=== PATIENT | female | born 1945 | race Caucasian/White ===

== ENCOUNTER 2021-07-06 10:30 | Outpatient (CLI) | payer MEDICARE, SELFPAY ==
[2021-07-06 10:44] LABS: Basophils Absolute Auto 0.05 K/mm3 (0.00-0.10); Basophils Percent Auto 0.9 % (0.0-1.0); Eosinophils Absolute Auto 0.06 K/mm3 (0.02-0.50); Eosinophils Percent Auto 1.1 % (1.0-6.0); Hematocrit 43.7 % (35.0-42.0); Immature Granulocyte Absolute 0.02 K/mm3 (0.00-0.00); Immature Granulocyte Percent A 0.4 % (0.0-0.0); Lymphocytes Absolute Auto 0.87 K/mm3 (1.10-4.50); Lymphocytes Percent Auto 15.9 % (18.0-42.0); Mean Corpuscular Hemoglobin 32.3 pg (27.0-31.0); Mean Corpuscular Volume 100.9 fL (78.0-102.0); Mean Platelet Volume 8.5 fl (9.2-11.8); Monocytes Absolute Auto 0.72 K/mm3 (0.10-0.90); Monocytes Percent Auto 13.2 % (2.0-11.0); Neutrophils Absolute Auto 3.7 K/mm3 (1.7-7.2); Neutrophils Percent Auto 68.5 % (50.0-70.0); Platelet Count Result 211 K/mm3 (150-420); Red Blood Count 4.33 M/mm3 (4.20-5.40); Red Cell Distribution Width 13.6 % (11.6-14.4); White Blood Count 5.5 K/mm3 (4.8-10.8)
[2021-07-06 11:01] LABS: Partial Thromboplastin Time 27.5 SEC (23.90-30.70); Prothrombin Time 11.1 Seconds (9.50-12.10)
[2021-07-06 11:14] LABS: Alanine Aminotransferase 38 U/L (14-59); Albumin Level 3.6 g/dL (3.4-5.0); Alkaline Phosphatase 95 U/L (46-116); Anion Gap 10 mmol/L (8-16); Aspartate Amino Transferase 86 U/L (15-37); Bilirubin,Total 0.6 mg/dL (0.00-1.00); Blood Urea Nitrogen 4 mg/dL (7-18); Carbon Dioxide 28 mmol/L (21-32); Chloride 97 mmol/L (98-108); Estimated Glomerular Filt Rate > 60; Glucose 119 mg/dL (70-99); Osmolality Calculated 277 mOsm/kg (285-295); Potassium 4.3 mmol/L (3.5-5.1); Sodium 135 mmol/L (136-145); Total Protein 6.9 g/dL (6.4-8.2)
[2021-07-06 13:28] LABS: Add Urine Microscopic? YES; Appearance Urine Clear (Clear); Bilirubin Urine Negative (Negative); Blood Urine Negative (Negative); Color Urine Yellow (Yellow); Glucose Urine UA Negative (Negative); Ketones Urine Trace (Negative); Leukocyte Esterase Ur Trace LEU/UL (Negative); Nitrate Urine Negative (Negative); Protein Urine Trace (Negative); Specific Grav Ur 1.025 (1.010-1.020); Urobilinogen Urine 0.2 mg/dL (0.2-1.0)
[2021-07-06 13:36] LABS: Bacteria Urine Trace /hpf; Mucus Urine Moderate /lpf; RBC Urine None seen /hpf (0-2); Squamous Epithelial Cell Urine Moderate /hpf (Few)
== END 2021-07-06 10:31 | disposition home or self-care (01) ==
PROVIDERS: PCP Internal Medicine
DX: I49.5 Sick sinus syndrome (principal); R55 Syncope and collapse; I45.5 Other specified heart block; I48.92 Unspecified atrial flutter; R09.89 Other specified symptoms and signs involving the circulatory and respiratory systems; R60.0 Localized edema; I48.0 Paroxysmal atrial fibrillation; G47.30 Sleep apnea, unspecified; Z95.818 Presence of other cardiac implants and grafts; J45.909 Unspecified asthma, uncomplicated; I10 Essential (primary) hypertension
CPT/HCPCS: 36415; 80053; 81001; 85025; 85610; 85730

== ENCOUNTER 2021-08-15 12:34 | Outpatient (CLI) | payer MEDICARE, SELFPAY ==
[2021-08-15 13:06] LABS: INR 1.1; Prothrombin Time 11.4 Seconds (9.50-12.10)
[2021-08-15 13:26] LABS: Anion Gap 6 mmol/L (8-16); Blood Urea Nitrogen 3 mg/dL (7-18); Calcium 9.1 mg/dL (8.5-10.1); Carbon Dioxide 29 mmol/L (21-32); Chloride 101 mmol/L (98-108); Estimated Glomerular Filt Rate > 60; Glucose 115 mg/dL (70-99); Magnesium 1.8 mg/dL (1.8-2.4); Osmolality Calculated 279 mOsm/kg (285-295); Potassium 4.5 mmol/L (3.5-5.1); Sodium 136 mmol/L (136-145)
== END 2021-08-15 12:35 | disposition home or self-care (01) ==
PROVIDERS: PCP Internal Medicine
DX: Z01.812 Encounter for preprocedural laboratory examination (principal); R00.1 Bradycardia, unspecified; I45.5 Other specified heart block; I48.92 Unspecified atrial flutter; R09.89 Other specified symptoms and signs involving the circulatory and respiratory systems
CPT/HCPCS: 36415; 80048; 83735; 85610

== ENCOUNTER 2022-01-10 18:29 | Outpatient (CLI) | payer MEDICARE, SELFPAY ==
[2022-01-10 18:49] LABS: Basophils Percent Auto 2.1 % (0.0-1.0); Eosinophils Absolute Auto 0.06 K/mm3 (0.02-0.50); Eosinophils Percent Auto 1.3 % (1.0-6.0); Hematocrit 40.2 % (35.0-42.0); Hemoglobin 13.2 g/dL (11.7-13.8); Immature Granulocyte Absolute 0.01 K/mm3 (0.00-0.00); Immature Granulocyte Percent A 0.2 % (0.0-0.0); Lymphocytes Absolute Auto 0.81 K/mm3 (1.10-4.50); Lymphocytes Percent Auto 17.2 % (18.0-42.0); Mean Corpuscular HGB Conc 32.8 g/dL (32.0-36.0); Mean Corpuscular Hemoglobin 34.3 pg (27.0-31.0); Mean Corpuscular Volume 104.4 fL (78.0-102.0); Mean Platelet Volume 8.6 fl (9.2-11.8); Monocytes Percent Auto 14.9 % (2.0-11.0); Neutrophils Percent Auto 64.3 % (50.0-70.0); Platelet Count Result 224 K/mm3 (150-420); Red Blood Count 3.85 M/mm3 (4.20-5.40); Red Cell Distribution Width 14.3 % (11.6-14.4); White Blood Count 4.7 K/mm3 (4.8-10.8)
[2022-01-10 19:22] LABS: Alanine Aminotransferase 69 U/L (14-59); Albumin Level 3.1 g/dL (3.4-5.0); Alkaline Phosphatase 132 U/L (46-116); Anion Gap 6 mmol/L (8-16); Aspartate Amino Transferase 198 U/L (15-37); Bilirubin,Total 0.6 mg/dL (0.00-1.00); Blood Urea Nitrogen 5 mg/dL (7-18); Calcium 8.6 mg/dL (8.5-10.1); Carbon Dioxide 29 mmol/L (21-32); Chloride 99 mmol/L (98-108); Estimated Glomerular Filt Rate > 60; Free T3 2.57 pg/mL (2.18-3.98); Free T4 Free Thyroxine 0.75 ng/dL (0.76-1.46); Glucose 114 mg/dL (70-99); NT Pro B Type Natriuretic Pept 85 pg/mL (0-450); Osmolality Calculated 276 mOsm/kg (285-295); Potassium 4.4 mmol/L (3.5-5.1); Sodium 134 mmol/L (136-145); Thyroid Stimulating Hormone 1.27 uIU/mL (0.36-3.74); Total Protein 6.7 g/dL (6.4-8.2)
[2022-01-14 12:09] LABS: Hepatitis A Antibody IgM Nonreactive; Hepatitis B Core Antibody Nonreactive (Nonreactive); Hepatitis B Surface Antigen Nonreactive (Nonreactive); Hepatitis C Signal to Cutoff 0.05 ratio (<1.00); Hepatitis C Virus Antibody Nonreactive (Nonreactive)
== END 2022-01-10 18:30 | disposition home or self-care (01) ==
LOC: CHSLAB 18:32
PROVIDERS: PCP Internal Medicine; Visit Provider Internal Medicine
DX: R16.0 Hepatomegaly, not elsewhere classified (principal); R60.9 Edema, unspecified; I10 Essential (primary) hypertension; R06.00 Dyspnea, unspecified
CPT/HCPCS: 36415; 80053; 80074; 83880; 84439; 84443; 84481; 85025

== ENCOUNTER 2022-01-19 08:22 | Outpatient (CLI) | payer MEDICARE, SELFPAY ==
--- NOTE | ~2022-01-19 | US_ITS ---
US arterial ankle brachial ind INDICATION: Hypertension, heart disease. Hyperlipidemia. TECHNIQUE: Segmental pressures and plethysmographic and Doppler waveforms of the brachial and lower e xtremity arteries were obtained. COMPARISON: None. FINDINGS: Right and left brachial artery pressures of 111 mm Hg and 116 mm Hg, respectively, are concordant (no rmal difference <= 30 mmHg). The right ankle-brachial index (CELI) is 1.13 (normal >= 0.9-1.0). The right great toe-brachial index (TBI) is 0.91 (normal >= 0.60). The left CELI is 1.16. The left TBI is 0.86. IMPRESSION: 1. Normal bilateral ankle and toe brachial indices. Reviewed, dictated and finalized at location B.
--- NOTE | ~2022-01-19 | US_ITS ---
US abdomen complete EXAMINATION: US Abdomen Complete INDICATION: Hepatomegaly PROCEDURE: Realtime High Resolution abdomen ultrasound. COMPARISON: No prior studies for comparison FINDINGS: There is gallbladder wall thickening. No gallstones or pericholecystic fluid. Common bile duct is not visualized. Liver echotexture is increased, consistent with fatty infiltration. Liver is enlarged measuring 21.6 cm. Pancreas is obscured by bowel gas. Spleen is unremarkeable. Renal echotexture is within normal li mits bilaterally without hydronephrosis, contour deforming mass or renal stone. Right kidney measures 10.6 cm. Left kidney measures 11.6 cm. Visualized aspects of the aorta and IVC are within normal limits. Portal vein is patent. No sonograph ic Umaña's sign indicated by the technologist. IMPRESSION: 1: Hepatomegaly with fatty infiltration of the liver. 2: Mild gallbladder wall thickening. This could indicate interstitial edema, chronic liver disease o r chronic cholecystitis. Reviewed, dictated and finalized at location B. IMPRESSION: 1: Hepatomegaly with fatty infiltration of the liver. 2: Mild gallbladder wall thickening. This could indicate interstitial edema, c hronic liver disease or chronic cholecystitis.
--- NOTE | ~2022-01-19 | XR_ITS ---
XR chest 2V 01/19/2022 08:46 Indication: Hypertension. Procedure: 2 view chest Comparison: 02/18/2019 Findings: There is chronic left basilar atelectasis/scarring. Heart size normal. Pacemaker leads in e xpected position. No focal air space disease, pulmonary edema, pleural effusion or suspected pneumoth orax. No acute osseous abnormality. Moderate thoracic spondylosis. Impression: 1: No acute cardiopulmonary disease. 2: Chronic left basilar atelectasis/scarring. Reviewed, dictated and finalized at location B. Impression: 1: No acute cardiopulmonary disease. 2: Chronic left basilar atelectasis/scarring.
[2022-01-19 08:34] LABS: Appearance Urine Clear (Clear); Bilirubin Urine Negative (Negative); Blood Urine Negative (Negative); Glucose Urine UA Negative (Negative); Ketones Urine Negative (Negative); Leukocyte Esterase Ur Trace (Negative); Nitrate Urine Negative (Negative); Protein Urine Negative (Negative); Specific Grav Ur <= 1.005 (1.010-1.020); Urobilinogen Urine 0.2 mg/dL (0.2-1.0)
[2022-01-19 08:38] LABS: Add Urine Microscopic? YES; Color Urine Light Yellow (Yellow); RBC Urine None seen /hpf (0-2)
[2022-01-19 08:39] LABS: Bacteria Urine Trace /hpf; Squamous Epithelial Cell Urine Rare /hpf (Few); WBC Urine 0-3 /hpf (0-3)
== END 2022-01-19 08:23 | disposition home or self-care (01) ==
LOC: CHSIMG 08:25
PROVIDERS: PCP Internal Medicine; Visit Provider Internal Medicine
DX: I73.9 Peripheral vascular disease, unspecified (principal); R16.0 Hepatomegaly, not elsewhere classified; R60.9 Edema, unspecified; I10 Essential (primary) hypertension
CPT/HCPCS: 71046; 76700; 81001; 93922

== ENCOUNTER 2022-05-08 16:11 | Outpatient (CLI) | payer MEDICARE, SELFPAY ==
[2022-05-08 16:28] LABS: Basophils Absolute Auto 0.06 K/mm3 (0.00-0.10); Basophils Percent Auto 0.7 % (0.0-1.0); Eosinophils Absolute Auto 0.08 K/mm3 (0.02-0.50); Eosinophils Percent Auto 0.9 % (1.0-6.0); Hematocrit 44.2 % (35.0-42.0); Hemoglobin 14.5 g/dL (11.7-13.8); Immature Granulocyte Absolute 0.03 K/mm3 (0.00-0.00); Immature Granulocyte Percent A 0.3 % (0.0-0.0); Lymphocytes Absolute Auto 1.38 K/mm3 (1.10-4.50); Lymphocytes Percent Auto 15.5 % (18.0-42.0); Mean Corpuscular HGB Conc 32.8 g/dL (32.0-36.0); Mean Corpuscular Hemoglobin 31.7 pg (27.0-31.0); Mean Corpuscular Volume 96.7 fL (78.0-102.0); Mean Platelet Volume 8.3 fl (9.2-11.8); Monocytes Absolute Auto 0.87 K/mm3 (0.10-0.90); Monocytes Percent Auto 9.8 % (2.0-11.0); Neutrophils Absolute Auto 6.5 K/mm3 (1.7-7.2); Neutrophils Percent Auto 72.8 % (50.0-70.0); Platelet Count Result 268 K/mm3 (150-420); Red Blood Count 4.57 M/mm3 (4.20-5.40); Red Cell Distribution Width 12.4 % (11.6-14.4); White Blood Count 8.9 K/mm3 (4.8-10.8)
[2022-05-08 17:05] LABS: Alanine Aminotransferase 26 U/L (14-59); Albumin Level 3.3 g/dL (3.4-5.0); Alkaline Phosphatase 111 U/L (46-116); Anion Gap 9 mmol/L (8-16); Aspartate Amino Transferase 37 U/L (15-37); Bilirubin,Total 0.6 mg/dL (0.00-1.00); Blood Urea Nitrogen 6 mg/dL (7-18); Calcium 9.1 mg/dL (8.5-10.1); Carbon Dioxide 27 mmol/L (21-32); Chloride 95 mmol/L (98-108); Estimated Glomerular Filt Rate > 60; Glucose 132 mg/dL (70-99); Osmolality Calculated 271 mOsm/kg (285-295); Potassium 4.3 mmol/L (3.5-5.1); Sodium 131 mmol/L (136-145); Total Protein 6.9 g/dL (6.4-8.2)
== END 2022-05-08 16:12 | disposition home or self-care (01) ==
LOC: CHSLAB 16:16
PROVIDERS: PCP Internal Medicine; Visit Provider Internal Medicine
DX: K76.9 Liver disease, unspecified (principal)
CPT/HCPCS: 36415; 80053; 85025

== ENCOUNTER 2023-02-28 18:45 | Emergency (ER) | payer MEDICARE, SELFPAY ==
[2023-02-28 18:45] VITALS: BP 140/84; PULSE 117; RESP 20; TEMP 36.7; O2SAT 96
[2023-02-28 19:26] LABS: Basophils Absolute Auto 0.02 K/mm3 (0.00-0.10); Basophils Percent Auto 0.2 % (0.0-1.0); Hematocrit 37.9 % (35.0-42.0); Hemoglobin 12.8 g/dL (11.7-13.8); Immature Granulocyte Absolute 0.04 K/mm3 (0.00-0.00); Immature Granulocyte Percent A 0.4 % (0.0-0.0); Lymphocytes Absolute Auto 0.69 K/mm3 (1.10-4.50); Lymphocytes Percent Auto 7.2 % (18.0-42.0); Mean Corpuscular HGB Conc 33.8 g/dL (32.0-36.0); Mean Corpuscular Hemoglobin 32.2 pg (27.0-31.0); Mean Corpuscular Volume 95.5 fL (78.0-102.0); Mean Platelet Volume 8.5 fl (9.2-11.8); Monocytes Absolute Auto 0.95 K/mm3 (0.10-0.90); Monocytes Percent Auto 9.9 % (2.0-11.0); Neutrophils Absolute Auto 7.9 K/mm3 (1.7-7.2); Neutrophils Percent Auto 82.3 % (50.0-70.0); Platelet Count Result 214 K/mm3 (150-420); Red Blood Count 3.97 M/mm3 (4.20-5.40); White Blood Count 9.6 K/mm3 (4.8-10.8)
--- NOTE | 2023-02-28 19:34 | PC.NURSE ---
report to johnnie marshall
[2023-02-28] MEDS: SODIUM CHLORIDE 0.9% IV 1,000 ML 999 ML IV CONT (19:35)
[2023-02-28 19:38] VITALS: BP 132/85; PULSE 113; RESP 20; O2SAT 96
[2023-02-28 19:40] LABS: INR 1.2; Partial Thromboplastin Time 26.6 SEC (23.90-30.70); Prothrombin Time 12.5 Seconds (9.50-12.10)
[2023-02-28 19:45] LABS: Lactic Acid Reflex 6.3 mmol/L (0.4-2.0)
[2023-02-28 20:09] LABS: Alanine Aminotransferase 54 U/L (14-59); Albumin Level 2.5 g/dL (3.4-5.0); Alkaline Phosphatase 135 U/L (46-116); Anion Gap 12 mmol/L (8-16); Aspartate Amino Transferase 101 U/L (15-37); Bilirubin,Total 1.4 mg/dL (0.00-1.00); Blood Urea Nitrogen 5 mg/dL (7-18); Calcium 9.1 mg/dL (8.5-10.1); Carbon Dioxide 25 mmol/L (21-32); Chloride 93 mmol/L (98-108); Estimated CRCL calculation 42 ml/min; Estimated Glomerular Filt Rate > 60; Folic Acid 14.9 ng/mL (8.6->20); Glucose 140 mg/dL (70-99); Osmolality Calculated 269 mOsm/kg (285-295); Potassium 4.1 mmol/L (3.5-5.1); Sodium 130 mmol/L (136-145); Total Protein 5.9 g/dL (6.4-8.2); Vitamin B12 1034 pg/mL (193-986)
--- NOTE | 2023-02-28 20:22 | PC.NURSE ---
pt currently sitting up on stretcher eating meal, stew not available in ED, will see if located on 2nd floor and admin if available
[2023-02-28 20:50] LABS: Add Urine Microscopic? NO; Appearance Urine Clear (Clear); Bilirubin Urine Negative (Negative); Blood Urine Negative (Negative); Color Urine Yellow (Yellow); Glucose Urine UA Negative (Negative); Ketones Urine Negative (Negative); Leukocyte Esterase Ur Negative LEU/UL (Negative); Nitrate Urine Negative (Negative); Protein Urine Negative (Negative); Urobilinogen Urine 0.2 mg/dL (0.2-1.0); pH Urine 6.5 (5.0-8.0)
--- NOTE | 2023-02-28 20:56 | ED.EXTPRO ---
HPI - Extremity Problem General Chief complaint: Extremity Problem,Nontraumatic Stated complaint: numbness to feet Source: patient Mode of arrival: ambulatory Limitations: no limitations History of Present Illness HPI Narrative: this is a 77-year-old female with the history of alcohol abuse that presents with neuropathy her numbness and tingling in her feet started earlier this this evening and had difficulty with walking secondary to worried about having a fall. Patient denies any other symptoms there is no fever chills no saddle paresthesias no bowel or bladder dysfunction no back pain no sciatica, there is no chest pain no shortness of breath no fever chills. Patient has stated that she is a chronic drinker and has some not had enough fluids over the past few days. MD Complaint: extremity pain Onset (ago): hour(s) Pain Consistency: constant Location: lower extremity Quality: burning Radiation: distal Related Data Allergies Allergy/AdvReac Type Severity Reaction Status Date / Time No Known Allergies Allergy Verified 02/28/23 19:43 Review of Systems Review of Systems: All systems reviewed & are unremarkable except as noted in HPI and below PMFSH Past Medical History Medical History Alcohol abuse HTN (hypertension) Exam Const: General: healthy appearing Orientation/consciousness: patient oriented x3 Limitations: no limitations HENMT: Head: normal to inspection Neck: Neck: normal visual inspection, no lymphadenopathy and no meningeal signs Chest: Chest palpation & inspection: normal inspection of the chest Resp: Effort & Inspection: normal respiratory effort Auscultation: clear to auscultation bilaterally Cardio: Rate: regular rate Rhythm: regular rhythm GI: GI Palp: Yes Soft to palpation Auscultation: normal bowel sounds : General: Yes bladder normal to palpation Back/Spine/Pelvis: Back: no CVA tenderness Skin: General skin exam: normal color Rashes: no rashes Neuro: General: patient oriented x3, moves all extremities, no meningeal signs and no focal motor deficits Speech: normal speech Gait exam (Neuro): Normal gait present Extrem: Other: has peripheral neuropathy with burning sensation and bilateral feet Psych: Mental Status: mental status grossly normal Affect: normal affect Course Course Emergency Course: patient received a dose of Neurontin 4mg, labs reviewed with patient and family did show that her sodium level was 130 with a lactic acid around 6, with normal white cell count and the rest of her labs were unremarkable, the patient did receive L of IV fluids. Discussed discharge and follow-up with her primary and will prescribe Neurontin for the patient. Vital Signs Vital signs: Vital Signs Temperature 36.7 C 02/28/23 18:45 Pulse Rate 117 H 02/28/23 18:45 Respiratory Rate 20 02/28/23 18:45 Blood Pressure 140/84 02/28/23 18:45 Pulse Oximetry 96 02/28/23 18:45 Oxygen Delivery Room Air 02/28/23 18:45 Temperature 36.7 C 02/28/23 18:45 Pulse Rate 113 H 02/28/23 19:38 Respiratory Rate 20 02/28/23 19:38 Blood Pressure 132/85 02/28/23 19:38 Pulse Oximetry 96 02/28/23 19:38 Oxygen Delivery Room Air 02/28/23 19:38 MDM - Extremity (Nontraumatic) Lab Data 02/28/23 19:22 02/28/23 19:22 Labs: Lab Results 02/28/23 02/28/23 Range/Units 19:22 20:47 WBC 9.6 (4.8-10.8) K/mm3 RBC 3.97 L (4.20-5.40) M/mm3 Hgb 12.8 (11.7-13.8) g/dL Hct 37.9 (35.0-42.0) % MCV 95.5 (78.0-102.0) fL MCH 32.2 H (27.0-31.0) pg MCHC 33.8 (32.0-36.0) g/dL RDW 14.0 (11.6-14.4) % Plt Count 214 (150-420) K/mm3 MPV 8.5 L (9.2-11.8) fl Immature Gran % (Auto) 0.4 H (0.0-0.0) % Neut % (Auto) 82.3 H (50.0-70.0) % Lymph % (Auto) 7.2 L (18.0-42.0) % Cottle % (Auto) 9.9 (2.0-11.0) % Eos % (Auto) 0.0 L (1.0-6.0) % Baso
[2023-02-28 21:12] VITALS: BP 116/69; PULSE 102; RESP 18; O2SAT 97
[2023-02-28] MEDS: GABAPENTIN 400 MG CAPSULE PO (21:21)
[2023-02-28 22:25] LABS: Reflex Lactic Acid Yes or No Add Lactic
== END 2023-02-28 21:30 | disposition home or self-care (01) ==
PROVIDERS: Emergency Provider Emergency Medicine; PCP Internal Medicine
DX: G62.9 Polyneuropathy, unspecified (principal); I10 Essential (primary) hypertension
CPT/HCPCS: 36415; 80053; 81003; 82607; 82746; 83605; 84443; 85025; 85610; 85730; 96360; 99283; A9270; J7030

== ENCOUNTER 2023-07-03 16:13 | Emergency (ER) | payer MEDICARE, SELFPAY ==
--- NOTE | ~2023-07-03 | XR_ITS ---
XR hip LT 2V w AP pelvis 07/03/2023 17:15 Indication: Left hip pain Procedure: AP pelvis and 2 views left hip Comparison: No prior studies for comparison. Findings: There is ill-defined irregular lucency in the intertrochanteric region of the left femur, s uspicious for nondisplaced fracture. There is mild osteoarthritis of the hips. Pelvic rings are intac t. Impression: 1: Possible nondisplaced left femoral intertrochanteric fracture. Consider correlation with CT. Reviewed, dictated and finalized at location A. Impression: 1: Possible nondisplaced left femoral intertrochanteric fracture. Consider darian elation with CT.
--- NOTE | ~2023-07-03 | XR_ITS ---
EXAMINATION: XR hand LT min 3V DATE: 07/03/2023 17:15 INDICATION: Left hand injury. TECHNIQUE: 4 views of left hand were obtained. COMPARISON: None. FINDINGS: Bone alignment is normal. No fracture. There is moderate osteoarthritis of triscaphe joint and severe osteoarthritis of first carpometacarpal joint. There is mild osteoarthritis of some of the interphalangeal joints. IMPRESSION: 1. Polyarticular osteoarthritis. Reviewed, dictated and finalized at location A.
--- NOTE | ~2023-07-03 | CT_ITS ---
EXAMINATION: CT hip LT wo con DATE: 07/03/2023 18:18 INDICATION: Trauma. Left hip pain. TECHNIQUE: Computed tomography (CT) of the left hip was performed without intravenous contrast. The d ose-length product was 427.79 mGy-cm. Automated exposure control and iterative reconstruction technElectron Database ue were employed. COMPARISON: Left hip series dated 07/03/2023 FINDINGS: There is mild osteoarthritis of the left hip. No acute fracture or traumatic malalignment. Surrounding pelvic structures are unremarkable. There are calcified soft tissue nodules in the latera l soft tissues of doubtful clinical significance. IMPRESSION: 1. No acute fracture. Reviewed, dictated and finalized at location A. IMPRESSION: 1. No acute fracture.
--- NOTE | ~2023-07-03 | CT_ITS ---
EXAMINATION: CT brain wo con DATE: 07/03/2023 17:00 INDICATION: Head injury. TECHNIQUE: Computed tomography (CT) of the head was performed without intravenous contrast. The dose- length product was 983.67 mGy-cm. Automated exposure control and iterative reconstruction technique w ere employed. COMPARISON: CT dated 02/19/2019 FINDINGS: There is a large area of encephalomalacia of the right frontal, parietal and temporal lobes , consistent with a chronic right MCA distribution infarction. Generalized atrophy. There are scatter ed mild periventricular and subcortical white matter changes, most likely related to small vessel isc hemic disease (microangiopathy). There is an extra-axial lentiform soft tissue collection with margin al calcifications, likely chronic subdural hematoma involving the parietal location. No depressed sku ll fractures. Paranasal sinuses and mastoids are pneumatized. IMPRESSION: 1. Complex extra-axial soft tissue with lentiform shape involving the left parietal location, likely chronic subdural hematoma. 2: Large chronic right MCA distribution infarction with encephalomalacia. 3: Chronic age-related findings. Reviewed, dictated and finalized at location A. IMPRESSION: 1. Complex extra-axial soft tissue with lentiform shape involving the left martín etal location, likely chronic subdural hematoma. 2: Large chronic right MCA distribution infarction with encephalomalacia. 3: Chronic age-related findings.
[2023-07-03 16:30] VITALS: BP 125/83; PULSE 91; RESP 18; TEMP 36.6; O2SAT 96
[2023-07-03 16:31] VITALS: BP 125/83; PULSE 90; RESP 16; TEMP 36.8; O2SAT 98
--- NOTE | 2023-07-03 17:08 | ED.FALL ---
HPI - Fall General Chief Complaint: Fall Stated Complaint: Fall Time Seen by Provider: 07/03/23 16:22 History of Present Illness HPI Narrative: patient is a 78-year-old female with history of CVA and residual left-sided weakness who presents to ER after a fall. She had finished using the restroom and called for help. Nobody came after 1 ring of the lopez so she tried to get up and fell to her left side. She struck her head. No LOC. Patient does take aspirin and Plavix. She also is reporting pain to her left hip where she fell. She is able to move that leg despite having limited strength. Patient has some contracture to the left upper extremity with increased weakness there compared to left. Related Data Allergies Allergy/AdvReac Type Severity Reaction Status Date / Time No Known Allergies Allergy Verified 02/28/23 19:43 Review of Systems Review of Systems: All systems reviewed & are unremarkable except as noted in HPI and below Constitutional: Constitutional: Reports no additional constitutional complaints ENT: Reports system reviewed and no additional complaints, except as documented Cardiovascular: Cardiovascular: Reports no additional cardiovascular complaints Respiratory: Respiratory: Reports no additional respiratory complaints Musculoskeletal: Comments: New pain to the left hip. Integumentary/Breasts: Comments: bruising left hand Neurologic: Denies syncope, Denies headache(s) and Reports focal weakness PMFSH Past Medical History Medical History (Updated 07/03/23 @ 18:50 by Zurdo Randle MD) Alcohol abuse Atrial fib/flutter, transient Brain bleed Colon cancer Hemiplegia following cerebrovascular accident (CVA) HTN (hypertension) Social History Social History Smoking status: Never smoker Exam Narrative: GENERAL: chronically ill-appearing, well-nourished, and in no acute distress. HEAD: Normocephalic, atraumatic. EYES: PERRL and EOMI. ENT: Mucous membranes moist. CHEST: Clear to auscultation. No respiratory distress. HEART: Regular rate and rhythm. Normal peripheral pulses. ABDOMEN: Soft, nontender, nondistended. EXTREMITIES: contractures left upper extremity. Mild tenderness left hip but normal range of motion active/passive. SKIN: Warm, dry, no rash. NEURO: Chronic left facial droop. Alert and oriented x3. PSYCH: Normal mood and affect. Course Course Emergency Course: patient reports known chronic subdural hematoma. She did have a procedure to prevent any additional leaking. Discussed imaging results with her and her daughter. Appropriate for discharge back to facility. Vital Signs Vital signs: Vital Signs Temperature 97.8 F 07/03/23 16:30 Pulse Rate 91 07/03/23 16:30 Respiratory Rate 18 07/03/23 16:30 Blood Pressure 125/83 07/03/23 16:30 Pulse Oximetry 96 07/03/23 16:30 Temperature 98.0 F 07/03/23 17:30 Pulse Rate 98 07/03/23 18:00 Respiratory Rate 17 07/03/23 18:00 Blood Pressure 137/98 H 07/03/23 18:00 Pulse Oximetry 98 07/03/23 18:00 Oxygen Delivery Room Air 07/03/23 16:31 MDM - Fall Imaging Data Radiologist's impression: ITS Impressions Head CT 07/03/23 17:03 IMPRESSION: 1. Complex extra-axial soft tissue with lentiform shape involving the left parietal location, likely chronic subdural hematoma. 2: Large chronic right MCA distribution infarction with encephalomalacia. 3: Chronic age-related findings. Hip/Pelvis X-Ray 07/03/23 17:18 Impression: 1: Possible nondisplaced left femoral intertrochanteric fracture. Consider correlation with CT. Hand X-Ray 07/03/23 17:19 IMPRESSION: 1. Polyarticular osteoarthritis. Hip CT 07/03/23 18:28 IMPRESSION: 1. No acute fracture. Discharge Plan Discharge Clinical Impression: Traumatic ecchymosis of left hand, Hip pain Patient Disposition: Home, Daily
[2023-07-03 17:30] VITALS: BP 136/80; PULSE 90; RESP 20; TEMP 36.7; O2SAT 100
[2023-07-03 18:00] VITALS: BP 137/98; PULSE 98; RESP 17; O2SAT 98
[2023-07-03 18:03] VITALS: BP 138/73; PULSE 97; RESP 17; TEMP 36.4; O2SAT 97
[2023-07-03 18:31] VITALS: BP 143/97; PULSE 90; RESP 16; TEMP 36.7; O2SAT 97
== END 2023-07-03 19:27 | disposition home or self-care (01) ==
PROVIDERS: Emergency Provider Emergency Medicine; PCP Internal Medicine
DX: S60.222A Contusion of left hand, initial encounter (principal); S79.912A Unspecified injury of left hip, initial encounter; S09.90XA Unspecified injury of head, initial encounter; I69.954 Hemiplegia and hemiparesis following unspecified cerebrovascular disease affecting left non-dominant side; I10 Essential (primary) hypertension; Z79.82 Long term (current) use of aspirin; Z79.02 Long term (current) use of antithrombotics/antiplatelets; M19.042 Primary osteoarthritis, left hand; M18.9 Osteoarthritis of first carpometacarpal joint, unspecified; M19.032 Primary osteoarthritis, left wrist; W18.11XA Fall from or off toilet without subsequent striking against object, initial encounter
CPT/HCPCS: 70450; 73130; 73502; 73700; 99284

== ENCOUNTER 2024-07-12 12:40 | Emergency (ER) | payer MEDICARE, SELFPAY ==
--- NOTE | ~2024-07-12 | CT_ITS ---
EXAMINATION: CT abdomen pelvis w con DATE: 07/12/2024 15:30 INDICATION: Blood in stool TECHNIQUE: Computed tomography (CT) of the abdomen and pelvis was performed with 100 CC Omnipaque 350 intravenous contrast. Automated exposure control and iterative reconstruction technique were employe d. Exam dose: 371.94 mGy-cm total exam DLP. COMPARISON: 01/19/2022 abdominal ultrasound FINDINGS: Linear atelectasis or scar, right lower lobe. Minimal atelectasis at the left lung base. Right atrial and right ventricular pacemaker leads. No pericardial or pleural effusion. Hepatic steatosis. No hepatic, splenic, pancreatic, and adrenal or renal space occupying mass lesion. Focal scar, lateral lower pole left kidney. The gallbladder appears unremarkable. No bile duct or pancreatic duct dilatation. No urinary tract calculus or hydroureteronephrosis. The urinary bladder is unremarkable. Status post hysterectomy. There is extensive calcification but normal caliber of the abdominal aorta. Calcifications at the herb gins of the celiac and superior mesenteric and particularly of the renal arteries in addition to infe rior mesenteric artery. No intraperitoneal or retroperitoneal, mesenteric or pelvic mass lesion or adenopathy or ascites. Solitary diverticulum of the descending colon is noted; no evidence of diverticulitis. Right lower quadrant ileostomy. There are occasional left abdominal small bowel air-fluid levels. No small or large bowel obstruction is noted. No intraperitoneal free air. Degenerative spurring of the thoracic spine. Grade 1 anterolisthesis at L4-5 due to degenerative holden ge at the apophyseal joints. Severe degenerative disc disease and mild associated retrolisthesis at L5-S1. IMPRESSION: Right lower quadrant ileostomy. No bowel obstruction or free air Minimal colon diverticulosis Reviewed, dictated and finalized at [facility]. Reviewed, dictated and finalized at location [facility].
[2024-07-12 12:42] VITALS: BP 102/69; PULSE 90; RESP 19; TEMP 36.1; O2SAT 99
--- OUTSIDE RECORDS SUMMARY | 2024-07-12 12:44 | XMS_ITS | Clinical Summary ---
Author Organization [facility] Address [address] [place] [address] Care Team Providers Care Head Waiter Name Role Phone Frank, Lorna Vela APRN-COOLING MACHINE OPERATOR Primary Care Provider Source Comments [facility],non-owned Affiliates and Associated Physician Practices is amultiple site organization consisting of ambulatory clinics and hospital sitesin [place], [place], [place] and [place]. This disclosure is being madepursuant to the Care Everywhere program and may not contain all information available regarding this patient. Last updated 18.[facility] Allergies Active Allergy Reactions Criticality Noted Date Comments Adhesive Sensitivity Rash,Eye Redness Medium 4 Simvastatin Psychiatric Medium 12/18/2017 Causes cognitive impairment Medications * Be aware that medications may not be up to date on this document. Alwaysverify current medications with the patient. Medication Sig Dispensed Refills Start Date End Date Status acetaminophen (TYLENOL) 325 MG tablet Take 2 tablets by mouth every 6 hours as needed for Pain Maximum allowable Acetaminophen amount = 4 Grams (4000 mg) / 24 hours. 8 Active amiodarone (Cordarone) 200 MG tablet Take 1 (one) tablet by mouth once daily 60 tablet 5 4 Active aspirin (Aspirin) 81 MG chew tablet Take 1 (one) tablet by mouth once daily 100 tablet 4 4 Active nystatin (Mycostatin) 531794 UNIT/GM powder Apply to affected area 2 times daily 60 g 5 4 Active atorvastatin (Lipitor) 20 MG tablet Take 1 (one) tablet by mouth once daily 100 tablet 4 4 Active psyllium (Metamucil) 58.6 % powder Take 1 (one) packet by mouth 2 times daily 54 packet 5 4 Active traZODone (Desyrel) 50 MG tablet Take 1 (one) tablet by mouth at bedtime 90 tablet 4 4 Active Cholecalciferol (Vitamin D3) 25 MCG (1000 UT) Take 1 (one) capsule by mouth once daily 30 capsule 5 4 Active levETIRAcetam (Keppra) 500 MG tablet TAKE 1 (ONE) TABLET BY MOUTH 2 TIMES DAILY 180 tablet 3 5 Active metoprolol succinate XL 24hr (Toprol XL) 50 MG tablet TAKE 1 TABLET BY MOUTH EVERY DAY 90 tablet 1 5 Active OLANZapine (ZyPREXA) 5 MG tablet Take 1 (one) tablet by mouth once daily Active venlafaxine XR 24hr (Effexor XR) 75 MG capsuleIndicati ons:Anxiety Take 1 (one) capsule by mouth once daily 90 capsule 4 5 Active escitalopram (Lexapro) 20 MG tablet Take 1 (one) tablet by mouth once daily 90 tablet 4 4 06/27/19 25 Discontinued(Tx Complete) metoprolol succinate XL 24hr (Toprol XL) 50 MG tablet TAKE 1 TABLET BY MOUTH EVERY DAY 90 tablet 1 4 06/16/19 25 Discontinued OLANZapine (ZyPREXA) 2.5 MG tabletIndicatio ns:Psychosis, unspecified psychosis type (HCC) Take 1 (one) tablet by mouth once daily 90 tablet 4 4 06/27/19 25 Discontinued(Tx Complete) Active Problems Problem Noted Date Diagnosed Date Presence of ileostomy 2024 Psychosis, unspecified psychosis type 2024 Hemiplegia and hemiparesis f ollowing cerebral infarction affecting left non-dominant side 2024 Mild dementia, unspecified d ementia type, unspecified whether behavioral, psychotic, or mood disturbance or anxiety 2024 Seizure-like activity 2024 Goals of care, counseling/discussion 10/19/2023 Malnutrition 08/21/2023 SDH (subdural hematoma) 08/19/2023 Recurrent falls 08/19/2023 Colon adenocarcinoma 07/16/2023 CVA (cerebrovascular accident) 06/21/2023 Malignant tumor of colon 06/21/2023 Non-ST elevation (NSTEMI) myocardial infarction 06/21/2023 Presence of cardiac pacemaker 07/13/2021 Bradycardia 06/23/2021 Sinoatrial block 06/23/2021 Sick sinus syndrome 06/23/2021 Status post placement of implantable loop record er 06/07/2021 NAVDEEP (obstructive sleep apnea) 10/14/2017 Atrial fibrillation with RVR 09/17/2017 Sleep apnea 09/17/2017 HTN (hypertension) 07/14/2015 Asthma 07/14/2015 Syncope 05/30/2015 Essential hypertension 02/22/2015 Overview (02/27/2024): Essential hypertension Multiple-type hyperlipidemia 02/22/2015 Overview (02/27/2024): Mixed hyperlipidemia Arteriosclerosis of coronary artery 05/08/2013 Overview (02/27/2024): CRNRY ATHRSCL NATVE VSSL Paroxysmal atrial fibrillation 05/08/2013 Overview (02/27/2024): ATRIAL FIBRILLATION Resolved Problems Problem Noted Date Diagnosed Date Resolved Date Family history of hypertension 02/27/2024 02/27/2024 Acute renal failure 10/19/2023 02/27/20 24 Delirium 10/19/2023 02/27/2024 Leukocytosis 10/19/2023 02/27/2024 E. coli UTI (urinary tract infection) 08/25/2023 03/12/2024 Delirium due to another medical condition 08/22/2023 02/27/2024 History of cardioembolic cer ebrovascular accident (CVA) 07/16/2023 02/27/2024 Encounter for preprocedural cardiovascular examination 06/21/2023 02/27/2024 Ventricular fibrillation 06/21/202310/2023 Abnormal finding on GI tract imaging 04/06/2023 02/27/2024 Gastrointestinal hemorrhage 04/06/2023 02/27/2024 Acute stroke due to ischemia 03/27/2023 02/27/2024 Persistent atrial fibrillation 06/15/2020 02/27/2024 Atrial flutter 03/26/2019 02/27/2024 Ankle edema 01/28/2019 02/27/2024 Weak arterial pulse 01/28/2019 02/27/20 Chronic anticoagulation 07/29/201710/2023 Encounters Date Type Department Care Team Description 2024 12:07 PM MANAGER PROTEIN - 2024 11:59 PM MANAGER PROTEIN Hospital Encounter [facility] OP DRAW STATION [address] [place] [address] Lorna Marie, MILLI-COOLING MACHINE OPERATOR Discharge Disposition: Home or Self Care 2024 11:00 AM MANAGER PROTEIN Office Visit [facility] [address] [place] [phone] Lorna Marie, INVESTOR RELATIONS MANAGER-COOLING MACHINE OPERATOR Presence of ileostomy (Primary Dx); Psychosis, unspecified psychosis type; Hemiplegia and hemiparesis following cerebral infarction affecting left non-dominant side; Mild dementia, unspecified dementia type, unspecified whether behavioral, psychotic, or mood disturbance or anxiety; Seizure-like activity; Colon adenocarcinoma; Paroxysmal atrial fibrillation; SDH (subdural hematoma); Urinary tract infection with hematuria, site unspecified; Dysuria; Hematuria, unspecified type; Hyperlipidemia, unspecified hyperlipidemia type; Anxiety 2024 Travel 06/12/2024 Refill [facility] [address] [place] [phone] Lorna Marie, INVESTOR RELATIONS MANAGER-COOLING MACHINE OPERATOR Refill Request 04/21/2024 Refill [facility] [address] [place] [phone] Nohelia Mayen MD Refill Request from Last 3 Months Immunizations Name Administration Dates Next Due COVID PFIZER BIVALENT 12Y+ 30mcg/0.3ML Covid Pfizer primary monoval ent 12+ yr 0.3mL Purple cap 03/03/2021,07/14/2020,06/15/2020 FLU VACCINE TRI IIV3 SPLIT IM (FLUVIRIN) 017,01/21/2012 INFLUENZA VACCINE, HIGH-DOSE , QUADR. (FLUZONE HIGH-DOSE QUADRIVALENT; 65Y+), 0.7 ML (HD-IIV4) 01/21/2022,02/02/2021 INFLUENZA VACCINE, HIGH-DOSE , TRIV. (FLUZONE HIGH-DOSE TRIVALENT; 65Y+) (HD-IIV3) 02/12/2018,04/26/2015 INFLUENZA VACCINE, QUADR. (A FLURIA, FLUZONE QUADRIVALENT; 6MO+) (IIV4) 01/21/2020,02/18/2014 INFLUENZA VACCINE, QUADR. (F LUZONE; FLULAVAL; FLUARIX; AFLURIA QUADRIVALENT; 6MO+), 0.5 ML (IIV4) 02/13/2019 PNEUMOCOCCAL PPV VACCINE 05/06/2012 Pneumococcal Pcv13 Conj 02/13/2019 TDAP, HISTORIC VACCINE 02/20/2019 Zoster Hzv Vacc Recombinant Inj Im 05/08/2019, Social History Tobacco Use Types Packs/Day Years Used Date Smoking Tobacco: Former Smokeless Tobacco: Never Tobacco Cessation:Counseling Given: Not Answered Comments:quit 36 yrs ago Alcohol Use Standard Drinks/Week Comments Yes 14 (1 standard drink = 0.6 oz pu re alcohol) Sex and Gender Information Value Date Recorded Sex Assigned at Not on file Gender Identity Not on file Sexual Orientation Not on file Last Filed Vital Signs Vital Sign Reading Time Taken Comments Blood Pressure 99/67 2024 10:43 AM MANAGER PROTEIN Pulse 89 2024 10:43 AM MANAGER PROTEIN Temperature 36.7 C (98 F) 11/09/2023 11:43 AM CDT Respiratory Rate 18 11/09/2023 11:4 3 AM CDT Oxygen Saturation 90% 2024 10: 43 AM MANAGER PROTEIN Inhaled Oxygen Concentration - - Weight 63.4 kg (139 lb 12.8 oz) 025 10:43 AM MANAGER PROTEIN Height 162.6 cm (5' 4 ) 2024 10:4 3 AM MANAGER PROTEIN Body Mass Index 24 2024 10:43 AM MANAGER PROTEIN Plan of Treatment Upcoming Encounters Date Type Department Care Team (Late st Contact Info) Description 10/30/2024 11:00 AM CDT Office Visit [facility] [address] [place] [phone] Lorna Marie, INVESTOR RELATIONS MANAGER-COOLING MACHINE OPERATOR [address] [phone] Health Maintenance Due Date Last Done Comments BONE DENSITY TESTING 1945 MEDICARE AWV 12 MONTHS 1945 HEPATITIS C SCREENING 06/21/1964 Respiratory Syncytial Virus (RSV) Vaccine Pt: or over 60 yrs (1 - 1-dose 75+ series) 2021 COVID-19 VACCINE ( season) 2023 01/21/2022, 03/03/2021, 07/14/2020, Additional history exists INFLUENZA VACCINE (#1) 2023 , 02/02/2021, 01/21/2020, Additional history exists DEPRESSION SCREENING 04/22/2024 DTAP/TDAP/TD VACCINES (2 - Td or Tdap) 02/20/2029 02/20/2019 PNEUMOCOCCAL VACCINE 50+ Completed 02/13/2019, 04/22 ZOSTER VACCINE Completed 05/08/2019, 02/20/2019 HEPATITIS B VACCINE Aged Out No longe r eligible based on patient's age to complete this topic HIB VACCINE Aged Out No longer eligi ble based on patient's age to complete this topic HPV VACCINE Aged Out No longer eligi ble based on patient's age to complete this topic MENINGOCOCCAL (Group B) VACCINE SHARED DECISION-MAKING Aged Out No longer eligible based on patient's age to complete this topic MENINGOCOCCAL GROUPS A/C/Y/W VACCINE Aged Out No longer eligible based on patient's age to complete this topic Procedures Procedure Name Priority Date/Time Associated Diagnosis Comments URINALYSIS NO MICROSCOPIC NO CULTURE Routine 2024 12:56 PM MANAGER PROTEIN Psychosis, unspecified psychosis type Urinary tract infection with hematuria, site unspecified Dysuria Hematuria, unspecified type CULTURE URINE Routine 2024 12:56 PM MANAGER PROTEIN Psychosis, unspecified psychosis type Urinary tract infection with hematuria, site unspecified Dysuria Hematuria, unspecified type LDL CHOLESTEROL DIRECT Routine 2024 12:28 PM MANAGER PROTEIN Hyperlipidemia, unspecified hyperlipidemia type COMPREHENSIVE METABOLIC PANEL Routine 2024 12:28 PM MANAGER PROTEIN Psychosis, unspecified psychosis type Urinary tract infection with hematuria, site unspecified Dysuria Hematuria, unspecified type CBC W AUTO DIFFERENTIAL Routine 2024 12:28 PM MANAGER PROTEIN Psychosis, unspecified psychosis type Urinary tract infection with hematuria, site unspecified Dysuria Hematuria, unspecified type LEVETIRACETAM LEVEL Routine 2024 1 2:28 PM MANAGER PROTEIN Seizure-like activity from Last 3 Months Results * (ABNORMAL) URINALYSIS NO MICROSCOPIC NO CULTURE (2024 12:56 PM MANAGER PROTEIN) Color UA Yellow Yellow, Straw 2024 1:37 PM [facility] Clarity UA Clear Clear 2024 1:37 PM [facility] Glucose UA Normal Normal 2024 1:37 PM [facility] Bilirubin UA Negative Negative 2024 1:37 PM [facility] Ketone UA Negative Negative 2024 1:37 PM [facility] Specific Victoria UA 1.009 1.005 - 1.030 2024 1:37 PM [facility] Blood UA Negative Negative 2024 1:37 PM [facility] pH UA 6.0 5.0 - 9.0 pH 2024 1:37 PM [facility] Protein UA Negative Negative 2024 1:37 PM [facility] Urobilinogen UA Normal Normal mg/dL 2024 1:37 PM [facility] Nitrite UA Negative Negative 2024 1:37 PM [facility] Leukocyte UA 500 RENEE/uL(A) Negative 2024 1:37 PM MANAGER PROTEIN [facility] Urine URINE SPECIMEN OBTAINED BY CLEAN CATCH PROCEDURE / Unknown Collection / Unknown 2024 12:56 PM MANAGER PROTEIN 2024 1:19 PM MANAGER PROTEIN [facility] URINALY[facility] ORDERABLES [facility] [address] [place] [address], [facility] [phone] * CULTURE URINE (2024 12:56 PM MANAGER PROTEIN) Culture Urine 10,000-50,000 CFU/mL urogenital raymundo DANNI 06/28/2024 12:30 AM MANAGER PROTEIN [facility] Urine URINE SPECIMEN OBTAINED BY CLEAN CATCH PROCEDURE / Unknown Collection / Unknown 2024 12:56 PM MANAGER PROTEIN 2024 1:19 PM MANAGER PROTEIN [facility] MICROBIOL OGY ORDERABLES Performing Organization Address City/[facility]/ZIP Co de Phone Number [facility] [address] [place] [address], [facility] [phone] * (ABNORMAL) LEVETIRACETAM LEVEL (2024 12:28 PM MANAGER PROTEIN) Levetiracetam 44(H) 10 - 40 ug/mL 06/28/2024 2:57 PM CDT [facility] ([facility]) Comment: INTERPRETIVE INFORMATION: Keppra (Levetiracetam) Therapeutic Range: 10-40 ug/mL Toxic: Not well Established Pharmacokinetics of levetiracetam are affected by renal function. Adverse effects may include somnolence, weakness, headache and vomiting. This levetiracetam (Keppra) immunoassay uses the [employer] (acquired by [employer] in 2014) Diagnostics reagents, which has known cross-reactivity with the drug brivaracetam (Briviact) and may report inaccurate results. Patients transitioning from levetiracetam to brivaracetam or those who are using both medications should not monitor drug concentrations with the [employer] (acquired by [employer] in 2014) Diagnostics assay. These patients should be monitored using a validated chromatographic methodology that distinguishes between drugs to determine drug concentrations. Performed By: [facility] [employer] [address] [place] [address] Data Processing Systems Consultant: Paul Stock MD, PhD CLIA Number: [id number] Blood BLOOD SPECIMEN / Unknown Lab Venipuncture / Unknown 2024 12:28 PM MANAGER PROTEIN 2024 12:42 PM MANAGER PROTEIN Lorna Marie INVESTOR RELATIONS MANAGER-COOLING MACHINE OPERATOR LAB - THERAPEUT IC DRUG MONITORING ORDERABLES [facility] ([facility]) [address] [place] [address], [facility] * (ABNORMAL) CBC W/ DIFFERENTIAL (2024 12:28 PM MANAGER PROTEIN) WBC 4.9 4.0 - 10.7 x10E9/L 2024 12:59 PM [facility] RBC Count 3.97 3.90 - 5.20 x10E12/L 2024 12:59 PM [facility] Hemoglobin 12.2 11.9 - 15.8 g/dL 2024 12:59 PM [facility] Hematocrit 38.5 34.8 - 46.1 % 2024 12:59 PM [facility] MCV 97.0 80.0 - 98.0 fL 2024 12:59 PM [facility] MCH 30.7 26.7 - 33.6 pg 2024 12:59 PM [facility] MCHC 31.7 31.7 - 36.3 g/dL 2024 12:59 PM [facility] RDW-CV 12.4 11.3 - 14.8 % 2024 12:59 PM [facility] Platelet Count 184 150 - 420 x10E9/L 2024 12:59 PM [facility] MPV 9.8 7.8 - 11.4 fL 2024 12:59 PM [facility] Neutrophil % 67.5 41.0 - 74.0 % 2024 12:59 PM [facility] Lymphocyte % 19.4 17.0 - 47.0 % 2024 12:59 PM [facility] Monocyte % 7.8 3.0 - 11.0 % 2024 12:59 PM [facility] Eosinophil % 3.9 0.0 - 7.0 % 2024 12:59 PM [facility] Basophil % 1.0 0.0 - 1.6 % 2024 12:59 PM [facility] Immature Granulocytes % 0.4 0.0 - 1.0 % 2024 12:59 PM [facility] Neutrophil Absolute 3.27 1.60 - 7.50 x10E9/L 2024 12:59 PM [facility] Lymphocyte Absolute 0.94(L) 1.00 - 4.40 x10E9/L 2024 12:59 PM [facility] Monocyte Absolute 0.38 0.15 - 1.00 x10E9/L 2024 12:59 PM [facility] Eosinophil Absolute 0.19 0.00 - 0.60 x10E9/L 2024 12:59 PM [facility] Basophil Absolute 0.05 0.00 - 0.13 x10E9/L 2024 12:59 PM [facility] Blood BLOOD SPECIMEN / Unknown Lab Venipuncture / Unknown 2024 12:28 PM MANAGER PROTEIN 2024 12:49 PM [facility] Lorna Marie INVESTOR RELATIONS MANAGER-COOLING MACHINE OPERATOR LAB - HEMATOLOG Y ORDERABLES [facility] [address] [place] [phone], [facility] [phone] * (ABNORMAL) COMPREHENSIVE METABOLIC PANEL (2024 12:28 PM MANAGER PROTEIN) BUN 13 7 - 26 mg/dL 2024 1:18 PM [facility] Creatinine 1.02(H) 0.56 - 0.96 mg/dL 2024 1:18 PM [facility] Sodium 139 136 - 145 mmol/L 2024 1:18 PM [facility] Potassium 3.9 3.5 - 4.5 mmol/L 2024 1:18 PM [facility] Chloride 111(H) 98 - 107 mmol/L 2024 1:18 PM [facility] CO2 22 22 - 29 mmol/L 2024 1:18 PM [facility] Glucose 121(H) 70 - 99 mg/dL 2024 1:18 PM [facility] Calcium 9.1 8.4 - 10.2 mg/dL 2024 1:18 PM [facility] Protein Total 6.4 6.0 - 8.3 g/dL 2024 1:18 PM [facility] Albumin 3.8 3.4 - 5.0 g/dL 2024 1:18 PM [facility] Bilirubin Total 0.3 0.2 - 1.2 mg/dL 2024 1:18 PM [facility] Alkaline Phosphatase 65 40 - 150 U/L 2024 1:18 PM [facility] ALT 21 5 - 55 U/L 2024 1:18 PM [facility] AST 22 5 - 34 U/L 2024 1:18 PM [facility] Anion Gap 6 6 - 16 2024 1:18 PM [facility] BUN/Creatinine Ratio 13 7 - 23 2024 1:18 PM [facility] Osmolality Calculated 289 275 - 295 mOsm/kg 2024 1:18 PM [facility] Albumin/Globulin Ratio 1.5 1.1 - 2.3 2024 1:18 PM [facility] eGFR by CKD-EPI 56(L) >=90 mL/min/1.7 3 m2 2024 1:18 PM [facility] Blood BLOOD SPECIMEN / Unknown Lab Venipuncture / Unknown 2024 12:28 PM MANAGER PROTEIN 2024 12:49 PM MANAGER PROTEIN Lorna Marie APRN-COOLING MACHINE OPERATOR LAB - CHEMISTRY ORDERABLES [facility] [address] [place] [address], [place] [phone] * LDL CHOLESTEROL DIRECT (2024 12:28 PM MANAGER PROTEIN) LDL Direct 57 <100 mg/dL 2024 1:18 PM MANAGER PROTEIN [facility] Comment: ATP III Classification of LDL Cholesterol: <100 mg/dL: Optimal 100 - 129 mg/dL: Near Optimal/Above Optimal 130 - 159 mg/dL: Borderline High 160 - 189 mg/dL: High >190 mg/dL: Very High Blood BLOOD SPECIMEN / Unknown Lab Venipuncture / Unknown 2024 12:28 PM MANAGER PROTEIN 2024 12:49 PM MANAGER PROTEIN Lorna Marie APRN-COOLING MACHINE OPERATOR LAB - CHEMISTRY ORDERABLES [facility] [address] [place] [address], [place] [phone] from Last 3 Months Advance Directives * Full Code (Latest Code Status on File) Date Activated Date Inactivated Comments 09/17/2017 6:24 PM 09/20/2017 4:15 PM Care Teams Head Waiter Relationship Specialty Start Date End Date Lorna Marie APRN-CNP [address] [phone] PCP - General Nurse Practitioner 01/13/24
--- OUTSIDE RECORDS SUMMARY | 2024-07-12 12:44 | XMS_ITS | Clinical Summary ---
Author Organization [facility] [address] Address [address] [place] [address] Care Team Providers Care Flume Tender Name Role Phone Jose Martinez MD, Reji Hunt Unavailable Nohelia Ovalles NP Unavailable Hoang Mcdonald MD Unavailable Nohelia Mayen MD Primary Care Provider [phone] Mabel Cunningham MD Unavailable [phone] Brandin Joseph MD Unavailable [phone] Allergies Active Allergy Reactions Criticality Noted Date Comments Adhesive Rash,Redness Medium 06/18/2023 Simvastatin Mental status changes Low 12/18/2017 Causes cognitive impairment Medications amiodarone (PACERONE) 400 mg tablet Take 0.5 tablets (200 mg total) by mouth daily 05/14/19 24 Active artificial tears,hypromellose , 0.3 % drops Administer 1 drop into affected eye(s) every 4 (four) hours as needed Active metoprolol XL (TOPROL-XL) 50 mg extended release tablet Take 1 tablet (50 mg total) by mouth daily Active acetaminophen (TYLENOL) 325 mg tablet Take 2 tablets (650 mg total) by mouth every 6 (six) hours as needed for pain Active atorvastatin (LIPITOR) 40 mg tabletIndications: hyperlipidemia Take 1 tablet (40 mg total) by mouth nightly 08/28/19 24 025 Active Additional Information Patient taking differently: 20 mgoral Nightly, Indications: hyperlipidemia, Reported on 07/01/2024 aspirin 81 mg chewable tablet Take 1 tablet (81 mg total) by mouth every morning 08/29/19 24 025 Active polysaccharide iron complex (NU-IRON) 150 mg iron capsuleIndications :Iron Deficiency Anemia Take 1 capsule (150 mg total) by mouth daily Active nystatin powder Apply to affected area with pouch changes 30 g 1 10/04/19 24 Active traZODone (DESYREL) 50 mg tablet Take 1 tablet (50 mg total) by mouth nightly 10/29/19 24 Active sodium bicarbonate 650 mg tablet Take 1 tablet (650 mg total) by mouth 3 (three) times a day 10/29/19 24 025 Active ketotifen (ZADITOR) 0.025 % ophthalmic solutionIndication s:Allergic Conjunctivitis Administer 2 drops into the right eye daily 10/29/19 24 Active escitalopram (LEXAPRO) 10 mg tablet Take 1 tablet (10 mg total) by mouth daily Active cholecalciferol 25 mcg (1,000 unit) tablet Take 1 tablet (1,000 Units total) by mouth daily Active levETIRAcetam (KEPPRA) 500 mg tablet Take 1 tablet (500 mg total) by mouth 2 (two) times a day 60 tablet 11/12/19 24 Active psyllium (MetamuciL) 0.4 gram capsule Take 1 capsule (0.4 g total) by mouth 2 (two) times a day Active loperamide (IMODIUM) 2 mg capsuleIndications :high output ileostomy Take 2 capsules (4 mg total) by mouth 3 (three) times a day with meals 168 capsule 2 12/09/19 24 Active levalbuterol (XOPENEX) 0.63 mg/3 mL nebulizer solutionIndication s:Intermittent asthma, unspecified asthma severity, unspecified whether complicated Take 3 mL (0.63 mg total) by nebulization every 6 (six) hours as needed for wheezing 180 mL 1 12/30/19 24 Active psyllium, aspartame, SF (Daily Fiber, psyllium-aspart,) 3.4 gram packet Take 1 packet by mouth 2 (two) times a day 12/17/19 24 Active baclofen (LIORESAL) 5 mg tablet Take 0.5 tablets (2.5 mg total) by mouth 3 (three) times a day 90 tablet 3 05/08/19 25 025 Active QUEtiapine (SEROquel) 25 mg tabletIndications: agitation in dementia Take 1 tablet (25 mg total) by mouth nightly 30 tablet 11 06/05/19 25 026 Active OLANZapine (ZyPREXA) 2.5 mg tabletIndications: agitation/ dementia Take 1 tablet (2.5 mg total) by mouth daily as needed (agitation) 30 tablet 3 06/05/19 25 Active OLANZapine (ZyPREXA) 5 mg tablet Take 1 tablet (5 mg total) by mouth nightly 30 tablet 3 06/05/19 25 026 Active Active Problems Problem Noted Date Diagnosed Date Delirium 10/19/2023 Assessment & Plan (10/28/2023 7:28 PM CDT): Per daughter, at baseline pt has left sided weakness, arm weaker than leg. More lucid in morning but usually doesn't know date or place, forgetful, talks about people who're , sundowns daily. At baseline is 1 assist, needs assistance with ADLs, needs wheelchair when outside. [facility] clinic increased her zyprexa around 10/10 to 5mg at 8am and 5mg at 3p and made her trazodone scheduled at 9pm daily to help w sundowning.Pt started having lethargy and somnolence 10/16 pm Workup with wnl B12, folate, TSH, HIV, RPR. HCT shows no acute changes, improving SDH Ddx includes uremia from severe CURTIS vs polypharmacy from recently increased psychotropics Giving IVF with resolving CURTIS Required 1:1 observation for pt safety now off. Delirium precautions. Acute renal failure 10/19/2023 Assessment & Plan (10/28/2023 7:31 PM CDT): BUN 87, Cr 5 (baseline Cr 0.5). with AGMA (likely uremia. Wnl ketone and lactate), hyperphos, uric acid 11 Likely pre-renal iso lethargy. Improving w IVF. Kidney US normal without hydronephrosis Started bicarb. Rasburicase x1 for hyperuricemia - now resolved. PVRs were approp on 10/19 but then developed retention iso AMS - harrison placed 10/20>>removed 10/25 but failed voiding trial and replaced. Discussed(by previous hospitalist) w renal - likely prerenal.Given improvement with IVF will continue IVF and consult if plateaus Goals of care, counseling/discussion 10/19/2023 Assessment & Plan (10/28/2023 7:28 PM CDT): POA: Daughter Erinn is primary, daughter Naz is alternate Code Status: Erinn wants FC, Naz wants DNRDNI Given recent decline and acute renal failure, cont GOC. Pall care cs as they see her outpt and have been managing her psychotropics Leukocytosis 10/19/2023 Assessment & Plan (10/28/2023 7:28 PM CDT): WBC 15 on admit,now resolved workup: no fevers, UA neg, CXR neg, flu/covid neg Suspicion for infection was low, likely just hemoconcentrated. No ostomy changes or abd symptoms to suspect intraabd infection. 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 No acute fracture or osseous erosion related to the multifocal soft tissue swelling. E. coli UTI (urinary tract infection) 08/25/2023 Assessment & Plan (10/28/2023 7:31 PM CDT): UA from 10/24 positive, cultures growing E coli Ceftriaxone 1 g daily for 3 days Assessment & Plan (08/26/2023 10:55 PM CDT): - UA from 08/23 was remarkable for bacteruria with LE+. Could likely be contributing to the delirium - Started on Ceftriaxone on 08/23, UCx was remarkable for urogenital raymundo - Plan to complete a 5 day course given improvement in mentation till 08/27 Delirium due to another medical condition 2023 Assessment & Plan (08/26/2023 10:55 PM CDT): - Noted fluctuations in mood with episodes of delirium/agitation which is likely multifactorial iso age related changes,active malignancy, prolonged illness and particularly post CVA. - Psych consulted and per recs and given c/f prolonged QTC, held Memantine,Celexa and Quetiapine. - c/w Olanzapine 2.5 mg po q12h - Counseled the family that these potential changes may be permanent and not reversible. Recommended palliative care consult for better symptom management as OP. - UA from 08/23 was remarkable for bacteruria with LE+. Could likely be contributing to the delirium. Started on IV Abx on 08/23. Malnutrition 08/21/2023 Assessment & Plan (08/22/2023 6:16 PM CDT): - RD following Acute on chronic intracranial subdural hematoma 08/19/2023 Assessment & Plan (10/28/2023 7:29 PM CDT): Last hospitalized here 08/2023 for acute on chronic SDH iso fall. No intervention per nsgy Repeat HCT 10/18 w/ decrease in size of SDH, no other acute abnormalities Fall precautions Delirium precautions Per last NSGY note in July, for VTE ppx Assessment & Plan (08/26/2023 11:00 PM CDT): - Patient with prior history of L frontoparietal SDH s/p L MMA embolization on 06/25/23 presenting following recurrent fall with trauma to L-side of face with Head CT at [place] overread as concern for increase in size of chronic L SDH - she was recommended to return for further evaluation - Here evaluation with stable CMP/CBC, hs-trop 4, UA negative, EKG paced-rhythm, CXR clear, and Head CT with slight interval increase in size/density of mixed density L cerebral convexity subdural collection without significant midline shift or new/acute intracranial hemorrhage. - NSGY evaluated with recommendation for close monitoring without any further intervention. - Cont q8 neurochecks, fall precautions. - PT/OT is recommending IPR, family is exploring their options given high recurrent fall risk and decline in function. Eligible for [facility] per CM but the participation would depend on further clinical course Recurrent falls 08/19/2023 Assessment & Plan (08/24/2023 1:50 PM CDT): - Imaging/exam with extensive L frontal scalp hematoma without facial fracture - Geritrauma evaluated with no concern for new injury - PT/OT is recommending IPR, family is agreeable for STR per CM,awaiting placement - Fall precautions Colon adenocarcinoma 07/16/2023 Assessment & Plan (10/28/2023 7:30 PM CDT): Diagnosed during prolonged hospitalization in 03/2023 now s/p R hemicolectomy with ostomy, deemed not a candidate for adjuvant therapy given comoribidities. Follows with Dr. Bales. Ostomy care Given recent decline cont GOC w family Assessment & Plan (07/16/2023 1:43 AM CDT): Follows with Dr. Nolasco. 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 S/p R hemicolectomy with end ileostomy 04/20/2023, path showing ascending colon adenocarcinoma WITHOUT further NEC component. 0/19 LN. LVI+/PNI+. Adjuvant chemotherapy NOT recommended, and recommended surveillance. 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 Resume on discharge - Not on AC at this time due to SDH with plan for Watchman procedure in future for AF Syncope 07/15/2023 Assessment & Plan (07/16/2023 4:50 PM CDT): Reported tachypnea, head falling back, loss of consciousness around 07/14 @1400 while in wheelchair getting ostomy cleaned. Suspect vasovagal vs cardiogenic. - EKG with ventricular rhythm without clear cause -telemetry shows AFib no alarm episode -Device rep for interrogation, coRank [phone]. Interrogation normal. No episodes of VFib/Vtach. Patient in AFib, which is chronic. Plan - Telemetry -Follow EEG in process, if positive will consult Neuro - Hold lasix for now, restart pending initial workup -obtain UA -Plan to discharge tmrw pending remaining workup Abnormal finding on GI tract imaging 04/06/2023 Gastrointestinal hemorrhage 04/06/2023 Acute stroke due to ischemia 03/27/2023 Status post placement of implantable loop record er 06/07/2021 Persistent atrial fibrillation 06/15/2020 Assessment & Plan (08/19/2023 11:41 PM CDT): - Cont metoprolol NAVDEEP (obstructive sleep apnea) 10/14/2017 Assessment & Plan (10/19/2023 9:29 PM CDT): Noncompliant w/ CPAP Assessment & Plan (08/19/2023 11:41 PM CDT): - Non-compliant with CPAP Assessment & Plan (07/16/2023 1:37 AM CDT): Not adherent to CPAP Chronic anticoagulation 07/29/2017 Essential hypertension 02/22/2015 Overview (07/27/2016): Essential hypertension Assessment & Plan (10/19/2023 9:29 PM CDT): Metop Assessment & Plan (08/19/2023 11:41 PM CDT): - Cont metoprolol Multiple-type hyperlipidemia 02/22/2015 Overview (07/27/2016): Mixed hyperlipidemia CAD (coronary artery disease) 05/08/2013 Overview (07/26/2016): CRNRY ATHRSCL NATVE VSSL Assessment & Plan (10/28/2023 7:30 PM CDT): s/p stents 03/2023 ASA (ok'ed per last nsgy note), statin, metop Assessment & Plan (08/22/2023 6:19 PM CDT): - s/p cardiac arrest in setting of NSTEM s/p OCTAVIA to LAD in 03/2023 - Held Plavix given high risk for recurrent falls after discussing with cardio/Onc - Cont ASA, statin, metoprolol - CTM Paroxysmal atrial fibrillation 05/08/2013 Overview (07/26/2016): ATRIAL FIBRILLATION Assessment & Plan (10/28/2023 7:30 PM CDT): Amio, metop Not on AC d/t SDH Assessment & Plan (07/16/2023 1:30 AM CDT): S/p ablation and PPM placement. Not on AC due to SDH, and planning on Watchman procedure at some point in the future - Continue home toprol 200mg, amiodarone 200mg daily - Biotronik DCPPM Resolved Problems Problem Noted Date Diagnosed Date Resolved Date Subdural hematoma 07/16/2023 08/19/2023 Assessment & Plan (08/19/2023 11:43 PM CDT): - Assessment & Plan (07/16/2023 1:36 AM CDT): Subdural hematoma left sided unchanged from prior, s/p MMA embolization 06/2023. Cardiac arrest due to NSTEMI s/p OCTAVIA 05/03/2023 04/06/2023 08/19/2023 Assessment & Plan (07/16/2023 5:40 AM CDT): Prior VF arrest found with LAD lesion s/p PCI OCTAVIA 05/03/2023. ICD deferred due to reversible lesion at the time. - Home ASA/plavix/statin Malignant neoplasm of ascending colon 04/06/2023 10/19/2023 Cancer Staging:Pathologic stage from 04/20/2023:Stage IIA(pT3, pN0, cM0) - Signed by Esther Nolasco MD on 06/03/2023 Assessment & Plan (08/25/2023 2:29 PM CDT): - Diagnosed during prolonged hospitalization in 03/2023 now s/p R hemicolectomy with ostomy, deemed not a candidate for adjuvant therapy given comoribidities - Follows with Dr. Bales - [facility] On amiodarone therapy 05/21/20182020 Goals of care, counseling/discussion 07/29/2017 10/19/2023 Postprocedural state 02/22/2015 019 Overview (07/27/2016): S/P ablation of atrial fibrillation Atrial flutter 05/08/2013 08/19/2023 Overview (07/27/2016): ATRIAL FLUTTER Assessment & Plan (08/19/2023 11:41 PM CDT): - Cont metoprolol Encounters Date Type Department Care Team Description 07/01/2024 2:45 PM CDT Office Visit [facility] Oncology [facility] [address] [place] [address] Hoang Mcdonald MD Malignant neoplasm of ascending colon (HCC) (Primary Dx) 07/01/2024 2:15 PM CDT Lab [facility] [place] - Lab Collection [address] [facility] [address] [place] [address] Malignant neoplasm of ascending colon (HCC) 07/01/2024 2:[address] [facility] Oncology Lab [address] [facility] Floor 5 [place] [address] Malignant neoplasm of ascending colon (HCC) 06/05/2024 1:00 PM DIRECTOR BLOOD BANK Residential Visit [facility] [address] [place] [address] Rachael Garrido NP Vascular dementia with other behavioral disturbance, unspecified dementia severity (HCC) (Primary Dx); CVA, old, hemiparesis (HCC); Palliative care encounter 05/15/2024 9:00 AM DIRECTOR BLOOD BANK Residential Visit [facility] [address] [place] [address] Rachael Garrido NP Vascular dementia with other behavioral disturbance, unspecified dementia severity (HCC) (Primary Dx); Urinary tract infection without hematuria, site unspecified; CVA, old, hemiparesis (HCC); Palliative care encounter 05/13/2024 Documentation [facility] [address] [place] [address] Rachael Garrido NP 05/13/[address] [phone] Marilu Torres RN 05/12/[address] [phone] Marilu Torres, RN 05/11/[address] [address] Marilu Torres, RN 05/08/2024 10:00 AM DIRECTOR BLOOD BANK Office Visit [facility] Stroke [address] [facility] [address] [place] [phone] Mabel Cunningham MD History of ischemic stroke (Primary Dx); Moderate dementia with agitation, unspecified dementia type (HCC); Spasticity due to old stroke 05/08/2024 Documentation [facility] [address] [place] [address] Rachael Garrido NP from Last 3 Months Immunizations Immunization Administration Dates Next Due Influenza, Quadrivalent, Split, Intramuscular ,02/18/2014 Influenza, Quadrivalent, Spl it, Preservative Free, Intramuscular 02/13/2019 Influenza, Trivalent, High D ose, Split, Preservative Free, Intramuscular 02/12/2018,04/26/2015 Influenza, Trivalent, IM (MDV) 02/19/2017,2011 Pneumococcal Conjugate PCV 13 02/13/2019 Pneumococcal Polysaccharide PPV23 05/06/2012 Tdap 02/20/2019 ZOSTER Recombinant 05/08/2019,02/20/2019 Surgical History Surgery Date Site/Laterality Comments HYSTERECTOMY IR G TUBE PLACEMENT PERCUTANEOUS 04/02/2023 N/A CARDIAC PACEMAKER PLACEMENT HEMICOLECTOMY W/ OSTOMY 04/20/2023 Right Stage II ascending colon adenocarcinoma. Potential for future ileostomy reversal. CORONARY ANGIOPLASTY WITH ST ENT PLACEMENT 05/03/2023 Bilateral LAD stenosis, OCTAVIA placement Medical History Medical History Date Comments Hyperlipidemia Hypertension Atrial fibrillation ([facility]) 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 Asthma NAVDEEP (obstructive sleep apnea) In tolerant of CPAP Cardiac arrest with ventricu lar fibrillation ([facility]) 04/06/2023 OOH, at [facility] Acute right MCA stroke ([facility]) 03/27/2023 Car dioembolic source Colon cancer ([facility]) 04/16/[address] ([facility]) 04/20/2023 NSTEMI (non-ST elevated myoc ardial infarction) ([facility]) 04/06/2023 LAD stenosis, cause of SCA CAD (coronary artery disease) EtOH dependence ([facility]) Quit 04/10 23 Aspiration pneumonia ([facility]) 04/06/2023 Dysphagia 04/02/2023 S/p CVA. PEG hattie hua Nicotine dependence in remission Quit 1981, 3 ppd x15 years (45 pack years) Family History Medical History Relation Name Comments Lung cancer Father COD: 72y Breast cancer Sister 3 Anesthesia problems Neg Hx Relation Name Status Comments Daughter 1 Kat Alive Daughter 2 Erinn Alive Father Mother Sister 1 Alive Sister 2 Alive Sister 3 Alive Sister 4 Social History Tobacco Use Types Packs/Day Years Used Date Smoking Tobacco: Former Cigarettes 3 15 1 967 - 1981 Smokeless Tobacco: Former Quit: 1981 Tobacco Cessation:Counseling Given: Not Answered Alcohol Use Standard Drinks/Week Comments Yes 0 (1 standard drink = 0.6 oz pur e alcohol) [facility] Utilities Answer Date Recorded In the past 12 months has th e electric, gas, oil, or water company threatened to shut off services in your home? Patient unable to answer 10/21/2023 Social Connection and Isolation Panel [NHANES] A nswer Date Recorded In a typical week, how many times do you talk on the phone with family, friends, or neighbors? Patient unable to answer 10/21/2023 How often do you get togethe r with friends or relatives? Patient unable to answer 10/21/2023 How often do you attend chur ch or gnosticism services? Patient unable to answer 10/21/2023 Do you belong to any clubs o r organizations such as yazdanism groups, unions, fraternal or athletic groups, or school groups? Patient unable to answer 10/21/2023 How often do you attend meet ings of the clubs or organizations you belong to? Patient unable to answer 10/21/2023 Are you , , di vorced, , never , or living with a partner? Patient unable to answer 10/21/2023 AUDIT-C Answer Date Recorded Frequency of Alcohol Consumption Not on file 06/18/2023 Q2: How many drinks containi ng alcohol do you have on a typical day when you are drinking? Patient does not drink Frequency of Binge Drinking Not on file 05/24 Overall Financial Resource Strain (CARDIA) Answe r Date Recorded How hard is it for you to pa y for the very basics like food, housing, medical care, and heating? Patient unable to answer 10/21/2023 Hunger Vital Sign Answer Date Recorded Within the past 12 months, y ou worried that your food would run out before you got the money to buy more. Patient unable to answer 10/21/2023 Within the past 12 months, t he food you bought just didn't last and you didn't have money to get more. Patient unable to answer 10/21/2023 PRAPARE - Transportation Answer Date Re corded In the past 12 months, has l ack of transportation kept you from medical appointments or from getting medications? Patient unable to answer 10/21/2023 In the past 12 months, has l ack of transportation kept you from meetings, work, or from getting things needed for daily living? Patient unable to answer 10/21/2023 Housing Stability Vital Sign Answer Jaspreet e Recorded In the last 12 months, was t here a time when you were not able to pay the mortgage or rent on time? Patient unable to answer 08/22/2023 In the last 12 months, how m any places have you lived? 0 08/22/2023 In the last 12 months, was t here a time when you did not have a steady place to sleep or slept in a retirement (including now)? Patient unable to answer 08/22/2023 Housing Stability Vital Sign Answer Jaspreet e Recorded In the last 12 months, was t here a time when you were not able to pay the mortgage or rent on time? Patient unable to answer 10/21/2023 In the past 12 months, how m any times have you moved where you were living? 2 10/21/2023 At any time in the past 12 m [place], were you homeless or living in a retirement (including now)? Patient unable to answer 10/21/2023 Personal Safety Answer Date Recorded Have you ever been in or are you currently in a harmful physical or emotional relationship or is someone making you feel afraid or unsafe? Denies 10/19/2023 Education Answer Date Recorded What is the highest level of school you have completed or the highest degree you have received? 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) Not on file Not on file Not on file Obstetrics History Last Filed Vital Signs Vital Sign Reading Time Taken Comments Blood Pressure 92/68 07/01/2024 2:20 PM CDT Pulse 90 07/01/2024 2:20 PM CDT Temperature 36.5 C (97.7 F) 07/01/2024 2:20 PM CDT Respiratory Rate 18 07/01/2024 2:20 PM CDT Oxygen Saturation 95% 07/01/2024 2:20 PM CDT Inhaled Oxygen Concentration - - Weight 62.7 kg (138 lb 3.2 oz) 07/01/2024 2:20 P M CDT Height 165.1 cm (5' 5 ) 05/08/2024 9:56 AM DIRECTOR BLOOD BANK Body Mass Index 23 05/08/2024 9:56 AM DIRECTOR BLOOD BANK Plan of Treatment Health Maintenance Due Date Last Done Comments Depression Screening 1945 Hepatitis C Screening 1945 Osteoporosis Screening-Bone Density Scan 1945 Hepatitis B Screening 1964 Well Visit 65+ 06/27/2011 Covid-19 Vaccine (4 - 2023-2 5 season) 2023 03/03/2021, 07/14/2020, 06/15/2020 Influenza Vaccine (#1) 2023 , 02/13/2019, 02/12/2018, Additional history exists Fall Risk Assessment 10/28/2024 10/29/2023 DTaP/Tdap/Td Vaccine (2 - Td or Tdap) 02/20/2029 02/20/2019 Pneumococcal vaccine 65+ Completed 02/13/2019, 04/22 Zoster Vaccine Completed 05/08/2019, 02/20/2019 Colon Cancer Screening-CT Colonography Discontinued 04/16/2023 Colon Cancer Screening-Colonoscopy Discontinued 04/16/2023 Colon Cancer Screening-DNA Stool Discontinued 04/16/20 23 Colon Cancer Screening-FIT Discontinued 04/16/2023 Colon Cancer Screening-FOBT Discontinued 04/16/2023 Colon Cancer Screening-Sigmoidoscopy Discontinued 04/16/2023 Colorectal Cancer Screening Discontinued Medical Devices Implanted Type Area Italian Lecturer Device Identifier Shelf Expiration Date Model / Serial / Lot [employer] Angio-Seal Vip 6fr Closere Device [id number] - [id number] - [id number] Implanted:Qty: 1 on 05/03/2023 by Shmuel Thorne MD PhD at [facility] Collagen Right: Femoral [employer] 10/01/2023 [id number] / [id number] / [id number] [employer] Stent Coronary De Rx Cocr Ors Msn 2.5x40mm [id number] - [id number] - [id number] Implanted:Qty: 1 on 05/03/2023 by Shmuel Thorne MD PhD at [facility] Stent [employer] 12/15/2024 [id number] / [id number] / [id number] Pacemaker Left: Chest [facility] Elli Kilpatrick 1gm [facility] [id number] - [id number] Implanted:Qty: 1 on 06/25/2023 at [facility] [employer] 04/21/2025 [id number] / / [id number] Procedures Procedure Name Priority Date/Time Associated Diagnosis Comments EGFR Routine 07/01/2024 2:16 PM CDT Malignant neoplasm of ascending colon (HCC) DIFFERENTIAL AUTO Routine 07/01/2024 2:1 6 PM CDT Malignant neoplasm of ascending colon (HCC) CBC WITH AUTO DIFFERENTIAL Routine 07/01/2024 2:16 PM CDT Malignant neoplasm of ascending colon (HCC) COMPREHENSIVE METABOLIC PANEL Routine 07/01/2024 2:16 PM CDT Malignant neoplasm of ascending colon (HCC) CEA Routine 07/01/2024 2:16 PM CDT Malignant neoplasm of ascending colon (HCC) COLONOSCOPY 04/16/2023 9:23 AM DIRECTOR BLOOD BANK from Last 3 Months or Most Recently Relevant to Health Maintenance Results * (ABNORMAL) eGFR (07/01/2024 2:16 PM CDT) eGFR 55(L) >=60 mL/min/1. 73 m2 Comment: Interpretive Data Reference Interval Normal >/= 90 mL/min/1.73m2 Mildly decreased* 60 - 89 mL/min/1.73m2 Mildly to moderately decreased 45 - 59 mL/min/1.73m2 Moderately to severely decreased 30 - 44 mL/min/1.73m2 Severely decreased 15 - 29 mL/min/1.73m2 Kidney Failure < 15 mL/min/1.73m2 *Relative to young adult level Estimated glomerular filtration rate is determined by the 2020 CKD-EPI equation recommended by the National Kidney Foundation (A Unifying Approach to GFR Estimation: Recommendations of the NKF-ASK Task Force on Reassessing the Inclusion of Race in Diagnosing Kidney Disease, JASN 2020). The CKD-EPI equation should not be used for patients with unstable renal function and has not been validated in children and those over 70. Current interpretive data was last reviewed 2021. Blood 07/01/2024 2:16 PM CDT 07/01/2024 2:18 PM CDT us Hoang Mcdonald MD LAB BLOOD ORDERABLES Fin al Result [facility] [place] [address] * Differential, auto (07/01/2024 2:16 PM CDT) Neutrophil abs 3.5 1.5 - 6.5 K/cumm Comment:Testing performed by : [facility], [address] [place] [phone] Lymphocyte abs 1.1 0.8 - 3.3 K/cumm C[facility]ER [facility]J Comment:Testing performed by : [facility], [address] [place] [phone] Monocyte abs 0.4 0.2 - 0.8 K/cumm [facility] Comment:Testing performed by : [facility], [address] [place] [phone] Eosinophil abs 0.2 0.0 - 0.5 K/cumm [facility] Comment:Testing performed by : [facility], [address] [place] [phone] Basophil abs 0.1 0.0 - 0.1 K/cumm [facility] Comment:Testing performed by : [facility], [address] [place] [phone] Neutrophil pct 65.5 % CERNER [facility] Comment: Interpretive Data Percent cell count reference ranges are not reported, since discordance with absolute values may lead to misinterpretation of CBC data. Current Interpretive Data was last revised on 2017. Testing performed by: [facility], [address] [place] [phone] Lymphocyte pct 21.4 % [facility]CON Comment: Interpretive Data Percent cell count reference ranges are not reported, since discordance with absolute values may lead to misinterpretation of CBC data. Current Interpretive Data was last revised on 2017. Testing performed by: [facility], [address] [place] [phone] Monocyte pct 7.6 % EPHRAIM IRNCON Comment: Interpretive Data Percent cell count reference ranges are not reported, since discordance with absolute values may lead to misinterpretation of CBC data. Current Interpretive Data was last revised on 2017. Testing performed by: [facility], [address] [place] [phone] Eosinophil pct 4.5 % [facility]CON Comment: Interpretive Data Percent cell count reference ranges are not reported, since discordance with absolute values may lead to misinterpretation of CBC data. Current Interpretive Data was last revised on 2017. Testing performed by: [facility], [address] [place] [phone] Basophil pct 1.0 % [facility]PH[facility]IM RINCON Comment: Interpretive Data Percent cell count reference ranges are not reported, since discordance with absolute values may lead to misinterpretation of CBC data. Current Interpretive Data was last revised on 2017. Testing performed by: [facility], [address] [place] [phone] Blood 07/01/2024 2:16 PM CDT 07/01/2024 2:18 PM CDT us Haong Mcdonald MD LAB BLOOD ORDERABLES Fin al Result [facility] Department [place] [address] * CBC with auto differential (07/01/2024 2:16 PM CDT) WBC 5.3 3.8 - 9.9 K/cumm Comment:Testing performed by : [facility], [address] [place] [address] Hgb 12.8 11.9 - 15.5 g/dL [facility] Comment:Testing performed by : [facility], [address] [place] [address] Hct 39.2 35.6 - 45.5 % [facility] Comment:Testing performed by : [facility], [address] [place] [address] Plt 228 150 - 400 K/cumm [facility]J Comment:Testing performed by : [facility], [address] [place] [address] MPV 7.9 6.8 - 10.4 fL [facility] Comment:Testing performed by : [facility], [address] [place], [place] [phone] RBC 4.19 3.90 - 5.20 M/cumm [facility] Comment:Testing performed by : [facility], [address] [place] [address] MCV 93.4 81.3 - 96.4 fL [facility] Comment:Testing performed by : [facility], [address] [place] [address] MCH 30.5 27.1 - 33.3 pg [facility] Comment:Testing performed by : [facility], [address] [place] [address] MCHC 32.7 32.3 - 35.7 g/dL [facility] Comment:Testing performed by : [facility], [address] [place] [address] RDW CV 13.3 11.1 - 14.9 % [facility] Comment:Testing performed by : [facility], [address] [place] [address] NRBC abs 0.00 0.00 - 0.01 K/cumm [facility] Comment:Testing performed by : [facility], [address] [place] [phone] Blood 07/01/2024 2:16 PM CDT 07/01/2024 2:18 PM CDT Hoang Mcdonald MD LAB BLOOD ORDERABLES Fin al Result Performing Organization Address [facility] de Phone Number [facility] [place] [address] * CEA (07/01/2024 2:16 PM CDT) Pathologist [facility] CEA 2.7 <=5.0 ng/mL Comment: Interpretive Data: Reference Range: Non-Smokers: 0.0 5.0 ng/mL Smokers: 0.0 6.5 ng/mL The [employer] CEA assay procedure was used. Results from different manufacturers or methods may not be comparable. Serial testing should be performed using the same method. Current interpretive data was last revised 2021. Blood 07/01/2024 2:16 PM CDT 07/01/2024 2:32 PM CDT Hoang Mcdonald MD LAB BLOOD ORDERABLES Fin al Result Performing Organization Address [facility] [place] [address] * Comprehensive metabolic panel (07/01/2024 2:16 PM CDT) [facility] Sodium 137 135 - 145 mmol/L Potassium, pl 4.8 3.3 - 4.9 mmol/L [facility] Chloride 107 97 - 110 mmol/L [facility] CO2 23 22 - 32 mmol/L [facility] Anion gap 7 2 - 15 mmol/L [facility] BUN 10 6 - 25 mg/dL [facility] Creatinine 1.04 0.60 - 1.10 mg/dL [facility] Glucose 107 70 - 199 mg/dL [facility] Comment: Interpretive Data Fasting glucose >/= 126 mg/dl is diagnostic for diabetes. Fasting is defined as no caloric intake for at least 8 hours. Fasting glucose between 100 mg/dl to 125 mg/dl is diagnostic of prediabetes. In a patient with classic symptoms of hyperglycemia or hyperglycemic crisis, a random glucose >/= 200 mg/dl is diagnostic for diabetes. In the absence of unequivocal hyperglycemia, results should be confirmed by repeat testing. The classification and Diagnosis of Diabetes Diabetes Care 2021; 46: S19-S40. Current interpretive data was last revised 2022. Calcium 9.4 8.5 - 10.3 mg/dL [facility] Bilirubin, total 0.2 0.1 - 1.2 mg/dL C[facility] Protein, pl 7.0 6.5 - 8.5 g/dL C[facility] Albumin 4.1 3.5 - 5.0 g/dL [facility] Alk phos 77 40 - 130 Units/L [facility] ALT 28 7 - 45 Units/L [facility] AST 32 10 - 45 Units/L [facility] Blood 07/01/2024 2:16 PM CDT 07/01/2024 2:18 PM CDT us Hoang Mcdonald MD LAB BLOOD ORDERABLES Fin al Result [facility] [place] [address] * COLONOSCOPY (04/16/2023 9:23 AM DIRECTOR BLOOD BANK) Anatomical Region Laterality Modality Other Narrative Procedure Note Froilan Vilchis MD - 04/16/2023 9:23 AM [facility]ST [facility] Patient Name: Sheyla Guthrie Procedure Date: 04/16/2023 9:23 AM Date of : 1945 Admit Type: Inpatient Age: 77 Gender: Female Attending MD: Froilan Vilchis M.D. Room: [facility] ENDOSCOPY Note Status: Finalized Procedure: Colonoscopy Indications: Evaluation of abnormal imaging study (likely to be clinically significant), Evaluation of unexplainedGI bleeding presenting with Hematochezia. 77F admitted for cardiac arrest who developed hemochezia. CT AP 04/12/2023 with right-sided colonic lesion. Referring MD: Jorge A Noel M.D., Alphonse Alfred M.D. Providers: Froilan Vilchis M.D., Dina Hull M.D. Medicines: Monitored Anesthesia Care Complications: No immediate complications. Estimated Blood Loss: Estimated blood loss was minimal. Procedure: Pre-Anesthesia Assessment: - Prior to the procedure, a History and Physicalwas performed, and patient medications, allergies and sensitivities were reviewed. The patient'stolerance of previous anesthesia was reviewed. - The alternatives, risks and benefits of the procedure were discussed at length with thepatient's daughter. The patient's proxy verbalizedunderstanding of the risks as well as the alternatives and wishedto proceed with the procedure. - Immediately prior to administration ofmedications, the patient was re-assessed for adequacy to receive sedatives. - The risks and benefits of the procedure and the sedation options and risks were discussed with the patient. All questions were answered and informed consent was obtained. The benefits, risks and alternatives of theprocedure and sedation were discussed and informed consentwas obtained. All questions were answered. Please referto the signed informed consent document in the medical record. The scope was passed under direct vision.The CF [id number] endoscope was introduced through the anus and advanced to the the cecum, identifiedby appendiceal orifice and ileocecal valve. The colonoscopy was performed with ease. The patient tolerated the procedure well. The quality of thebowel preparation was evaluated using the BBPS (BostonBowel Preparation Scale) with scores of: Right Colon = 2 (minor amount of residual staining, small fragmentsof stool and/or opaque liquid, but mucosa seen well), Transverse Colon = 3 (entire mucosa seen well withno residual staining, small fragments of stool oropaque liquid) and Left Colon = 3 (entire mucosa seen well with no residual staining, small fragments of stoolor opaque liquid). The total BBPS score equals 8. The quality of the bowel preparation was excellent. The quality of the bowel preparation was excellent. The bowel preparation used was polyethylene glycol(PEG) via split dose instruction. Findings: The perianal and digital rectal examinations were normal. A fungating, infiltrative and ulcerated non-obstructing large masswas found in the mid ascending colon (~86 cm from anus). The mass was partially circumferential. The mass measured five cm in length. Areaof abesent surface pattern on NBI with amorphous area suggestive of submucosal invasion. Biopsies were taken with a cold forceps for histology. Area 2 cm distal and along contralateral wall was successfully injected with 1 mL Spot (carbon black) for tattooing. Three sessile polyps were found in the proximal ascending colon and cecum. The polyps were 7 to 9 mm in size. These were not removedgiven colonoscopy for bleeding and large friable mass found distal to this area. Small internal hemorrhoids were found on retroflexion. Impression: - Likely malignant tumor in the mid ascending colon suggestive of submucosal invasion. Biopsied.Tattooed distal to the lesion. - Three 7 to 9 mm polyps in the proximal ascending colon and in the cecum. No removed. - Internal hemorrhoids. Recommendation: - Return patient to ICU for ongoing care. - Await pathology results. - Obtain CEA. - Consult colorectal surgery and oncology. - Remainder of recommendations per GI consultteam. Attending Participation: I was present and participated during the entire procedure, including non-hagan portions. Electronically signed by Froilan Vilchis MD Froilan Vilchis M.D. 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 2.pdf ADVANCE DIRECTIVE 05/16/2023 5:48 PM POWER OF LABORATORY MECHANICAL TECHNICIAN-MEDICAL ADVANCE DIRECTIVE 05/02/2023 12:31 PM SHMUEL R OF LABORATORY MECHANICAL TECHNICIAN-MEDICAL * Full Code (Latest Code Status on File) Date Activated Date Inactivated Comments 10/19/2023 9:27 PM 10/29/2023 5:09 PM * Full Code Date Activated Date Inactivated Comments 08/20/2023 3:48 AM 08/28/2023 3:46 PM * Full Code Date Activated Date Inactivated Comments 07/16/2023 1:14 AM 07/17/2023 6:33 PM * Full Code Date Activated Date Inactivated Comments 06/25/2023 6:15 AM 06/28/2023 4:52 AM * Full Code Date Activated Date Inactivated Comments 04/12/2023 2:19 PM 05/14/2023 6:56 PM Healthcare Agents on File Name Relationship Healthcare Agent Relationshi p Communication Erinn Guthrie Daughter Health Care Agent Care Teams Flume Tender Relationship Specialty Start Date End Date Nohelia Mayen MD [address] [place] [address] PCP - General Geriatric Medicine 03/04/24 Reji Garcia Jr., MD [address] [facility] [phone] [place] [address] Consulting Physician Colon and Rectal Surgery 06/02/23 Nohelia Ovalles NP [address] [facility] [place] [address] Nurse Practitioner Hospice and Palliative Medicine 12/27/23 Hoang Mcdonald MD [address] [place] [address] Medical Oncology 03/04/24 Mabel Cunningham MD [address] [facility] [address] NEUROLOGY STRO[address], [facility] [address] [place] [address] Consulting Physician Neurology 05/11/24 Brandin Joseph MD [address] [facility] [address] [place] [address] Consulting Physician Cardiology 06/29/24
--- OUTSIDE RECORDS SUMMARY | 2024-07-12 12:44 | XMS_ITS ---
Author Organization [facility] [address] Address [address] [place] [address] Care Team Providers Care [employer] Launch Commander Name Role Phone Jose Martinez MD, Reji Hunt Unavailable Nohelia Ovalles NP Unavailable Hoang Mcdonald MD Unavailable [phone] Nohelia Mayen MD Primary Care Provider [phone] Mabel Cunningham MD Unavailable [phone] Brandin Joseph MD Unavailable [phone] Active Problems Problem Noted Date Diagnosed Date Delirium 10/19/2023 Assessment & Plan (10/28/2023 7:28 PM CDT): Per daughter, at baseline pt has left sided weakness, arm weaker than leg. More lucid in morning but usually doesn't know date or place, forgetful, talks about people who're , sundowns daily. At baseline is 1 assist, needs assistance with ADLs, needs wheelchair when outside. 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 Interrogation normal. No episodes of VFib/Vtach. Patient [...] 200mg, amiodarone 200mg daily - [employer] DCPPM Current Treatment and Therapy Plans No current plan information found. Past Treatment and Therapy Plans No past plan information found. 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 Cardiac arrest due to NSTEMI s/p OTCAVIA 05/03/2023 04/06/2023 08/19/2023 Assessment & Plan (07/16/2023 [...] comoribidities - Follows with Dr. Bales - CT On amiodarone therapy 05/21/20182020 Goals of care, counseling/discussion 07/29/2017 10/19/2023 Postprocedural state 02/22/2015 019 Overview (07/27/2016): S/P ablation of atrial fibrillation Atrial flutter 05/08/2013 08/19/2023 Overview (07/27/2016): ATRIAL FLUTTER Assessment & Plan (08/19/2023 11:41 PM CDT): - Cont metoprolol
--- OUTSIDE RECORDS SUMMARY | 2024-07-12 12:44 | XMS_ITS | Referral Summary ---
Author Organization [facility] [address] Address [address] [place] [address] Care Team Providers Care Pipe Straightener Name Role Phone Jose Martinez MD, Reji Hunt Unavailable [phone] Nohelia Ovalles NP Unavailable Hoang Mcdonald MD Unavailable Nohelia Mayen MD Primary Care Provider [phone] Mabel Cunningham MD Unavailable Brandin Joseph MD Unavailable [phone] Encounters Date Type Department Care Team Description 07/01/2024 2:15 PM CDT Lab [facility] - Lab Collection [address] [place] [address] Floor 5 [place] [address] Malignant neoplasm of ascending colon (HCC) 07/01/2024 2:00 PM CDT Lab [facility] Oncology Lab [address] [place] [address] 5 [place] [address] Malignant neoplasm of ascending colon (HCC) 07/01/2024 2:45 PM CDT Office Visit [facility] Oncology [address] [place] [phone] Hoang Mcdonald MD Malignant neoplasm of ascending colon (HCC) (Primary Dx) 06/05/2024 1:00 PM BUSINESS CONTROLLER Residential Visit [facility] [address] [place] [address] Rachael Garrido NP Vascular dementia with other behavioral disturbance, unspecified dementia severity (HCC) (Primary Dx); CVA, old, hemiparesis (HCC); Palliative care encounter 05/15/2024 9:00 AM BUSINESS CONTROLLER Residential Visit [facility] [address] [place] [address] Rachael Garrido NP Vascular dementia with other behavioral disturbance, unspecified dementia severity (HCC) (Primary Dx); Urinary tract infection without hematuria, site unspecified; CVA, old, hemiparesis (HCC); Palliative care encounter 05/13/2024 Documentation [facility] [address] [place] [address] Rachael Garrido NP 05/13/[address] [phone] Marilu Torres RN 05/12/[address] [phone] Marilu Torres, RN 05/11/[address] [phone] Marilu Torres, RN 05/08/2024 Documentation [facility] [address] [place] [address] Rachael Garrido NP 05/08/2024 10:00 AM BUSINESS CONTROLLER Office Visit [facility] Stroke [address] [facility] [address] [place] [phone] Mabel Cunningham MD History of ischemic stroke (Primary Dx); Moderate dementia with agitation, unspecified dementia type (HCC); Spasticity due to old stroke from Last 3 Months Allergies Active Allergy Reactions Criticality Noted Date [...] assistance with ADLs, needs wheelchair when outside. 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 Interrogation normal. No episodes of VFib/Vtach. Patient [...] (08/19/2023 11:41 PM CDT): - Cont metoprolol Immunizations Immunization Administration Dates Next Due Influenza, Quadrivalent, Split, Intramuscular ,02/18/2014 Influenza, Quadrivalent, Spl it, Preservative Free, Intramuscular 02/13/2019 Influenza, Trivalent, High D ose, Split, Preservative Free, Intramuscular 02/12/2018,04/26/2015 Influenza, Trivalent, IM (MDV) 02/19/2017,2011 Pneumococcal Conjugate PCV 13 02/13/2019 Pneumococcal Polysaccharide PPV23 05/06/2012 Tdap 02/20/2019 ZOSTER Recombinant 05/08/2019,02/20/2019 Social History Tobacco Use Types Packs/Day Years Used Date Smoking Tobacco: Former Cigarettes 3 15 1 967 - 1981 Smokeless Tobacco: Former Quit: 1981 Tobacco Cessation:Counseling Given: Not Answered Alcohol Use Standard Drinks/Week Comments Yes 0 (1 standard drink = 0.6 oz pur e alcohol) [facility] FX Bridgeities Answer Date Recorded In the past 12 months has [employer], gas, oil, or water [employer] threatened to shut off services in your [...] answer 10/21/2023 How often do you attend [facility] or zoroastrianism services? Patient unable to answer 10/21/2023 Do you belong to any clubs o r organizations such as orthodoxy groups, unions, fraternal or athletic groups, or [...] place to sleep or slept in a long term (including now)? Patient unable to answer 08/22/2023 [...] any time in the past 12 m [facility], were you homeless or living in a long term (including now)? 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) Not on file Not on file Not on file Last Filed Vital Signs [...] cm (5' 5 ) 05/08/2024 9:56 AM BUSINESS CONTROLLER Body Mass Index 23 05/08/2024 9:56 AM BUSINESS CONTROLLER Plan of Treatment Not on file Medical Devices Implanted Type Area Sanitation Director Device Identifier Shelf Expiration Date Model / Serial / Lot [employer] Esperanza Angio-Seal Vip 6fr Closere Device [id number] - [id number] - [id number] Implanted:Qty: 1 on 05/03/2023 by Shmuel Thorne MD PhD at [facility] Collagen Right: Femoral [employer] Esperanza 10/01/2023 [id number] / [id number] / [id number] [employer] Stent Coronary De Rx Cocr Ors Msn 2.5x40mm [id number] - [id number] - [id number] Implanted:Qty: 1 on 05/03/2023 by Shmuel Thorne MD PhD at [facility] Stent [employer] 12/15/2024 [id number] / [id number] / [id number] Pacemaker Left: Chest [employer] Trufill Glue 1gm Nbca [id number] - [id number] Implanted:Qty: 1 on 06/25/2023 at [facility] 04/21/2025 [id number] / / [id number] Procedures Procedure Name Priority Date/Time Associated Diagnosis [...] ascending colon (HCC) COLONOSCOPY 04/16/2023 9:23 AM BUSINESS CONTROLLER from Last 3 Months or Most Recently [...] MD LAB BLOOD ORDERABLES Fin al Result [facility] Department [place] [address] * Differential, auto (07/01/2024 2:16 PM CDT) Neutrophil abs 3.5 1.5 - 6.5 K/cumm Comment:Testing performed by : [facility] Heme Lab, [address] [place] [phone] Lymphocyte abs 1.1 0.8 - 3.3 K/cumm [facility] Comment:Testing performed by : [facility], [address] [place] [phone] Monocyte abs 0.4 0.2 - 0.8 K/cumm [facility] Comment:Testing performed by : [facility]e [facility], [address] [place] [phone] Eosinophil abs 0.2 0.0 - 0.5 K/cumm [facility] Comment:Testing performed by : [facility], [address] [place] [phone] Basophil abs 0.1 0.0 - 0.1 K/cumm [facility] Comment:Testing performed by : [facility], [address] [place] [phone] Neutrophil pct 65.5 % [facility] Comment: Interpretive Data Percent cell count reference ranges are not reported, since discordance with absolute values may lead to misinterpretation of CBC data. Current Interpretive Data was last revised on 2017. Testing performed by: [facility], [address] [place] [phone] Lymphocyte pct 21.4 % [facility] Comment: Interpretive Data Percent cell count reference ranges are not reported, since discordance with absolute values may lead to misinterpretation of CBC data. Current Interpretive Data was last revised on 2017. Testing performed by: [facility], [address] [place] [phone] Monocyte pct 7.6 % [facility]IM [facility] Comment: Interpretive Data Percent cell count reference ranges are not reported, since discordance with absolute values may lead to misinterpretation of CBC data. Current Interpretive Data was last revised on 2017. Testing performed by: [facility], [address] [place], [place] [phone] Eosinophil pct 4.5 % EPHRAIM RINCON Comment: Interpretive Data Percent cell count reference ranges are not reported, since discordance with absolute values may lead to misinterpretation of CBC data. Current Interpretive Data was last revised on 2017. Testing performed by: [facility], [address] [place], [place] [phone] Basophil pct 1.0 % [facility] Comment: Interpretive Data Percent cell count reference ranges are not reported, since discordance with absolute values may lead to misinterpretation of CBC data. Current Interpretive Data was last revised on 2017. Testing performed by: [facility]e [facility], [address] [place] [phone] Blood 07/01/2024 2:16 PM CDT 07/01/2024 2:18 PM CDT us Hoang Mcdonald MD LAB BLOOD ORDERABLES Fin al [facility] Department [place] [address] * CBC with auto differential (07/01/2024 2:16 PM CDT) WBC 5.3 3.8 - 9.9 K/cumm Comment:Testing performed by : [facility], [address] [place] [phone] Hgb 12.8 11.9 - 15.5 g/dL [facility]PHRAIM R[facility]CON Comment:Testing performed by : [facility], [address] [place] [phone] Hct 39.2 35.6 - 45.5 % [facility] Comment:Testing performed by : [facility], [address] [place] [address] Plt 228 150 - 400 K/cumm CERMELE BJ Comment:Testing performed by : [facility], [address] [place] [address] MPV 7.9 6.8 - 10.4 fL CERMELE BJ Comment:Testing performed by : [facility], [address] [place] [address] RBC 4.19 3.90 - 5.20 M/cumm CER[facility]LE [facility] Comment:Testing performed by : [facility], [address] [place] [address] MCV 93.4 81.3 - 96.4 fL [facility]ER[facility]LE [facility] Comment:Testing performed by : [facility], [address] [place] [address] MCH 30.5 27.1 - 33.3 pg CERMELE BJ Comment:Testing performed by : [facility], [address] [place] [address] MCHC 32.7 32.3 - 35.7 g/dL CER[facility]LE [facility]J Comment:Testing performed by : [facility], [address] [place] [address] RDW CV 13.3 11.1 - 14.9 % CERMELE [facility]J Comment:Testing performed by : [facility], [address] [place] [address] NRBC abs 0.00 0.00 - 0.01 K/cumm CER[facility]LE [facility]J Comment:Testing performed by : [facility], [address] [place] [address] Blood 07/01/2024 2:16 PM CDT 07/01/2024 2:18 PM CDT us Hoang Mcdonald MD LAB BLOOD ORDERABLES Fin al Result [facility] [place] [address] * CEA (07/01/2024 2:16 PM CDT) Pathologist [facility] CEA 2.7 <=5.0 ng/mL Comment: Interpretive Data: Reference Range: Non-Smokers: 0.0 5.0 ng/mL Smokers: 0.0 6.5 ng/mL The Arcadio CEA assay procedure was used. Results from different manufacturers or methods may not be comparable. Serial testing should be performed using the same method. Current interpretive data was last revised 2021. Blood 07/01/2024 2:16 PM CDT 07/01/2024 2:32 PM CDT us Hoang Mcdonald MD LAB BLOOD ORDERABLES Fin al Result [facility] Department [place] [address] * Comprehensive metabolic panel (07/01/2024 2:16 PM CDT) Pathologist [facility] Sodium 137 135 - 145 mmol/L Potassium, pl 4.8 3.3 - 4.9 mmol/L [facility] Chloride 107 97 - 110 mmol/L [facility] CO2 23 22 - 32 mmol/L [facility] Anion gap 7 2 - 15 mmol/L [facility] BUN 10 6 - 25 mg/dL [facility] Creatinine 1.04 0.60 - 1.10 mg/dL [facility] Glucose 107 70 - 199 mg/dL [facility] Comment: Interpretive Data Fasting glucose >/= 126 [...] classification and Diagnosis of Diabetes Diabetes Care 202; 46: S19-S40. Current interpretive data was last revised 2022. Calcium 9.4 8.5 - 10.3 mg/dL [facility] Bilirubin, total 0.2 0.1 - 1.2 mg/dL [facility] Protein, pl 7.0 6.5 - 8.5 g/dL [facility] Albumin 4.1 3.5 - 5.0 g/dL [facility] Alk phos 77 40 - 130 Units/L [facility] ALT 28 7 - 45 Units/L [facility] AST 32 10 - 45 Units/L [facility] Blood 07/01/2024 2:16 PM CDT 07/01/2024 2:18 PM CDT us Hoang Mcdonald MD LAB BLOOD ORDERABLES Fin al Result [facility] [place] [address] * COLONOSCOPY (04/16/2023 9:23 AM BUSINESS CONTROLLER) Anatomical Region Laterality Modality Other Narrative Procedure Note Froilan Vilchis MD - 04/16/2023 9:23 AM CST [facility] Patient Name: Sheyla Guthrie Procedure Date: 04/16/2023 9:23 AM Date of : 1945 Admit Type: Inpatient Age: 77 Gender: Female Attending MD: Froilan Vilchis M.D. Room: [facility] ENDOSCOPY Note Status: Finalized Procedure: Colonoscopy Indications: [...] The scope was passed under direct vision.The [id number] endoscope was introduced through the anus [...] On: 04/16/2023 9:23 AM Recognized by the [employer] for promoting quality in endoscopy Froilan Vilchis MD ENDOSCOPY PROCED URES Final Result from Last 3 Months or Most Recently Relevant to Health Maintenance Insurance MEDICARE [facility] MEDICARE [facility] MEDICARE SUPPLEMENT MEDICARE [facility] MEDICARE SUPPLEMENT Advance Directives For more information, please contact: [phone] Documents on File Type Date Recorded Patient Fire Inspector Expl anation Power of Sales Representative Business Courses 10/19/2023 7:03 PM Garrett alHILDA. 2.pdf ADVANCE DIRECTIVE 05/16/2023 5:48 PM POWER OF TUBE BUILDER-MEDICAL ADVANCE DIRECTIVE 05/02/2023 12:31 PM SHMUEL R OF TUBE BUILDER-MEDICAL * Full Code (Latest Code Status on [...] Guthrie Daughter Health Care Agent Care Teams Pipe Straightener Relationship Specialty Start Date End Date Nohelia Mayen MD [address] [facility] [address] [place] [address] PCP - General Geriatric Medicine 03/04/24 Reji Garcia Jr., MD [address] [facility] [phone] [place] [address] Consulting Physician Colon and Rectal Surgery 06/02/23 Nohelia Ovalles NP [address] [place] [address] Nurse Practitioner Hospice and Palliative Medicine 12/27/23 Hoang Mcdonald MD [address] [place] [address] Medical Oncology 03/04/24 Mabel Cunningham MD [address] [facility] [address] NEUROLOGY [address], [address] [place] [address] Consulting Physician Neurology 05/11/24 Brandin Joseph MD [address] [facility] [address] [place] [address] Consulting Physician Cardiology 06/29/24
--- OUTSIDE RECORDS SUMMARY | 2024-07-12 12:44 | XMS_ITS ---
Author Organization [facility] Address [address] [place] [address] Care Team Providers Care Gym Supervisor Name Role Phone Lorna Marie APRN-DECATIZER Primary Care Provider Active Problems Problem Noted Date Diagnosed Date [...] atrial fibrillation 05/08/2013 Overview (02/27/2024): ATRIAL FIBRILLATION Current Oncology Plans No current plan information found. Past Plans No past plan information found. Radiation Treatments * No radiation treatments are documented for this patient in Epic. Treatments may have been administered in another system. Lifetime Dose Tracking * Chemical Lifetime Dose Automatic Entry Manual Entr y Dose Length Product 2,201.64 mGy-cm 2,201.64 mGy-cm 0 mGy-cm Resolved Problems Problem Noted Date Diagnosed Date [...]
--- OUTSIDE RECORDS SUMMARY | 2024-07-12 12:44 | XMS_ITS | Clinical Summary ---
Author Organization [facility] Address [address] [place] [address] Care Team Providers Care Tandem Mill Operator Name Role Phone Jorge A Noel MD Primary Care Provider [phone] Allergies No known active allergies Medications dilTIAZem CD (CARDIZEM CD) 120 MG 24 hr capsule Take 120 mg by mouth daily. Active apixaban (ELIQUIS) 5 MG tablet Take 5 mg by mouth 2 (two) times daily. Active furosemide (LASIX) 20 MG tablet Take 20 mg by mouth daily. Active loratadine (CLARITIN) 10 MG tablet Take 10 mg by mouth as needed. Active metoprolol succinate ER (TOPROL-XL) 50 MG 24 hr tablet Take 100 mg by mouth daily. Active lisinopril (PRINIVIL) 10 MG tablet Take 10 mg by mouth daily. Active calcium carb-cholecalci ferol (CALTRATE+D) 600-10 MG-MCG Tab tablet 1 tablet daily. Active magnesium oxide (MAG-OX) 400 (240 Mg) MG tablet Take 400 mg by mouth 2 (two) times daily. Active dofetilide (TIKOSYN) 500 MCG Cap capsule Take 1 capsule by mouth daily. 03/02/2022 Active Social History Tobacco Use Types Packs/Day Years Used Date Smoking Tobacco: Former Cigarettes Smokeless Tobacco: Never Tobacco Cessation:Counseling Given: Not Answered Alcohol Use Standard Drinks/Week Comments Yes 46.7 (1 standard drink = 0.6 oz pure alcohol) Comments No Sex and Gender Information Value Date Recorded Sex Assigned at Not on file Legal Sex Female 10:01 PM CDT Gender Identity Not on file Sexual Orientation Not on file Last Filed Vital Signs Vital Sign Reading Time Taken Comments Blood Pressure 125/68 06/18/2022 8:02 AM INVESTOR RELATIONS ANALYST Pulse 72 06/18/2022 8:02 AM INVESTOR RELATIONS ANALYST Temperature 36.2 C (97.2 F) 06/18/2022 6:49 AM INVESTOR RELATIONS ANALYST Respiratory Rate 20 06/18/2022 6:49 AM INVESTOR RELATIONS ANALYST Oxygen Saturation 98% 06/18/2022 8:02 AM INVESTOR RELATIONS ANALYST Inhaled Oxygen Concentration - - Weight 74.8 kg (165 lb) 06/18/2022 6:49 AM INVESTOR RELATIONS ANALYST Height 165.1 cm (5' 5 ) 06/18/2022 6:49 AM INVESTOR RELATIONS ANALYST Body Mass Index 27.46 06/18/2022 6:49 AM INVESTOR RELATIONS ANALYST Plan of Treatment Health Maintenance Due Date Last Done Comments Hepatitis C 1963 Annual Medicare Wellness Visit 06/27/2011 Dexa Scan (General) 06/27/2011 RSV Immunization or 60+ Years (1 - 1-dose 75+ series) 2021 COVID-19 Vaccine ( - season) 2023 01/21/2022, 03/03/2021, 07/14/2020, Additional history exists Influenza Adult (#1) 2024 01/21/2020, 02/13/2019, 02/12/2018, Additional history exists DTaP, Tdap and Td Vaccines (2 - Td or Tdap) 02/20/2029 02/20/2019 Pneumococcal Vaccine: 65+ Years Completed 02/13/2019, 05/06/2012 Zoster Vaccines Completed 05/08/2019, 02/20/2019 Meningococcal B Vaccine Aged Out No l onger eligible based on patient's age to complete this topic Meningococcal Vaccine Aged Out No jana kinjal eligible based on patient's age to complete this topic RSV Immunizations Under 20 Months Aged Out No longer eligible based on patient's age to complete this topic Medical Devices Implanted Type Area Manufacturing Laborer Device Identifier Shelf Expiration Date Model / Serial / Lot Tecnis 1 Piece Iol Simplicity Implanted:Qty: 1 on 05/14/2022 by Kit Daniel MD at [facility] [id number] 02/17/2025 / [id number] / Tecnis Iol Implanted:Qty: 1 on 06/18/2022 by Kit Daniel MD at [facility] Right: Eye 11/10/2024 / [id number] / Insurance MEDICARE [facility] Care Teams Tandem Mill Operator Relationship Specialty Start Date End Date Jorge A Noel MD [address] [place] [id number] PCP - General INTERNAL MEDICINE 05/14/22
--- NOTE | 2024-07-12 13:17 | ED_ITS ---
HPI - GI Bleed General Chief complaint: Unspecified Stated complaint: blood in colostomy bag Time Seen by Provider: 07/12/24 12:56 Source: patient and family Mode of arrival: wheelchair Limitations: no limitations History of Present Illness HPI Narrative: Patient is a 79-year-old female with prior strokes and colon cancer with colostomy here with bright red blood in the colostomy today. No abdominal pain. Increased watery stool in the colostomy. No injury to the site. complaint: gross hematochezia ( Into colostomy) Onset (ago): day(s) ( 1) Pain Consistency: constant Severity: moderate Relieving factors: none Exacerbating factors: none Context: other ( aspirin use) Associated symptoms: denies other symptoms Treatments Prior to Arrival: none Related Data Allergies Allergy/AdvReac Type Severity Reaction Status Date / Time No Known Allergies Allergy Verified 07/12/24 12:54 Review of Systems 2 Review of Systems: All systems reviewed & are unremarkable except as noted in HPI and below Constitutional: Constitutional: Reports no additional constitutional complaints Eyes: Eyes: Reports no additional eye complaints ENT: Reports system reviewed and no additional complaints, except as documented Cardiovascular: Cardiovascular: Reports no additional cardiovascular complaints Respiratory: Respiratory: Reports no additional respiratory complaints Gastrointestinal: Gastrointestinal: Reports no additional gastrointestinal complaints Genitourinary: Genitourinary: Reports no additional female genitourinary complaints Musculoskeletal: Musculoskeletal: Reports no additional musculoskeletal complaints Integumentary/Breasts: Skin/Breast: Reports system reviewed and no additional complaints, except as docu Neurologic: Reports system reviewed and no additional complaints, except as documented Psychiatric: Psychiatric: Reports no additional psychiatric complaints Endocrine: Endocrine: Reports no additional endocrine complaints Hematologic/Lymphatic: Hematologic/Lymphatic: Reports no additional hematologic/lymphatic complaints Allergic/Immunologic: Allergic/Immunologic: Reports no additional allergic/immunologic complaints PMFSH Past Medical History Medical History Brain bleed Atrial fib/flutter, transient Colon cancer Hemiplegia following cerebrovascular accident (CVA) HTN (hypertension) Alcohol abuse Social History Social History Smoking status: Never smoker Exam 2 Const: General: healthy appearing Nutritional Appearance: well nourished Orientation/consciousness: patient oriented x3 Limitations: no limitations HENMT: Head: normal to inspection Ears: external ears normal F concepcion/Nose/Sinus: Normal external nose present Eyes: Conjunctivae: conjunctivae normal Pupils: Equal, round and reactive pupils present EOM: EOMs intact bilaterally Neck: Neck: normal visual inspection Chest: Chest palpation & inspection: normal inspection of the chest Resp: Effort & Inspection: normal respiratory effort and not labored A uscultation: clear to auscultation bilaterally and no crackles Cardio: Rate: regular rate Rhythm: regular rhythm Heart sounds: no murmurs GI: Inspection: non-distended GI Palp: Yes Soft to palpation and No Tenderness to palpation present (GI) Auscultation: normal bowel sounds O ther: right abdomen colostomy in place working properly with bright red blood and dark blood mixed into the bag : General: Yes bladder normal to palpation Back/Spine/Pelvis: Back: no CVA tenderness Skin: General skin exam: normal color Rashes: no rashes Wounds: no wounds Neuro: General: patient oriented x3 Cranial nerves: Yes Nystagmus not present Speech: normal speech Extrem: General: normal to inspection Psych: Mental Status: mental status grossly normal Affect: normal affect Attitude: cooperative Course Vital Signs Vital signs: Vital Signs Temperature 36.1 C L 07/12/24 12:42 Pulse Rate 90 07/12/24 12:42 Respiratory Rate 19 07/12/24 12:42 Blood Pressure 102/69 07/12/24 12:42 Pulse Oximetry 99 07/12/24 12:42 Oxygen Delivery Room Air 07/12/24 12:42 Temperature 37.1 C 07/12/24 14:40 Pulse Rate 75 07/12/24 14:40 Respiratory Rate 16 07/12/24 14:40 Blood Pressure 138/60 07/12/24 14:40 Pulse Oximetry 98 07/12/24 14:40 Oxygen Delivery Room Air 07/12/24 14:40 MDM - GI Bleed MDM Narrative Medical decision making narrative: patient is a 79-year-old female with GI bleeding into her colostomy today. We will do workup at this time and likely need to transfer for further workup.Workup was negative for GI bleed. Lab Data Attestation: I reviewed the patient's lab results. 07/12/24 14:38 07/12/24 14:38 Labs: Lab Results 07/12/24 07/12/24 Range/Units 13:17 14:38 WBC 5.4 (4.8-10.8) K/mm3 RBC 3.72 L (4.20-5.40) M/mm3 Hgb 11.4 L (11.7-13.8) g/dL Hct 35.9 (35.0-42.0) % MCV 96.5 (78.0-102.0) fL MCH 30.6 (27.0-31.0) pg MCHC 31.8 L (32-36) g/dL RDW 12.5 (11.6-14.4) % Plt Count 219 (150-420) K/mm3 MPV 9.4 (9.2-11.8) fl Immature Gran % (Auto) 0.4 H (0.0-0.0) % Neut % (Auto) 64.1 (50.0-70.0) % Lymph % (Auto) 18.0 (18.0-42.0) % [place] % (Auto) 9.6 (2.0-11.0) % Eos % (Auto) 7.2 H (1.0-6.0) % Baso % (Auto) 0.7 (0.0-1.0) % Lymph # (Auto) 0.98 L (1.10-4.50) K/mm3 [place] # (Auto) 0.52 (0.10-0.90) K/mm3 Eos # (Auto) 0.39 (0.02-0.50) K/mm3 Baso # (Auto) 0.04 (0.00-0.10) K/mm3 Abs Immat Gran (auto) 0.02 H (0.00-0.00) K/mm3 Absolute Neuts (auto) 3.48 (1.70-7.20) K/mm3 Absolute Nucleated RBC 0.00 (0.00-0.00) K/mm3 Nucleated RBC % 0.0 (0-0.0) % PT 10.6 (9.50-12.1) Seconds INR 1.0 APTT 21.9 L (23.9-30.70) Sec Sodium 136 (136-145) mmol/L Potassium 4.7 (3.5-5.1) mmol/L Chloride 104 (98-108) mmol/L Carbon Dioxide 23 (21-32) mmol/L Anion Gap 9 (4-12) mmol/L BUN 11 (7-18) mg/dL Creatinine 1.04 H (0.55-1.02) mg/dL Estim Creat Clear Calc 37 ml/min Estimated GFR 51 L (59 - ) Glucose 90 (70-99) mg/dL Calculated Osmolality 281 L (285-295) mOsm/kg Calcium 9.0 (8.5-10.1) mg/dL Total Bilirubin 0.3 (0.00-1.00) mg/dL AST 23 (15-37) U/L ALT 33 (14-59) U/L Alkaline Phosphatase 85 (46-116) U/L Total Protein 6.7 (6.4-8.2) g/dL Albumin 3.5 (3.4-5.0) g/dL Stool Occult Blood Negative (Negative) Imaging Data Attestation: I personally reviewed and interpreted this imaging study as follows: Radiologist's impression: CT scan of the abdomen and pelvis with contrast was negative for acute process Discharge Plan Discharge Clinical Impression: Abnormal stool color Patient Disposition: Home, Self-Care Condition: Stable Instructions: Gastrointestinal Bleeding (ED) Additional Instructions: please follow-up with the primary doctor in the next week. Please monitor ileostomy for clearing of the red color. I have given you a handout on GI bleeding but at this time there is no GI bleeding. Patient Language: Ukrainian Prescriptions: No Action gabapentin [Neurontin] 400 mg capsule 400 mg PO HS Qty: 20 0RF Follow-up/Referrals: Frank,CALVIN Lynne [Primary Care Provider] - Time of Disposition: 16:15
--- NOTE | 2024-07-12 13:17 | ED_ITS ---
HPI - General Adult General Chief complaint: Unspecified Stated complaint: blood in colostomy bag Time Seen by Provider: 07/12/24 12:56 Related Data Allergies Allergy/AdvReac Type Severity Reaction Status Date / Time No Known Allergies Allergy Verified 07/12/24 12:54 [facility] Past Medical History Medical History Brain bleed Atrial fib/flutter, transient Colon cancer Hemiplegia following cerebrovascular accident (CVA) HTN (hypertension) Alcohol abuse Social History Social History Smoking status: Never smoker Course Vital Signs Vital signs: Vital Signs Temperature 36.1 C L 07/12/24 12:42 Pulse Rate 90 07/12/24 12:42 Respiratory Rate 19 07/12/24 12:42 Blood Pressure 102/69 07/12/24 12:42 Pulse Oximetry 99 07/12/24 12:42 Oxygen Delivery Room Air 07/12/24 12:42 Temperature 36.1 C L 07/12/24 12:42 Pulse Rate 90 07/12/24 12:42 Respiratory Rate 19 07/12/24 12:42 Blood Pressure 102/69 07/12/24 12:42 Pulse Oximetry 99 07/12/24 12:42 Oxygen Delivery Room Air 07/12/24 12:42 Medical Decision Making Vital Signs Vital Signs: Vital Signs Temperature 36.1 C L 07/12/24 12:42 Pulse Rate 90 07/12/24 12:42 Respiratory Rate 19 07/12/24 12:42 Blood Pressure 102/69 07/12/24 12:42 Pulse Oximetry 99 07/12/24 12:42 Oxygen Delivery Room Air 07/12/24 12:42 Temperature 36.1 C L 07/12/24 12:42 Pulse Rate 90 07/12/24 12:42 Respiratory Rate 19 07/12/24 12:42 Blood Pressure 102/69 07/12/24 12:42 Pulse Oximetry 99 07/12/24 12:42 Oxygen Delivery Room Air 07/12/24 12:42 Discharge Plan Discharge Clinical Impression: Alcohol abuse Patient Disposition: Home, Self-Care Condition: Stable Instructions: Antibiotic Form Patient Language: Bahamian Prescriptions: No Action gabapentin [Neurontin] 400 mg capsule 400 mg PO HS Qty: 20 0RF Follow-up/Referrals: Frank,CALIVN Lynne [Primary Care Provider] -
--- OUTSIDE RECORDS SUMMARY | 2024-07-12 13:24 | XMS_ITS | Clinical Summary ---
Author Organization [facility] Address [address] [place] [address] Care Team Providers Care Kitchen Food Server Name Role Phone Jorge A Noel MD Primary Care Provider [phone] Allergies No known active allergies Medications dilTIAZem [...] Comments Blood Pressure 125/68 06/18/2022 8:02 AM SOLID PROPELLANT PROCESSOR Pulse 72 06/18/2022 8:02 AM SOLID PROPELLANT PROCESSOR Temperature 36.2 C (97.2 F) 06/18/2022 6:49 AM SOLID PROPELLANT PROCESSOR Respiratory Rate 20 06/18/2022 6:49 AM SOLID PROPELLANT PROCESSOR Oxygen Saturation 98% 06/18/2022 8:02 AM SOLID PROPELLANT PROCESSOR Inhaled Oxygen Concentration - - Weight 74.8 kg (165 lb) 06/18/2022 6:49 AM SOLID PROPELLANT PROCESSOR Height 165.1 cm (5' 5 ) 06/18/2022 6:49 AM SOLID PROPELLANT PROCESSOR Body Mass Index 27.46 06/18/2022 6:49 AM SOLID PROPELLANT PROCESSOR Plan of Treatment Health Maintenance Due Date [...] this topic Medical Devices Implanted Type Area Testing Lead Device Identifier Shelf Expiration Date Model / Serial / Lot Tecnis 1 Piece Iol Simplicity Implanted:Qty: 1 on 05/14/2022 by Kit Daniel MD at [facility] [id number] 02/17/2025 / [id number] / Tecnis Iol Implanted:Qty: 1 on 06/18/2022 by Kit Daniel MD at [facility] Right: Eye 11/10/2024 / [id number] / Insurance MEDICARE [facility] Care Teams Kitchen Food Server Relationship Specialty Start Date End Date Jorge A Noel MD [address] [place] [phone] PCP - General INTERNAL MEDICINE 05/14/22
--- OUTSIDE RECORDS SUMMARY | 2024-07-12 13:24 | XMS_ITS | Clinical Summary ---
Author Organization [facility] [email or web address] Address [address] [place] [address] Care Team Providers Care Surgical Instrument Technician Name Role Phone Frank, Lorna Vela APRN-TICKER INSTALLER Primary Care Provider Source Comments [facility] [email or web address],non-owned Affiliates and Associated Physician Practices is amultiple site organization consisting of ambulatory clinics and hospital sitesin [place], [place], [place] and [place]. This disclosure is being madepursuant to the Care Everywhere program and may not contain all information available regarding this patient. Last updated 18.[facility] [email or web address] Allergies Active Allergy Reactions Criticality Noted Date [...] 100 tablet 4 4 Active nystatin (Mycostatin) 308517 UNIT/GM powder Apply to affected area 2 [...] Department Care Team Description 2024 12:07 PM FRUIT CULLER - 2024 11:59 PM FRUIT CULLER Hospital Encounter [facility] DRAW STATION [address] [place] [phone] Lorna Marie, MILLI-TICKER INSTALLER Discharge Disposition: Home or Self Care 2024 11:00 AM FRUIT CULLER Office Visit [facility] [address] [place] [phone] Lorna Marie, COUNSELING SERVICES MANAGER-TICKER INSTALLER Presence of ileostomy (Primary Dx); Psychosis, unspecified psychosis type; Hemiplegia and hemiparesis following cerebral infarction affecting left non-dominant side; Mild dementia, unspecified dementia type, unspecified whether behavioral, psychotic, or mood disturbance or anxiety; Seizure-like activity; Colon adenocarcinoma; Paroxysmal atrial fibrillation; SDH (subdural hematoma); Urinary tract infection with hematuria, site unspecified; Dysuria; Hematuria, unspecified type; Hyperlipidemia, unspecified hyperlipidemia type; Anxiety 2024 Travel 06/12/2024 Refill [facility] [address] [place] [phone] Lorna Marie, COUNSELING SERVICES MANAGER-TICKER INSTALLER Refill Request 04/21/2024 Refill [facility] [address] [place] [phone] Nohelia Mayen MD Refill Request from Last [...] Comments Blood Pressure 99/67 2024 10:43 AM FRUIT CULLER Pulse 89 2024 10:43 AM FRUIT CULLER Temperature 36.7 C (98 F) 11/09/2023 11:43 AM CDT Respiratory Rate 18 11/09/2023 11:4 3 AM CDT Oxygen Saturation 90% 2024 10: 43 AM FRUIT CULLER Inhaled Oxygen Concentration - - Weight 63.4 kg (139 lb 12.8 oz) 025 10:43 AM FRUIT CULLER Height 162.6 cm (5' 4 ) 2024 10:4 3 AM FRUIT CULLER Body Mass Index 24 2024 10:43 AM FRUIT CULLER Plan of Treatment Upcoming Encounters Date Type Department Care Team (Late st Contact Info) Description 10/30/2024 11:00 AM CDT Office Visit [facility] [address] [place] [phone] Lorna Marie, COUNSELING SERVICES MANAGER-TICKER INSTALLER [address] [phone] Health Maintenance Due Date Last Done Comments [...] MICROSCOPIC NO CULTURE Routine 2024 12:56 PM FRUIT CULLER Psychosis, unspecified psychosis type Urinary tract infection with hematuria, site unspecified Dysuria Hematuria, unspecified type CULTURE URINE Routine 2024 12:56 PM FRUIT CULLER Psychosis, unspecified psychosis type Urinary tract infection with hematuria, site unspecified Dysuria Hematuria, unspecified type LDL CHOLESTEROL DIRECT Routine 2024 12:28 PM FRUIT CULLER Hyperlipidemia, unspecified hyperlipidemia type COMPREHENSIVE METABOLIC PANEL Routine 2024 12:28 PM FRUIT CULLER Psychosis, unspecified psychosis type Urinary tract infection with hematuria, site unspecified Dysuria Hematuria, unspecified type CBC W AUTO DIFFERENTIAL Routine 2024 12:28 PM FRUIT CULLER Psychosis, unspecified psychosis type Urinary tract infection with hematuria, site unspecified Dysuria Hematuria, unspecified type LEVETIRACETAM LEVEL Routine 2024 1 2:28 PM FRUIT CULLER Seizure-like activity from Last 3 Months Results * (ABNORMAL) URINALYSIS NO MICROSCOPIC NO CULTURE (2024 12:56 PM FRUIT CULLER) Color UA Yellow Yellow, Straw 2024 1:37 PM [facility] Clarity UA Clear Clear 2024 1:37 PM [facility] Glucose UA Normal Normal 2024 1:37 PM [facility] Bilirubin UA Negative Negative 2024 1:37 PM [facility] Ketone UA Negative Negative 2024 1:37 PM [facility] Specific [place] UA 1.009 1.005 - 1.030 2024 1:37 PM [facility] Blood UA Negative Negative 2024 1:37 PM [facility] pH UA 6.0 5.0 - 9.0 pH 2024 1:37 PM [facility] Protein UA Negative Negative 2024 1:37 PM [facility] Urobilinogen UA Normal Normal mg/dL 2024 1:37 PM [facility] Nitrite UA Negative Negative 2024 1:37 PM [facility] Leukocyte UA 500 RENEE/uL(A) Negative 2024 1:37 PM FRUIT CULLER [facility] Urine URINE SPECIMEN OBTAINED BY CLEAN CATCH PROCEDURE / Unknown Collection / Unknown 2024 12:56 PM FRUIT CULLER 2024 1:19 PM FRUIT CULLER L[facility] - URINALYSI S ORDERABLES [facility] [address] [place] [address], [facility] [phone] * CULTURE URINE (2024 12:56 PM FRUIT CULLER) Culture Urine 10,000-50,000 CFU/mL urogenital raymundo DANNI 06/28/2024 12:30 AM FRUIT CULLER [facility] Urine URINE SPECIMEN OBTAINED BY CLEAN CATCH PROCEDURE / Unknown Collection / Unknown 2024 12:56 PM FRUIT CULLER 2024 1:19 PM FRUIT CULLER Lorna Marie [facility] - MICROBIOL OGY ORDERABLES Performing Organization Address City/[facility]/ZIP Co de Phone Number [facility] [address] [place] [address], [facility] [phone] * (ABNORMAL) LEVETIRACETAM LEVEL (2024 12:28 PM FRUIT CULLER) Levetiracetam 44(H) 10 - 40 ug/mL 06/28/2024 2:57 PM CDT [facility] ([facility]) Comment: INTERPRETIVE INFORMATION: Keppra (Levetiracetam) Therapeutic Range: 10-40 ug/mL Toxic: Not well Established Pharmacokinetics of levetiracetam are affected by renal function. Adverse effects may include somnolence, weakness, headache and vomiting. This levetiracetam (Keppra) immunoassay uses the [employer] reagents, which has known cross-reactivity with the drug brivaracetam (Briviact) and may report inaccurate results. Patients transitioning from levetiracetam to brivaracetam or those who are using both medications should not monitor drug concentrations with the [employer] assay. These patients should be monitored using a validated chromatographic methodology that distinguishes between drugs to determine drug concentrations. Performed By: [facility] [employer] [address] [place] [address] Advanced Manufacturing Consultant: Paul Stock MD, PhD CLIA Number: [id number] Blood BLOOD SPECIMEN / Unknown Lab Venipuncture / Unknown 2024 12:28 PM FRUIT CULLER 2024 12:42 PM FRUIT CULLER Lorna Marie COUNSELING SERVICES MANAGER-TICKER INSTALLER LAB - THERAPEUT IC DRUG MONITORING ORDERABLES [facility] ([facility]) [address] [place] [address], [facility] * (ABNORMAL) CBC W/ DIFFERENTIAL (2024 12:28 PM FRUIT CULLER) WBC 4.9 4.0 - 10.7 x10E9/L 2024 12:59 PM [facility] RBC Count 3.97 3.90 - 5.20 x10E12/L 2024 12:59 PM [facility] Hemoglobin 12.2 11.9 - 15.8 g/dL 2024 12:59 PM [facility] Hematocrit 38.5 34.8 - 46.1 % 2024 12:59 PM [facility] MCV 97.0 80.0 - 98.0 fL 2024 12:59 PM [facility] MCH 30.7 26.7 - 33.6 pg 2024 12:59 PM [facility] MCHC 31.7 31.7 - 36.3 g/dL 2024 12:59 PM [facility] RDW-CV 12.4 11.3 - 14.8 % 2024 12:59 PM [facility] Platelet Count 184 150 - 420 x10E9/L 2024 12:59 PM [facility] MPV 9.8 7.8 - 11.4 fL 2024 12:59 PM [facility] Neutrophil % 67.5 41.0 - 74.0 % 2024 12:59 PM [facility] Lymphocyte % 19.4 17.0 - 47.0 % 2024 12:59 PM [facility] Monocyte % 7.8 3.0 - 11.0 % 2024 12:59 PM [facility] Eosinophil % 3.9 0.0 - 7.0 % 2024 12:59 PM [facility] Basophil % 1.0 0.0 - 1.6 % 2024 12:59 PM [facility] Immature Granulocytes % 0.4 0.0 - 1.0 % 2024 12:59 PM [facility] Neutrophil Absolute 3.27 1.60 - 7.50 x10E9/L 2024 12:59 PM [facility] Lymphocyte Absolute 0.94(L) 1.00 - 4.40 x10E9/L 2024 12:59 PM [facility] Monocyte Absolute 0.38 0.15 - 1.00 x10E9/L 2024 12:59 PM [facility] Eosinophil Absolute 0.19 0.00 - 0.60 x10E9/L 2024 12:59 PM [facility] Basophil Absolute 0.05 0.00 - 0.13 x10E9/L 2024 12:59 PM [facility] Blood BLOOD SPECIMEN / Unknown Lab Venipuncture / Unknown 2024 12:28 PM FRUIT CULLER 2024 12:49 PM [facility] Lorna Marie COUNSELING SERVICES MANAGER-TICKER INSTALLER LAB - HEMATOLOG Y ORDERABLES [facility] [address] [place] [phone], [facility] [phone] * (ABNORMAL) COMPREHENSIVE METABOLIC PANEL (2024 12:28 PM FRUIT CULLER) BUN 13 7 - 26 mg/dL 2024 1:18 PM [facility] Creatinine 1.02(H) 0.56 - 0.96 mg/dL 2024 1:18 PM [facility] Sodium 139 136 - 145 mmol/L 2024 1:18 PM [facility] Potassium 3.9 3.5 - 4.5 mmol/L 2024 1:18 PM [facility] Chloride 111(H) 98 - 107 mmol/L 2024 1:18 PM [facility] CO2 22 22 - 29 mmol/L 2024 1:18 PM [facility] Glucose 121(H) 70 - 99 mg/dL 2024 1:18 PM [facility] Calcium 9.1 8.4 - 10.2 mg/dL 2024 1:18 PM [facility] Protein Total 6.4 6.0 - 8.3 g/dL 2024 1:18 PM [facility] Albumin 3.8 3.4 - 5.0 g/dL 2024 1:18 PM [facility] Bilirubin Total 0.3 0.2 - 1.2 mg/dL 2024 1:18 PM [facility] Alkaline Phosphatase 65 40 - 150 U/L 2024 1:18 PM [facility] ALT 21 5 - 55 U/L 2024 1:18 PM [facility] AST 22 5 - 34 U/L 2024 1:18 PM [facility] Anion Gap 6 6 - 16 2024 1:18 PM [facility] BUN/Creatinine Ratio 13 7 - 23 2024 1:18 PM [facility] Osmolality Calculated 289 275 - 295 mOsm/kg 2024 1:18 PM [facility] Albumin/Globulin Ratio 1.5 1.1 - 2.3 2024 1:18 PM [facility] eGFR by CKD-EPI 56(L) >=90 mL/min/1.7 3 m2 2024 1:18 PM [facility] Blood BLOOD SPECIMEN / Unknown Lab Venipuncture / Unknown 2024 12:28 PM FRUIT CULLER 2024 12:49 PM FR[facility] CULLER Lorna Marie APRN-TICKER INSTALLER LAB - CHEMISTRY ORDERABLES [facility] [address] [place] [address], [place] [phone] * LDL CHOLESTEROL DIRECT (2024 12:28 PM FRUIT CULLER) LDL Direct 57 <100 mg/dL 2024 1:18 PM FRUIT CULLER [facility] Comment: ATP III Classification of LDL Cholesterol: <100 mg/dL: Optimal 100 - 129 mg/dL: Near Optimal/Above Optimal 130 - 159 mg/dL: Borderline High 160 - 189 mg/dL: High >190 mg/dL: Very High Blood BLOOD SPECIMEN / Unknown Lab Venipuncture / Unknown 2024 12:28 PM FRUIT CULLER 2024 12:49 PM FRUIT CULLER Lorna Marie APRN-TICKER INSTALLER LAB - CHEMISTRY ORDERABLES [facility] [address] [place] [address], [place] [phone] from Last 3 Months Advance Directives * Full Code (Latest Code Status on File) Date Activated Date Inactivated Comments 09/17/2017 6:24 PM 09/20/2017 4:15 PM Care Teams Surgical Instrument Technician Relationship Specialty Start Date End Date Lorna Marie APRN-CNP [address] [phone] PCP - General Nurse Practitioner 01/13/24
--- OUTSIDE RECORDS SUMMARY | 2024-07-12 13:24 | XMS_ITS | Clinical Summary ---
Author Organization [facility] [address] Address [address] [place] [address] Care Team Providers Care Decorator Mannequin Name Role Phone Jose Martinez MD, Reji Hunt Unavailable Nohelia Ovalles NP Unavailable [phone] Hoang Mcdonald MD Unavailable Nohelia Mayen MD Primary Care Provider [phone] Mabel Cunningham MD Unavailable Brandin Joseph MD Unavailable [phone] Allergies Active Allergy Reactions Criticality Noted [...] assistance with ADLs, needs wheelchair when outside. 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 Interrogation normal. No episodes of VFib/Vtach. Patient [...] comoribidities - Follows with Dr. Bales - [facility] On amiodarone therapy 05/21/20182020 Goals of care, counseling/discussion 07/29/2017 10/19/2023 Postprocedural state 02/22/2015 019 Overview (07/27/2016): S/P ablation of atrial fibrillation Atrial flutter 05/08/2013 08/19/2023 Overview (07/27/2016): ATRIAL FLUTTER Assessment & Plan (08/19/2023 11:41 PM CDT): - Cont metoprolol Encounters Date Type Department Care Team Description 07/01/2024 2:45 PM CDT Office Visit [facility] Oncology [facility] [address] [place] [address] Hoang Mcdonald MD Malignant neoplasm of ascending colon (HCC) (Primary Dx) 07/01/2024 2:15 PM CDT Lab [facility] Cancer [place] - Lab Collection [address] [facility] [address] [place] [address] Malignant neoplasm of ascending colon (HCC) 07/01/2024 2:00 PM CDT Lab [facility] Oncology Lab [address] [facility] Floor 5 [place] [address] Malignant neoplasm of ascending colon (HCC) 06/05/2024 1:00 PM CORE MAKER HELPER Residential Visit [facility] Palliative Care [address] [place] [address] Rachael Garrido NP Vascular dementia with other behavioral disturbance, unspecified dementia severity (HCC) (Primary Dx); CVA, old, hemiparesis (HCC); Palliative care encounter 05/15/2024 9:00 AM CORE MAKER HELPER Residential Visit [facility] Palliative Care [address] [place] [address] Rachael Garrido NP Vascular dementia with other behavioral disturbance, unspecified dementia severity (HCC) (Primary Dx); Urinary tract infection without hematuria, site unspecified; CVA, old, hemiparesis (HCC); Palliative care encounter 05/13/2024 Documentation [facility] Palliative Care [address] [place] [address] Rachael Garrido NP 05/13/[address] [phone] Marilu Torres RN 05/12/[address] [address] [phone] Marilu Torres, RN 05/11/[address] [address] Marilu Torres, RN 05/08/2024 10:00 AM CORE MAKER HELPER Office Visit [facility] Stroke [address] [facility] [address] [place] [address] Mabel Cunningham MD History of ischemic stroke (Primary Dx); Moderate dementia with agitation, unspecified dementia type (HCC); Spasticity due to old stroke 05/08/2024 Documentation [facility] Palliative Care [address] [place] [address] Rachael Garrido NP from Last 3 Months [...] History Date Comments Hyperlipidemia Hypertension Atrial fibrillation ([facility]) 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 Asthma NAVDEEP (obstructive sleep apnea) In tolerant of CPAP Cardiac arrest with ventricu lar fibrillation ([facility]) 04/06/2023 OOH, at [facility] Acute right MCA stroke ([facility]) 03/27/2023 Car dioembolic source Colon cancer ([facility]) 04/16/2023 Stage 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 PEG hattie [...] drink = 0.6 oz pur e alcohol) [facility] Utilities Answer Date Recorded In the [...] often do you attend chur ch or synagogue services? Patient unable to answer 10/21/2023 Do you belong to any clubs o r organizations such as mormon groups, unions, fraternal or athletic groups, or [...] place to sleep or slept in a usp (including now)? Patient unable to answer 08/22/2023 [...] any time in the past 12 [facility], were you homeless or living in a usp (including now)? 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) Not on file Not on file [...] cm (5' 5 ) 05/08/2024 9:56 AM CORE MAKER HELPER Body Mass Index 23 05/08/2024 9:56 AM CORE MAKER HELPER Plan of Treatment Health Maintenance Due Date [...] Screening Discontinued Medical Devices Implanted Type Area Pulp Grinder And Blender Device Identifier Shelf Expiration Date Model / Serial / Lot [employer] Angio-Seal Vip 6fr Closere Device [id number] - [id number] - [id number] Implanted:Qty: 1 on 05/03/2023 by Shmuel Thorne MD PhD at [facility] Collagen Right: Femoral [employer]per[employer] 10/01/2023 [id number] / [id number] / [id number] [employer] Stent Coronary De Rx Cocr Ors Msn 2.5x40mm [id number] - [id number] - [id number] Implanted:Qty: 1 on 05/03/2023 by Shmuel Thorne MD PhD at [facility] Stent [employer] 12/15/2024 [id number] / [id number] / [id number] Pacemaker Left: Chest [employer] Elli Kilpatrick 1gm [facility] [id number] - [id number] Implanted:Qty: 1 on 06/25/2023 at [facility] [employer] 04/21/2025 [id number] / / [id number] Procedures Procedure Name Priority Date/Time Associated Diagnosis [...] ascending colon (HCC) COLONOSCOPY 04/16/2023 9:23 AM CORE MAKER HELPER from Last 3 Months or Most Recently [...] MD LAB BLOOD ORDERABLES Fin al Result [facility] One [facility] Department [place] [address] * Differential, auto (07/01/2024 2:16 PM CDT) Neutrophil abs 3.5 1.5 - 6.5 K/cumm Comment:Testing performed by : [facility], [address] [place] [phone] Lymphocyte abs 1.1 0.8 - 3.3 K/cumm [facility] Comment:Testing performed by : [facility], [address] [place] [phone] Monocyte abs 0.4 0.2 - 0.8 K/cumm [facility] Comment:Testing performed by : [facility], [address] [place] [phone] Eosinophil abs 0.2 0.0 - 0.5 K/cumm [facility] Comment:Testing performed by : [facility], [address] [place] [phone] Basophil abs 0.1 0.0 - 0.1 K/cumm [facility] Comment:Testing performed by : [facility], [address] [place] [phone] Neutrophil pct 65.5 % [facility] Comment: Interpretive Data Percent cell count reference ranges are not reported, since discordance with absolute values may lead to misinterpretation of CBC data. Current Interpretive Data was last revised on 2017. Testing performed by: [facility], [address] [place] [phone] Lymphocyte pct 21.4 % [facility] Comment: Interpretive Data Percent cell count reference ranges are not reported, since discordance with absolute values may lead to misinterpretation of CBC data. Current Interpretive Data was last revised on 2017. Testing performed by: [facility], [address] [place] [phone] Monocyte pct 7.6 % [facility] Comment: Interpretive Data Percent cell count reference ranges are not reported, since discordance with absolute values may lead to misinterpretation of CBC data. Current Interpretive Data was last revised on 2017. Testing performed by: [facility], [address] [place] [phone] Eosinophil pct 4.5 % [facility] Comment: Interpretive Data Percent cell count reference ranges are not reported, since discordance with absolute values may lead to misinterpretation of CBC data. Current Interpretive Data was last revised on 2017. Testing performed by: [facility], [address] [place] [phone] Basophil pct 1.0 % [facility] Comment: Interpretive Data Percent cell count reference ranges are not reported, since discordance with absolute values may lead to misinterpretation of CBC data. Current Interpretive Data was last revised on 2017. Testing performed by: [facility], [address] [place] [phone] Blood 07/01/2024 2:16 PM CDT 07/01/2024 2:18 PM CDT us Hoang Mcdonald MD LAB BLOOD ORDERABLES Fin al Result [facility] Department [place] [address] * CBC with auto differential (07/01/2024 2:16 PM CDT) WBC 5.3 3.8 - 9.9 K/cumm Comment:Testing performed by : [facility], [address] [place] [address] Hgb 12.8 11.9 - 15.5 g/dL [facility] Comment:Testing performed by : [facility], [address] [place] [address] Hct 39.2 35.6 - 45.5 % [facility] Comment:Testing performed by : [facility], [address] [place] [address] Plt 228 150 - 400 K/cumm [facility] Comment:Testing performed by : [facility], [address] [place] [address] MPV 7.9 6.8 - 10.4 fL [facility] Comment:Testing performed by : [facility], [address] [place], [place] [phone] RBC 4.19 3.90 - 5.20 M/cumm [facility] Comment:Testing performed by : [facility], [address] [place] [address] MCV 93.4 81.3 - 96.4 fL [facility] Comment:Testing performed by : [facility], [address] [place] [address] MCH 30.5 27.1 - 33.3 pg [facility] Comment:Testing performed by : [facility], [address] [place] [address] MCHC 32.7 32.3 - 35.7 g/dL [facility] Comment:Testing performed by : [facility], [address] [place] [address] RDW CV 13.3 11.1 - 14.9 % [facility] Comment:Testing performed by : [facility], [address] [place] [address] NRBC abs 0.00 0.00 - 0.01 K/cumm [facility] Comment:Testing performed by : [facility], [address] [place] [phone] Blood 07/01/2024 2:16 PM CDT 07/01/2024 2:18 PM CDT Hoang Mcdonald MD LAB BLOOD ORDERABLES Fin al Result Performing Organization Address [facility] de Phone Number [facility] [place] [address] * CEA (07/01/2024 2:16 PM CDT) Pathologist [facility] CEA 2.7 <=5.0 ng/mL Comment: Interpretive Data: [...] ORDERABLES Fin al Result Performing Organization Address [facility] [place] [address] * Comprehensive metabolic panel (07/01/2024 2:16 PM CDT) [facility] Sodium 137 135 - 145 mmol/L Potassium, pl 4.8 3.3 - 4.9 mmol/L [facility] Chloride 107 97 - 110 mmol/L [facility] CO2 23 22 - 32 mmol/L [facility] Anion gap 7 2 - 15 mmol/L [facility] BUN 10 6 - 25 mg/dL [facility] Creatinine 1.04 0.60 - 1.10 mg/dL [facility] Glucose 107 70 - 199 mg/dL [facility] Comment: Interpretive Data Fasting glucose >/= [...] 2022. Calcium 9.4 8.5 - 10.3 mg/dL [facility] Bilirubin, total 0.2 0.1 - 1.2 mg/dL [facility] Protein, pl 7.0 6.5 - 8.5 g/dL [facility] Albumin 4.1 3.5 - 5.0 g/dL [facility] Alk phos 77 40 - 130 Units/L [facility] ALT 28 7 - 45 Units/L [facility] AST 32 10 - 45 Units/L [facility] Blood 07/01/2024 2:16 PM CDT 07/01/2024 2:18 PM CDT us Hoang Mcdonald MD LAB BLOOD ORDERABLES Fin al Result [facility] One [facility] Department [place] [address] * COLONOSCOPY (04/16/2023 9:23 AM CORE MAKER HELPER) Anatomical Region Laterality Modality Other Narrative Procedure Note Froilan Vilchis MD - 04/16/2023 9:23 AM CST [facility] Patient Name: Sheyla Guthrie Procedure Date: 04/16/2023 9:23 AM Date of : 1945 Admit Type: Inpatient Age: 77 Gender: Female Attending MD: Froilan Vilchis M.D. Room: [facility] ENDOSCOPY Note Status: Finalized Procedure: Colonoscopy [...] scope was passed under direct vision.The CF [id number] endoscope was introduced through the anus [...] On: 04/16/2023 9:23 AM Recognized by the [employer] for promoting quality in endoscopy Froilan Vilchis MD ENDOSCOPY PROCED URES Final Result from Last 3 Months or Most Recently Relevant to Health Maintenance Insurance [facility]ICARE [facility] MEDICARE [facility] MEDICARE SUPPLEMENT MEDICARE [facility] MEDICARE SUPPLEMENT Advance Directives For more information, please contact: [phone] Documents on File Type Date Recorded Patient Speeder Tender Expl anation Power of Men'S Swim Coach 10/19/2023 7:03 PM Medic Adeline. 2.pdf ADVANCE DIRECTIVE 05/16/2023 5:48 PM POWER OF DISTRIBUTION [facility] ADVANCE DIRECTIVE 05/02/2023 12:31 PM SHMUEL R OF DISTRIBUTION [employer] * Full Code (Latest Code Status on [...] Guthrie Daughter Health Care Agent Care Teams Decorator Mannequin Relationship Specialty Start Date End Date Nohelia Mayen MD [address] [place] [address] PCP - General Geriatric Medicine 03/04/24 Reji Garcia Jr., MD [address] [facility] [phone] [place] [address] Consulting Physician Colon and Rectal Surgery 06/02/23 Nohelia Ovalles NP [address] [facility] [place] [address] Nurse Practitioner Hospice and Palliative Medicine 12/27/23 Hoang Mcdonald MD [address] [place] [address] Medical Oncology 03/04/24 Mabel Cunningham MD [address] [facility] DIV NEUROLOGY STR[place], [facility] [address] [place] [address] Consulting Physician Neurology 05/11/24 Brandin Joseph MD [address] [facility] [address] [place] [address] Consulting Physician Cardiology 06/29/24
--- OUTSIDE RECORDS SUMMARY | 2024-07-12 13:24 | XMS_ITS ---
Author Organization [facility] Address [address] [place] [address] Care Team Providers Care Finance Specialist Name Role Phone Lorna Marie APRN-ASSEMBLY INSPECTOR Primary Care Provider Active Problems Problem Noted [...]
--- OUTSIDE RECORDS SUMMARY | 2024-07-12 13:24 | XMS_ITS ---
Author Organization [facility] [address] Address [address] [place] [address] Care Team Providers Care Steam Engineer Name Role Phone Jose Martinez MD, Reji Hunt Unavailable Nohelia Ovalles NP Unavailable [phone] Hoang Mcdonald MD Unavailable Nohelia Mayen MD Primary Care Provider [phone] Mabel Cunningham MD Unavailable [phone] Brandin Joseph MD Unavailable [phone] Active Problems Problem Noted Date Diagnosed Date Delirium 10/19/2023 Assessment & Plan (10/28/2023 7:28 PM CDT): Per daughter, at baseline pt has left sided weakness, arm weaker than leg. More lucid in morning but usually doesn't know date or place, forgetful, talks about people who're , sundowns daily. At baseline is 1 assist, needs assistance with ADLs, needs wheelchair when outside. 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 Interrogation normal. No episodes of VFib/Vtach. Patient [...]
--- OUTSIDE RECORDS SUMMARY | 2024-07-12 13:24 | XMS_ITS | CONTINUITY OF CARE DOCUMENT ---
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 Yakelin Kirk Atrial fibrillation, paroxysmal active Desire Shairf RN s/p PVIx2 Apr & Sep 2013 s /p Reveal Feb 2014 Asthma active Desire Sharif RN HTN active Desire Sharif RN Near syncope active Kris Trimble Presence of implantable loop recorder completed - Torey Cadena Family History of Hypertension: completed - Matteo Olmstead DO Family History of Hypertension: completed - Matteo Olmstead DO Sleep apnea active Maicol Benton RESOURCE SPECIALIST TEACHER Edema, ankles active Matteo Olmstead DO Decreased posterior tibial pulses active Matteo Olmstead DO Atrial flutter, typical active Desire Sharif RN Pause active Kris Trimble Bradycardia active Kris Trimble Sick sinus syndrome active Kris Trimble Pre-procedural laboratory examination completed - Magan Wilsonleah Colon cancer active Magan Wlisonlupei NSTEMI active Magan Hi CAD--OCTAVIA to LAD 04/2023 active Magan Wilsonlupe i CVA active Magan Hi Preoperative cardiovascular evaluation active Magan Wilsonlupei Ventricular fibrillation active Magan Wilsonprabha ai GI bleed active Magan Wilsonlupei ENCOUNTERS Date Type Provider Location Encounter Diag nosis - In-person encounter Office Visit Roel Lisa MD [facility] - In-person encounter Office Visit Roel Lisa MD [facility] Pre-procedural laboratory examinationColon cancerNSTEMICAD--OCTAVIA to LAD VAPreoperative cardiovascular evaluationVentricular fibrillationGI bleed - In-person encounter Office Visit Roel Lisa MD [facility] - In-person encounter Office Visit Roel Lisa MD [facility] - In-person encounter Office Visit Roel Lisa MD [facility] Presence of implantable loop recorder - In-person encounter Office Visit Roel Lisa MD [facility] Near syncopePauseBradycardiaSick sinus syndrome - In-person encounter Office Visit [facility] - In-person encounter Office Visit [facility] Atrial flutter, typical - In-person encounter Office Visit [facility] Family History of Hypertension:Family History of Hypertension:Edema, anklesDecreased posterior tibial pulses - In-person encounter Office Visit [facility] - In-person encounter Office Visit Matteo Olmstead DO [facility] - In-person encounter Office Visit Matteo Olmstead DO [facility] Office - In-person encounter Office Visit Matteo Olmstead DO [facility] - In-person encounter Office Visit Matteo Olmstead DO [facility] Sleep apnea - In-person encounter Office Visit Matteo Olmstead DO [facility] - In-person encounter Office Visit Matteo Olmstead DO [facility] - In-person encounter Office Visit Matteo Olmstead DO [facility] - In-person encounter [facility] VITAL SIGNS Date Observation Value Provider blood pressure, cuff size regular [facility], diastolic 70 mm[Hg] Clark [facility], systolic 124 mm[Hg] Gordo [facility], oximetry 98 % [facility] respiratory rate E&M 12 /min [facility] pulse rate 95 /min Ymaile Hern[facility]dez [facility] height E&M 66 [in_i] Yamile Haqneluz lder blood pressure, cuff size regular Ja rret blood pressure, diastolic 88 mm[Hg] Ja rret blood pressure, systolic 134 mm[Hg] Jar ret pulse rate 70 /min Roc er y oxygen saturation, oximetry 95 % Roc respiratory rate E&M 12 /min Roc height E&M 66 [in_i] Roc er y Body Mass Index (Ratio) 27.76 kg/m2 Magan Ahmedzai blood pressure, diastolic 90 mm[Hg] Ke rri Gruenenfelder blood pressure, systolic 130 mm[Hg] Ker ri Gruenenfelder blood pressure, cuff size large Ke rri Gruenenfelder oxygen saturation, oximetry 99 % Yamile Gruenenfelder respiratory rate E&M 16 /min Yamile G ruenenfelder pulse rate 89 /min Yamile Gruenenfe lder weight E&M 172 [lb_av] Yamile Gruenenfe lder height E&M 66 [in_i] Yamile Gruenenfe lder Body Mass Index (Ratio) 27.11 kg/m2 Magan Ahmedzai blood pressure, cuff size large Ke rri Gruenenfelder blood pressure, diastolic 66 mm[Hg] Ke rri Gruenenfelder blood pressure, systolic 102 mm[Hg] Ker ri Gruenenfelder oxygen saturation, oximetry 97 % Yamile Gruenenfelder respiratory rate E&M 16 /min Yamile G ruenenfelder pulse rate 96 /min Yamile Gruenenfe lder weight E&M 168 [lb_av] Yamile Gruenenfe lder height E&M 66 [in_i] Yamile Gruenenfe lder Body Mass Index (Ratio) 27.44 kg/m2 Gene crocker Nacht blood pressure, cuff size large Ke rri Gruenenfelder blood pressure, diastolic 78 mm[Hg] Ke rri Gruenenfelder blood pressure, systolic 132 mm[Hg] Ker ri Gruenenfelder oxygen saturation, oximetry 98 % Yamile Morrismerlinelazaramyrtle respiratory rate E&M 15 /min Yamile Brown ynesericmyrtle pulse rate 93 /min Yamile Hernández [facility] weight E&M 170 [lb_av] Yamile Hernández [facility] height E&M 66 [in_i] Yamile Hernández [facility] Body Mass Index (Ratio) 28.24 kg/m2 Taew on Atilio blood pressure, diastolic 80 mm[Hg] Li nkLogic blood pressure, systolic 130 mm[Hg] Lisa kLogic blood pressure, cuff size large [facility] blood [facility], diastolic 80 mm[Hg] Ke rri Arturoueneericeld blood pressure, systolic 130 mm[Hg] Gordo Fitzgeralddeborah oxygen saturation, oximetry 96 % Yamile Morrismerlinelazaradeborah respiratory rate E&M 16 /min Yamile Brown alanna pulse rate 92 /min Yamile Hernández [facility] weight E&M 175 [lb_av] Yamile Hernández [facility] height E&M 66 [in_i] Yamile Fitzgeraldjasper [facility] Body Mass Index (Ratio) 27.44 kg/m2 Ashl ey Titchenal RESOURCE SPECIALIST TEACHER blood pressure, diastolic 76 mm[Hg] Fe romy No blood pressure, systolic 132 mm[Hg] Fel icia No oxygen saturation, oximetry 97 % Lala No respiratory rate E&M 16 /min Lala No pulse rate 81 /min Lala No temperature E&M 97.6 [degF] Lala No weight E&M 170 [lb_av] Lala No height E&M 66 [in_i] Lala No Body Mass Index (Ratio) 28.24 kg/m2 Denn is [facility] pulse rate 79 /min [facility] blood pressure, diastolic 80 mm[Hg] Br ittany Block blood pressure, systolic 120 mm[Hg] Kimmy ttany Block oxygen saturation, oximetry 97 % [facility] weight E&M 175 [lb_av] [facility] respiratory rate E&M 16 /min [facility] height E&M 66 [in_i] [facility] Body Mass Index (Ratio) 26.14 kg/m2 Denn is [facility] blood pressure, cuff size small Ra porsche Slusser blood pressure, diastolic 84 mm[Hg] Ra porsche Slusser blood pressure, systolic 140 mm[Hg] Rac hel Slusser oxygen saturation, oximetry 99 % Renee Slusser respiratory rate E&M 16 /min Renee Slusser pulse rate 80 /min Renee Slusser weight E&M 162 [lb_av] Renee Slusser height E&M 66 [in_i] Renee Slusser Body Mass Index (Ratio) 27.11 kg/m2 Indio Benton blood pressure, diastolic 80 mm[Hg] Er ica Coates-Ean blood pressure, systolic 140 mm[Hg] Hyun beverly Coates-Ean oxygen saturation, oximetry 98 % Everett Jaxon-Ean pulse rate 68 /min Everett Coates- Ean weight E&M 168 [lb_av] Everett Coates- Ean height E&M 66 [in_i] Everett Coates- Ean Body Mass Index (Ratio) 28.24 kg/m2 Denn is [facility] blood pressure, diastolic, standing 90 mm [Hg] Evita Maricel blood pressure, systolic, standing 130 mm [Hg] Evita Maricel blood pressure, diastolic 90 mm[Hg] Rh onbandar Maricel blood pressure, systolic 135 mm[Hg] Rho aditya Maricel blood pressure, diastolic, supine 82 mm[H g] Evita Maricel blood pressure, systolic, supine E&M 140 mm[Hg] Evita Maricel blood pressure, cuff size regular Rh onbandar Maricel oxygen saturation, oximetry 96 % Evita Connelly respiratory rate E&M 16 /min Evita Connelly pulse rate 92 /min Evita Connelly weight E&M 175 [lb_av] Evita Maricel height E&M 66 [in_i] Evitaaditya Connelly Body Mass Index (Ratio) 27.27 kg/m2 Israel Benton NP blood pressure, diastolic 82 mm[Hg] Madan baxter Suni blood pressure, systolic 138 mm[Hg] Tereso sanaz [facility] oxygen saturation, oximetry 96 % [facility] respiratory rate E&M 15 /min [facility] pulse rate 61 /min [facility] weight E&M 169 [lb_av] [facility] height E&M 66 [in_i] [facility] Body Mass Index (Ratio) 27.11 kg/m2 Willem Peoples blood pressure, diastolic 78 mm[Hg] Butch Frances blood pressure, systolic 118 mm[Hg] Sami Frances oxygen saturation, oximetry 96 % [place] Frances respiratory rate E&M 16 /min Freddy Frances pulse rate 127 /min [place] [facility] weight E&M 168 [lb_av] [place] [facility] height E&M 66 [in_i] Freddy Frances Body Mass Index (Ratio) 27.27 kg/m2 Layla Olivarez blood pressure, diastolic, supine 74 mm[H g] Layla Olivarez blood pressure, systolic, supine E&M 128 mm[Hg] Layla Olivarez blood pressure, diastolic, standing 76 mm [Hg] Layla Olivarez blood pressure, systolic, standing 128 mm [Hg] Layla Olivarez weight E&M 169 [lb_av] Layla Olivarez respiratory rate #2 16 Layla dasilva pulse rate #2 111 aLyla Olivarez blood pressure, russ tolic, second observation 84 mm[Hg] Layla Olivarez blood pressure, syst olic, second observation 128 mm[Hg] Layla Olivarez blood pressure, cuff size large Axel Leyva blood pressure, diastolic 84 mm[Hg] Axel Leyva blood pressure, systolic 128 mm[Hg] Errol Olivarez oxygen saturation, oximetry 98 % Layla Olivarez respiratory rate E&M 16 /min Layla Penn sue pulse rate 111 /min Layla Olivarez height E&M 66 [in_i] Layla Olivarez Body Mass Index (Ratio) 27.60 kg/m2 Denn is Hockley DO blood pressure, diastolic 74 mm[Hg] Te onia Gracia blood pressure, systolic 120 mm[Hg] Shailesh irwin [place] oxygen saturation, oximetry 94 % Prabhjot Gracia respiratory rate E&M 16 /min Prabhjot [place] pulse rate 74 /min Prabhjot Gracia weight E&M 171 [lb_av] Prabhjot Gracia height E&M 66 [in_i] Prabhjot [place] Body Mass Index (Ratio) 27.44 kg/m2 Israel Benton NP blood pressure, resting Yes Milton isbell [place] blood pressure, diastolic 72 mm[Hg] Te onia Gracia blood pressure, systolic 130 mm[Hg] Shailesh irwin [place] oxygen saturation, oximetry 98 % Prabhjot [place] pulse rate 84 /min Teonia Gracia respiratory rate E&M 17 /min Prabhjot [place] weight E&M 170 [lb_av] Prabhjot [place] height E&M 66 [in_i] [facility] Body Mass Index (Ratio) 28.40 kg/m2 Fidel dowling Aysha MERCADO blood pressure, diastolic 76 mm[Hg] Madan baxter Suin blood pressure, systolic 140 mm[Hg] Tereso yo [facility] oxygen saturation, oximetry 96 % Millie [facility] respiratory rate E&M 14 /min [facility] 71 /min Millie [facility] weight E&M 176 [lb_av] Millie [facility] height E&M 66 [in_i] [facility] blood pressure, diastolic 77 mm[Hg] Valdo ledbetter [place] blood pressure, systolic 126 mm[Hg] Ania mazariegos [place] oxygen saturation, oximetry 94 % Elsa [place] pulse rate 77 /min Elsa [place] respiratory rate E&M 16 /min Elsa [place] Body Mass Index (Ratio) 28.73 kg/m2 Venu kasper [place] weight E&M 178 [lb_av] Elsa [place] height E&M 66 [in_i] Elsa [facility] ALLERGIES Allergy Name Onset Date Reaction Criticality Status ADHESIVE TAPE Low Criticality active HISTORY OF MEDICATION USE Medication Status Instructions Dates Provider Indications Com ments amiodarone 400 mg tablet active Magan Lylezai atorvastatin 80 mg tablet active Magan Rachelmedzabob aspirin 81 mg capsule active Magan Ahmedzai Plavix 75 mg tablet active Magan Hi dofetilide 500 mcg capsule active TAKE ONE CAPSULE BY MOUTH TWICE A DAY Soraya Mukherjee dofetilide 500 mcg capsule completed Take 1 capsule by mouth twice a day - Soraya Mukherjee clindamycin HCl 150 mg capsule completed Take 1 capsule by mouth three times a day TAKE 1 CAPSULE BY MOUTH EVERY EIGHT HOURS - Roel Lisa MD clindamycin HCl 150 mg capsule completed - Roel Lisa MD Percocet 5-325 mg tablet completed 1 tablet by mouth every eight hours as needed for pain - Roel Lisa MD Percocet 5-325 mg tablet completed - Roel Lisa MD cyanocobalamin (vitamin B-12) 1,000 mcg capsule active DAILY Elidia Enriquez NP Cartia XT 120 mg capsule,extended release 24hr active Take 1 capsule once a day Tesarah Pelley Eliquis 5 mg tablet active Take 1 tablet by mouth twice a day Yamile Sidhu #60, 30 days supply, Filled 10/15/2017 AMIODARONE HCL 200 MG ORAL TABLET completed ONE TAB. DAILY - Matteo Castañedacock DO furosemide 20 mg tablet active 1 tablet by mouth once a day Tehyvidya Pelley PRADAXA 150 MG ORAL CAPSULE completed One tab. Twice daily. - Everett Cid PROPAFENONE HCL 225 MG ORAL TABLET completed One Tab Three Times A Day - Freddy Mondragonam ELIQUIS 5 MG ORAL TABLET completed one tablet twice daily - Layla Olivarez HAIR-VITES ORAL TABLET completed twice daily - Teonia [place] Claritin 10 mg tablet active 1 once a day as needed Yamile Sidhu NIFEDIPINE ER 30 MG ORAL TABLET EXTENDED RELEASE 24 HOUR completed One tab. Once daily. - Freddy Frances SIMVASTATIN 40 MG ORAL TABLET completed ONE TAB. DAILY - Freddy Frances metoprolol succinate 100 mg tablet extended release 24 hr active Take 1 tablet twice a day Todd Garibay METOPROLOL SUCCINATE ER 100 MG ORAL TABLET EXTENDED RELEASE 24 HOUR completed 1 tab daily w/a 50mg tab to + = 150 mg/day - Matteo Olmstead DO lisinopril 10 mg tablet active 1 tablet once a day Todd Palchaz CALTRATE 600+D PLUS MINIS TABS active 1 tablet twice a day Yamile Sidhu magnesium oxide 400 mg (241.3 mg magnesium) tablet active TAKE 1 TABLET BY MOUTH TWICE A DAY Magan Valdobyron PRADAXA 150 MG ORAL CAPSULE completed One capsule twice a day. TAKE WITH LARGE GLASS OF WATER! - Matteo Olmstead DO SOCIAL HISTORY Date Observation Value Provider alcohol use, average drinks per day 4 /d Magan Valdozai alcohol use, type wine Magan Valdo byron alcohol use yes Magan Wilsonmedzai number of years as a smoker 16 a Magan Valdozai smoking history, tot al pack/day 1-2ppd Magan Wilsonmedzai cigarette use yes Magan Wilsonmedzai smoking status Former smoker Magan Lyleza i number of years as a smoker 16 a Elidia Enriquez RESOURCE SPECIALIST TEACHER smoking history, tot al pack/day 1-2ppd Elidia Enriquez RESOURCE SPECIALIST TEACHER cigarette use yes Yamile iraheta smoking status Former smoker Yamile jama social history E&M S moking History: Juana vallejo is a former smoker. Magan Hi social history reviewed E&M revi ewed - no changes required Magan Hi cigarette use yes Yamile Fitzgerald elder smoking status Former smoker Yamile Sotelo nfelder cigarette use yes Yamile Fitzgerald elder smoking status Former smoker Yamile Sotelo nfelder number of grandchildren Roel Trimble social history E&M S moking History: Juana vallejo is a former smoker. Kris Trimble social history reviewed E&M revi ewed - no changes required Kris Trimble cigarette use yes Yamile Fitzgerald elder smoking status Former smoker Yamile Sotelo nfelder social history reviewed E&M revi ewed - no changes required Trupti Martin NP cigarette use yes Lala Oneal smoking status Former smoker Lala No social history E&M S moking History: Juana vallejo is a former smoker. Desire Sharif RN social history reviewed E&M revi ewed - no changes required Desire Sharif RN cigarette use yes Lisa John smoking status Former smoker Lisa Eloy coleman social history E&M S moking History: Juana vallejo is a former smoker. Matteo Olmstead DO social history reviewed E&M revi ewed - no changes required Matteo Olmstead DO smoking status Former smoker Renee Jose er cigarette use yes Renee Joseer smoking status Former smoker Matteo Kary ock DO social history E&M S moking History: Juana vallejo is a former smoker. Matteo Olmstead DO cigarette use yes Everett Enrique social history reviewed E&M revi ewed - no changes required Everett Cid social history reviewed E&M revi ewed - no changes required Matteo Olmstead DO social history E&M S moking History: Juana vallejo is a former smoker. Matteo Olmstead DO smoking status Former smoker Evita Connelly alcohol use, average drinks per day 4 /d Matteo Olmstead DO alcohol use, type wine Matteo parisi DO alcohol use yes Matteo Olmstead DO social history E&M S moking History: Juana vallejo is a former smoker. Matteo Olmstead DO social history reviewed E&M revi ewed - no changes required Matteo Olmstead DO cigarette use yes Freddy Frances smoking status Former smoker Freddy Mondragon am cigarette use yes Matteo Eason k DO smoking status Former smoker Matteo Preston ock DO social history E&M S moking History: Juana vallejo is a former smoker. Parviz Antoine cigarette use yes Maicol Hu RESOURCE SPECIALIST TEACHER smoking status Former smoker Maicol Hu RESOURCE SPECIALIST TEACHER social history reviewed E&M revi ewed - no changes required Maicol Hu RESOURCE SPECIALIST TEACHER social history E&M S moking History: Juana vallejo is a former smoker. Matteo Olmstead DO social history reviewed E&M revi ewed - no changes required Matteo Olmstead DO cigarette use yes Elsa Russell smoking status Former smoker Elsa Hall'Andree harrison number of grandchildren Matteo Olmstead Derek O Elsa Russell FAMILY HISTORY Family Member Condition Father Family History of Hy pertension: Mother Family History of Hy pertension: INSURANCE PROVIDERS Payer name Policy type / Coverage type [place] [employer] party ID [facility] [id number] [place] MED[place] Medicare [id number] ADVANCE DIRECTIVES Name Date POWER OF COP BREAKER LIVING WILL ON FILE TREATMENT PLAN Date Name Performer [id number],C, B P today: 130/90 P rior BP: 102/66 (08/25/2021) Her updated medication list for this problem includes: Metoprolol Succinate 100 Mg Tablet Extended Release 24 Hr (Metoprolol succinate) ..... 1 tablet twice a day Cartia Xt 120 Mg Capsule,extended Release 24hr (Diltiazem hcl) ..... 1 capsule once a day Lisinopril 10 Mg Tablet (Lisinopril) ..... 1 tablet once a day Furosemide 20 Mg Tablet (Furosemide) ..... 1 tablet by mouth once a day Elidia Enriquez NP [id number],C,EKG today pac ed underlying SR Elidia Enriquez NP [id number],C,ppm Elidia Enriquez NP [id number],C,No new episod es. Magan Hi [id number],C,Improved. Hermelinda maria isabel Hi [id number],C, B P today: 102/66 P rior BP: 132/78 (07/21/2021) Magan Reynabob [id number],C,E KG today shows AFIB. Cardioversion was successfull 08/18, she is in AFIB today, she does not stay in rhythm. Will continue her treatment with optimization of medications. Will start Tikosyn 500 mg and monitor with EKG. Will plan for Cardioversion after wards. Will decrease her Metoprolol and plan to discontinue this medication. Maganmaria isabel Reynabob [id number],N,d evice function is appropirate. 100% afib burden. Plan for cardioversion in 4 weeks. Tricia Tang NP [id number],C, C ompliant w/DALIA Trimble [id number],B, B P today: 130/80 P rior BP: 132/76 (03/24/2020) Her updated medication list for this problem includes: Metoprolol Succinate 100 Mg Tablet Extended Release 24 Hr (Metoprolol succinate) ..... 1 tablet twice a day Cartia Xt 120 Mg Capsule,extended Release 24hr (Diltiazem hcl) ..... 1 capsule once a day Lisinopril 10 Mg Tablet (Lisinopril) ..... 1 tablet once a day Furosemide 20 Mg Tablet (Furosemide) ..... 1 tablet by mouth once a day Kris Trimble [id number],C, D iscussed replacement vs permanent pacemaker implantation at this time. Would recommend her for permanent pacemaker implantation at this time as she does have documented syncope and documented pauses. Orders: P acemaker Dual Chamber - [facility] (*) D evice Removal - [facility] (*) Kris Atilio [id number],B, P ermanent AFib continuously since Fall 2017. Tolerates well. No Sx. HRs reasonably controlled. on diltiazem. OAC with eliquis, rate control only s/p PVI x 2 last 09/2013. No afib on no antiarrhythmic therapy until 04/2017. E pisodes on ILR increased since june 2017 and in persistent AF with high HRs since 07/2017. R ythmol stopped. Amio started. With cardioversion 09/20/17. Replaced ILR in 12/2017. Amio stopped. Kris Trimble Electrophysiology: H er updated medication list for this problem includes: Amiodarone 400 Mg Tablet (Amiodarone) Plavix 75 Mg Tablet (Clopidogrel) Metoprolol Succinate 100 Mg Tablet Extended Release 24 Hr (Metoprolol succinate) ..... Take 1 tablet twice a day Lisinopril 10 Mg Tablet (Lisinopril) ..... 1 tablet once a day Cartia Xt 120 Mg Capsule,extended Release 24hr (Diltiazem hcl) ..... Take 1 capsule once a day Dofetilide 500 Mcg Capsule (Dofetilide) ..... Take one capsule by mouth twice a day Roel Lisa MD Electrophysiology: H er updated medication list for this problem includes: Plavix 75 Mg Tablet (Clopidogrel) Metoprolol Succinate 100 Mg Tablet Extended Release 24 Hr (Metoprolol succinate) ..... Take 1 tablet twice a day Lisinopril 10 Mg Tablet (Lisinopril) ..... 1 tablet once a day Cartia Xt 120 Mg Capsule,extended Release 24hr (Diltiazem hcl) ..... Take 1 capsule once a day Roel Lisa MD Electrophysiology: H er updated medication list for this problem includes: Amiodarone 400 Mg Tablet (Amiodarone) Plavix 75 Mg Tablet (Clopidogrel) Metoprolol Succinate 100 Mg Tablet Extended Release 24 Hr (Metoprolol succinate) ..... Take 1 tablet twice a day Lisinopril 10 Mg Tablet (Lisinopril) ..... 1 tablet once a day Cartia Xt 120 Mg Capsule,extended Release 24hr (Diltiazem hcl) ..... Take 1 capsule once a day Dofetilide 500 Mcg Capsule (Dofetilide) ..... Take one capsule by mouth twice a day Roel Lisa MD Electrophysiology: H er updated medication list for this problem includes: Amiodarone 400 Mg Tablet (Amiodarone) Plavix 75 Mg Tablet (Clopidogrel) Metoprolol Succinate 100 Mg Tablet Extended Release 24 Hr (Metoprolol succinate) ..... Take 1 tablet twice a day Lisinopril 10 Mg Tablet (Lisinopril) ..... 1 tablet once a day Cartia Xt 120 Mg Capsule,extended Release 24hr (Diltiazem hcl) ..... Take 1 capsule once a day Dofetilide 500 Mcg Capsule (Dofetilide) ..... Take one capsule by mouth twice a day Roel Lisa MD Electrophysiology: O rders: E KG (CPT-18129) 9 9213 LTD 20-29min (CPT-63350) Roel Lisa MD Electrophysiology:Delonte jha has acceptable risk and can proceed with their MMA embolization. She may also proceed with DAIN occluder given her hx of significant bleeding. Magan Hi Electrophysiology:sh jasper delcid not on OAC, she is being considered for DAIN occluder after her MMA embolization. Magan Hi Electrophysiology:re cent admission 04/06-04/05 for R MCA stroke (w/ L sided neglect, L hemiparesis, expressive aphasia). w as found to have a left parietal subdural hematoma as well as an evolving right middle cerebral artery infarct. i maging at [facility] revealed enlargement to the size of the left convexity subdural hematoma, she was recommended MMA embolization. [facility]:st atus post right colonic adenocarcinoma resection with hemicolectomy and ileostomy. Magan lupebob Electrophysiology:VF ib arrest, she had a drug-eluting stent placed to the proximal LAD. [facility]:VF ib arrest, she had a drug-eluting stent placed to the proximal LAD. 04/2023 Magan lupebob Electrophysiology: B P today: 130/90 P rior BP: 102/66 (08/25/2021) Her updated medication list for this problem includes: Metoprolol Succinate 100 Mg Tablet Extended Release 24 Hr (Metoprolol succinate) ..... 1 tablet twice a day Cartia Xt 120 Mg Capsule,extended Release 24hr (Diltiazem hcl) ..... 1 capsule once a day Lisinopril 10 Mg Tablet (Lisinopril) ..... 1 tablet once a day Furosemide 20 Mg Tablet (Furosemide) ..... 1 tablet by mouth once a day Elidia Enriquez NP Electrophysiology:EKG today pace d underlying SR Elidia Enriquez NP Electrophysiology:ppm Elidia aguila NP Electrophysiology:No new episode s. [place] Hi Electrophysiology:Improved. Magan Hi Electrophysiology: B P today: 102/66 P rior BP: 132/78 (07/21/2021) Magan keanubob Electrophysiology:EK G today shows AFIB. Cardioversion was successfull 08/18, she is in AFIB today, she does not stay in rhythm. Will continue her treatment with optimization of medications. Will start Tikosyn 500 mg and monitor with EKG. Will plan for Cardioversion after wards. Will decrease her Metoprolol and plan to discontinue this medication. Magan Reynabob Electrophysiology:de vice function is appropirate. 100% afib burden. Plan for cardioversion in 4 weeks. Tricia Tang NP Electrophysiology: C ompaayushant w/NMD Kris Trimble Electrophysiology: B P today: 130/80 P rior BP: 132/76 (03/24/2020) Her updated medication list for this problem includes: Metoprolol Succinate 100 Mg Tablet Extended Release 24 Hr (Metoprolol succinate) ..... 1 tablet twice a day Cartia Xt 120 Mg Capsule,extended Release 24hr (Diltiazem hcl) ..... 1 capsule once a day Lisinopril 10 Mg Tablet (Lisinopril) ..... 1 tablet once a day Furosemide 20 Mg Tablet (Furosemide) ..... 1 tablet by mouth once a day Kris Trimble Electrophysiology: D iscussed replacement vs permanent pacemaker implantation at this time. Would recommend her for permanent pacemaker implantation at this time as she does have documented syncope and documented pauses. Orders: P acemaker Dual Chamber - [facility] (*) D evice Removal - [facility] (*) Kris Trimble Electrophysiology: P ermanent AFib continuously since Fall 2017. Tolerates well. No Sx. HRs reasonably controlled. on diltiazem. OAC with eliquis, rate control only s/p PVI x 2 last 09/2013. No afib on no antiarrhythmic therapy until 04/2017. E pisodes on ILR increased since june 2017 and in persistent AF with high HRs since 07/2017. R ythmol stopped. Amio started. With cardioversion 09/20/17. Replaced ILR in 12/2017. Amio stopped. Kris Trimble Electrophysiology:BP 130/76 toda y Trupti Martin NP Electrophysiology: 4 second pause on review 01/27/2020-will monitor for further pauses, pt asymptomatic Aflutter with good rate control Trupti Martin NP Electrophysiology: C ompliant w/NMD Trupti Martin NP Electrophysiology: s /p PVI x 2 last 10/03. No afib on no antiarrhythmic therapy until 04/2017. E pisodes on ILR increased since june 2017 and in persistent AF with high HRs since 07/2017. R ythmol stopped. Amio started. With cardioversion 09/20/17. Replaced ILR in 12/2017. S tayed in SR for 1 month. Now back in AF laternating w/typical A Flutter. B ack in AFib continuously since Fall 2017. Tolerates well. No Sx. HRs reasonably controlled. Amio was d/c'd and she was started on diltiazem. 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 Trupti Martin NP Electrophysiology -s ign~M:s/p PVI x 2 last 10/03. No afib on no antiarrhythmic therapy until 04/2017. E pisodes on ILR increased since june 2017 and in persistent AF with high HRs since 07/2017. Rythmol stopped. Amio started. With cardioversion 09/20/17. Replaced ILR in 12/2017. S tayed in SR for 1 month. Now back in AF laternating w/typical A Flutter. B ack in AFib continuously since Fall 2017. Tolerates well. No Sx. HRs reasonably controlled. Amio was d/c'd and she was started on diltiazem. She is having some increased peripheral edema and also some increased pallor and erythema of the LEs. H R remains controlled after decreasing Cartia to 120mg daily r/t the BLE swelling. 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 Matteo Olmstead DO Electrophysiology -s ign~M:s/p PVI x 2 last 6/14. No afib on no antiarrhythmic therapy until 04/2017. E pisodes on ILR increased since june 2017 and in persistent AF with high HRs since 07/2017. Rythmol stopped. Amio started. With cardioversion 09/20/17. Replaced ILR in 12/2017. S tayed in SR for 1 month. Now back in AF laternating w/typical A Flutter. B ack in AFib continuously since Fall 2017. Tolerates well. No Sx. HRs reasonably controlled. Amio was d/c'd and she was started on diltiazem. She is having some increased peripheral edema and also some increased pallor and erythema of the LEs. 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 Desire Sharif RN Electrophysiology -sign~M:Compli ant w/NMD Desire Sharif RN Electrophysiology -s ign~M:BP today: 120/80 P rior BP: 140/84 (01/28/2019) followed by Dr Mark Sharif RN Electrophysiology Matteo dominguez DO Electrophysiology: B P today: 140/84 P rior BP: 140/80 (12/11/2018) Matteo Olmstead DO Electrophysiology:s/ p PVI x 2 last 10/03. No afib on no antiarrhythmic therapy until 04/2017. E pisodes on ILR increased since june 2017 and in persistent AF with high HRs since 07/2017. R ythmol stopped. Amio started. With cardioversion 09/20/17. S tayed in SR for 1 month. Now back in AF. B ack in AFib continuously since Fall 2017. Tolerates well. No Sx. HRs reasonably controlled. A delia was d/c'd and she was starte don diltiazem. She is having some increased peripheral edema and also some increased pallor and erythema of the LEs. W ill reduce dilt to 120mg daily and check ABIs and venous dopplers of the LEs. Matteo Olmstead DO Electrophysiology:BP today: 140/80 P rior BP: 130/90 (08/05/2018) Matteo Olmstead DO Electrophysiology:s/ p PVI x 2 last 10/03. No afib on no antiarrhythmic therapy until 04/2017. E pisodes on ILR increased since june 2017 and in persistent AF with high HRs since 07/2017. R ythmol stopped. Amio started. With cardioversion 09/20/17. S tayed in SR for 1 month. Now back in AF. B ack in AFib continuously since Fall 2017. Tolerates well. No Sx. HRs reasonably controlled. W ill stop amiodarone and add Cartia 180mg once daily. Matteo Castañedavelia MERCADO Electrophysiology: B P today: 135/90 P rior BP: 138/82 (12/17/2017) Matteo Olmstead Electrophysiology:s/ p PVI x 2 last 10/03. No afib on no antiarrhythmic therapy until 04/2017. Episodes on ILR increased since june 2017 and in persistent AF with high HRs since 07/2017. R ythmol stopped. Amio started. With cardioversion 09/20/17. Stayed in SR for 1 month. Now back in AF. B ack in AFib continuously since Fall 2017. Tolerates well. No Sx. W ill continue to monitor. Followup in 3-4 months. If develops Sx, will consider repeat PVI. Matteo Olmstead DO Electrophysiology: n eeds cpap Maiclo Benton NP Electrophysiology: S /P PVI x 2 last 10/03. No afib on no antiarrhythmic therapy until 04/2017. Episodes on ILR increased since june 2017 and in persistent AF with high HRs since 07/2017. Rythmol stopped. Amio started. With cardioversion 09/20/17. Stayed in SR for 1 month. Now back in AF. Will decrease amio to 200mg daily. Repeat cardioversion in 2 weeks. n eeds cpap titration study R emains on pradaxa I f fails amiodarone, will consider repeat PVI vs AV node ablation with PPM. Maicol Benton NP Electrophysiology: n eeds cpap W ill order CPAP titration. [facility] B P today: 118/78 P rior BP: 128/76 (09/17/2017) [facility]S/ P PVI x 2 last 10/03. No afib on no antiarrhythmic therapy until 04/2017. Episodes on ILR increased since june 2017 and in persistent AF with high HRs since 07/2017. R ythmol stopped. Amio started. With cardioversion 09/20/17. Stayed in SR for 1 month. Now back in AF. Will increase amio to 400mg daily. Repeat cardioversion in 2 weeks. n eeds cpap titration study R emains on pradaxa I f fails amiodarone, will consider repeat PVI vs AV node ablation with PPM. [facility] 10/03/17/ kk:needs cpap Maicol Benton NP Electrophysiology fa xed 10/03/17/kk: S /P PVI x 2 last 10/03 Episodes on ILR increased since june and longest episode reported about 12 hours in duration with high HRs w ill admit to the hospital for amio loading and will d.c. on po amio d/w pt possible ppm with avn rfa w ill do cdvn and ravin on saturday needs cpap e cho shoed EF 65% Maicol Benton NP Electrophysiology fa xed 10/03/17/kk: B P today: 128/84 P rior BP: 120/74 (06/11/2017) Maicol Benton NP Electrophysiology: B P today: 120/74 P rior BP: 130/72 (04/08/2017) [facility]:S/ P PVI x 2 last 10/03 Episodes on ILR increased from 3% to 4.6% and longest episode reported on May 13 2017 of 11 hours afib p t is asymptomatic to episodes Will begin rhythmol 150mg three times daily and reduce metoprolol to 50mg twice daily Due to cost, will change from Pradaxa to eliquis 5mg bid. Home sleep study shows moderate NAVDEEP. e cho shoed EF 65% [facility]: e pisodes on ILR up to ~3% and lasting hours at a time with HRs up to 180s O n metoprolol S /P PVI x 2 last 10/03 c girma Viramontes will d/w dr. olmstead about potential treatment options and call pt back. sisi leos home sleep study a symptomatic to episodes. 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 T wo episodes of afib noted one lasting 4.5 hours O n metoprolol S /P PVI x 2 last 10/03 c ontinue Pradaxa Matteo Olmstead EP:BP today: 126/77 Matteo Olmstead EP:no recent AF on R eveal interrogation, 0.4% burden overall S/P PVI x 2 last 10/03 c ontinue Pradaxa n egative sleep apnea screening in office today Matteo Castañedacojared [facility] Date Name MAGNESIUM BASIC METABOLIC PANE L W/EGFR PROTHROMBIN TIME WIT H INR Cardioversion - GC PARTIAL THROMBOPLAST IN TIME, ACTIVATED URINALYSIS, COMPLETE W/REFLEX TO CULTURE COMPREHENSIVE METABO LIC PANEL W/EGFR PROTHROMBIN TIME WIT H INR CBC (INCLUDES DIFF/P LT) Device Removal - [facility] V Pacemaker Dual Chamb er - [facility] Arterial Duplex Bi-L ower EX Venous Doppler Bilat eral LE - Reflux Sleep Study Home Complete Echo HISTORY OF PROCEDURES Procedure Date Procedure Name Provider Procedure Notes S tatus EKG Roel anthony MD completed Schedule Followup Roel frank MD [address] LISA completed EKG Roel anthony MD completed EKG Roel anthony MD completed EKG Roel anthony MD completed EKG Roel anthony MD completed EKG Matteo Hockley DO completed EKG Matteo Hockley DO completed EKG Matteo Hockley DO completed Loop Recorder Interrogation, Remote Matteo Hockley DO INTERROGATION EVALUATION REMOTE </30 D ILR SYS completed ICM Interrogation, Remote (Tech) Matteo Hockley DO INTERROGATION EVAL REMOTE </30 D TECH REVIEW completed EKG Matteo Hockley DO completed Loop Recorder Interrogation, Remote Matteo Hockley DO INTERROGATION EVALUATION REMOTE </30 D ILR SYS completed ICM Interrogation, Remote (Tech) Matteo Hockley DO INTERROGATION EVAL REMOTE </30 D TECH REVIEW completed Loop Recorder Interrogation, Remote Matteo Hockley DO INTERROGATION EVALUATION REMOTE </30 D ILR SYS completed ICM Interrogation, Remote (Tech) Matteo Hockley DO INTERROGATION EVAL REMOTE </30 D TECH REVIEW completed Loop Recorder Interrogation, Remote Matteo Hockley DO INTERROGATION EVALUATION REMOTE </30 D ILR SYS completed ICM Interrogation, Remote (Tech) Matteo Hockley DO INTERROGATION EVAL REMOTE </30 D TECH REVIEW completed Loop Recorder Interrogation, Remote Matteo Hockley DO INTERROGATION EVALUATION REMOTE </30 D ILR SYS completed ICM Interrogation, Remote (Tech) Matteo Hockley DO INTERROGATION EVAL REMOTE </30 D TECH REVIEW completed Schedule Followup Matteo Glascoc k DO in 4 mo completed EKG Matteo Hockley DO completed Loop Recorder Interrogation, Remote Matteo Hockley DO INTERROGATION EVALUATION REMOTE </30 D ILR SYS completed ICM Interrogation, Remote (Tech) Matteo Hockley DO INTERROGATION EVAL REMOTE </30 D TECH REVIEW completed Loop Recorder Interrogation, Remote Matteo Hockley DO completed ICM Interrogation, Remote (Tech) Matteo Hockley DO completed Loop Recorder Interrogation, Remote Matteo Hockley DO INTERROGATION EVALUATION REMOTE </30 D ILR SYS completed ICM Interrogation, Remote (Tech) Matteo Hockley DO INTERROGATION EVAL REMOTE </30 D TECH REVIEW completed Loop Recorder Interrogation, Remote Matteo Hockley DO INTERROGATION EVALUATION REMOTE </30 D ILR SYS completed ICM Interrogation, Remote (Tech) Matteo Hockley DO INTERROGATION EVAL REMOTE </30 D TECH REVIEW completed Loop Recorder Interrogation, Remote Matteo Hockley DO INTERROGATION EVALUATION REMOTE </30 D ILR SYS completed ICM Interrogation, Remote (Tech) Matteo Hockley DO INTERROGATION EVAL REMOTE </30 D TECH REVIEW completed Schedule Followup Matteo Glascoc k DO completed EKG Matteo Hockley DO completed EKG Matteo Hockley DO completed Loop Recorder Interrogation, Remote Matteo Hockley DO INTERROGATION EVALUATION REMOTE </30 D ILR SYS completed ICM Interrogation, Remote (Tech) Matteo Hockley DO INTERROGATION EVAL REMOTE </30 D TECH REVIEW completed EKG Matteo Hockley DO completed Loop Recorder Interrogation, Remote Matteo Hockley DO INTERROGATION EVALUATION REMOTE </30 D ILR SYS completed ICM Interrogation, Remote (Tech) Matteo Hockley DO INTERROGATION EVAL REMOTE </30 D TECH REVIEW completed Loop Recorder Interrogation, Remote Matteo Hockley DO INTERROGATION EVALUATION REMOTE </30 D ILR SYS completed ICM Interrogation, Remote (Tech) Matteo Hockley DO INTERROGATION EVAL REMOTE </30 D TECH REVIEW completed Loop Recorder Interrogation, Remote Matteo Hockley DO INTERROGATION EVALUATION REMOTE </30 D ILR SYS completed ICM Interrogation, Remote (Tech) Matteo Hockley DO INTERROGATION EVAL REMOTE </30 D TECH REVIEW completed EKG Matteo Hockley DO completed Loop Recorder Interrogation, Remote Matteo Hockley DO INTERROGATION EVALUATION REMOTE </30 D ILR SYS completed ICM Interrogation, Remote (Tech) Matteo Hockley DO INTERROGATION EVAL REMOTE </30 D TECH REVIEW completed Loop Recorder Interrogation, Remote Matteo Hockley DO INTERROGATION EVALUATION REMOTE </30 D ILR SYS completed ICM Interrogation, Remote (Tech) Matteo Hockley DO INTERROGATION EVAL REMOTE </30 D TECH REVIEW completed Schedule Followup Matteo Glascoc k DO completed SNOMED-CT: [id number] Current Medications Documented Matteo Hockley DO completed EKG Matteo Hockley DO completed Loop Recorder Interrogation, Remote Matteo Hockley DO INTERROGATION EVALUATION REMOTE </30 D ILR SYS completed ICM Interrogation, Remote (Tech) Matteo Hockley DO INTERROGATION EVAL REMOTE </30 D TECH REVIEW completed Loop Recorder Interrogation, Remote Matteo Hockley DO INTERROGATION EVALUATION REMOTE </30 D ILR SYS completed ICM Interrogation, Remote (Tech) Matteo Hockley DO INTERROGATION EVAL REMOTE </30 D TECH REVIEW completed Loop Recorder Interrogation, Remote Matteo Hockley DO INTERROGATION EVALUATION REMOTE </30 D ILR SYS completed ICM Interrogation, Remote (Tech) Matteo Hockley DO INTERROGATION EVAL REMOTE </30 D TECH REVIEW completed Loop Recorder Interrogation, Remote Matteo Hockley DO INTERROGATION EVALUATION REMOTE </30 D ILR SYS completed ICM Interrogation, Remote (Tech) Matteo Hockley DO INTERROGATION EVAL REMOTE </30 D TECH REVIEW completed Loop Recorder Interrogation, Remote Matteo Hockley DO INTERROGATION EVALUATION REMOTE </30 D ILR SYS completed ICM Interrogation, Remote (Tech) Matteo Hockley DO INTERROGATION EVAL REMOTE </30 D TECH REVIEW completed Loop Recorder Interrogation, Remote Matteo Hockley DO INTERROGATION EVALUATION REMOTE </30 D ILR SYS completed ICM Interrogation, Remote (Tech) Matteo Hockley DO INTERROGATION EVAL REMOTE </30 D TECH REVIEW completed Loop Recorder Interrogation, Remote Matteo Hockley DO INTERROGATION EVALUATION REMOTE </30 D ILR SYS completed ICM Interrogation, Remote (Tech) Matteo Hockley DO INTERROGATION EVAL REMOTE </30 D TECH REVIEW completed Loop Recorder Interrogation, Remote Matteo Hockley DO INTERROGATION EVALUATION REMOTE </30 D ILR SYS completed ICM Interrogation, Remote (Tech) Matteo Hockley DO INTERROGATION EVAL REMOTE </30 D TECH REVIEW completed Schedule Followup 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 compl eted EKG Matteo Hockley DO completed SNOMED-CT: [id number] Current Medications Documented Matteo Hockley DO completed Loop Recorder Interrogation, Remote Matteo Hockley DO INTERROGATION EVALUATION REMOTE </30 D ILR SYS completed ICM Interrogation, Remote (Tech) Matteo Hockley DO INTERROGATION EVAL REMOTE </30 D TECH REVIEW completed Loop Recorder Interrogation, Remote Matteo Hockley DO INTERROGATION EVALUATION REMOTE </30 D ILR SYS completed ICM Interrogation, Remote (Tech) Matteo Hockley DO INTERROGATION EVAL REMOTE </30 D TECH REVIEW completed Loop Recorder Interrogation, Remote Matteo Hockley DO INTERROGATION EVALUATION REMOTE </30 D ILR SYS completed ICM Interrogation, Remote (Tech) Matteo Hockley DO INTERROGATION EVAL REMOTE </30 D TECH REVIEW completed Loop Recorder Interrogation, Remote Matteo Hockley DO INTERROGATION EVALUATION REMOTE </30 D ILR SYS completed ICM Interrogation, Remote (Tech) Matteo Hockley DO INTERROGATION EVAL REMOTE </30 D TECH REVIEW completed Loop Recorder Interrogation, Remote Matteo Hockley DO INTERROGATION EVALUATION REMOTE </30 D ILR SYS completed ICM Interrogation, Remote (Tech) Matteo Hockley DO INTERROGATION EVAL REMOTE </30 D TECH REVIEW completed Loop Recorder Interrogation, Remote Matteo Hockley DO INTERROGATION EVALUATION REMOTE </30 D ILR SYS completed ICM Interrogation, Remote (Tech) Matteo Hockley DO INTERROGATION EVAL REMOTE </30 D TECH REVIEW completed Loop Recorder Interrogation, Remote Matteo Hockley DO INTERROGATION EVALUATION REMOTE </30 D ILR SYS completed ICM Interrogation, Remote (Tech) Matteo Hockley DO INTERROGATION EVAL REMOTE </30 D TECH REVIEW completed Loop Recorder Interrogation, Remote Matteo Hockley DO INTERROGATION EVALUATION REMOTE </30 D ILR SYS completed ICM Interrogation, Remote (Tech) Matteo Hockley DO INTERROGATION EVAL REMOTE </30 D TECH REVIEW completed Loop Recorder Interrogation, Remote Matteo Hockley DO INTERROGATION EVALUATION REMOTE </30 D ILR SYS completed ICM Interrogation, Remote (Tech) Matteo Hockley DO INTERROGATION EVAL REMOTE </30 D TECH REVIEW completed Loop Recorder Interrogation, Remote Matteo Hockley DO INTERROGATION EVALUATION REMOTE </30 D ILR SYS completed ICM Interrogation, Remote (Tech) Matteo Hockley DO INTERROGATION EVAL REMOTE </30 D TECH REVIEW completed EKG Matteo Hockley DO completed SNOMED-CT: [id number] Current Medications Documented Matteo Hockley DO completed Loop Recorder Interrogation, Remote Matteo Hockley DO INTERROGATION EVALUATION REMOTE </30 D ILR SYS completed ICM Interrogation, Remote (Tech) Matteo Hockley DO INTERROGATION EVAL REMOTE </30 D TECH REVIEW completed Loop Recorder Interrogation, Remote Matteo Hockley DO INTERROGATION EVALUATION REMOTE </30 D ILR SYS completed ICM Interrogation, Remote (Tech) Matteo Hockley DO INTERROGATION EVAL REMOTE </30 D TECH REVIEW completed
--- OUTSIDE RECORDS SUMMARY | 2024-07-12 13:24 | XMS_ITS | Referral Summary ---
Author Organization [facility] [address] Address [address] [place] [address] Care Team Providers Care Sash Maker Name Role Phone Jose Martinez MD, Reji Hunt Unavailable Nohelai Ovalles NP Unavailable [phone] Hoang Mcdonald MD Unavailable [phone] Nohelia Mayen MD Primary Care Provider [phone] Mabel Cunningham MD Unavailable Brandin Joseph MD Unavailable Encounters Date Type Department Care Team Description 07/01/2024 2:15 PM CDT Lab [facility] - Lab Collection [address] [place] [address] Floor 5 [place] [address] Malignant neoplasm of ascending colon (HCC) 07/01/2024 2:00 PM CDT Lab [facility] Oncology Lab [address] [place] [address] 5 [place] [address] Malignant neoplasm of ascending colon (HCC) 07/01/2024 2:45 PM CDT Office Visit [facility] Oncology [address] [place] [phone] Hoang Mcdonald MD Malignant neoplasm of ascending colon (HCC) (Primary Dx) 06/05/2024 1:00 PM CORRECTIONAL LIEUTENANT Residential Visit [facility] [address] [place] [address] Rachael Garrido NP Vascular dementia with other behavioral disturbance, unspecified dementia severity (HCC) (Primary Dx); CVA, old, hemiparesis (HCC); Palliative care encounter 05/15/2024 9:00 AM CORRECTIONAL LIEUTENANT Residential Visit [facility] [address] [place] [address] Rachael Garrido NP Vascular dementia with other behavioral disturbance, unspecified dementia severity (HCC) (Primary Dx); Urinary tract infection without hematuria, site unspecified; CVA, old, hemiparesis (HCC); Palliative care encounter 05/13/2024 Documentation [facility] [address] [place] [address] Rachael Garrido NP 05/13/[address] [phone] Marilu Torres RN 05/12/[address] [address] [phone] Marilu Torres, RN 05/11/[address] [id number] [phone] Marilu Torres, RN 05/08/2024 Documentation [facility] [address] [place] [address] Rachael Garrido NP 05/08/2024 10:00 AM CORRECTIONAL LIEUTENANT Office Visit [facility] Stroke [address] [facility] [address] [place] [phone] Mabel Cunningham MD History of ischemic stroke [...] assistance with ADLs, needs wheelchair when outside. 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 Interrogation normal. No episodes of VFib/Vtach. Patient [...] drink = 0.6 oz pur e alcohol) [facility] [employer] Answer Date Recorded In the past 12 months has [employer], gas, oil, or water [employer] threatened to shut off services in your [...] answer 10/21/2023 How often do you attend [facility] or hinduism services? Patient unable to answer 10/21/2023 Do you belong to any clubs o r organizations such as spiritism groups, unions, fraternal or athletic groups, or [...] place to sleep or slept in a halfway (including now)? Patient unable to answer 08/22/2023 [...] any time in the past 12 m [facility], were you homeless or living in a halfway (including now)? 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 Not on file [...] cm (5' 5 ) 05/08/2024 9:56 AM CORRECTIONAL LIEUTENANT Body Mass Index 23 05/08/2024 9:56 AM CORRECTIONAL LIEUTENANT Plan of Treatment Not on file Medical Devices Implanted Type Area Dental Treatment Coordinator Device Identifier Shelf Expiration Date Model / Serial / Lot Terumfr[employer]it [employer] Esperanza Angio-Seal Vip 6fr Closere Device [id number] - [id number] - [id number] Implanted:Qty: 1 on 05/03/2023 by Shmuel Thorne MD PhD at [facility] Collagen Right: Femoral [employer] Esperanza 10/01/2023 [id number] / [id number] / [id number] [employer] Stent Coronary De Rx Cocr Ors Msn 2.5x40mm [id number] - [id number] - [id number] Implanted:Qty: 1 on 05/03/2023 by Shmuel Thorne MD PhD at [facility] Stent [employer] 12/15/2024 [id number] / [id number] / [id number] Pacemaker Left: Chest [employer] Trufill Glue 1gm Nbca [id number] - [id number] Implanted:Qty: 1 on 06/25/2023 at [facility] 04/21/2025 [id number] / / [id number] Procedures Procedure Name Priority Date/Time Associated Diagnosis [...] ascending colon (HCC) COLONOSCOPY 04/16/2023 9:23 AM CORRECTIONAL LIEUTENANT from Last 3 Months or Most Recently [...] MD LAB BLOOD ORDERABLES Fin al Result [facility] [place] [address] * Differential, auto (07/01/2024 2:16 PM CDT) Neutrophil abs 3.5 1.5 - 6.5 K/cumm Comment:Testing performed by : [facility] Heme Lab, [address] [place] [phone] Lymphocyte abs 1.1 0.8 - 3.3 K/cumm [facility] Comment:Testing performed by : [facility], [address] [place] [phone] Monocyte abs 0.4 0.2 - 0.8 K/cumm [facility] Comment:Testing performed by : [facility], [address] [place] [phone] Eosinophil abs 0.2 0.0 - 0.5 K/cumm [facility] Comment:Testing performed by : [facility], [address] [place] [phone] Basophil abs 0.1 0.0 - 0.1 K/cumm [facility] Comment:Testing performed by : [facility], [address] [place] [phone] Neutrophil pct 65.5 % [facility] Comment: Interpretive Data Percent cell count reference ranges are not reported, since discordance with absolute values may lead to misinterpretation of CBC data. Current Interpretive Data was last revised on 2017. Testing performed by: [facility], [address] [place] [phone] Lymphocyte pct 21.4 % [facility] Comment: Interpretive Data Percent cell count reference ranges are not reported, since discordance with absolute values may lead to misinterpretation of CBC data. Current Interpretive Data was last revised on 2017. Testing performed by: [facility], [address] [place] [phone] Monocyte pct 7.6 % [facility] Comment: Interpretive Data Percent cell count reference ranges are not reported, since discordance with absolute values may lead to misinterpretation of CBC data. Current Interpretive Data was last revised on 2017. Testing performed by: [facility], [address] [place], [place] [phone] Eosinophil pct 4.5 % [facility] Comment: Interpretive Data Percent cell count reference ranges are not reported, since discordance with absolute values may lead to misinterpretation of CBC data. Current Interpretive Data was last revised on 2017. Testing performed by: [facility], [address] [place], [place] [phone] Basophil pct 1.0 % [facility] Comment: Interpretive Data Percent cell count reference ranges are not reported, since discordance with absolute values may lead to misinterpretation of CBC data. Current Interpretive Data was last revised on 2017. Testing performed by: [facility], [address] [place] [phone] Blood 07/01/2024 2:16 PM CDT 07/01/2024 2:18 PM CDT us Hoang Mcdonald MD LAB BLOOD ORDERABLES Fin al Result [facility] [place] [address] * CBC with auto differential (07/01/2024 2:16 PM CDT) WBC 5.3 3.8 - 9.9 K/cumm Comment:Testing performed by : [facility], [address] [place] [phone] Hgb 12.8 11.9 - 15.5 g/dL [facility] Comment:Testing performed by : [facility], [address] [place] [phone] Hct 39.2 35.6 - 45.5 % [facility] Comment:Testing performed by : [facility], [address] [place] [address] Plt 228 150 - 400 K/cumm [facility] Comment:Testing performed by : [facility], [address] [place] [address] MPV 7.9 6.8 - 10.4 fL [facility] Comment:Testing performed by : [facility], [address] [place] [address] RBC 4.19 3.90 - 5.20 M/cumm [facility] Comment:Testing performed by : [facility], [address] [place] [address] MCV 93.4 81.3 - 96.4 fL [facility] Comment:Testing performed by : [facility], [address] [place] [address] MCH 30.5 27.1 - 33.3 pg [facility] Comment:Testing performed by : [facility], [address] [place] [address] MCHC 32.7 32.3 - 35.7 g/dL [facility] Comment:Testing performed by : [facility], [address] [place] [address] RDW CV 13.3 11.1 - 14.9 % [facility] Comment:Testing performed by : [facility], [address] [place] [address] NRBC abs 0.00 0.00 - 0.01 K/cumm [facility] Comment:Testing performed by : [facility], [address] [place] [address] Blood 07/01/2024 2:16 PM CDT 07/01/2024 2:18 PM CDT us Hoang Mcdonald MD LAB BLOOD ORDERABLES Fin al Result [facility] [place] [address] * CEA (07/01/2024 2:16 PM CDT) Pathologist [facility] CEA 2.7 <=5.0 ng/mL Comment: Interpretive Data: [...] MD LAB BLOOD ORDERABLES Fin al Result [facility] [place] [address] * Comprehensive metabolic panel (07/01/2024 2:16 PM CDT) Pathologist [facility] Sodium 137 135 - 145 mmol/L Potassium, pl 4.8 3.3 - 4.9 mmol/L [facility] Chloride 107 97 - 110 mmol/L [facility] CO2 23 22 - 32 mmol/L [facility] Anion gap 7 2 - 15 mmol/L [facility] BUN 10 6 - 25 mg/dL [facility] Creatinine 1.04 0.60 - 1.10 mg/dL [facility] Glucose 107 70 - 199 mg/dL [facility] Comment: Interpretive Data Fasting glucose >/= 126 [...] Calcium 9.4 8.5 - 10.3 mg/dL [facility] Bilirubin, total 0.2 0.1 - 1.2 mg/dL [facility] Protein, pl 7.0 6.5 - 8.5 g/dL [facility] Albumin 4.1 3.5 - 5.0 g/dL [facility] Alk phos 77 40 - 130 Units/L [facility] ALT 28 7 - 45 Units/L [facility] AST 32 10 - 45 Units/L [facility] Blood 07/01/2024 2:16 PM CDT 07/01/2024 2:18 PM CDT us Hoang Mcdonald MD LAB BLOOD ORDERABLES Fin al Result [facility] [place] [address] * COLONOSCOPY (04/16/2023 9:23 AM CORRECTIONAL LIEUTENANT) Anatomical Region Laterality Modality Other Narrative Procedure Note Froilan Vilchis MD - 04/16/2023 9:23 AM [facility] Patient Name: Sheyla Guthrie Procedure Date: 04/16/2023 9:23 AM Date of : 1945 Admit Type: Inpatient Age: 77 Gender: Female Attending MD: Froilan Vilchis M.D. Room: [facility] ENDOSCOPY Note Status: Finalized Procedure: Colonoscopy [...] The scope was passed under direct vision.The [id number] endoscope was introduced through the anus [...] On: 04/16/2023 9:23 AM Recognized by the [employer] for promoting quality in endoscopy Froilan Vilchis MD ENDOSCOPY PROCED URES Final Result from Last 3 Months or Most Recently Relevant to Health Maintenance Insurance [facility]IC[facility] MEDICARE [facility] MEDICARE SUPPLEMENT MEDICARE [facility] MEDICARE SUPPLEMENT Advance Directives For more information, please contact: [phone] Documents on File Type Date Recorded 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 2.pdf ADVANCE DIRECTIVE 05/16/2023 5:48 PM POWER OF ANGLE FURNACEMAN-MEDICAL ADVANCE DIRECTIVE 05/02/2023 12:31 PM SHMUEL R OF ANGLE FURNACEMAN-MEDICAL * Full Code (Latest Code Status on [...] Guthrie Daughter Health Care Agent Care Teams Sash Maker Relationship Specialty Start Date End Date Nohelia Mayen MD [address] [facility] [address] [place] [address] PCP - General Geriatric Medicine 03/04/24 Reji Garcia Jr., MD [address] [facility] [phone] [place] [address] Consulting Physician Colon and Rectal Surgery 06/02/23 Nohelia Ovalles NP [address] [place] [address] Nurse Practitioner Hospice and Palliative Medicine 12/27/23 Hoang Mcdonald MD [address] [place] [address] Medical Oncology 03/04/24 Mabel Cunningham MD [address] [facility] DIV NEUROLOGY STROKE, [address] [place] [address] Consulting Physician Neurology 05/11/24 Brandin Joseph MD [address] [facility] [address] [place] [address] Consulting Physician Cardiology 06/29/24
[2024-07-12 13:51] LABS: Occult Blood Negative (Negative)
--- NOTE | 2024-07-12 14:22 | PC.NURSE ---
at 1415 a 2nd stool for occult blood completed to check against 1st one that read neg. 2nd specimen collected from liquid in ostomy bag also read neg.
[2024-07-12 14:40] VITALS: BP 138/60; PULSE 75; RESP 16; TEMP 37.1; O2SAT 98
[2024-07-12 14:47] LABS: Basophils Absolute Auto 0.04 K/mm3 (0.00-0.10); Basophils Percent Auto 0.7 % (0.0-1.0); Eosinophils Absolute Auto 0.39 K/mm3 (0.02-0.50); Eosinophils Percent Auto 7.2 % (1.0-6.0); Hematocrit 35.9 % (35.0-42.0); Hemoglobin 11.4 g/dL (11.7-13.8); Immature Granulocyte Absolute 0.02 K/mm3 (0.00-0.00); Immature Granulocyte Percent A 0.4 % (0.0-0.0); Lymphocytes Absolute Auto 0.98 K/mm3 (1.10-4.50); Mean Corpuscular HGB Conc 31.8 g/dL (32-36); Mean Corpuscular Hemoglobin 30.6 pg (27.0-31.0); Mean Corpuscular Volume 96.5 fL (78.0-102.0); Mean Platelet Volume 9.4 fl (9.2-11.8); Monocytes Absolute Auto 0.52 K/mm3 (0.10-0.90); Monocytes Percent Auto 9.6 % (2.0-11.0); Neutrophils Absolute Auto 3.48 K/mm3 (1.70-7.20); Neutrophils Percent Auto 64.1 % (50.0-70.0); Platelet Count Result 219 K/mm3 (150-420); Red Blood Count 3.72 M/mm3 (4.20-5.40); Red Cell Distribution Width 12.5 % (11.6-14.4); White Blood Count 5.4 K/mm3 (4.8-10.8)
[2024-07-12 15:00] LABS: Partial Thromboplastin Time 21.9 Sec (23.9-30.70); Prothrombin Time 10.6 Seconds (9.50-12.1)
[2024-07-12 15:03] LABS: Alanine Aminotransferase 33 U/L (14-59); Albumin Level 3.5 g/dL (3.4-5.0); Alkaline Phosphatase 85 U/L (46-116); Anion Gap 9 mmol/L (4-12); Aspartate Amino Transferase 23 U/L (15-37); Bilirubin,Total 0.3 mg/dL (0.00-1.00); Blood Urea Nitrogen 11 mg/dL (7-18); Carbon Dioxide 23 mmol/L (21-32); Chloride 104 mmol/L (98-108); Estimated CRCL calculation 37 ml/min; Estimated Glomerular Filt Rate 51; Glucose 90 mg/dL (70-99); Osmolality Calculated 281 mOsm/kg (285-295); Potassium 4.7 mmol/L (3.5-5.1); Sodium 136 mmol/L (136-145); Total Protein 6.7 g/dL (6.4-8.2)
[2024-07-12 16:30] VITALS: BP 131/74; PULSE 77; RESP 18; O2SAT 97
== END 2024-07-12 16:30 | disposition home or self-care (01) ==
PROVIDERS: Emergency Provider Emergency Medicine
DX: R19.5 Other fecal abnormalities (principal); C18.9 Malignant neoplasm of colon, unspecified; I10 Essential (primary) hypertension; I48.91 Unspecified atrial fibrillation; Z86.73 Personal history of transient ischemic attack (TIA), and cerebral infarction without residual deficits
CPT/HCPCS: 36415; 74177; 80053; 82272; 85025; 85610; 85730; 99284; Q9967

== ENCOUNTER 2025-01-06 19:54 | Inpatient (IN) | payer MEDICARE, SELFPAY ==
--- OUTSIDE RECORDS SUMMARY | 2024-12-09 11:37 | XMS_ITS | Continuity of Care Document ---
Author Organization [facility] Address [address] [place] [address] Phone Care Team Providers Care Wind Energy Project Manager Name Role Phone Yohana RODRIGUEZ FACC, FSCAI, Gil Unavailable Unava ilable Yohana RODRIGUEZ FACC, FSCAI, Gil Unavailable Unava ilable Procedures Procedure Date ICM DEVICE INTERROGAT REMOTE ICM DEVICE INTERROGAT REMOTE PM/ICD REMOTE TECH SERV PM DEVICE INTERROGATE REMOTE Advance Directives Directive Yes / No Effective Date File Name No Information Encounters Encounter Description Practice Location Reason(s) For Visit Diagnoses Date Provider Providers Copied on Encounter [facility] , [address] [place] [address], [id number], tel:[phone] [facility] Door Presence of cardiac pacemaker Yohana Montelongo , [address] [place] [address], [id number], . tel:[phone] Referring Provider: Jessica العلي [address] [place] [address], [id number]. tel:[phone] lting Provider: Jessica العلي [address] [place] [address], [id number]. tel:[phone] [facility] , [address] [place] [address], [id number], tel:[phone] [facility] Door Presence of cardiac pacemaker Yohana Montelongo , [address], [place], [place], [id number], . tel:[phone] Referring Provider: Christian Houser, [address] [facility] Suite [facility], [place], [address]. tel:[phone] lting Provider: Christian Houser, [address] [facility] Suite [facility], [place], [address]. tel:[phone] [facility] , [address] [place] [address], [id number], tel:[phone] [facility] Door Presence of cardiac pacemaker Yohana Gonzales. [address] [facility], [address] [place] [address], [id number], . tel:[phone] Referring Provider: Christian Houser, [address] [facility] [address] [place] [address], [id number]. tel:[phone] lting Provider: Christian Houser, [address] [facility] Suite [facility], [place], [address]. tel:[phone] Family History Family Member Type Diagnosis Age At Onset No Information Payers Payer name Insurance type Covered republican ID Butch santos(s) [place] [id number] [facility] CI [id number] Social History Type Description Quantity Date Captured Comments Sex Female Smoking Status No Information Chief Complaint And Reason For Visit No Information Reason For Referral Reason For Referral No Information Plan Of Treatment Date Type Action Status Appointment Sheyla Guthrie BOOKED Appointment Sheyla Guthrie BOOKED History Of Present Illness Encounter Date Complaint History Of Prese nt Illness No Information Functional Status Date Functional Assessmen t No Information Instructions Date Instruction Additional Infor mation No Information Assessments Type Assessment Date No Information Patient Care Teams Name Effective Dates (start - stop) Status Members No Information
--- OUTSIDE RECORDS SUMMARY | 2024-12-09 11:37 | XMS_ITS | Continuity of Care Document ---
Author Organization [facility] Address [address] [place] [phone] Phone Care Team Providers Care Fish Cleaner Name Role Phone Yohana RODRIGUEZ FACC, FSCAI, [...] Diagnoses Date Provider Providers Copied on Encounter [facility] , [address] [place] [address], [id number], tel:[phone] [facility] [place] Presence of cardiac pacemaker Yohana Montelongo , [address] [place] [address], [id number], . tel:[phone] Referring Provider: Jessica العلي [address] [place] [address], [address]. tel:[phone] lting Provider: Jessica العلي [address] [place] [address], [address]. tel:[phone] [facility] , [address] [place] [address], [id number], tel:[phone] [facility] [place] Presence of cardiac pacemaker Yohana Montelongo , [address], [place], [place], [id number], . tel:[phone] Referring Provider: Christian Houser, [address] [facility], [place], [address]. tel:[phone] lting Provider: Christian Houser, [address] [facility], [place], [address]. tel:[phone] [facility] , [address] [place] [address], [id number], tel:[phone] [facility] [place] Presence of cardiac pacemaker Yohana Gonzales. [address], [address] [place] [address], [id number], . tel:[phone] Referring Provider: Christian Houser, [address] [place] [address], [address]. tel:[phone] lting Provider: Christian Houser, [address] [facility], [place], [address]. tel:[phone] Family History Family Member Type Diagnosis Age At Onset No Information Payers Payer name Insurance type Covered green party ID Butch santos(s) [place] [id number] [facility] CI [id number] Social History Type Description Quantity Date Captured [...]
--- NOTE | ~2025-01-06 | XR_ITS ---
EXAMINATION: XR abdomen gastric tube insert DATE: 01/07/2025 21:36 INDICATION: Nasogastric tube placement TECHNIQUE: A supine view of the abdomen and lower chest was obtained for evaluation of feeding tube placement. COMPARISON: None. FINDINGS: Nasogastric tube extends to near the gastroesophageal junction where it loops back upon itself with the distal tip more cephalad in the distal esophagus. Dilated loops of gas-filled small bowel in the upper abdomen consistent with small bowel obstruction. There is mild elevation of left hemidiaphragm. Mild linear discoid atelectasis in the right midlung zone. Heart size normal. Dual lead pacemaker/AICD seen with leads projecting over the expected locations of the right atrium and the pulmonary outflow tract of the right ventricle. IMPRESSION: 1. Nasogastric tube with back upon itself in the distal esophagus. 2. Likely small bowel obstruction. Reviewed, dictated and finalized at location A.
--- NOTE | ~2025-01-06 | XR_ITS ---
EXAMINATION: XR abdomen/kub 1V DATE: 01/11/2025 12:52 INDICATION: Assess oral contrast enhancement prior to planned CT TECHNIQUE: A supine view of the abdomen on 2 radiographs was obtained. COMPARISON: 01/11/2025 8:16 AM FINDINGS: Again seen are multiple dilated gas-filled loops of small bowel throughout the abdomen consistent with persistent small bowel obstruction. No interval change in positioning of nasogastric tube likely in the proximal stomach but folded back upon itself. No evident oral contrast material which may be due to dilution. Again seen is a surgical clip in the deep pelvis. Mild elevation of left hemidiaphragm. No focal airspace opacities or pleural effusion. Heart size is normal. Dual lead pacemaker seen with leads projecting over the expected locations of the right atrium and at the pulmonary outflow tract of the right ventricle. IMPRESSION: 1. Persistent small bowel obstruction without evident oral contrast material which could be due to dilution from residual fluid in the small bowel. Reviewed, dictated and finalized at location A. IMPRESSION: 1. Persistent small bowel obstruction without evident oral contrast material wh ich could be due to dilution from residual fluid in the small bowel.
--- NOTE | ~2025-01-06 | XR_ITS ---
EXAMINATION: XR abdomen gastric tube rechec DATE: 01/08/2025 10:07 INDICATION: Nasogastric tube repositioning TECHNIQUE: A supine view of the abdomen and lower chest was obtained for evaluation of feeding tube placement. COMPARISON: 01/07/2025 FINDINGS: Nasogastric tube extends to the caudal most esophagus near the gastroesophageal junction where it is folded back upon itself with the apex of the fold at the level of the proximal side-port. The distal tip approximately 8 cm more proximally and the distal esophagus. There are multiple mildly dilated gas- filled loops of small bowel consistent with small bowel obstruction. There is elevation the left hemidiaphragm. Linear discoid atelectasis/scarring in the right lower lung zone suggestive small amount of fluid along the fissures. Left lung base clear. Heart size is normal. Dual lead pacemaker seen with leads projecting over the expected locations of the right atrium and at the ventricular outflow tract of the right ventricle.. IMPRESSION: 1. Nasogastric tube folded back upon itself in the distal esophagus. Reviewed, dictated and finalized at location A.
--- NOTE | ~2025-01-06 | XR_ITS ---
EXAMINATION: XR fl Dobhoff insert/rad w img DATE: 01/07/2025 13:21 INDICATION: Nasogastric tube placement required for bowel obstruction TECHNIQUE: Fluoroscopy was utilized during attempted nasogastric tube insertion. Despite poor cooperation from the patient the tube was able to be advanced without difficulty to the level of the pharynx. At this point the patient experienced episodes of nausea and vomiting and became combative, pulling the nasogastric tube out. The attempted procedure was terminated at this point. A single fluoroscopic image was recorded. The amount of fluoroscopy time used during this procedure was 0.8 minutes. Total DAP was 1.006 Gycm^2. COMPARISON: None. FINDINGS/IMPRESSION: Unsuccessful attempt at nasogastric tube placement with nasogastric tube tip able to be advanced into the pharynx before patient became combative and pulled the tube out. Reviewed, dictated and finalized at location A.
--- NOTE | ~2025-01-06 | XR_ITS ---
Examination: XR chest 1V portable Clinical History: HYPOXIA Comparison: X-rays 01/19/2022 Technique: Portable AP Findings: Left pacemaker. Right midline tip axillary vein. Heart size mildly enlarged. Right pleural effusion and right lower lobe interstitial changes. No acute bony abnormality. IMPRESSION: 1. Right pleural effusion, with associated basilar atelectasis and/or pneumonitis or airspace disease. Reviewed, dictated and finalized at location R. IMPRESSION: 1. Right pleural effusion, with associated basilar atelectasis and/or pneumoni tis or airspace disease.
--- NOTE | ~2025-01-06 | XR_ITS ---
Abdominal radiograph(s) INDICATION: NG tube COMPARISON: One day prior TECHNIQUE: Portable supine AP abdomen FINDINGS/IMPRESSION: 1. NG tube within stomach but coiled back on itself somewhat kinked, efficacy may be affected. 2. Persistent small bowel obstruction. Reviewed, dictated and finalized at location R.
--- NOTE | ~2025-01-06 | CT_ITS ---
EXAMINATION: CT abdomen pelvis w con DATE: 01/06/2025 21:21 INDICATION: Bowel obstruction. TECHNIQUE: Computed tomography (CT) of the abdomen and pelvis was performed with 100 mL Omnipaque 350 intravenous contrast. Automated exposure control and iterative reconstruction technique were employed. The dose-length product was 461.20 mGy-cm. COMPARISON: CT abdomen and pelvis 07/12/2024 FINDINGS: The visualized portions of the lung bases demonstrate mild atelectasis. There are trace pleural effusions. Cardiomegaly is noted. There are coronary artery calcifications. There are pacer wires in right atrium and right ventricle. No pericardial effusion. There is fluid in the esophagus. There is a 9 mm cyst in the liver. The gallbladder and spleen are normal. There is a 6 mm cyst in the pancreas, likely benign. The adrenal glands and right kidney are normal. There is cortical thinning of left kidney. There is a long Blanka pouch. There is an end ileostomy on the right. 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 Small bowel is dilated proximal to the parastomal hernia. There are no pathologically enlarged lymph nodes. There is trace pelvic ascites. There is calcified atherosclerosis of the aorta and many of the other arteries. There is moderate thoracic spondylosis and severe lumbar spondylosis. IMPRESSION: 1. Small bowel obstruction secondary to a parastomal hernia. Reviewed, dictated and finalized at location E.
--- NOTE | ~2025-01-06 | CT_ITS ---
EXAMINATION: CT abdomen pelvis wo con DATE: 01/11/2025 14:34 INDICATION: Parastomal hernia. Small bowel obstruction. TECHNIQUE: Computed tomography (CT) of the abdomen and pelvis was performed with 100 mL Omnipaque-350 intravenous contrast. Automated exposure control and iterative reconstruction technique were employed. The dose-length product was 614.12 mGy-cm. COMPARISON: 01/06/2025 FINDINGS: Small bilateral pleural effusions with dependent atelectasis in the bilateral lower lobes and in the dependent right middle lobe. Lung bases are otherwise clear. Heart size is normal. Atherosclerotic coronary artery calcifications and likely coronary artery stenting. Cardiac pacemaker lead tips at the right atrial appendage and at the ventricular outflow tract of the right ventricle. Nasogastric tube coiled in the proximal body of the stomach. There is also contrast material extending through the stomach into the dilated proximal small bowel. Contrast has not yet reached the dilated mid small bowel which measures up to 5.0 cm in maximal diameter with subtle gradual decrease in diameter of the more distal small bowel becoming essentially decompressed containing at the posterior deep pelvis and extending to a right lower quadrant and ileostomy. No single transition point to suggest obstruction and would favor an ileus. There has been prior resection of the cecum with decompression of essentially entire colon extending to a suture line at the proximal descending colon in the right in the pelvis. No pneumatosis or evident bowel wall thickening. Bladder is normal. The uterus is not identified and has likely been surgically resected. Liver, gallbladder, spleen, pancreas, bilateral adrenal glands and kidneys are normal. Small amount of likely reactive ascites in the abdomen and pelvis. No abscess or free intraperineal gas. No pathologically enlarged abdominal or pelvic lymphadenopathy. Mild to moderate lower thoracic, moderate to severe lumbosacral and mild intervening lumbar spondylosis. IMPRESSION: 1. Significant delay of passage of oral contrast throughout the dilated proximal to mid small bowel which gradually decreases in caliber more distally without a discrete transition point to suggest obstruction which favors an ileus. 2. Small bilateral pleural effusions and small amount of ascites in the abdomen and pelvis. Reviewed, dictated and finalized at location A. IMPRESSION: 1. Significant delay of passage of oral contrast throughout the dilated proxima l to mid small bowel which gradually decreases in caliber more distally without a discrete transition point to suggest obstruction which favors an ileus. 2. Small bilateral pleural effusions and small amount of ascites in the abdomen and pelvis.
--- NOTE | ~2025-01-06 | XR_ITS ---
EXAMINATION: XR abdomen obstructive series DATE: 01/11/2025 08:56 INDICATION: Small bowel obstruction TECHNIQUE: Frontal supine and upright views of the abdomen were obtained. COMPARISON: CT dated 01/06/2025 FINDINGS: Again seen is a nasogastric tube which extend beyond the level of the gastroesophageal junction, folded back upon itself likely in the proximal gastric body. There are persistent dilated gas-filled loops of small bowel throughout the abdomen consistent with small bowel obstruction. Right lower quadrant ostomy. No free intraperitoneal gas. Visualized mid to lower lungs are clear. Cardiomegaly. Dual lead pacemaker seen with leads projecting over the expected locations of the right atrium and at the right ventricular pulmonary outflow tract. IMPRESSION: 1. Persistent dilated loops of gas-filled small bowel consistent with small bowel obstruction. 2. Nasogastric tube folded back upon itself with distal tip in proximal side port in the proximal body of the stomach. Reviewed, dictated and finalized at location A. IMPRESSION: 1. Persistent dilated loops of gas-filled small bowel consistent with small dwain wel obstruction. 2. Nasogastric tube folded back upon itself with distal tip in proximal side po rt in the proximal body of the stomach.
--- OUTSIDE RECORDS SUMMARY | 2025-01-06 19:56 | XMS_ITS ---
Author Organization [facility] [address] Address [address] [place] [address] Care Team Providers Care Cosmetic Consultant Name Role Phone Jose Martinez MD, Reji Hunt Unavailable Nohelia Ovalles NP Unavailable Hoang Mcdonald MD Unavailable [phone] Nohelia Mayen MD Primary Care Provider [phone] Mabel Cunningham MD Unavailable [phone] Brandin Joseph MD Unavailable [phone] Active Problems Problem Noted Date Diagnosed Date Delirium 10/19/2023 Assessment & Plan (10/28/2023 7:28 PM CDT): Per daughter, at baseline pt has left sided weakness, arm weaker than leg. More lucid in morning but usually doesn't know date or place, forgetful, talks about people who're , sundowns daily. At baseline is 1 assist, needs assistance with ADLs, needs wheelchair when outside. 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 Interrogation normal. No episodes of VFib/Vtach. Patient [...] Automatic Entry Manual Entr y Fluoro Time 62.7 minutes 48.1 minutes 14.6 minutes Air kerma at the reference point (Ka,r) 2,142.5 mGy 1 ,371.5 mGy 771 mGy DLP 24,046 mGycm 24,046 mGycm 0 mGycm DAP 42.8 Gy-cm2 0 Gy-cm2 42.8 Gy-cm2 Resolved Problems Problem Noted Date Diagnosed Date [...]
--- OUTSIDE RECORDS SUMMARY | 2025-01-06 19:56 | XMS_ITS | Clinical Summary ---
Author Organization [facility] Address [address] [place] [address] Care Team Providers Care Road Grader Operator Name Role Phone Jorge A Noel MD Primary Care Provider [phone] Allergies No known active allergies Medications dilTIAZem [...] Comments Blood Pressure 125/68 06/18/2022 8:02 AM PHYSICAL INSTRUCTOR Pulse 72 06/18/2022 8:02 AM PHYSICAL INSTRUCTOR Temperature 36.2 C (97.2 F) 06/18/2022 6:49 AM PHYSICAL INSTRUCTOR Respiratory Rate 20 06/18/2022 6:49 AM PHYSICAL INSTRUCTOR Oxygen Saturation 98% 06/18/2022 8:02 AM PHYSICAL INSTRUCTOR Inhaled Oxygen Concentration - - Weight 74.8 kg (165 lb) 06/18/2022 6:49 AM PHYSICAL INSTRUCTOR Height 165.1 cm (5' 5) 06/18/2022 6:49 AM PHYSICAL INSTRUCTOR Body Mass Index 27.46 06/18/2022 6:49 AM PHYSICAL INSTRUCTOR Plan of Treatment Health Maintenance Due Date Last Done Comments Hepatitis C 1963 Annual Medicare Wellness Visit 06/27/2011 Dexa Scan (General) 06/27/2011 RSV Immunization or 60+ Years (1 - 1-dose 75+ series) 2021 COVID-19 Vaccine ( - season) 2024 01/21/2022, 03/03/2021, 07/14/2020, Additional history exists DTaP, Tdap and Td Vaccines (2 - Td or Tdap) 02/20/2029 02/20/2019 Pneumococcal Vaccine: 50+ Years Completed 02/13/2019, 05/06/2012 Zoster Vaccines Completed [...] this topic Medical Devices Implanted Type Area Podiatric Medicine Doctor Device Identifier Shelf Expiration Date Model / Serial / Lot Tecnis 1 Piece Iol Simplicity Implanted:Qty: 1 on 05/14/2022 by Kit Daniel MD at [facility] [id number] 02/17/2025 / [id number] / Tecnis Iol Implanted:Qty: 1 on 06/18/2022 by Kit Daniel MD at [facility] Right: Eye 11/10/2024 / [id number] / Insurance MEDICARE [facility] Care Teams Road Grader Operator Relationship Specialty Start Date End Date Jorge A Noel MD [address] [place] [address] PCP - General INTERNAL MEDICINE 05/14/22
--- OUTSIDE RECORDS SUMMARY | 2025-01-06 19:56 | XMS_ITS | Encounter Summary ---
Author Organization [facility] Address [address] [place] [address] Care Team Providers Care Factory Clerk Name Role Phone No, Physician Primary Care Provider [phone] Jorge A Noel MD Primary Care Provider [phone] Jose Martinez MD, Reji Hunt Unavailable Esther Nolasco MD Unavailable Nohelia Ovalles NP Unavailable Haong Mcdonald MD Unavailable Nohelia Mayen MD Primary Care Provider [phone] Mabel Cunningham MD Unavailable Brandin Joseph MD Unavailable [phone] Encounter Details Date Type Department Care Team (Late st Contact Info) Description 07/05/2017 Orders Only [facility] Health Information Management [address] [place] [id number] Scanning, Provider Social History Tobacco Use Types Packs/Day Years Used Date Smoking Tobacco: Some Days Alcohol Use Standard Drinks/Week Comments Yes 0 (1 standard drink = 0.6 oz pur e alcohol) Comments Unknown Sex and Gender Information Value Date Recorded Sex Assigned at Not on file 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 Gender Identity Not on file Sexual Orientation Not on file documented as of this encounter Plan of Treatment Not on file documented as of this encounter Procedures Procedure Name Priority Date/Time Associated Diagnosis Comments SLEEP LAB/STUDY - RESULT 07/05/2017 1:21 AM CDT documented in this encounter Results * SLEEP LAB/STUDY - RESULT (07/05/2017 1:21 AM CDT) us Provider Scanning Final Result documented in this encounter Visit Diagnoses Not on filedocumented in this encounter Additional Health Concerns Infection Onset Date Last Indicated Resolved Time COVID: Suspected 04/06/2023 04/06/2023 04/06/2023 12:54 PM TOE PUNCHER COVID: Suspected 08/19/2023 08/19/2023 08/20/2023 1:01 AM CDT COVID: Suspected 10/19/2023 10/19/2023 10/19/2023 6:41 PM CDT documented as of this encounter Care Teams Factory Clerk Relationship Specialty Start Date End Date No, Physician PCP - General 05/02/17 07/28/17 Jorge A Noel MD PCP - General Internal Medicine 07/29/17 03/03/24 Nohelia Mayen MD [address] [address] PCP - General Geriatric Medicine 03/04/24 Reji Garcia Jr., MD [address] [facility] [phone] [place] [address] Consulting Physician Colon and Rectal Surgery 06/02/23 Esther Nolasco MD [address] [facility] [phone] [place] [address] Medical Oncologist/Physician Office Rep Medical Oncology 06/02/23 03/03/24 Nohelia Ovalles NP 1 [facility] [address] [place] [address] Nurse Practitioner Hospice and Palliative Medicine 12/27/23 Hoang Mcdonald MD [address] [place] [address] Medical Oncology 03/04/24 Mabel Cunningham MD [address] [facility] NE[facility] [address] [address] Consulting Physician Neurology 05/11/24 Brandin Joseph MD [facility]1 [facility] [address] [place] [address] Consulting Physician Cardiology 06/29/24 documented as of this encounter
--- OUTSIDE RECORDS SUMMARY | 2025-01-06 19:56 | XMS_ITS | Encounter Summary ---
Author Organization [facility] Address [address] [place] [address] Care Team Providers Care Butcher Assistant Name Role Phone No, Physician Primary Care Provider Jorge A Noel MD Primary Care Provider [phone] Jose Martinez MD, Reji Hunt Unavailable Esther Nolasco MD Unavailable Nohelia Ovalles NP Unavailable [phone] Hoang Mcdonald MD Unavailable [phone] Nohelia Mayen MD Primary Care Provider [phone] Mabel Cunningham MD Unavailable Brandin Joseph MD Unavailable Encounter Details Date Type Department Care Team (Late st Contact Info) Description 05/28/2017 Orders Only [facility] Health Information Management [address] [place] [id number] Scanning, Provider Social History Tobacco Use Types Packs/Day Years Used Date Smoking Tobacco: Some Days Alcohol Use Standard Drinks/Week Comments Yes 0 (1 standard drink = 0.6 oz pur e alcohol) Comments Unknown Sex and Gender Information Value Date Recorded Sex Assigned at Not on file 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 Gender Identity Not on file Sexual Orientation Not on file documented as of this encounter Plan of Treatment Not on file documented as of this encounter Procedures Procedure Name Priority Date/Time Associated Diagnosis Comments CARDIOLOGY DOCUMENT SCAN 05/28/2017 documented in this encounter Results * Cardiology Document Scan (05/28/2017) Anatomical Region Laterality Modality Other us Provider Scanning CV CARDIAC SERVICES PROCEDURES Final Result documented in this encounter Visit Diagnoses Not on filedocumented in this encounter Additional Health Concerns Infection Onset Date Last Indicated Resolved Time COVID: Suspected 04/06/2023 04/06/2023 04/06/2023 12:54 PM VISION SPECIALIST COVID: Suspected 08/19/2023 08/19/2023 08/20/2023 1:01 AM CDT COVID: Suspected 10/19/2023 10/19/2023 10/19/2023 6:41 PM CDT documented as of this encounter Care Teams Butcher Assistant Relationship Specialty Start Date End Date No, Physician PCP - General 05/02/17 07/28/17 Jorge A Noel MD PCP - General Internal Medicine 07/29/17 03/03/24 Nohelia Mayen MD [address] [address] PCP - General Geriatric Medicine 03/04/24 Reji Garcia Jr., MD [address] [facility] [phone] [place] [address] Consulting Physician Colon and Rectal Surgery 06/02/23 Esther Nolasco MD [address] [facility] [phone] [place] [address] Medical Oncologist/Basket Weaver Medical Oncology 06/02/23 03/03/24 Nohelia Ovalles NP 1 [facility] [address] [place] [address] Nurse Practitioner Hospice and Palliative Medicine 12/27/23 Hoang Mcdonald MD [address] [place], [place] [id number] Medical Oncology 03/04/24 Mabel Cunningham MD [address] [facility] NEUROLOGY [facility], [address] [address] Consulting Physician Neurology 05/11/24 Brandin Joseph MD [address] [facility] [address] [place], [place] [id number] Consulting Physician Cardiology 06/29/24 documented as of this encounter
--- OUTSIDE RECORDS SUMMARY | 2025-01-06 19:57 | XMS_ITS | Clinical Summary ---
Author Organization [facility] [employer] Address [address] [place] [address] Care Team Providers Care Banana Handler Name Role Phone Frank, Lorna Vela APRN-PROCTOLOGIST Primary Care Provider Source Comments [facility] [employer],non-owned Affiliates and Associated Physician Practices is amultiple site organization consisting of ambulatory clinics and hospital sitesin [place], [place], [place] and [place]. This disclosure is being madepursuant to the Care Everywhere program and may not contain all information available regarding this patient. Last updated 18.[facility] [employer] Allergies Active Allergy Reactions Criticality Noted Date Comments Adhesive Sensitivity Rash,Eye Redness Medium 4 Simvastatin Psychiatric Medium 12/18/2017 Causes cognitive impairment Medications * This document contains information received from the source organization and may not represent a complete record from that organization. * Be aware that medications may not be up to date on this document. Alwaysverify current medications with the patient. acetaminophen (TYLENOL) 325 MG tablet Take 2 tablets by mouth every 6 hours as needed for Pain Maximum allowable Acetaminophen amount = 4 Grams (4000 mg) / 24 hours. 01/16/20 18 Active aspirin (Aspirin) 81 MG chew tablet Take 1 (one) tablet by mouth once daily 100 tablet 4 12/17/19 24 Active nystatin (Mycostatin) 025043 UNIT/GM powder Apply to affected area 2 times daily 60 g 5 12/17/19 24 Active atorvastatin (Lipitor) 20 MG tablet Take 1 (one) tablet by mouth once daily 100 tablet 4 12/17/19 24 Active Cholecalciferol (Vitamin D3) 25 MCG (1000 UT) Take 1 (one) capsule by mouth once daily 30 capsule 5 12/17/19 24 Active metoprolol succinate XL 24hr (Toprol XL) 50 MG tablet TAKE 1 TABLET BY MOUTH EVERY DAY 90 tablet 1 06/16/19 25 Active venlafaxine XR 24hr (Effexor XR) 75 MG capsuleIndicati ons:Anxiety Take 1 (one) capsule by mouth once daily 90 capsule 4 06/27/19 25 Active amiodarone (Cordarone) 200 MG tablet TAKE 1 TABLET BY MOUTH EVERY DAY 90 tablet 3 09/02/19 25 Active Melatonin 10 MG Take 10 (ten) mg by mouth at bedtime Active SAFFLOWER OIL PO Saffron RX Active vitamin C (Ascorbic Acid) 1000 MG tablet Take 1 (one) tablet by mouth once daily Active CBD oil Take 300 mg by mouth every afternoon Active levETIRAcetam (Keppra) 500 MG tablet Take 0.5 (one-half) tablet by mouth 2 times daily 90 tablet 3 10/31/[address] (Depakote) 125 MG tabletIndicatio ns:Dementia with behavioral disturbance (HCC) Take 1 (one) tablet by mouth 2 times daily 180 tablet 4 11/12/19 25 Active OLANZapine (ZyPREXA) 5 MG tabletIndicatio ns:Psychosis, unspecified psychosis type (HCC) Take 1 (one) tablet by mouth once daily 90 tablet 4 12/15/19 25 Active traZODone (Desyrel) 50 MG tablet Take 1 (one) tablet by mouth 2 times daily. May also take 1 (one) tablet once daily as needed. 180 tablet 1 01/02/20 25 Active traZODone (Desyrel) 50 MG tablet Take 1 (one) tablet by mouth at bedtime. May also take 1 (one) tablet once daily as needed. 180 tablet 1 10/20/19 25 025 Discontin ued(Reord er) QUEtiapine (SEROquel) 25 MG tabletIndicatio ns:Psychosis, unspecified psychosis type (HCC) Take 1 (one) tablet by mouth 2 times daily 180 tablet 4 12/15/19 25 025 Discontin ued(Clini daryl Decision) Active Problems Problem Noted Date Diagnosed Date Vascular dementia with behavior disturbance 04/2024 Presence of ileostomy 2024 Hemiplegia and hemiparesis f ollowing cerebral infarction affecting left non-dominant side 2024 Seizure-like activity 2024 Malnutrition 08/21/2023 SDH (subdural hematoma) 08/19/2023 Recurrent falls 08/19/2023 Colon adenocarcinoma 07/16/2023 CVA (cerebrovascular accident) 06/21/2023 Malignant tumor of colon 06/21/2023 Non-ST elevation (NSTEMI) myocardial infarction 06/21/2023 Presence of cardiac pacemaker 07/13/2021 Bradycardia 06/23/2021 Sinoatrial block 06/23/2021 Sick sinus syndrome 06/23/2021 Status post placement of implantable loop record er 06/07/2021 NAVDEEP (obstructive sleep apnea) 10/14/2017 Atrial fibrillation with RVR 09/17/2017 HTN (hypertension) 07/14/2015 Asthma 07/14/2015 Syncope 05/30/2015 Essential hypertension 02/22/2015 Overview (02/27/2024): Essential hypertension Multiple-type hyperlipidemia 02/22/2015 Overview (02/27/2024): Mixed hyperlipidemia Arteriosclerosis of coronary artery 05/08/2013 Overview (02/27/2024): CRNRY ATHRSCL NATVE VSSL Paroxysmal atrial fibrillation 05/08/2013 Overview (02/27/2024): ATRIAL FIBRILLATION Resolved Problems Problem Noted Date Diagnosed Date Resolved Date Psychosis, unspecified psychosis type 2024 10/19/2024 Mild dementia, unspecified d ementia type, unspecified whether behavioral, psychotic, or mood disturbance or anxiety 2024 10/20/2024 Family history of hypertension 02/27/2024 02/27/2024 Acute renal failure 10/19/2023 02/27/20 Delirium 10/19/2023 02/27/2024 Goals of care, counseling/discussion 10/19/2023 10/19/2024 Leukocytosis 10/19/2023 02/27/2024 E. coli UTI (urinary [...] 01/28/2019 02/27/2024 Weak arterial pulse 01/28/2019 02/27/20 Sleep apnea 09/17/2017 10/19/2024 Chronic anticoagulation 07/29/201710/2023 Encounters * This document contains information received from the source organization and may not represent a complete record from that organization. Date Type Department Care Team Description 12/14/2024 Orders Only [facility] [address] [place] [phone] Lorna Marie, MILLI-PROCTOLOGIST Psychosis, unspecified psychosis type (HCC) 11/11/2024 Orders Only [facility] [address] [place] [phone] Lorna Marie APRN-PROCTOLOGIST Dementia with behavioral disturbance (HCC) 11/10/2024 Telephone [facility] [address] [place] [phone] Yazmin Lazar RN Med Question 10/30/2024 11:00 AM CDT Office Visit [facility] [address] [place] [phone] Lorna Marie APRN-ALEXANDER Vascular dementia, unspecified dementia severity, unspecified whether behavioral, psychotic, or mood disturbance or anxiety (HCC) (Primary Dx); Paranoia (HCC); Hypotension, unspecified hypotension type 10/30/2024 Travel 10/19/2024 3:29 PM CDT - 10/19/2024 11:59 PM CDT Hospital Encounter [facility] OP DRAW STATION [address] [place] [phone] Dario Bess MD Discharge Disposition: Home or Self Care 10/19/2024 Travel from Last 3 Months Immunizations Immunization Administration Dates Next Due COVID PFIZER BIVALENT [...] drink = 0.6 oz pu re alcohol) PHQ-2 Answer Date Recorded Patient Health Questionnaire-2 Score 0 10/19/2024 Comments Unknown Sex and Gender Information Value Date Recorded Sex Assigned at Not on file Legal Sex Female 12:15 PM CDT Gender Identity Not on file Sexual Orientation Not on file Last Filed Vital Signs Vital Sign Reading Time Taken Comments Blood Pressure 99/68 10/30/2024 11:12 AM CDT Pulse 89 10/30/2024 11:12 AM CDT Temperature 36.7 C (98 F) 11/09/2023 11:43 AM CDT Respiratory Rate 18 11/09/2023 11:43 AM CDT Oxygen Saturation 96% 10/30/2024 11:12 AM CDT Inhaled Oxygen Concentration - - Weight 61.8 kg (136 lb 3.2 oz) 10/30/2024 11:12 AM CDT Height 162.6 cm (5' 4) 10/30/2024 11:12 AM CDT Body Mass Index 23.38 10/30/2024 11:12 AM CDT Plan of Treatment Upcoming Encounters Date Type Department Care Team (Late st Contact Info) Description 03/05/2025 11:00 AM BROADCAST SUPERVISOR Office Visit [facility] [address] [place] [phone] Lorna Marie, DRUM PULLER-PROCTOLOGIST [address] [place] [phone] Health Maintenance Due Date Last Done Comments BONE DENSITY TESTING 1945 MEDICARE AWV 12 MONTHS 1945 HEPATITIS C SCREENING 06/21/1964 Respiratory Syncytial Virus (RSV) Vaccine Pt: or over 60 yrs (1 - 1-dose 75+ series) 2021 COVID-19 VACCINE ( season) 2024 01/21/2022, 03/03/2021, 07/14/2020, Additional history exists INFLUENZA VACCINE (#1) 2024 2, 02/02/2021, 01/21/2020, Additional history exists DTAP/TDAP/TD VACCINES (2 - Td or Tdap) 02/20/2029 02/20/2019 PNEUMOCOCCAL VACCINE 50+ Completed 02/13/2019, 04/22 ZOSTER VACCINE Completed 05/08/2019, 02/20/2019 DEPRESSION SCREENING Completed 10/19/2024 HEPATITIS B VACCINE Aged Out No longe [...] Procedure Name Priority Date/Time Associated Diagnosis Comments VITAMIN B1 Routine 10/19/2024 3:57 PM CDT At risk for nutrition deficiency Cognitive decline T4 FREE Routine 10/19/2024 3:57 PM CDT Psychosis, unspecified psychosis type (HCC) Mild dementia, unspecified dementia type, unspecified whether behavioral, psychotic, or mood disturbance or anxiety (HCC) Cognitive decline Anxiety disorder due to known physiological condition TSH Routine 10/19/2024 3:57 PM CDT Psychosis, unspecified psychosis type (HCC) Mild dementia, unspecified dementia type, unspecified whether behavioral, psychotic, or mood disturbance or anxiety (HCC) Cognitive decline Anxiety disorder due to known physiological condition VITAMIN D 1,25 DIHYDROXY Routine 10/19/2024 3:57 PM CDT Mild dementia, unspecified dementia type, unspecified whether behavioral, psychotic, or mood disturbance or anxiety (HCC) At risk for nutrition deficiency Cognitive decline Vitamin D deficiency, unspecified VITAMIN B6 Routine 10/19/2024 3:57 PM CDT Mild dementia, unspecified dementia type, unspecified whether behavioral, psychotic, or mood disturbance or anxiety (HCC) At risk for nutrition deficiency Cognitive decline VITAMIN B12 Routine 10/19/2024 3:57 PM CDT Psychosis, unspecified psychosis type (HCC) Mild dementia, unspecified dementia type, unspecified whether behavioral, psychotic, or mood disturbance or anxiety (HCC) At risk for nutrition deficiency Cognitive decline METHYLMALONIC ACID BLOOD Routine 10/19/2024 3:57 PM CDT Psychosis, unspecified psychosis type (HCC) Mild dementia, unspecified dementia type, unspecified whether behavioral, psychotic, or mood disturbance or anxiety (HCC) At risk for nutrition deficiency Cognitive decline MAGNESIUM BLOOD Routine 10/19/2024 3:57 PM CDT Psychosis, unspecified psychosis type (HCC) Mild dementia, unspecified dementia type, unspecified whether behavioral, psychotic, or mood disturbance or anxiety (HCC) At risk for nutrition deficiency Cognitive decline FOLATE Routine 10/19/2024 3:57 PM CDT Psychosis, unspecified psychosis type (HCC) Mild dementia, unspecified dementia type, unspecified whether behavioral, psychotic, or mood disturbance or anxiety (HCC) At risk for nutrition deficiency Cognitive decline COMPREHENSIVE METABOLIC PANEL Routine 10/19/2024 3:57 PM CDT Psychosis, unspecified psychosis type (HCC) Mild dementia, unspecified dementia type, unspecified whether behavioral, psychotic, or mood disturbance or anxiety (HCC) At risk for nutrition deficiency Cognitive decline CBC W AUTO DIFFERENTIAL Routine 10/19/2024 3:57 PM CDT Psychosis, unspecified psychosis type (HCC) Mild dementia, unspecified dementia type, unspecified whether behavioral, psychotic, or mood disturbance or anxiety (HCC) At risk for nutrition deficiency Cognitive decline from Last 3 Months Results * METHYLMALONIC ACID BLOOD (10/19/2024 3:57 PM CDT) [facility] Signature Methylmalonic Acid 0.31 0.00 - 0.40 umol/L 10/23/2024 10:06 AM CDT [employer] ([facility]) Comment: INTERPRETIVE INFORMATION: MMA Serum/Plasma, Vitamin B12 Status This test was developed and its performance characteristics determined by [facility]. It has not been cleared or approved by the US Food and Drug Administration. This test was performed in a CLIA certified laboratory and is intended for clinical purposes. Performed By: [facility] [address] [place] [id number] Briquette Maker: Paul Stock MD, PhD CLIA Number: [id number] Blood BLOOD SPECIMEN / Unknown Lab Venipuncture / Unknown 10/19/2024 3:57 PM CDT 10/19/2024 4:16 PM CDT Dario Bess MD LAB - CHEMISTRY ORDERABLES Final Result Performing Organization Address City/[facility] de Phone Number [facility]) [address] [place] [address] * VITAMIN B1 (10/19/2024 3:57 PM CDT) [facility] Vitamin B1 Whole Blood 129 70 - 180 nmol/L 10/22/2024 10:[address] [facility] [employer] ([facility]) Comment: INTERPRETIVE INFORMATION: Vitamin B1, Whole Blood This assay measures the concentration of thiamine diphosphate (TDP), the primary active form of vitamin B1. Approximately 90 percent of vitamin B1 present in whole blood is TDP. Thiamine and thiamine monophosphate, which comprise the remaining 10 percent, are not measured. This test was developed and its performance characteristics determined by [facility]. It has not been cleared or approved by the [place] Food and Drug Administration. This test was performed in a CLIA certified laboratory and is intended for clinical purposes. Performed By: [place] [address] [employer] Maker: Paul Stock MD, PhD CLIA Number: [id number] Blood BLOOD SPECIMEN / Unknown Lab Venipuncture / Unknown 10/19/2024 3:57 PM CDT 10/19/2024 4:16 PM CDT Dario Bess MD LAB - CHEMISTRY ORDERABLES Final Result Performing Organization Address City/[facility] Co de Phone Number [facility]) [address] [place] [address] * VITAMIN B6 (10/19/2024 3:57 PM CDT) Pathologist [facility] Vitamin B6 53.2 20.0 - 125.0 nmol/L 10/23/2024 2:07 PM CDT [facility] ([facility]) Comment: INTERPRETIVE INFORMATION: Vitamin B6 (Pyridoxal 5-Phosphate) Pyridoxal 5'-phosphate measured in a specimen collected following an 8-hour or overnight fast accurately indicates vitamin B6 nutritional status. Non-fasting specimen concentration reflects recent vitamin intake. This test was developed and its performance characteristics determined by [facility]. It has not been cleared or approved by the US Food and Drug Administration. This test was performed in a CLIA certified laboratory and is intended for clinical purposes. Performed By: [employer] [address] [place] [address] Briquette Maker: Paul Stock MD, PhD CLIA Number: [id number] Blood BLOOD SPECIMEN / Unknown Lab Venipuncture / Unknown 10/19/2024 3:57 PM CDT 10/19/2024 4:16 PM CDT Dario Bess MD LAB - CHEMISTRY ORDERABLES Final Result Performing Organization Address [facility] de Phone Number [facility]) [address] [place] [address] * VITAMIN D 1,25 DIHYDROXY (10/19/2024 3:57 PM CDT) [facility] Vitamin D, 1,25 Dihydroxy 30.2 19.9 - 79.3 pg/mL 10/20/2024 8:25 PM CDT [facility] ([facility]) Comment: INTERPRETIVE INFORMATION: Vitamin D, 1,25-Dihydroxy This test is primarily indicated during patient evaluation for hypercalcemia and renal failure. A normal result does not rule out Vitamin D deficiency. The recommended test for diagnosing Vitamin D deficiency is Vitamin D 25-hydroxy. Performed By: [facility] [address] [place] [address] Briquette Maker: Paul Stock MD, PhD CLIA Number: [id number] Blood BLOOD SPECIMEN / Unknown Lab Venipuncture / Unknown 10/19/2024 3:57 PM CDT 10/19/2024 4:16 PM CDT Dario Bess MD LAB - CHEMISTRY ORDERABLES Final Result Performing Organization Address [facility] de Phone Number [facility] [employer] ([facility]) [address] [place] [address] * CBC WITH DIFFERENTIAL (10/19/2024 3:57 PM T) [facility] WBC 6.0 4.0 - 10.7 x10E9/L 10/19/2024 4:30 PM [facility] RBC Count 4.04 3.90 - 5.20 x10E12/L 10/19/2024 4:30 PM [facility] Hemoglobin 12.4 11.9 - 15.8 g/dL 10/19/2024 4:30 PM [facility] Hematocrit 37.8 34.8 - 46.1 % 10/19/2024 4:30 PM [facility] MCV 93.6 80.0 - 98.0 fL 10/19/2024 4:30 PM [facility] MCH 30.7 26.7 - 33.6 pg 10/19/2024 4:30 PM [facility] MCHC 32.8 31.7 - 36.3 g/dL 10/19/2024 4:30 PM [facility] RDW-CV 12.1 11.3 - 14.8 % 10/19/2024 4:30 PM [facility] Platelet Count 232 150 - 420 x10E9/L 10/19/2024 4:30 PM [facility] MPV 9.6 7.8 - 11.4 fL 10/19/2024 4:30 PM [facility] Neutrophil % 67.5 41.0 - 74.0 % 10/19/2024 4:30 PM [facility] Lymphocyte % 17.8 17.0 - 47.0 % 10/19/2024 4:30 PM [facility] Monocyte % 9.7 3.0 - 11.0 % 10/19/2024 4:30 PM [facility] Eosinophil % 4.0 0.0 - 7.0 % 10/19/2024 4:30 PM [facility] Basophil % 0.5 0.0 - 1.6 % 10/19/2024 4:30 PM [facility] Immature Granulocytes % 0.5 0.0 - 1.0 % 10/19/2024 4:[facility]il Absolute 4.01 1.60 - 7.50 x10E9/L 10/19/2024 4:30 PM [facility] Lymphocyte Absolute 1.06 1.00 - 4.40 x10E9/L 10/19/2024 4:30 PM [facility] Monocyte Absolute 0.58 0.15 - 1.00 x10E9/L 10/19/2024 4:30 PM [facility] Eosinophil Absolute 0.24 0.00 - 0.60 x10E9/L 10/19/2024 4:30 PM [facility] Basophil Absolute 0.03 0.00 - 0.13 x10E9/L 10/19/2024 4:30 PM [facility] Blood BLOOD SPECIMEN / Unknown Lab Venipuncture / Unknown 10/19/2024 3:57 PM CDT 10/19/2024 4:22 PM CDT Dario Bess MD LAB - HEMATOLOGY ORDERABLES Belia l Result [address] [address], [facility] [place] [phone] * (ABNORMAL) COMPREHENSIVE METABOLIC PANEL (10/19/2024 3:57 PM CDT) BUN 15 7 - 26 mg/dL 10/19/2024 4:59 PM [facility] Creatinine 0.89 0.56 - 0.96 mg/dL 10/19/2024 4:59 PM [facility] Sodium 133(L) 136 - 145 mmol/L 10/19/2024 4:59 PM [facility] Potassium 4.3 3.5 - 4.5 mmol/L 10/19/2024 4:59 PM [facility] Chloride 107 98 - 107 mmol/L 10/19/2024 4:59 PM [facility] CO2 20(L) 22 - 29 mmol/L 10/19/2024 4:59 PM [facility] Glucose 130(H) 70 - 99 mg/dL 10/19/2024 4:59 PM [facility] Calcium 8.8 8.4 - 10.2 mg/dL 10/19/2024 4:59 PM [facility] Protein Total 6.7 6.0 - 8.3 g/dL 10/19/2024 4:59 PM [facility] Albumin 3.9 3.4 - 5.0 g/dL 10/19/2024 4:59 PM [facility] Bilirubin Total <0.1(L) 0.2 - 1.2 mg/dL 10/19/2024 4:59 PM [facility] Alkaline Phosphatase 64 40 - 150 U/L 10/19/2024 4:59 PM [facility] ALT 15 5 - 55 U/L 10/19/2024 4:59 PM [facility] AST 17 5 - 34 U/L 10/19/2024 4:59 PM [facility] Anion Gap 6 6 - 16 10/19/2024 4:59 PM [facility] BUN/Creatinine Ratio 17 7 - 23 10/19/2024 4:59 PM [facility] Osmolality Calculated 279 275 - 295 mOsm/kg 10/19/2024 4:59 PM [facility] Albumin/Globulin Ratio 1.4 1.1 - 2.3 10/19/2024 4:59 PM [facility] eGFR by CKD-EPI 66(L) >=90 mL/min/1.7 3 m2 10/19/2024 4:59 PM [facility] Blood BLOOD SPECIMEN / Unknown Lab Venipuncture / Unknown 10/19/2024 3:57 PM CDT 10/19/2024 4:22 PM [facility] - 10/19/2024 4:59 PM [facility] Estimated Glomerular Filtration Rate (eGFR) calculated using the CKD-EPI Creatinine Equation (2020), per the National Kidney Foundation and [place] Society of Nephrology recommendations. us Dario Bess MD LAB - CHEMISTRY ORDERABLES Final Result [facility] [address] [place] [address], [place] [phone] * MAGNESIUM BLOOD (10/19/2024 3:57 PM CDT) Magnesium 1.8 1.6 - 2.6 mg/dL 10/19/2024 4:58 PM CDT [facility] Blood BLOOD SPECIMEN / Unknown Lab Venipuncture / Unknown 10/19/2024 3:57 PM CDT 10/19/2024 4:22 PM CDT us Dario Bess MD LAB - CHEMISTRY ORDERABLES Final Result [address] [address], [place] [phone] * FOLATE (10/19/2024 3:57 PM CDT) Folate 14.2 7.0 - 31.4 ng/mL 10/19/2024 5:27 PM CDT [facility] Blood BLOOD SPECIMEN / Unknown Lab Venipuncture / Unknown 10/19/2024 3:57 PM CDT 10/19/2024 4:22 PM CDT us Dario Bess MD LAB - CHEMISTRY ORDERABLES Final Result [address] [address], [place] [phone] * VITAMIN B12 (10/19/2024 3:57 PM CDT) Vitamin B12 686 213 - 816 pg/mL 10/19/2024 5:27 PM CDT [facility] Blood BLOOD SPECIMEN / Unknown Lab Venipuncture / Unknown 10/19/2024 3:57 PM CDT 10/19/2024 4:22 PM CDT us Dario Bess MD LAB - CHEMISTRY ORDERABLES Final Result [address] [address], [place] [phone] * TSH (10/19/2024 3:57 PM CDT) TSH 0.658 0.350 - 4.940 uIU/mL 10/19/2024 5:27 PM CDT [facility] Blood BLOOD SPECIMEN / Unknown Lab Venipuncture / Unknown 10/19/2024 3:57 PM CDT 10/19/2024 4:22 PM CDT Dario Bess MD LAB - CHEMISTRY ORDERABLES Final Result [address] [address], [place] [phone] * T4 FREE (10/19/2024 3:57 PM CDT) T4 Free 1.2 0.7 - 1.5 ng/dL 10/19/2024 5:27 PM CDT [facility] Blood BLOOD SPECIMEN / Unknown Lab Venipuncture / Unknown 10/19/2024 3:57 PM CDT 10/19/2024 4:22 PM CDT us Dario Bess MD LAB - CHEMISTRY ORDERABLES Final Result [address] [address], [place] [phone] from Last 3 Months Insurance MEDICARE MEDICARE MEDICARE Advance Directives * Full Code (Latest Code Status on File) Date Activated Date Inactivated Comments 09/17/2017 6:24 PM 09/20/2017 4:15 PM Care Teams Banana Handler Relationship Specialty Start Date End Date Lorna Marie, DRUM PULLER-PROCTOLOGIST [address] [phone] PCP - General Nurse Practitioner 01/13/24
--- OUTSIDE RECORDS SUMMARY | 2025-01-06 19:57 | XMS_ITS ---
Author Organization [facility] Address [address] [place] [address] Care Team Providers Care Demand Inspector Name Role Phone Lorna Marie APRN-MASTER SHIP Primary Care Provider Active Problems * This document contains information received from the source organization and may not represent a complete record from that organization. Problem Noted Date Diagnosed Date Vascular dementia [...] fibrillation 05/08/2013 Overview (02/27/2024): ATRIAL FIBRILLATION Current Treatment and Therapy Plans No current [...] failure 10/19/2023 02/27/20 24 Delirium 10/19/2023 02/27/2024 Goals of care, counseling/discussion [...] 01/28/2019 02/27/2024 Weak arterial pulse 01/28/2019 02/27/20 24 Sleep apnea 09/17/2017 10/19/2024 Chronic anticoagulation 07/29/201710/2023
--- NOTE | 2025-01-06 20:05 | ED.GENADULT ---
HPI - General Adult General Chief complaint: Nausea/Vomiting/Diarrhea <Treva Reilly MD - Last Filed: 01/06/25 22:01> Stated complaint: N/V - no bowel movement <Treva Reilly MD - Last Filed: 01/06/25 22:01> Time Seen by Provider: 01/06/25 20:01 <Treva Reilly MD - Last Filed: 01/06/25 22:01> Source: patient <Treva Reilly MD - Last Filed: 01/06/25 22:01> Mode of arrival: ambulatory <Treva Reilly MD - Last Filed: 01/06/25 22:01> Limitations: no limitations <Treva Reilly MD - Last Filed: 01/06/25 22:01> History of Present Illness HPI narrative: 79 years old white female came to the hospital from home with her family with nausea , vomiting, abdominal distension decreased urine output unable to keep her medication down. For the last 4 days History of dementia, colon cancer, colostomy, hysterectomy <Treva Reilly MD - Last Filed: 01/06/25 22:01> Related Data Home medications: Home Medications ?Medication ?Instructions ?Recorded ?Confirmed ?Last Taken ?Type aspirin 81 mg chewable tablet 1 tablet PO DAILY 01/07/25 01/07/25 Unknown History atorvastatin 20 mg tablet 40 mg PO QPM 01/07/25 01/07/25 Unknown History baclofen 5 mg tablet 2.5 mg PO TID 01/07/25 01/07/25 Unknown History cholecalciferol (vitamin D3) 25 25 mcg PO DAILY 01/07/25 01/07/25 Unknown History mcg (1,000 unit) capsule escitalopram oxalate 20 mg tablet 10 mg PO DAILY 01/07/25 01/07/25 Unknown History levalbuterol HCl 0.63 mg/3 mL 0.63 mg inhalation Q6H PRN 01/07/25 01/07/25 Unknown History solution for nebulization shortness of breath or wheezing levetiracetam 500 mg tablet 500 mg PO Q12H 01/07/25 01/07/25 Unknown History metoprolol succinate 50 mg 50 mg PO DAILY 01/07/25 01/07/25 Unknown History tablet,extended release 24 hr nystatin 100,000 unit/gram topical 1 applic topical BID PRN fungal 01/07/25 01/07/25 Unknown History powder (Nystop) olanzapine 2.5 mg tablet 2.5 mg PO DAILY PRN agitation 01/07/25 01/07/25 Unknown History olanzapine 5 mg tablet 5 mg PO HS 01/07/25 01/07/25 01/06/25 History polysaccharide iron complex 150 mg 150 mg PO DAILY 01/07/25 01/07/25 Unknown History iron capsule (Ferrex) psyllium husk (with sugar) 3.4 1 tbsp PO BID 01/07/25 01/07/25 Unknown History gram/12 gram oral powder (Daily Fiber (psyllium-sucrose)) quetiapine 25 mg tablet 25 mg PO HS 01/07/25 01/07/25 01/06/25 History trazodone 50 mg tablet 50 mg PO HS 01/07/25 01/07/25 Unknown History <Treva Reilly MD - Last Filed: 01/06/25 22:01> Allergies/adverse reactions: Allergies Allergy/AdvReac Type Severity Reaction Status Date / Time No Known Allergies Allergy Verified 01/06/25 19:55 <Treva Reilly MD - Last Filed: 01/06/25 22:01> Review of Systems Review of Systems: ROS unobtainable: Yes unobtainable due to mental status <Treva Reilly MD - Last Filed: 01/06/25 22:01> COUNT INCLUDES THE [facility] Past Medical History Medical History: Medical History Hyperlipidemia Seizure Pacemaker Colostomy in place Cardiac arrest Brain bleed Atrial fib/flutter, transient Colon cancer Hemiplegia following cerebrovascular accident (CVA) HTN (hypertension) Alcohol abuse <Treva Reilly MD - Last Filed: 01/06/25 22:01> Surgical History Surgical History: Surgical History (Updated 01/07/25 @ 02:33 by Nohelia Yousif APRN) H/O: hysterectomy H/O colectomy <Treva Reilly MD - Last Filed: 01/06/25 22:01> Family History Family History: Family History (Updated 01/07/25 @ 03:39 by Kaycee Baron RN) Father Lung cancer Other Parents <Treva Reilly MD - Last Filed: 01/06/25 22:01> Social History Social History: Social History (Updated 01/07/25 @ 03:10 by Nohelia Yousif, MILLI) Social History: Her daughter is her caregiver. She is retired. Code status DNR Smoking status: Former smoker Tobacco type: cigarettes Alcohol intake: never Substance use: current Substance use type: marijuana Other substance usage details: daily drops Lack of Transportation: No Lack of Food: Never True Current Housing: I Have Housing Concerned About Future Housing: No Difficulty Paying Gas/Electric Bills: No Difficulty Paying for Meds: No Currently Unemployed: No Education: Bachelor's Degree Difficulty w/ Childcare or Family Care: No Spiritual care concerns: No <Treva Reilly MD - Last Filed: 01/06/25 22:01> Exam Narrative: General appearance: Well-developed, well-nourished Skin: Normal color Head: Normocephalic, nontraumatic Eyes: Clear conjunctiva ENT: Oropharynx normal, ears normal, nose normal Neck: Supple, nontender Chest and respiratory: Airway patent, no respiratory distress, no accessory muscle use Heart: Regular rate/rhythm Abdomen: Soft, distended, firm, no organomegaly, quiet bowel sounds Musculoskeletal: Normal range of motion, nontender back Neurologic: Disoriented x4 <Treva Reilly MD - Last Filed: 01/06/25 22:01> Course Course Emergency Course: Patient signed out to me pending urinalysis and CT abd/pelvis result. CT as below. I did go to bedside and discussed with patient's caregiver as well as 1 of patient's daughters. They report her last oral intake was 4 days ago. I reviewed her medication list that she has on the phone in her patient portal through [employer] and it appears she is only on aspirin, no other anticoagulation. She underwent surgical procedure in March of 2023 when colon cancer the size of a golf ball was removed and this was when the ostomy was placed. This had followed her having a stroke which leaves her left side weak. She has been having nausea but she states that this Zofran that she was given earlier has already helped. Her caregiver had noted that she had not had any ostomy output since Saturday. Of note she has a palliative care team. Discussed with warehouse production worker general surgeon Dr Murillo who recommends NG tube Zosyn, repeating labs in the morning, and adding on a magnesium and phosphorus to current labs. Discussed patient with warehouse production worker hospitalist Nohelia. Family notes that her surgeon at [place] was Dr Reji Garcia. She had not kept down/received her nightly medication of trazodone which I informed would not be possible given it is PO. However, will order her Keppra 500mg as IV. They confirm her Do Not Resuscitate code status. <Alisa Prescott MD - Last Filed: 01/07/25 22:27> Vital Signs Vital signs: Vital Signs Temperature 98.1 F 01/06/25 20:22 Pulse Rate 92 01/06/25 20:22 Respiratory Rate 17 01/06/25 20:22 Blood Pressure 134/83 01/06/25 20:22 Pulse Oximetry 95 01/06/25 20:22 Oxygen Delivery Room Air 01/06/25 20:22 Temperature 98.0 F 01/07/25 19:54 Pulse Rate 89 01/07/25 22:05 Respiratory Rate 14 01/07/25 22:05 Blood Pressure 107/58 L 01/07/25 22:05 Pulse Oximetry 91 01/07/25 22:05 Oxygen Delivery Room Air 01/07/25 21:30 <Treva Reilly MD - Last Filed: 01/06/25 22:01> Vital Signs Temperature 98.1 F 01/06/25 20:22 Pulse Rate 92 01/06/25 20:22 Respiratory Rate 17 01/06/25 20:22 Blood Pressure 134/83 01/06/25 20:22 Pulse Oximetry 95 01/06/25 20:22 Oxygen Delivery Room Air 01/06/25 20:22 Temperature 98.0 F 01/07/25 19:54 Pulse Rate 89 01/07/25 22:05 Respiratory Rate 14 01/07/25 22:05 Blood Pressure 107/58 L 01/07/25 22:05 Pulse Oximetry 91 01/07/25 22:05 Oxygen Delivery Room Air 01/07/25 21:30 <Alisa Prescott MD - Last Filed: 01/07/25 22:27> Medical Decision Making MDM Narrative Medical decision making narrative: Patient came with vomiting unable to keep her medication down, possible abdominal distension Vital signs are stable Physical examination showing colostomy back in place, abdominal distension, quite bowel sounds, no localized tenderness Differential diagnosis includes small-bowel obstruction, recurrence of colon cancer in, urinary tract infection, diverticulitis, colitis, constipation, Blood workup today includes CBC, CMP, lipase showed a BUN 47, creatinine 1.2 otherwise insignificant abnormality Urinalysis showed CT abdomen and pelvis with IV contrast showed Patient care turned over to Dr. Prescott at shift change, awaiting labs, imaging, disposition. Patient been resting quietly in the emergency room without any issues or problems. <Treva Reilly MD - Last Filed: 01/06/25 22:01> Differential Diagnosis Differential Diagnosis: As above <Treva Reilly MD - Last Filed: 01/06/25 22:01> Vital Signs Vital Signs: Vital Signs Temperature 98.1 F 01/06/25 20:22 Pulse Rate 92 01/06/25 20:22 Respiratory Rate 17 01/06/25 20:22 Blood Pressure 134/83 01/06/25 20:22 Pulse Oximetry 95 01/06/25 20:22 Oxygen Delivery Room Air 01/06/25 20:22 Temperature 98.0 F 01/07/25 19:54 Pulse Rate 89 01/07/25 22:05 Respiratory Rate 14 01/07/25 22:05 Blood Pressure 107/58 L 01/07/25 22:05 Pulse Oximetry 91 01/07/25 22:05 Oxygen Delivery Room Air 01/07/25 21:30 <Treva Reilly MD - Last Filed: 01/06/25 22:01> Vital Signs Temperature 98.1 F 01/06/25 20:22 Pulse Rate 92 01/06/25 20:22 Respiratory Rate 17 01/06/25 20:22 Blood Pressure 134/83 01/06/25 20:22 Pulse Oximetry 95 01/06/25 20:22 Oxygen Delivery Room Air 01/06/25 20:22 Temperature 98.0 F 01/07/25 19:54 Pulse Rate 89 01/07/25 22:05 Respiratory Rate 14 01/07/25 22:05 Blood Pressure 107/58 L 01/07/25 22:05 Pulse Oximetry 91 01/07/25 22:05 Oxygen Delivery Room Air 01/07/25 21:30 <Alisa Prescott MD - Last Filed: 01/07/25 22:27> Lab Data Result diagrams: 01/07/25 04:34 01/07/25 04:34 <Treva Reilly MD - Last Filed: 01/06/25 22:01> Labs: Lab Results 01/06/25 01/06/25 01/07/25 Range/Units 20:19 22:30 04:34 WBC 4.2 L 3.8 L (4.5-10.0) K/mm3 RBC 4.76 4.15 L (4.2-5.4) M/mm3 Hgb 14.2 12.5 (12.0-15.0) g/dL Hct 44.8 40.2 (37.0-47.0) % MCV 94.1 96.9 (80-100) fl MCH 29.8 30.1 (26-34) pg MCHC 31.7 L 31.1 L (32-36) g/dl RDW 12.7 12.8 (11.5-14.5) % Plt Count 278 229 (150-375) k/mm3 MPV 9.7 10.0 (7.4-10.4) fl Immature Gran % (Auto) Not Reportable 0.8 H Neut % (Auto) Not Reportable 53.4 Lymph % (Auto) Not Reportable 15.7 L Geary % (Auto) Not Reportable 28.5 H Eos % (Auto) Not Reportable 0.8 Baso % (Auto) Not Reportable 0.8 Lymph # (Auto) Not Reportable 0.60 L Geary # (Auto) Not Reportable 1.1 H Eos # (Auto) Not Reportable 0.0 Baso # (Auto) Not Reportable 0.0 Abs Immat Gran (auto) Not Reportable 0.03 Absolute Neuts (auto) Not Reportable 2.1 Absolute Nucleated RBC Not Reportable 0.000 Total Counted 100 Neutrophils % (Manual) 65 (46-73) % Band Neutrophils % 4 Not Reportable (0-6) % Lymphocytes % (Manual) 11 L (18-44) % Monocytes % (Manual) 19 H (3-9) % Basophils % (Manual) 1 (0-1) % Nucleated RBC % Not Reportable 0.0 Abs Neuts (Manual) 2.89 (1.3-6.7) K/mm3 Abs Lymphs (Manual) 0.46 L (1.1-4.5) K/mm3 Abs Monocytes (Manual) 0.79 (0.1-0.90) K/mm3 Abs Basophils (Manual) 0.04 (0.0-0.1) K/mm3 Platelet Estimate Adequate Adequate (Adequate) Ovalocytes 1+ 1+ Makenna Cells Occasional Schistocytes None seen None seen PT 14.3 (11.1-14.7) Seconds INR 1.1 APTT 23.0 (22.3-36.8) Seconds Sodium 134 L 134 L (137-145) mmol/L Potassium 5.0 4.3 (3.4-5.0) mmol/L Chloride 100 104 (98-107) mmol/L Carbon Dioxide 23 23 (22-30) mmol/L Anion Gap 11 7 (4-12) mmol/L BUN 47 H 40 H (7-17) mg/dL Creatinine 1.27 H 1.05 H (0.7-1.0) mg/dL Estim Creat Clear Calc 27 32 ml/min Estimated GFR 41 L 51 L (59 - ) Glucose 151 H 116 H (65-110) mg/dL Lactic Acid 1.4 (0.7-2.0) mmol/L Calcium 9.6 8.6 (8.4-10.2) mg/dL Total Bilirubin 0.5 0.5 (0.2-1.3) mg/dL AST 36 28 (14-36) U/L ALT 20 15 (6-35) U/L Alkaline Phosphatase 59 48 (38-126) U/L Total Protein 7.7 6.5 (6.3-8.2) g/dL Albumin 4.4 3.8 (3.5-5.1) g/dL Lipase 57 (23-300) U/L TSH 0.920 (0.465-4.680) uIU/mL Urine Color Dark yellow (Yellow) Urine Appearance Cloudy H (Clear) Urine pH 5.5 (5.0-9.0) Ur Specific Orange 1.033 (1.001-1.035) Urine Protein 1+ H (Negative) mg/dL Urine Glucose (UA) Negative (Negative) mg/dL Urine Ketones Trace H (Negative) mg/dL Ur Blood (Man) Negative (Negative) Urine Nitrate Negative (Negative) Urine Bilirubin Negative (Negative) Urine Urobilinogen 1.0 (<2.0) mg/dL Add Ur Microanalysis Reviewed Leukocyte Esterase Rfl Negative (Negative) RENEE/UL Urine RBC 0-2 (0-2) /hpf Urine WBC 0-5 (0-3) /hpf Ur Squamous Epith Cells None seen (Few) /hpf Urine Bacteria None seen /hpf Urine Casts 6-10 Hyaline Casts Present (None) /lpf Levetiracetam Pending <Treva Reilly MD - Last Filed: 01/06/25 22:01> Lab Results 01/06/25 01/06/25 01/07/25 Range/Units 20:19 22:30 04:34 WBC 4.2 L 3.8 L (4.5-10.0) K/mm3 RBC 4.76 4.15 L (4.2-5.4) M/mm3 Hgb 14.2 12.5 (12.0-15.0) g/dL Hct 44.8 40.2 (37.0-47.0) % MCV 94.1 96.9 (80-100) fl MCH 29.8 30.1 (26-34) pg MCHC 31.7 L 31.1 L (32-36) g/dl RDW 12.7 12.8 (11.5-14.5) % Plt Count 278 229 (150-375) k/mm3 MPV 9.7 10.0 (7.4-10.4) fl Immature Gran % (Auto) Not Reportable 0.8 H Neut % (Auto) Not Reportable 53.4 Lymph % (Auto) Not Reportable 15.7 L Geary % (Auto) Not Reportable 28.5 H Eos % (Auto) Not Reportable 0.8 Baso % (Auto) Not Reportable 0.8 Lymph # (Auto) Not Reportable 0.60 L Geary # (Auto) Not Reportable 1.1 H Eos # (Auto) Not Reportable 0.0 Baso # (Auto) Not Reportable 0.0 Abs Immat Gran (auto) Not Reportable 0.03 Absolute Neuts (auto) Not Reportable 2.1 Absolute Nucleated RBC Not Reportable 0.000 Total Counted 100 Neutrophils % (Manual) 65 (46-73) % Band Neutrophils % 4 Not Reportable (0-6) % Lymphocytes % (Manual) 11 L (18-44) % Monocytes % (Manual) 19 H (3-9) % Basophils % (Manual) 1 (0-1) % Nucleated RBC % Not Reportable 0.0 Abs Neuts (Manual) 2.89 (1.3-6.7) K/mm3 Abs Lymphs (Manual) 0.46 L (1.1-4.5) K/mm3 Abs Monocytes (Manual) 0.79 (0.1-0.90) K/mm3 Abs Basophils (Manual) 0.04 (0.0-0.1) K/mm3 Platelet Estimate Adequate Adequate (Adequate) Ovalocytes 1+ 1+ Makenna Cells Occasional Schistocytes None seen None seen PT 14.3 (11.1-14.7) Seconds INR 1.1 APTT 23.0 (22.3-36.8) Seconds Sodium 134 L 134 L (137-145) mmol/L Potassium 5.0 4.3 (3.4-5.0) mmol/L Chloride 100 104 (98-107) mmol/L Carbon Dioxide 23 23 (22-30) mmol/L Anion Gap 11 7 (4-12) mmol/L BUN 47 H 40 H (7-17) mg/dL Creatinine 1.27 H 1.05 H (0.7-1.0) mg/dL Estim Creat Clear Calc 27 32 ml/min Estimated GFR 41 L 51 L (59 - ) Glucose 151 H 116 H (65-110) mg/dL Lactic Acid 1.4 (0.7-2.0) mmol/L Calcium 9.6 8.6 (8.4-10.2) mg/dL Total Bilirubin 0.5 0.5 (0.2-1.3) mg/dL AST 36 28 (14-36) U/L ALT 20 15 (6-35) U/L Alkaline Phosphatase 59 48 (38-126) U/L Total Protein 7.7 6.5 (6.3-8.2) g/dL Albumin 4.4 3.8 (3.5-5.1) g/dL Lipase 57 (23-300) U/L TSH 0.920 (0.465-4.680) uIU/mL Urine Color Dark yellow (Yellow) Urine Appearance Cloudy H (Clear) Urine pH 5.5 (5.0-9.0) Ur Specific Orange 1.033 (1.001-1.035) Urine Protein 1+ H (Negative) mg/dL Urine Glucose (UA) Negative (Negative) mg/dL Urine Ketones Trace H (Negative) mg/dL Ur Blood (Man) Negative (Negative) Urine Nitrate Negative (Negative) Urine Bilirubin Negative (Negative) Urine Urobilinogen 1.0 (<2.0) mg/dL Add Ur Microanalysis Reviewed Leukocyte Esterase Rfl Negative (Negative) RENEE/UL Urine RBC 0-2 (0-2) /hpf Urine WBC 0-5 (0-3) /hpf Ur Squamous Epith Cells None seen (Few) /hpf Urine Bacteria None seen /hpf Urine Casts 6-10 Hyaline Casts Present (None) /lpf Levetiracetam Pending <Alisa Prescott MD - Last Filed: 01/07/25 22:27> Imaging Data Radiologist's impression: CT abd & pelvis with contrast Stat Rad: smAll bowel measuring up to 4.3 cm, consistent with high-grade bowel obstruction. The point of obstruction is within the right lower quadrant ileostomy, which contains multiple small bowel loops. See surgeries 3, image 124. Other findings: Atherosclerotic changes of the aorta. Degenerative changes of the spine. Status post hysterectomy. No hydronephrosis or delayed nephrogram. <Alisa Prescott MD - Last Filed: 01/07/25 22:27> Discharge Plan Discharge Clinical Impression: CURTIS (acute kidney injury), Small bowel obstruction <Treva Reilly MD - Last Filed: 01/06/25 22:01> Patient Disposition: Still a Patient <Treva Reilly MD - Last Filed: 01/06/25 22:01> Condition: Stable <Treva Reilly MD - Last Filed: 01/06/25 22:01>
--- OUTSIDE RECORDS SUMMARY | 2025-01-06 20:16 | XMS_ITS | Clinical Summary ---
Author Organization [facility] [address] Address [address] [place] [address] Care Team Providers Care Matrix Bath Operator Name Role Phone Jose Martinez MD, Reji Hunt Unavailable Nohelia Ovalles NP Unavailable Hoang Mcdonald MD Unavailable [phone] Nohelia Mayen MD Primary Care Provider [phone] Mabel Cunningham MD Unavailable Brandin Joseph MD Unavailable [phone] Allergies Active Allergy Reactions Criticality Noted [...] mg total) by mouth nightly 08/28/19 24 Active Additional Information Patient taking differently: 20 mgoral Nightly, Indications: hyperlipidemia, Reported on 07/01/2024 aspirin 81 mg chewable tablet Take 1 tablet (81 mg total) by mouth every morning 08/29/19 24 Active polysaccharide iron complex (NU-IRON) 150 mg iron capsuleIndications :Iron Deficiency Anemia Take 1 capsule (150 mg total) by mouth daily Active nystatin powder Apply to affected area with pouch changes 30 g 1 10/04/19 24 Active traZODone (DESYREL) 50 mg tablet Take 1 tablet (50 mg total) by mouth nightly 10/29/19 24 Active ketotifen (ZADITOR) 0.025 % ophthalmic solutionIndication [...] a day 90 tablet 3 05/08/19 25 Active QUEtiapine (SEROquel) 25 mg tabletIndications: agitation [...] assistance with ADLs, needs wheelchair when outside. [facility] increased her zyprexa around 10/10 to 5mg at 8am and 5mg at 3p and made her trazodone scheduled at 9pm daily to help w owning.Pt started having lethargy and somnolence 10/16 pm [...] L-side of face with Head CT at [place] overread as concern for increase in size [...] decline in function. 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 Interrogation normal. No episodes of VFib/Vtach. Patient [...] artery disease) 05/08/2013 Overview (07/26/2016): CRNRY ATHRSCL NATBIA VSSL Assessment & Plan (10/28/2023 7:30 PM [...] comoribidities - Follows with Dr. Bales - [facility] On amiodarone therapy 05/21/20182020 Goals of care, counseling/discussion 07/29/2017 10/19/2023 Postprocedural state 02/22/2015 019 Overview (07/27/2016): S/P ablation of atrial fibrillation Atrial flutter 05/08/2013 08/19/2023 Overview (07/27/2016): ATRIAL FLUTTER Assessment & Plan (08/19/2023 11:41 PM CDT): - Cont metoprolol Encounters Date Type Department Care Team Description 12/14/2024 Documentation [facility] [address] [place] [id number] Ellen Kirk RN from Last 3 Months Immunizations Immunization Administration [...] History Date Comments Hyperlipidemia Hypertension Atrial fibrillation (HCC) 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 Asthma NAVDEEP (obstructive sleep apnea) In tolerant of CPAP Cardiac arrest with ventricu lar fibrillation ([facility]) 04/06/2023 OOH, at [facility] Acute right MCA stroke ([facility]) 03/27/2023 Car dioembolic source Colon cancer ([facility]) 04/16/2023 Stage [address] I[address]ostomy in [address] ([facility]) 04/20/2023 NSTEMI (non-ST elevated myoc ardial infarction) ([facility]) 04/06/2023 LAD stenosis, cause of SCA CAD (coronary artery disease) EtOH dependence ([facility]) Quit 04/10 23 Aspiration pneumonia ([facility]) 04/06/2023 Dysphagia 04/02/2023 S/p CVA. PEG hattie [...] drink = 0.6 oz pur e alcohol) [facility] Utilities Answer Date Recorded In the past 12 months has e [employer], gas, oil, or water [employer] threatened to shut off services in your home? Patient unable to answer 10/21/2023 Social Connection and Isolation Panel Answer Date Recorded In a typical week, how many times do you talk on the phone with family, friends, or neighbors? Patient unable to answer 10/21/2023 How often do you get togethe r with friends or relatives? Patient unable to answer 10/21/2023 How often do you attend chur ch or buddhist services? 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) Not on file Not on file [...] P M CDT Height 165.1 cm (5' 5) 05/08/2024 9:56 AM RN OR LVN Body Mass Index 23 05/08/2024 9:56 AM RN OR LVN Plan of Treatment Health Maintenance Due Date Last Done Comments Depression Screening 1945 Hepatitis C Screening 1945 Osteoporosis Screening-Bone Density Scan 1945 Hepatitis B Screening 1963 Well Visit 65+ 06/27/2011 Fall Risk Assessment 10/28/2024 10/29/2023 Covid-19 Vaccine (4 - 2024-2 6 season) 2024 03/03/2021, 07/14/2020, 06/15/2020 Influenza Vaccine (#1) 2024 , 02/13/2019, 02/12/2018, Additional history exists DTaP/Tdap/Td Vaccine (2 - Td or Tdap) 02/20/2029 02/20/2019 Pneumococcal vaccine 65+ Completed 02/13/2019, 04/22 Zoster Vaccine Completed 05/08/2019, 02/20/2019 Colon Cancer Screening-CT Colonography Discontinued 04/16/2023 Colon Cancer Screening-Colonoscopy Discontinued 04/16/2023 Colon Cancer Screening-DNA Stool Discontinued 04/16/20 Colon Cancer Screening-FIT Discontinued 04/16/2023 Colon Cancer Screening-FOBT Discontinued 04/16/2023 Colon Cancer Screening-Sigmoidoscopy Discontinued 04/16/2023 Colorectal Cancer Screening Discontinued Medical Devices Implanted Type Area Rail Bonder Device Identifier Shelf Expiration Date Model / Serial / Lot [employer] Angio-Seal Vip 6fr Closere Device [id number] - [id number] - [id number] Implanted:Qty: 1 on 05/03/2023 by Shmuel Thorne MD PhD at [facility] Collagen Right: Femoral [employer] 10/01/2023 [id number] / [id number] / [id number] [employer] Stent Coronary De Rx Cocr Ors Msn 2.5x40mm [id number] - [id number] - [id number] Implanted:Qty: 1 on 05/03/2023 by Shmuel Thorne MD PhD at [facility] Stent [employer] 12/15/2024 [id number] / [id number] / [id number] Pacemaker Left: Chest [employer] Trufill Glue 1gm Nbca [id number] - [id number] Implanted:Qty: 1 on 06/25/2023 at [facility] [employer] 04/21/2025 [id number] / / [id number] Procedures Procedure Name Priority Date/Time Associated Diagnosis Comments COLONOSCOPY 04/16/2023 9:23 AM RN OR LVN from Last 3 Months or Most Recently Relevant to Health Maintenance Results * COLONOSCOPY (04/16/2023 9:23 AM RN OR LVN) Anatomical Region Laterality Modality Other Narrative Procedure Note Froilan Vilchis MD - 04/16/2023 9:23 AM [facility] Patient Name: Sheyla Guthrie Procedure Date: 04/16/2023 9:23 AM Date of : 1945 Admit Type: Inpatient Age: 77 Gender: Female Attending MD: Froilan Vilchis M.D. Room: [facility] ENDOSCOPY Note Status: Finalized Procedure: Colonoscopy Indications: [...] The scope was passed under direct vision.The [id number] endoscope was introduced through the anus [...] On: 04/16/2023 9:23 AM Recognized by the [employer] for promoting quality in endoscopy Froilan Vilchis MD ENDOSCOPY PROCED URES Final Result from Last 3 Months or Most Recently Relevant to Health Maintenance Insurance MEDICARE [facility] MEDICARE BLUE CROSS MEDICARE SUPPLEMENT MEDICARE [facility] MEDICARE SUPPLEMENT Advance Directives For more information, please contact: [phone] Documents on File Type Date Recorded Patient Banking Pin Adjuster Expl anation Power of Centrifugal Chiller Technician 10/19/2023 7:03 PM Medic alHILDA. 2.pdf ADVANCE DIRECTIVE 05/16/2023 5:48 PM POWER OF PLUG STITCHER-MEDICAL ADVANCE DIRECTIVE 05/02/2023 12:31 PM SHMUEL R OF PLUG STITCHER-MEDICAL * Full Code (Latest Code Status on [...] Guthrie Daughter Health Care Agent Care Teams Matrix Bath Operator Relationship Specialty Start Date End Date Nohelia Maeyn MD [address] [place] [address] PCP - General Geriatric Medicine 03/04/24 Reji Garcia Jr., MD [address] [facility] [place] [phone] [place] [address] Consulting Physician Colon and Rectal Surgery 06/02/23 Nohelia Ovalles NP [address] [place] [address] [address] [place] [address] Nurse Practitioner Hospice and Palliative Medicine 12/27/23 Hoang Mcdonald MD [address] [place] [address] Medical Oncology 03/04/24 Mabel Cunningham MD [address] [facility] NEUROLOGY STROKE, [facility] [address] [place] [address] Consulting Physician Neurology 05/11/24 Brandin Joseph MD [address] [facility] [address] [place] [address] Consulting Physician Cardiology 06/29/24
[2025-01-06 20:22] VITALS: BP 134/83; PULSE 92; RESP 17; TEMP 36.7; O2SAT 95
[2025-01-06 20:27] LABS: Hematocrit 44.8 % (37.0-47.0); Hemoglobin 14.2 g/dL (12.0-15.0); Mean Corpuscular HGB Conc 31.7 g/dl (32-36); Mean Corpuscular Hemoglobin 29.8 pg (26-34); Mean Corpuscular Volume 94.1 fl (80-100); Platelet Count Result 278 k/mm3 (150-375); Red Blood Count 4.76 M/mm3 (4.2-5.4); White Blood Count 4.2 K/mm3 (4.5-10.0)
[2025-01-06] MEDS: ONDANSETRON INJ 4 MG/2 ML VIAL IV PUSH (20:35)
[2025-01-06] MEDS: SODIUM CHLORIDE 0.9% IV 1,000 ML 999 ML IV CONT (20:35)
[2025-01-06 20:37] LABS: Alanine Aminotransferase 20 U/L (6-35); Albumin Level 4.4 g/dL (3.5-5.1); Alkaline Phosphatase 59 U/L (38-126); Anion Gap 11 mmol/L (4-12); Aspartate Amino Transferase 36 U/L (14-36); Bilirubin,Total 0.5 mg/dL (0.2-1.3); Blood Urea Nitrogen 47 mg/dL (7-17); Calcium 9.6 mg/dL (8.4-10.2); Carbon Dioxide 23 mmol/L (22-30); Chloride 100 mmol/L (98-107); Estimated CRCL calculation 27 ml/min; Estimated Glomerular Filt Rate 41; Glucose 151 mg/dL (65-110); Lipase 57 U/L (23-300); Potassium 5.0 mmol/L (3.4-5.0); Sodium 134 mmol/L (137-145); Total Protein 7.7 g/dL (6.3-8.2)
[2025-01-06 20:42] LABS: INR 1.1; Prothrombin Time 14.3 Seconds (11.1-14.7)
[2025-01-06 20:43] LABS: Partial Thromboplastin Time 23.0 Seconds (22.3-36.8)
[2025-01-06 20:49] LABS: Band Neutrophils Percent 4 % (0-6); Lymphocytes Absolute Manual 0.46 K/mm3 (1.1-4.5); Lymphocytes Percent Manual 11 % (18-44); Monocytes Absolute Manual 0.79 K/mm3 (0.1-0.90); Monocytes Percent Manual 19 % (3-9); Neutrophils Absolute Manual 2.89 K/mm3 (1.3-6.7); Neutrophils Percent Manual 65 % (46-73); Total Cells Counted 100
[2025-01-06 20:50] LABS: Basophils Absolute Manual 0.04 K/mm3 (0.0-0.1); Basophils Percent Manual 1 % (0-1); Ovalocytes 1+; Schistocytes None Seen
[2025-01-06 22:52] LABS: Add Urine Microscopic? YES; Appearance Urine Cloudy (Clear); Glucose Urine UA Negative (Negative); Leukocyte Esterase Ur Negative LEU/UL (Negative); Need Manual Microscopic Reviewed; Nitrate Urine Negative (Negative); Specific Grav Ur 1.033 (1.001-1.035)
--- NOTE | 2025-01-06 23:05 | PC.NURSE ---
Report received from Sharmila VEGA
[2025-01-07] MEDS: PIPERACILLIN/TAZOBACTAM SOD 4.5 GM in SODIUM CHLORIDE 0.9% IV 100 ML 200 ML IVPB (00:41)
[2025-01-07] MEDS: levETIRAcetam 500MG/NACL 100ML 500 MG/100 ML BAG 400 MG IVPB ×3 (01:13→21:35)
[2025-01-07] MEDS: SODIUM CHLORIDE 0.9% IV 1,000 ML 75 ML IV CONT ×2 (01:13→20:56)
--- NOTE | 2025-01-07 01:21 | PC.NURSE ---
Unable to place NG tube. Pt not cooperating at this time. Pt keeps pushing staff RNs away.
[2025-01-07] MEDS: BENZOCAINE (*SP) 60 ML SPRAY CAN (HURRICAINE) 1 SPRAY MUCOUS MEM (01:59)
[2025-01-07] MEDS: METOCLOPRAMIDE HCL INJ 10 MG/2 ML VIAL 5 MG IV PUSH (02:18)
[2025-01-07] MEDS: OXYMETAZOLINE HCL 0.05% NAS 15 ML BTL (*BKC) 1 SPRAY NASAL (02:18)
[2025-01-07] MEDS: LIDOCAINE 2% VISC SOLN 15 ML UDC PO (02:18)
--- NOTE | 2025-01-07 02:25 | PM.IMHP ---
H&P: HPI History of Present Illness Date/Time: 01/07/25 02:25 Chief Complaint: Nausea and vomiting Narrative: This is a 79-year-old female patient who has a history of dementia, and colon cancer now in remission status post colostomy. The daughter is at the bedside answered questions. The patient came to the emergency room with nausea, vomiting, and abdominal distention with decreased urinary output. The patient was unable to keep down her medications or nutrition. The patient has a right lower quadrant colostomy bag and the patient's daughter stated the last time she had solid stool in her colostomy was [address] abd & pelvis with contrast Stat Rad: smAll bowel measuring up to 4.3 cm, consistent with high-grade bowel obstruction. The point of obstruction is within the right lower quadrant ileostomy, which contains multiple small bowel loops. See surgeries 3, image 124. Other findings: Atherosclerotic changes of the aorta. Degenerative changes of the spine. Status post hysterectomy. No hydronephrosis or delayed nephrogram. The daughter noted that the patient's surgeon is at [facility]. Dr. Murillo was called from the emergency room who recommends NG tube and Zosyn. Abnormal labs white count 4.2, sodium 134, BUN 47, creatinine 1.27, estimated GFR 41, and glucose 151. The patient was started on IV fluids, Zofran, Tylenol, morphine, Zosyn, and Keppra in the emergency room. The patient is being admitted to inpatient status on the date of service of 01/07/2025. Review of Systems Constitutional: Constitutional: Reports as per HPI and Reports no additional constitutional complaints Eyes: Eyes: Reports as per HPI and Reports no additional eye complaints ENT: Reports no additional ear, nose, mouth, and throat complaints and Reports Normal hearing present Cardiovascular: Cardiovascular: Reports no additional cardiovascular complaints Respiratory: Respiratory: Reports as per HPI and Reports no additional respiratory complaints Gastrointestinal: Gastrointestinal: Reports as per HPI and Reports no additional gastrointestinal complaints Genitourinary: Genitourinary: Reports no additional female genitourinary complaints Musculoskeletal: Musculoskeletal: Reports no additional musculoskeletal complaints Integumentary/Breasts: Skin/Breast: Reports system reviewed and no additional complaints, except as docu Neurologic: Reports no additional neurologic complaints and Reports Normal hearing present Psychiatric: Psychiatric: Reports no additional psychiatric complaints and Reports as per HPI Hematologic/Lymphatic: Hematologic/Lymphatic: Reports no additional hematologic/lymphatic complaints Allergic/Immunologic: Allergic/Immunologic: Reports no additional allergic/immunologic complaints [facility] Past Medical History Medical History Hyperlipidemia Seizure Pacemaker Colostomy in place Cardiac arrest Brain bleed Atrial fib/flutter, transient Colon cancer Hemiplegia following cerebrovascular accident (CVA) HTN (hypertension) Alcohol abuse Surgical History Surgical History (Updated 01/07/25 @ 02:33 by Nohelia Yousif APRN) H/O: hysterectomy H/O colectomy Family History Family History (Updated 01/07/25 @ 03:39 by Kaycee Baron RN) Father Lung cancer Other Parents Social History Social History (Updated 01/07/25 @ 03:10 by Nohelia Yousif APRN) Social History: Her daughter is her caregiver. She is retired. Code status DNR Smoking status: Former smoker Tobacco type: cigarettes Alcohol intake: never Substance use: current Substance use type: marijuana Other substance usage details: daily drops Lack of Transportation: No Lack of Food: Never True Current Housing: I Have Housing Concerned About Future Housing: No Difficulty Paying Gas/Electric Bills: No Difficulty Paying for Meds: No Currently Unemployed: No Education: Bachelor's Degree Difficulty w/ Childcare or Family Care: No Spiritual care concerns: No Meds Home Medications and Allergies Home Medications ?Medication ?Instructions ?Recorded ?Confirmed ?Type aspirin 81 mg chewable tablet 1 tablet PO DAILY 01/07/25 01/07/25 History atorvastatin 20 mg tablet 40 mg PO QPM 01/07/25 01/07/25 History baclofen 5 mg tablet 2.5 mg PO TID 01/07/25 01/07/25 History cholecalciferol (vitamin D3) 25 25 mcg PO DAILY 01/07/25 01/07/25 History mcg (1,000 unit) capsule escitalopram oxalate 20 mg tablet 10 mg PO DAILY 01/07/25 01/07/25 History levalbuterol HCl 0.63 mg/3 mL 0.63 mg inhalation Q6H PRN 01/07/25 01/07/25 History solution for nebulization shortness of breath or wheezing levetiracetam 500 mg tablet 500 mg PO Q12H 01/07/25 01/07/25 History metoprolol succinate 50 mg 50 mg PO DAILY 01/07/25 01/07/25 History tablet,extended release 24 hr nystatin 100,000 unit/gram topical 1 applic topical BID PRN fungal 01/07/25 01/07/25 History powder (Nystop) olanzapine 2.5 mg tablet 2.5 mg PO DAILY PRN agitation 01/07/25 01/07/25 History olanzapine 5 mg tablet 5 mg PO HS 01/07/25 01/07/25 History polysaccharide iron complex 150 mg 150 mg PO DAILY 01/07/25 01/07/25 History iron capsule (Ferrex) psyllium husk (with sugar) 3.4 1 tbsp PO BID 01/07/25 01/07/25 History gram/12 gram oral powder (Daily Fiber (psyllium-sucrose)) quetiapine 25 mg tablet 25 mg PO HS 01/07/25 01/07/25 History trazodone 50 mg tablet 50 mg PO HS 01/07/25 01/07/25 History Allergies Allergy/AdvReac Type Severity Reaction Status Date / Time No Known Allergies Allergy Verified 01/06/25 19:55 Vital Signs Vital Signs - 24 hr 01/06/25 20:22 Temperature 98.1 F Pulse Rate 92 Respiratory Rate 17 Blood Pressure 134/83 Pulse Oximetry 95 Oxygen Delivery Room Air Exam Const: General: cooperative, healthy appearing, comfortable, no acute distress, well developed, awake, Physically active and average body habitus Nutritional Appearance: well nourished Orientation/consciousness: oriented to person and oriented to place Other: She is forgetful at times. The daughters at the bedside answered questions. HENMT: Head: normal to inspection, No palpable skull fracture present, normocephalic, atraumatic and abrasion Ears: hearing grossly normal bilaterally and external ears normal Other: Bleeding from right nares status post attempt of NG tube insertion Eyes: General: appearance normal, both eyes and all related structures Alignment and Position: alignment normal Periorbital: periorbital findings normal Eyelids: eyelids normal Pupils: Pupil accommodation reflex normal EOM: EOMs intact bilaterally Neck: Neck: normal visual inspection, full ROM, no lymphadenopathy, trachea midline and supple Resp: Effort & Inspection: normal respiratory effort Auscultation: clear to auscultation bilaterally Cardio: Palpation: normal PMI Rate: regular rate Rhythm: regular rhythm Heart sounds: S1 normal heart sound present and S2 normal heart sound present Peripheral pulses: Peripheral pulses 2+ throughout Other: Paced beats GI: Inspection: normal to inspection Other: Colostomy bag the right lower quadrant intact without any stool noted. Abdomen is distended. No bowel sounds are heard at this time. Diffuse tenderness all over abdomen : General: Yes no CVA tenderness Back/Spine/Pelvis: Back: no CVA tenderness Skin: General skin exam: normal color Lesions: no lesions Rashes: no rashes Trauma: no lacerations or abrasions Wounds: no wounds Hair: normal Nails: normal Neuro: General: oriented to person, oriented to place, oriented to time and patient oriented x3 Cranial nerves: Yes Normal hearing present Extrem: General: normal to inspection Right upper extremity: normal to inspection and shoulder/upper arm Left upper extremity: normal to inspection and shoulder/upper arm Right lower extremity: normal to inspection Left lower extremity: normal to inspection Psych: Appearance: grossly normal Mental Status: mental status grossly normal Speech and movement: Normal speech and movement present Affect: normal affect Attitude: cooperative Thought process: Normal thought process present Insight: Poor insight present (Psych) Judgement: Limited judgement present (Psych) H&P: Results Labs Labs: Short CBC 01/06/25 Range/Units 20:19 WBC 4.2 L (4.5-10.0) K/mm3 Hgb 14.2 (12.0-15.0) g/dL Hct 44.8 (37.0-47.0) % Plt Count 278 (150-375) k/mm3 BMP 01/06/25 20:19 Sodium 134 L Potassium 5.0 Chloride 100 Carbon Dioxide 23 BUN 47 H Creatinine 1.27 H Glucose 151 H Calcium 9.6 Liver Function 01/06/25 Range/Units 20:19 Total Bilirubin 0.5 (0.2-1.3) mg/dL AST 36 (14-36) U/L ALT 20 (6-35) U/L Alkaline Phosphatase 59 (38-126) U/L Albumin 4.4 (3.5-5.1) g/dL Urine 01/06/25 Range/Units 22:30 Urine Color Dark yellow (Yellow) Urine Appearance Cloudy H (Clear) Urine pH 5.5 (5.0-9.0) Ur Specific [place] 1.033 (1.001-1.035) Urine Protein 1+ H (Negative) mg/dL Urine Glucose (UA) Negative (Negative) mg/dL Imaging CT scan - head: Radiologist's impression: CT abd & pelvis with contrast Stat Rad: smAll bowel measuring up to 4.3 cm, consistent with high-grade bowel obstruction. The point of obstruction is within the right lower quadrant ileostomy, which contains multiple small bowel loops. See surgeries 3, image 124. Other findings: Atherosclerotic changes of the aorta. Degenerative changes of the spine. Status post hysterectomy. No hydronephrosis or delayed nephrogram Assessment and Plan Assessment and plan (1) Small bowel obstruction: Code(s): K56.609 - Unspecified intestinal obstruction, unspecified as to partial versus complete obstruction Status: Acute Assessment and Plan: -several attempts were made to insert NG tube in the emergency room without success. -may consider OG tube or NG tube insertion under fluoroscopy per radiology. -Dr. Murillo has been consulted. He recommended NG tube and Zosyn. Pharmacy will need to renally adjust the Zosyn. -she has had a prior history of colon cancer and according to her daughter several inches of her colon was removed and she received a colostomy. At the time the patient underwent radiation and chemotherapy. According to the daughter, her colon cancer has been treated. She no longer receives any treatments for her colon cancer. The daughter stated that the patient has a palliative team. -the patient has had a history of hysterectomy and a colectomy of the colostomy. -continue with IV fluids -continue with pain management. Morphine has been ordered. -daily labs (2) Atrial fib/flutter, transient: Code(s): I48.91 - Unspecified atrial fibrillation; I48.92 - Unspecified atrial flutter Status: Acute Assessment and Plan: -the patient has a pacemaker and she is paced on the monitor. Therefore her rate is controlled. -according to the daughter the patient had a brain bleed from falling and is not a candidate for anticoagulation. (3) Colon cancer: Code(s): C18.9 - Malignant neoplasm of colon, unspecified Status: Acute Assessment and Plan: -according to the daughter her treatment for colon cancer has been completed and she is cancer free. According to the daughter she has a palliative Care team. (4) Hemiplegia following cerebrovascular accident (CVA): Code(s): I69.359 - Hemiplegia and hemiparesis following cerebral infarction affecting unspecified side Status: Acute Assessment and Plan: -chronic left side weakness. -she is answering some questions but the daughters at bedside assisting with history. -the patient is aware of herself and place but not always time. (5) Seizure: Code(s): R56.9 - Unspecified convulsions Status: Acute Assessment and Plan: - keppra iv instead of po (6) MDD (major depressive disorder), recurrent episode, moderate: Code(s): F33.1 - Major depressive disorder, recurrent, moderate Status: Acute Assessment and Plan: - trazodone on hold -quetiapine on hold - olanzapine on hold - escitalopram on hold (7) Hyperlipidemia: Code(s): E78.5 - Hyperlipidemia, unspecified Status: Acute Assessment and Plan: - atorvastatin on hold (8) HTN (hypertension): Code(s): I10 - Essential (primary) hypertension Status: Acute Assessment and Plan: - bp on the lower spectrum and he bp medications are on hold due to npo status however she has been on a beta angel and may need iv metoprolol or iv lopresser iv bp Quality VTE Prophylaxis VTE prophylaxis: mechanical ordered
[2025-01-07 02:35] LABS: Magnesium 2.3 mg/dL (1.6-2.3)
[2025-01-07 03:06] VITALS: BMI 24.2
[2025-01-07] MEDS: PIPERACILLIN/TAZOBACTAM SOD 2.25 GM in SODIUM CHLORIDE 0.9% IV 50 ML 100 ML IVPB ×4 (03:40→21:35)
[2025-01-07 05:11] LABS: Hematocrit 40.2 % (37.0-47.0); Hemoglobin 12.5 g/dL (12.0-15.0); Immature Granulocyte Percent A 0.8 % (0-0.5); Lymphocytes Absolute Auto 0.60 K/mm3 (0.9-3.2); Mean Corpuscular HGB Conc 31.1 g/dl (32-36); Mean Corpuscular Hemoglobin 30.1 pg (26-34); Mean Corpuscular Volume 96.9 fl (80-100); Nucleated Red Blood Cells Absolute Auto 0.000 K/mm3 (0.0-0.012); Nucleated Red Blood Cells Perc 0.0 % (0.0-0.2); Platelet Count Result 229 k/mm3 (150-375); Red Blood Count 4.15 M/mm3 (4.2-5.4); White Blood Count 3.8 K/mm3 (4.5-10.0)
[2025-01-07 05:39] LABS: Burr Cells Occasional; Ovalocytes 1+; Schistocytes None Seen
[2025-01-07 05:41] LABS: Alanine Aminotransferase 15 U/L (6-35); Albumin Level 3.8 g/dL (3.5-5.1); Alkaline Phosphatase 48 U/L (38-126); Anion Gap 7 mmol/L (4-12); Aspartate Amino Transferase 28 U/L (14-36); Bilirubin,Total 0.5 mg/dL (0.2-1.3); Blood Urea Nitrogen 40 mg/dL (7-17); Calcium 8.6 mg/dL (8.4-10.2); Carbon Dioxide 23 mmol/L (22-30); Chloride 104 mmol/L (98-107); Estimated CRCL calculation 32 ml/min; Estimated Glomerular Filt Rate 51; Glucose 116 mg/dL (65-110); Potassium 4.3 mmol/L (3.4-5.0); Sodium 134 mmol/L (137-145); Total Protein 6.5 g/dL (6.3-8.2)
[2025-01-07 06:00] VITALS: BP 109/60; PULSE 91; RESP 16; TEMP 36.4; O2SAT 92
[2025-01-07 06:07] LABS: Thyroid Stimulating Hormone 0.920 uIU/mL (0.465-4.680)
--- NOTE | 2025-01-07 09:48 | PM.CNGS ---
Assessment and Plan Assessment and plan (1) Small bowel obstruction: Code(s): K56.609 - Unspecified intestinal obstruction, unspecified as to partial versus complete obstruction Status: Acute Assessment and Plan: Patient presented to the ED last night with 4 days of vomiting. She had decreased output from her ostomy, with last output two days ago. It was yellow green with small green flecks in it resembling dill. Patient's daughter noticed her abdomen to be very distended yesterday. She made her a protein shake and some pudding, which she ended up throwing up later in the day. She was brought to the ED and a CT scan was obtained. 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 Vital signs stable. Leukopenia today at 3.8. Elevated BUN at 40 and creatinine at 1.05. NG tube placement was attempted several times in the ED, but was unsuccessful. Patient is scheduled for sedated NG tube placement with IR this afternoon. Will follow for results. Continue IV fluids and Zosyn. Zofran as needed. Patient should remain NPO for the time being. (2) Atrial fib/flutter, transient: Code(s): I48.91 - Unspecified atrial fibrillation; I48.92 - Unspecified atrial flutter Status: Acute Assessment and Plan: Patient has had afib for years. This was present prior to MO in 2022. The pacemaker is non-defibrillating. Patient takes baby aspirin daily. No other blood thinners. (3) Colon cancer: Code(s): C18.9 - Malignant neoplasm of colon, unspecified Status: Acute Assessment and Plan: Daughter reported partial colon resection in 2022 with placement of ileostomy. Operative note requested from [facility]. (4) Hemiplegia following cerebrovascular accident (CVA): Code(s): I69.359 - Hemiplegia and hemiparesis following cerebral infarction affecting unspecified side Status: Acute Assessment and Plan: Stroke in 2022 prior to colon cancer diagnosis. (5) Seizure: Code(s): R56.9 - Unspecified convulsions Status: Acute Assessment and Plan: Patient has seizure disorder. Resume Keppra via IV. (6) MDD (major depressive disorder), recurrent episode, moderate: Code(s): F33.1 - Major depressive disorder, recurrent, moderate Status: Acute Assessment and Plan: Patient NPO. Resume meds via IV if able. Plan Discussed patient's case and plan of care with Dr. Murillo. History of Present Illness Consult details Consult date: 01/07/25 Reason for consult: other (small bowel obstruction) Requesting physician: Alisa Prescott MD Narrative: Patient is a 79 year old female with past medical history of afib (non-defibrillating pacemaker), myocardial infarction (2022), stroke (2022), colon cancer (resection with ostomy placement 2022), seizure disorder, previous alcohol abuse, HTN, and dementia and other psychiatric disorders including mood swings and altered behavior who we have been asked to see in surgical consultation for a small bowel obstruction. Most of patient history was provided by patient's daughter and one of her caregivers at the bedside. Reportedly, 4 days ago on Saturday, patient was having regular bowel movements through her ostomy. A very large bowel movement was noted. That night into Saturday morning around 2 am the patient started vomiting. This continued on an off throughout the week. Yesterday, daughter was taking care of the patient and noted that her abdomen was hard and distended. She made the patient a protein shake and some pudding. She ate this and did not have any immediate nausea or vomiting. When her daughter left around 5 pm, patient was feeling fine. Son of the patient took over care at 5 pm. Around 5:30 he reported that patient had an emesis of large volume. No blood in vomit. He ultimately ended up bringing patient to the ED. Patient has not had an episode of emesis since arriving in the ED. While in the ED, patient was afebrile. Slightly tachy. Labs demonstrated a white blood cell count of 4.2. Normal bilirubin and liver enzymes. A CT of the abdomen and pelvis was obtained and demonstrated a small bowel obstruction secondary to a parastomal hernia. At this time the general surgery team was consulted. NG tube placement was attempted several times, but unsuccessful. Per family, her last bowel movement through her ostomy was Saturday. They stated that this was of unusual color and consistency. It was yellow-green with small green streaks in it resembling dill. The ostomy had not been emptied since this time, and on my exam today the output does appear as described. Daughter states that the patient never endorsed abdominal pain at rest, but when she pushed on her mom's abdomen it illicited pain. When asked about patient's past medical history, daughter at bedside states that patient had both a heart attack and a stroke in March of 2023. While she was being worked up for these issues, she started having bright red blood per her rectum. This is ultimately how the colon cancer was identified. She had a colon resection performed by Dr. Garcia at [facility]. Reportedly, patient had a history of heavy alcohol consumption prior to being diagnosed. The family denies that she was ever diagnosed with cirrhosis, but they do recall her having elevated liver enzymes. Patient has not drank alcohol since 2022. Daughter states that only a partial colectomy was done and that the patient has an ileostomy, not a colostomy. She does not know much else about the surgery. Op note requested. Daughter states that when they were discharged home, they had been set up with a palliative care team, but patient has continued to improve and no longer is on palliative care measures. They have a group of caretakers and family who assist the patient at home. She is primarily wheelchair bound, but daughter states that she can walk with assistance and a gait belt. Patient states that since patient's stroke, she has been suffering from some psychiatric issues. She follows regularly with a psychiatry team. Unsure what official psychiatric diagnosis is, but family states that she will sometimes scream and act out when she has not had her medications. They state that the episodes are worse in the morning.Patient was previously on seroquil, but was taken off of this due to risks with heart issues. She was most recently placed on Trazodone and takes it in the morning and evening and throughout the day PRN. Daughter of patient states that she recently ran out of trazodone so she gave the patient some leftover seroquil to calm her down. She just picked up the next prescription of trazodone yesterday. [facility] Past Medical History Medical History Hyperlipidemia Seizure Pacemaker Colostomy in place Cardiac arrest Brain bleed Atrial fib/flutter, transient Colon cancer Hemiplegia following cerebrovascular accident (CVA) HTN (hypertension) Alcohol abuse Surgical History Surgical History (Updated 01/07/25 @ 02:33 by Nohelia Yousif, MILLI) H/O: hysterectomy H/O colectomy Family History Family History (Updated 01/07/25 @ 03:39 by Kaycee Baron RN) Father Lung cancer Other Parents Social History Social History (Updated 01/07/25 @ 03:10 by Nohelia Yousif APRN) Social History: Her daughter is her caregiver. She is retired. Code status DNR Smoking status: Former smoker Tobacco type: cigarettes Alcohol intake: never Substance use: current Substance use type: marijuana Other substance usage details: daily drops Lack of Transportation: No Lack of Food: Never True Current Housing: I Have Housing Concerned About Future Housing: No Difficulty Paying Gas/Electric Bills: No Difficulty Paying for Meds: No Currently Unemployed: No Education: Bachelor's Degree Difficulty w/ Childcare or Family Care: No Spiritual care concerns: No Meds Home Medications and Allergies Home Medications ?Medication ?Instructions ?Recorded ?Confirmed ?Type aspirin 81 mg chewable tablet 1 tablet PO DAILY 01/07/25 01/07/25 History atorvastatin 20 mg tablet 40 mg PO QPM 01/07/25 01/07/25 History baclofen 5 mg tablet 2.5 mg PO TID 01/07/25 01/07/25 History cholecalciferol (vitamin D3) 25 25 mcg PO DAILY 01/07/25 01/07/25 History mcg (1,000 unit) capsule escitalopram oxalate 20 mg tablet 10 mg PO DAILY 01/07/25 01/07/25 History levalbuterol HCl 0.63 mg/3 mL 0.63 mg inhalation Q6H PRN 01/07/25 01/07/25 History solution for nebulization shortness of breath or wheezing levetiracetam 500 mg tablet 500 mg PO Q12H 01/07/25 01/07/25 History metoprolol succinate 50 mg 50 mg PO DAILY 01/07/25 01/07/25 History tablet,extended release 24 hr nystatin 100,000 unit/gram topical 1 applic topical BID PRN fungal 01/07/25 01/07/25 History powder (Nystop) olanzapine 2.5 mg tablet 2.5 mg PO DAILY PRN agitation 01/07/25 01/07/25 History olanzapine 5 mg tablet 5 mg PO HS 01/07/25 01/07/25 History polysaccharide iron complex 150 mg 150 mg PO DAILY 01/07/25 01/07/25 History iron capsule (Ferrex) psyllium husk (with sugar) 3.4 1 tbsp PO BID 01/07/25 01/07/25 History gram/12 gram oral powder (Daily Fiber (psyllium-sucrose)) quetiapine 25 mg tablet 25 mg PO HS 01/07/25 01/07/25 History trazodone 50 mg tablet 50 mg PO HS 01/07/25 01/07/25 History Allergies Allergy/AdvReac Type Severity Reaction Status Date / Time No Known Allergies Allergy Verified 01/06/25 19:55 Vital Signs Vital Signs - 24 hr 01/06/25 20:22 01/07/25 06:00 Temperature 98.1 F 97.5 F L Pulse Rate 92 91 Respiratory Rate 17 16 Blood Pressure 134/83 109/60 Pulse Oximetry 95 92 Oxygen Delivery Room Air Exam Const: General: comfortable and no acute distress Eyes: General: appearance normal, both eyes and all related structures Neck: Neck: supple Resp: Effort & Inspection: normal respiratory effort Cardio: Rate: regular rate GI: Inspection: distended GI Palp: Yes Soft to palpation, Yes Tenderness to palpation present (GI) (diffusely) and No Guarding due to palpation present (GI) Auscultation: abnormal bowel sounds (hypoactive) : General: Yes bladder normal to palpation Skin: General skin exam: normal color Neuro: Speech: normal speech Extrem: General: normal to inspection Results Labs 01/07/25 04:34 01/07/25 04:34 Labs: Abnormal lab results 01/06/25 01/06/25 01/07/25 Range/Units 20:19 22:30 04:34 WBC 4.2 L 3.8 L (4.5-10.0) K/mm3 RBC 4.15 L (4.2-5.4) M/mm3 MCHC 31.7 L 31.1 L (32-36) g/dl Immature Gran % (Auto) 0.8 H (0-0.5) % Lymph % (Auto) 15.7 L (18.3-44.2) % [place] % (Auto) 28.5 H (2.6-8.5) % Lymph # (Auto) 0.60 L (0.9-3.2) K/mm3 [place] # (Auto) 1.1 H (0.1-0.6) K/mm3 Lymphocytes % (Manual) 11 L (18-44) % Monocytes % (Manual) 19 H (3-9) % Abs Lymphs (Manual) 0.46 L (1.1-4.5) K/mm3 Sodium 134 L 134 L (137-145) mmol/L BUN 47 H 40 H (7-17) mg/dL Creatinine 1.27 H 1.05 H (0.7-1.0) mg/dL Estimated GFR 41 L 51 L (59 - ) Glucose 151 H 116 H (65-110) mg/dL Urine Appearance Cloudy H (Clear) Urine Protein 1+ H (Negative) mg/dL Urine Ketones Trace H (Negative) mg/dL Diabetes panel 01/06/25 01/07/25 Range/Units 20:19 04:34 Sodium 134 L 134 L (137-145) mmol/L Potassium 5.0 4.3 (3.4-5.0) mmol/L Chloride 100 104 (98-107) mmol/L Carbon Dioxide 23 23 (22-30) mmol/L BUN 47 H 40 H (7-17) mg/dL Creatinine 1.27 H 1.05 H (0.7-1.0) mg/dL Glucose 151 H 116 H (65-110) mg/dL Calcium 9.6 8.6 (8.4-10.2) mg/dL AST 36 28 (14-36) U/L ALT 20 15 (6-35) U/L Alkaline Phosphatase 59 48 (38-126) U/L Total Protein 7.7 6.5 (6.3-8.2) g/dL Albumin 4.4 3.8 (3.5-5.1) g/dL Thyroid panel 01/07/25 Range/Units 04:34 TSH 0.920 (0.465-4.680) uIU/mL Calcium panel 01/06/25 01/07/25 01/07/25 Range/Units 20:19 04:34 20:19 Calcium 9.6 8.6 (8.4-10.2) mg/dL Phosphorus 4.5 (2.5-4.5) mg/dL Albumin 4.4 3.8 (3.5-5.1) g/dL Pituitary panel 01/06/25 01/07/25 Range/Units 20:19 04:34 Sodium 134 L 134 L (137-145) mmol/L Potassium 5.0 4.3 (3.4-5.0) mmol/L Chloride 100 104 (98-107) mmol/L Carbon Dioxide 23 23 (22-30) mmol/L BUN 47 H 40 H (7-17) mg/dL Creatinine 1.27 H 1.05 H (0.7-1.0) mg/dL Glucose 151 H 116 H (65-110) mg/dL Calcium 9.6 8.6 (8.4-10.2) mg/dL TSH 0.920 (0.465-4.680) uIU/mL Adrenal panel 01/06/25 01/07/25 Range/Units 20:19 04:34 Sodium 134 L 134 L (137-145) mmol/L Potassium 5.0 4.3 (3.4-5.0) mmol/L Chloride 100 104 (98-107) mmol/L Carbon Dioxide 23 23 (22-30) mmol/L BUN 47 H 40 H (7-17) mg/dL Creatinine 1.27 H 1.05 H (0.7-1.0) mg/dL Glucose 151 H 116 H (65-110) mg/dL Calcium 9.6 8.6 (8.4-10.2) mg/dL Total Bilirubin 0.5 0.5 (0.2-1.3) mg/dL AST 36 28 (14-36) U/L ALT 20 15 (6-35) U/L Alkaline Phosphatase 59 48 (38-126) U/L Total Protein 7.7 6.5 (6.3-8.2) g/dL Albumin 4.4 3.8 (3.5-5.1) g/dL All other labs normal.
[2025-01-07 10:04] VITALS: O2SAT 92
--- NOTE | 2025-01-07 14:02 | P.PNIM_ITS ---
Progress Note: A&P Assessment and Plan (1) Small bowel obstruction: Code(s): K56.609 - Unspecified intestinal obstruction, unspecified as to partial versus complete obstruction Status: Acute Assessment and Plan: CT AP reviewed, BS subdued Failed several NG tube insertion int eh ER For Fluoroscopy guided insertion today COntinue IVF Gen surgery following Continue PRN IV morphine for pain control (2) Atrial fib/flutter, transient: Code(s): I48.91 - Unspecified atrial fibrillation; I48.92 - Unspecified atrial flutter Status: Acute Assessment and Plan: -the patient has a pacemaker and she is paced on the monitor. Therefore her rate is controlled. -according to the daughter the patient had a brain bleed from falling and is not a candidate for anticoagulation. (3) Colon cancer: Code(s): C18.9 - Malignant neoplasm of colon, unspecified Status: Acute Assessment and Plan: -according to the daughter her treatment for colon cancer has been completed and she is cancer free. According to the daughter she has a palliative Care team. (4) Hemiplegia following cerebrovascular accident (CVA): Code(s): I69.359 - Hemiplegia and hemiparesis following cerebral infarction affecting unspecified side Status: Acute Assessment and Plan: -chronic left side weakness. -she is answering some questions but the daughters at bedside assisting with history. -the patient is aware of herself and place but not always time. (5) Seizure: Code(s): R56.9 - Unspecified convulsions Status: Acute Assessment and Plan: - keppra iv instead of po (6) MDD (major depressive disorder), recurrent episode, moderate: Code(s): F33.1 - Major depressive disorder, recurrent, moderate Status: Acute Assessment and Plan: - trazodone on hold -quetiapine on hold - olanzapine on hold - escitalopram on hold (7) Hyperlipidemia: Code(s): E78.5 - Hyperlipidemia, unspecified Status: Acute Assessment and Plan: - atorvastatin on hold (8) HTN (hypertension): Code(s): I10 - Essential (primary) hypertension Status: Acute Assessment and Plan: - bp on the lower spectrum and he bp medications are on hold due to npo status however she has been on a beta angel and may need iv metoprolol or iv lopresser iv bp Plan DVT prophylaxis SCD, no AC due to recent Cerebral hemorrhage Subjective Date/time seen: 01/07/25 14:02 Interval history: COmfortable at bedside awaiting Fluoroscopy NG tube insertion today Review of Systems Constitutional: Constitutional: Reports as per HPI and Reports no additional constitutional complaints Eyes: Eyes: Reports as per HPI and Reports no additional eye complaints ENT: Reports system reviewed and no additional complaints, except as documented and Reports Normal hearing present Cardiovascular: Cardiovascular: Reports no additional cardiovascular complaints Respiratory: Respiratory: Reports as per HPI and Reports no additional respiratory complaints Gastrointestinal: Gastrointestinal: Reports as per HPI and Reports no additional gastrointestinal complaints Genitourinary: Genitourinary: Reports no additional female genitourinary complaints Musculoskeletal: Musculoskeletal: Reports no additional musculoskeletal complaints Integumentary/Breasts: Skin/Breast: Reports system reviewed and no additional complaints, except as docu Neurologic: Reports system reviewed and no additional complaints, except as documented and Reports Normal hearing present Psychiatric: Psychiatric: Reports no additional psychiatric complaints and Reports as per HPI Hematologic/Lymphatic: Hematologic/Lymphatic: Reports no additional hematologic/lymphatic complaints Allergic/Immunologic: Allergic/Immunologic: Reports no additional allergic/immunologic complaints Exam Const: General: cooperative, healthy appearing, comfortable, no acute distress, well developed, awake, Physically active, average body habitus and well nourished Nutritional Appearance: average body habitus and well nourished Orientation/consciousness: oriented to person, oriented to place, oriented to time and patient oriented x3 Other: She is forgetful at times. The daughters at the bedside answered questions. HENMT: Head: normal to inspection, No palpable skull fracture present, normocephalic, atraumatic and abrasion Ears: hearing grossly normal bilaterally and external ears normal Other: Bleeding from right nares status post attempt of NG tube insertion Eyes: General: appearance normal, both eyes and all related structures Alignment and Position: alignment normal Periorbital: periorbital findings normal Eyelids: eyelids normal Pupils: Pupil accommodation reflex normal EOM: EOMs intact bilaterally Neck: Neck: normal visual inspection, full ROM, no lymphadenopathy, trachea midline and supple Resp: Effort & Inspection: normal respiratory effort Auscultation: clear to auscultation bilaterally Cardio: Palpation: normal PMI Rate: regular rate Rhythm: regular rhythm Heart sounds: S1 normal heart sound present and S2 normal heart sound present Peripheral pulses: Peripheral pulses 2+ throughout Other: Paced beats GI: Inspection: normal to inspection Other: Colostomy bag the right lower quadrant intact without any stool noted. Abdomen is distended. No bowel sounds are heard at this time. Diffuse tenderness all over abdomen : General: Yes no CVA tenderness Back/Spine/Pelvis: Back: no CVA tenderness Skin: General skin exam: normal color Lesions: no lesions Rashes: no rashes Trauma: no lacerations or abrasions Wounds: no wounds Hair: normal Nails: normal Neuro: General: oriented to person, oriented to place, oriented to time and patient oriented x3 Cranial nerves: Yes Normal hearing present Extrem: General: normal to inspection Right upper extremity: normal to inspection and shoulder/upper arm Left upper extremity: normal to inspection and shoulder/upper arm Right lower extremity: normal to inspection Left lower extremity: normal to inspection Psych: Appearance: grossly normal Mental Status: mental status grossly normal Speech and movement: Normal speech and movement present Affect: normal affect Attitude: cooperative Thought process: Normal thought process present Insight: Poor insight present (Psych) Judgement: Limited judgement present (Psych) Objective Data Vital Signs Vital Signs: Vital Signs - 24 hr 01/06/25 20:22 01/07/25 06:00 01/07/25 08:20 Temperature 98.1 F 97.5 F L Pulse Rate 92 91 Respiratory Rate 17 16 Blood Pressure 134/83 109/60 Pulse Oximetry 95 92 Oxygen Delivery Room Air Room Air 01/07/25 10:04 Temperature Pulse Rate Respiratory Rate Blood Pressure Pulse Oximetry 92 Oxygen Delivery Room Air Intake/Output Intake/Output: Intake & Output 01/04/25 01/05/25 01/06/25 01/07/25 23:59 23:59 23:59 23:59 Intake Total 1000 250 Output Total 0 Balance 1000 250 Meds/Results Medications: Active Medications Generic Name Dose Route Start Last Admin Trade Name Freq PRN Reason Stop Dose Admin Acetaminophen 650 mg 01/07/25 00:44 Acetaminophen 650 Mg Suppository RECTAL Q6H PRN Mild Pain (1-3) or Fever Hydralazine HCl 10 mg 01/07/25 06:44 Hydralazine Hcl 20 Mg/Ml Vial IV PUSH Q8H PRN Blood Pressure - High systolic Sodium Chloride 1,000 mls @ 75 mls/hr 01/07/25 00:45 01/07/25 01:13 Normal Saline Iv IV CONT 75 mls/hr .[id number] JUANCARLOS Administration Piperacillin Sod/Tazobactam 50 mls @ 100 mls/hr 01/07/25 04:00 01/07/25 11:02 Sod 2.25 gm/ Sodium Chloride IVPB 100 mls/hr Q6H JUANCARLOS Administration Levetiracetam 500 mg in 100 mls @ 400 mls/hr 01/07/25 10:00 01/07/25 09:49 Keppra Iv IVPB 400 mls/hr Q12HR JUANCARLOS Administration Levalbuterol HCl 0.625 mg 01/07/25 05:59 Levalbuterol Neb 1.25 Mg/3 Ml INHALATION Q6H PRN shortness of breath or wheezing Morphine Sulfate 2 mg 01/07/25 00:44 Morphine Sulfate (*Crx) 2 Mg/Ml Inj IV PUSH Q2H PRN Pain Rated 7-10 Ondansetron HCl 4 mg 01/07/25 00:44 Ondansetron Inj 4 Mg/2 Ml Vial IV PUSH Q4H PRN Nausea Radiology Results: ITS Impressions Abdomen/Pelvis CT 01/07/25 07:34 IMPRESSION: 1. Small bowel obstruction secondary to a parastomal hernia. Labs Labs: Laboratory Results - last 24 hr 01/06/25 01/06/25 01/07/25 20:19 22:30 04:34 WBC 4.2 L 3.8 L RBC 4.76 4.15 L Hgb 14.2 12.5 Hct 44.8 40.2 MCV 94.1 96.9 MCH 29.8 30.1 MCHC 31.7 L 31.1 L RDW 12.7 12.8 Plt Count 278 229 MPV 9.7 10.0 Immature Gran % (Auto) Not Reportable 0.8 H Neut % (Auto) Not Reportable 53.4 Lymph % (Auto) Not Reportable 15.7 L [place] % (Auto) Not Reportable 28.5 H Eos % (Auto) Not Reportable 0.8 Baso % (Auto) Not Reportable 0.8 Lymph # (Auto) Not Reportable 0.60 L [place] # (Auto) Not Reportable 1.1 H Eos # (Auto) Not Reportable 0.0 Baso # (Auto) Not Reportable 0.0 Abs Immat Gran (auto) Not Reportable 0.03 Absolute Neuts (auto) Not Reportable 2.1 Absolute Nucleated RBC Not Reportable 0.000 Total Counted 100 Neutrophils % (Manual) 65 Band Neutrophils % 4 Not Reportable Lymphocytes % (Manual) 11 L Monocytes % (Manual) 19 H Basophils % (Manual) 1 Nucleated RBC % Not Reportable 0.0 Abs Neuts (Manual) 2.89 Abs Lymphs (Manual) 0.46 L Abs Monocytes (Manual) 0.79 Abs Basophils (Manual) 0.04 Platelet Estimate Adequate Adequate Ovalocytes 1+ 1+ [place] Cells Occasional Schistocytes None seen None seen PT 14.3 INR 1.1 APTT 23.0 Sodium 134 L 134 L Potassium 5.0 4.3 Chloride 100 104 Carbon Dioxide 23 23 Anion Gap 11 7 BUN 47 H 40 H Creatinine 1.27 H 1.05 H Estim Creat Clear Calc 27 32 Estimated GFR 41 L 51 L Glucose 151 H 116 H Lactic Acid 1.4 Calcium 9.6 8.6 Phosphorus Magnesium Total Bilirubin 0.5 0.5 AST 36 28 ALT 20 15 Alkaline Phosphatase 59 48 Total Protein 7.7 6.5 Albumin 4.4 3.8 Lipase 57 TSH 0.920 Urine Color Dark yellow Urine Appearance Cloudy H Urine pH 5.5 Ur Specific [place] 1.033 Urine Protein 1+ H Urine Glucose (UA) Negative Urine Ketones Trace H Ur Blood (Man) Negative Urine Nitrate Negative Urine Bilirubin Negative Urine Urobilinogen 1.0 Add Ur Microanalysis Reviewed Leukocyte Esterase Rfl Negative Urine RBC 0-2 Urine WBC 0-5 Ur Squamous Ep[place] Cells None seen Urine Bacteria None seen Urine Casts 6-10 Hyaline Casts Present 01/07/25 20:19 WBC RBC Hgb Hct MCV MCH MCHC RDW Plt Count MPV Immature Gran % (Auto) Neut % (Auto) Lymph % (Auto) [place] % (Auto) Eos % (Auto) Baso % (Auto) Lymph # (Auto) [place] # (Auto) Eos # (Auto) Baso # (Auto) Abs Immat Gran (auto) Absolute Neuts (auto) Absolute Nucleated RBC Total Counted Neutrophils % (Manual) Band Neutrophils % Lymphocytes % (Manual) Monocytes % (Manual) Basophils % (Manual) Nucleated RBC % Abs Neuts (Manual) Abs Lymphs (Manual) Abs Monocytes (Manual) Abs Basophils (Manual) Platelet Estimate Ovalocytes [place] Cells Schistocytes PT INR APTT Sodium Potassium Chloride Carbon Dioxide Anion Gap BUN Creatinine Estim Creat Clear Calc Estimated GFR Glucose Lactic Acid Calcium Phosphorus 4.5 Magnesium 2.3 Total Bilirubin AST ALT Alkaline Phosphatase Total Protein Albumin Lipase TSH Urine Color Urine Appearance Urine pH Ur Specific [place] Urine Protein Urine Glucose (UA) Urine Ketones Ur Blood (Man) Urine Nitrate Urine Bilirubin Urine Urobilinogen Add Ur Microanalysis Leukocyte Esterase Rfl Urine RBC Urine WBC Ur Squamous Epith Cells Urine Bacteria Urine Casts Hyaline Casts Quality VTE Prophylaxis VTE prophylaxis: mechanical ordered
[2025-01-07 15:19] VITALS: BP 110/64; PULSE 94; RESP 16; TEMP 36.5; O2SAT 95
[2025-01-07] MEDS: OLANZapine 5 MG, WATER, STERILE FOR INJECTION 2.1 ML IM (15:56)
[2025-01-07 19:54] VITALS: BP 114/59; PULSE 91; RESP 20; TEMP 36.7; O2SAT 92
[2025-01-07] MEDS: diazePAM INJ (*CRX) 10 MG/2 ML SYRINGE 5 MG IV PUSH (20:56)
[2025-01-07] MEDS: MORPHINE SULFATE (*CRX) 2 MG/ML INJ IV PUSH (21:17)
[2025-01-07 22:05] VITALS: BP 107/58; PULSE 89; RESP 14; O2SAT 91
[2025-01-08] MEDS: PIPERACILLIN/TAZOBACTAM SOD 2.25 GM in SODIUM CHLORIDE 0.9% IV 50 ML 100 ML IVPB ×4 (04:10→21:30)
[2025-01-08 04:52] VITALS: BP 116/54; PULSE 90; RESP 18; TEMP 36.4; O2SAT 93
[2025-01-08] MEDS: SODIUM CHLORIDE 0.9% IV 1,000 ML 75 ML IV CONT ×2 (05:01→21:23)
[2025-01-08 05:50] LABS: Hematocrit 38.0 % (37.0-47.0); Hemoglobin 11.7 g/dL (12.0-15.0); Mean Corpuscular HGB Conc 30.8 g/dl (32-36); Mean Corpuscular Hemoglobin 30.4 pg (26-34); Mean Corpuscular Volume 98.7 fl (80-100); Platelet Count Result 207 k/mm3 (150-375); Red Blood Count 3.85 M/mm3 (4.2-5.4); White Blood Count 4.3 K/mm3 (4.5-10.0)
[2025-01-08 06:02] LABS: Alanine Aminotransferase 18 U/L (6-35); Albumin Level 3.3 g/dL (3.5-5.1); Alkaline Phosphatase 46 U/L (38-126); Anion Gap 3 mmol/L (4-12); Aspartate Amino Transferase 29 U/L (14-36); Bilirubin,Total 0.4 mg/dL (0.2-1.3); Blood Urea Nitrogen 31 mg/dL (7-17); Calcium 8.4 mg/dL (8.4-10.2); Carbon Dioxide 25 mmol/L (22-30); Chloride 109 mmol/L (98-107); Estimated CRCL calculation 35 ml/min; Estimated Glomerular Filt Rate 55; Glucose 79 mg/dL (65-110); Magnesium 2.1 mg/dL (1.6-2.3); Potassium 3.9 mmol/L (3.4-5.0); Sodium 137 mmol/L (137-145); Total Protein 5.8 g/dL (6.3-8.2)
[2025-01-08 06:28] LABS: Band Neutrophils Percent 25 % (0-6); Basophils Absolute Manual 0.08 K/mm3 (0.0-0.1); Basophils Percent Manual 2 % (0-1); Eosinophils Absolute Manual 0.12 K/mm3 (0.02-0.50); Eosinophils Percent Manual 3 % (0-4); Lymphocytes Absolute Manual 1.03 K/mm3 (1.1-4.5); Lymphocytes Percent Manual 24 % (18-44); Monocytes Absolute Manual 0.34 K/mm3 (0.1-0.90); Monocytes Percent Manual 8 % (3-9); Neutrophils Absolute Manual 2.70 K/mm3 (1.3-6.7); Neutrophils Percent Manual 38 % (46-73); Schistocytes None Seen; Total Cells Counted 100
[2025-01-08] MEDS: levETIRAcetam 500MG/NACL 100ML 500 MG/100 ML BAG 400 MG IVPB ×2 (08:35→20:48)
[2025-01-08 08:50] VITALS: O2SAT 95
[2025-01-08] MEDS: OLANZapine 5 MG, WATER, STERILE FOR INJECTION 2.1 ML IM (08:58)
[2025-01-08] MEDS: MORPHINE SULFATE (*CRX) 2 MG/ML INJ IV PUSH ×3 (09:13→22:48)
--- NOTE | 2025-01-08 10:00 | PC.NURSE ---
Supervisor Cellars attempted to pull back NG tube and readvance per Dr. Juan recommendations, Supervisor Cellars did pull back 20 and reinserted back to 65, X-ray rechecked shows coiled still, Dr. Calle reports does not believe this will be able to be fixed. Dr. Murillo notified and N.O to be placed per Dr. Murillo okrafaela to use at position on LIS
--- NOTE | 2025-01-08 11:16 | P.PN_ITS ---
Progress Note: A&P Assessment and Plan (1) Small bowel obstruction: Code(s): K56.609 - Unspecified intestinal obstruction, unspecified as to partial versus complete obstruction Status: Acute Assessment and Plan: Small-bowel obstruction secondary to incarcerated peristomal hernia. Hemodynamically stable and no acute abdomen at this time. Do not believe there is any impairment of blood flow to the incarcerated small bowel. White blood cell count is normal. Continue IV antibiotics. Leave the NG tube in the esophagus curled right now placed to low intermittent suction. We will plan on exploratory laparotomy, repair of parastomal incarcerated hernia, possible bowel resection, and possible re sitting of the stoma tomorrow morning. Plan was discussed in detail with the patient's daughter at the bedside. She had agreement with the plan. If the patient is here [address] during the day then she may need to go to the operating room sooner. Subjective Date/time seen: 01/08/25 11:16 Interval history: Patient clinically stable. Attempted placement of another NG tube today under fluoroscopy. NG tube is curled up in the esophagus. Complains more of pain in the throat due to the NG tube any abdominal pain. No output through this and ileostomy. No fever. No tachycardia. No tachypnea. Exam GI: Other: The abdomen is moderately distended. Minimal diffuse tenderness. No peritoneal signs or guarding. Ostomy is viable but no output. Objective Data Vital Signs Vital Signs: Vital Signs - 24 hr 01/07/25 15:19 01/07/25 19:54 01/07/25 21:30 Temperature 36.5 C 36.7 C Pulse Rate 94 91 Respiratory Rate 16 20 Blood Pressure 110/64 114/59 L Pulse Oximetry 95 92 Oxygen Delivery Room Air 01/07/25 22:05 01/08/25 04:52 Temperature 36.4 C Pulse Rate 89 90 Respiratory Rate 14 18 Blood Pressure 107/58 L 116/54 L Pulse Oximetry 91 93 Oxygen Delivery Intake/Output Intake/Output: Intake & Output 01/05/25 01/06/25 01/07/25 01/08/25 23:59 23:59 23:59 23:59 Intake Total 1000 1600 656.2 Output Total 0 150 Balance 1000 1600 506.2 Meds/Results Medications: Active Medications Generic Name Dose Route Start Last Admin Trade Name Freq PRN Reason Stop Dose Admin Acetaminophen 650 mg 01/07/25 00:44 Acetaminophen 650 Mg Suppository RECTAL Q6H PRN Mild Pain (1-3) or Fever Olanzapine 5 mg/ Sterile Water 0 mg 01/07/25 15:30 01/08/25 08:58 2.1 ml IM 5 mg DAILY JUANCARLOS Administration Hydralazine HCl 10 mg 01/07/25 06:44 Hydralazine Hcl 20 Mg/Ml Vial IV PUSH Q8H PRN Blood Pressure - High systolic Sodium Chloride 1,000 mls @ 75 mls/hr 01/07/25 00:45 01/08/25 05:01 Normal Saline Iv IV CONT 75 mls/hr .[id number] JUANCARLOS Administration Piperacillin Sod/Tazobactam 50 mls @ 100 mls/hr 01/07/25 04:00 01/08/25 10:58 Sod 2.25 gm/ Sodium Chloride IVPB 100 mls/hr Q6H JUANCARLOS Administration Levetiracetam 500 mg in 100 mls @ 400 mls/hr 01/07/25 10:00 01/08/25 08:35 Keppra Iv IVPB 400 mls/hr Q12HR JUANCARLOS Administration Levalbuterol HCl 0.625 mg 01/07/25 05:59 Levalbuterol Neb 1.25 Mg/3 Ml INHALATION Q6H PRN shortness of breath or wheezing Morphine Sulfate 2 mg 01/07/25 00:44 01/08/25 09:13 Morphine Sulfate (*Crx) 2 Mg/Ml Inj IV PUSH 2 mg Q2H PRN Administration Pain Rated 7-10 Ondansetron HCl 4 mg 01/07/25 00:44 Ondansetron Inj 4 Mg/2 Ml Vial IV PUSH Q4H PRN Nausea Radiology Results: ITS Impressions Abdomen/Pelvis CT 01/07/25 07:34 IMPRESSION: 1. Small bowel obstruction secondary to a parastomal hernia. Abdomen X-Ray 01/08/25 10:09 IMPRESSION: 1. Nasogastric tube folded back upon itself in the distal esophagus. Labs Labs: Laboratory Results - last 24 hr 01/08/25 05:35 WBC 4.3 L RBC 3.85 L Hgb 11.7 L Hct 38.0 MCV 98.7 MCH 30.4 MCHC 30.8 L RDW 12.9 Plt Count 207 MPV 9.7 Immature Gran % (Auto) Not Reportable Neut % (Auto) Not Reportable Lymph % (Auto) Not Reportable [place] % (Auto) Not Reportable Eos % (Auto) Not Reportable Baso % (Auto) Not Reportable Lymph # (Auto) Not Reportable [place] # (Auto) Not Reportable Eos # (Auto) Not Reportable Baso # (Auto) Not Reportable Abs Immat Gran (auto) Not Reportable Absolute Neuts (auto) Not Reportable Absolute Nucleated RBC Not Reportable Total Counted 100 Neutrophils % (Manual) 38 L Band Neutrophils % 25 H Lymphocytes % (Manual) 24 Monocytes % (Manual) 8 Eosinophils % (Manual) 3 Basophils % (Manual) 2 H Nucleated RBC % Not Reportable Abs Neuts (Manual) 2.70 Abs Lymphs (Manual) 1.03 L Abs Monocytes (Manual) 0.34 Absolute Eos (Manual) 0.12 Abs Basophils (Manual) 0.08 Platelet Estimate Adequate Schistocytes None seen Sodium 137 Potassium 3.9 Chloride 109 H Carbon Dioxide 25 Anion Gap 3 L BUN 31 H Creatinine 0.98 Estim Creat Clear Calc 35 Estimated GFR 55 L Glucose 79 Lactic Acid 0.6 L Calcium 8.4 Magnesium 2.1 Total Bilirubin 0.4 AST 29 ALT 18 Alkaline Phosphatase 46 Total Protein 5.8 L Albumin 3.3 L
--- NOTE | 2025-01-08 11:26 | PM.IMPN ---
Progress Note: A&P Assessment and Plan (1) Small bowel obstruction: Code(s): K56.609 - Unspecified intestinal obstruction, unspecified as to partial versus complete obstruction Status: Acute Assessment and Plan: CT AP reviewed, BS subdued on NG tube after multiple failed attempts including with IR Drainging bloody fluid today For Ex lap tomorrow Continue NPO and IVF Gen surgery following Continue PRN IV morphine for pain control (2) Atrial fib/flutter, transient: Code(s): I48.91 - Unspecified atrial fibrillation; I48.92 - Unspecified atrial flutter Status: Acute Assessment and Plan: -the patient has a pacemaker and she is paced on the monitor. Therefore her rate is controlled. -according to the daughter the patient had a brain bleed from falling and is not a candidate for anticoagulation. (3) Colon cancer: Code(s): C18.9 - Malignant neoplasm of colon, unspecified Status: Acute Assessment and Plan: -according to the daughter her treatment for colon cancer has been completed and she is cancer free. According to the daughter she has a palliative Care team. (4) Hemiplegia following cerebrovascular accident (CVA): Code(s): I69.359 - Hemiplegia and hemiparesis following cerebral infarction affecting unspecified side Status: Acute Assessment and Plan: -chronic left side weakness. -she is answering some questions but the daughters at bedside assisting with history. -the patient is aware of herself and place but not always time. (5) Seizure: Code(s): R56.9 - Unspecified convulsions Status: Acute Assessment and Plan: - keppra iv instead of po (6) MDD (major depressive disorder), recurrent episode, moderate: Code(s): F33.1 - Major depressive disorder, recurrent, moderate Status: Acute Assessment and Plan: - trazodone on hold -quetiapine on hold - olanzapine on hold - escitalopram on hold (7) Hyperlipidemia: Code(s): E78.5 - Hyperlipidemia, unspecified Status: Acute Assessment and Plan: - atorvastatin on hold (8) HTN (hypertension): Code(s): I10 - Essential (primary) hypertension Status: Acute Assessment and Plan: - bp on the lower spectrum and he bp medications are on hold due to npo status however she has been on a beta angel and may need iv metoprolol or iv lopresser iv bp Plan DVT prophylaxis SCD, no AC due to recent Cerebral hemorrhage Subjective Date/time seen: 01/08/25 11:26 Interval history: Comfortable at bedside NG tube finally inserted by IR after multiple attempts yesterday, draining bloody effluent For EX Lap tomorrow Review of Systems Constitutional: Constitutional: Reports as per HPI and Reports no additional constitutional complaints Eyes: Eyes: Reports as per HPI and Reports no additional eye complaints ENT: Reports system reviewed and no additional complaints, except as documented and Reports Normal hearing present Cardiovascular: Cardiovascular: Reports no additional cardiovascular complaints Respiratory: Respiratory: Reports as per HPI and Reports no additional respiratory complaints Gastrointestinal: Gastrointestinal: Reports as per HPI and Reports no additional gastrointestinal complaints Genitourinary: Genitourinary: Reports no additional female genitourinary complaints Musculoskeletal: Musculoskeletal: Reports no additional musculoskeletal complaints Integumentary/Breasts: Skin/Breast: Reports system reviewed and no additional complaints, except as docu Neurologic: Reports system reviewed and no additional complaints, except as documented and Reports Normal hearing present Psychiatric: Psychiatric: Reports no additional psychiatric complaints and Reports as per HPI Hematologic/Lymphatic: Hematologic/Lymphatic: Reports no additional hematologic/lymphatic complaints Allergic/Immunologic: Allergic/Immunologic: Reports no additional allergic/immunologic complaints Exam Const: General: cooperative, healthy appearing, comfortable, no acute distress, well developed, awake, Physically active, average body habitus and well nourished Nutritional Appearance: average body habitus and well nourished Orientation/consciousness: oriented to person, oriented to place, oriented to time and patient oriented x3 Other: She is forgetful at times. The daughters at the bedside answered questions. HENMT: Head: normal to inspection, No palpable skull fracture present, normocephalic, atraumatic and abrasion Ears: hearing grossly normal bilaterally and external ears normal Other: Bleeding from right nares status post attempt of NG tube insertion Eyes: General: appearance normal, both eyes and all related structures Alignment and Position: alignment normal Periorbital: periorbital findings normal Eyelids: eyelids normal Pupils: Pupil accommodation reflex normal EOM: EOMs intact bilaterally Neck: Neck: normal visual inspection, full ROM, no lymphadenopathy, trachea midline and supple Resp: Effort & Inspection: normal respiratory effort Auscultation: clear to auscultation bilaterally Cardio: Palpation: normal PMI Rate: regular rate Rhythm: regular rhythm Heart sounds: S1 normal heart sound present and S2 normal heart sound present Peripheral pulses: Peripheral pulses 2+ throughout Other: Paced beats GI: Inspection: normal to inspection Other: Colostomy bag the right lower quadrant intact without any stool noted. Abdomen is distended. No bowel sounds are heard at this time. Diffuse tenderness all over abdomen : General: Yes no CVA tenderness Back/Spine/Pelvis: Back: no CVA tenderness Skin: General skin exam: normal color Lesions: no lesions Rashes: no rashes Trauma: no lacerations or abrasions Wounds: no wounds Hair: normal Nails: normal Neuro: General: oriented to person, oriented to place, oriented to time and patient oriented x3 Cranial nerves: Yes Normal hearing present Extrem: General: normal to inspection Right upper extremity: normal to inspection and shoulder/upper arm Left upper extremity: normal to inspection and shoulder/upper arm Right lower extremity: normal to inspection Left lower extremity: normal to inspection Psych: Appearance: grossly normal Mental Status: mental status grossly normal Speech and movement: Normal speech and movement present Affect: normal affect Attitude: cooperative Thought process: Normal thought process present Insight: Poor insight present (Psych) Judgement: Limited judgement present (Psych) Objective Data Vital Signs Vital Signs: Vital Signs - 24 hr 01/07/25 15:19 01/07/25 19:54 01/07/25 21:30 Temperature 97.7 F 98.0 F Pulse Rate 94 91 Respiratory Rate 16 20 Blood Pressure 110/64 114/59 L Pulse Oximetry 95 92 Oxygen Delivery Room Air 01/07/25 22:05 01/08/25 04:52 Temperature 97.6 F Pulse Rate 89 90 Respiratory Rate 14 18 Blood Pressure 107/58 L 116/54 L Pulse Oximetry 91 93 Oxygen Delivery Intake/Output Intake/Output: Intake & Output 01/05/25 01/06/25 01/07/25 01/08/25 23:59 23:59 23:59 23:59 Intake Total 1000 1600 656.2 Output Total 0 150 Balance 1000 1600 506.2 Meds/Results Medications: Active Medications Generic Name Dose Route Start Last Admin Trade Name Freq PRN Reason Stop Dose Admin Acetaminophen 650 mg 01/07/25 00:44 Acetaminophen 650 Mg Suppository RECTAL Q6H PRN Mild Pain (1-3) or Fever Olanzapine 5 mg/ Sterile Water 0 mg 01/07/25 15:30 01/08/25 08:58 2.1 ml IM 5 mg DAILY JUANCARLOS Administration Hydralazine HCl 10 mg 01/07/25 06:44 Hydralazine Hcl 20 Mg/Ml Vial IV PUSH Q8H PRN Blood Pressure - High systolic Sodium Chloride 1,000 mls @ 75 mls/hr 01/07/25 00:45 01/08/25 05:01 Normal Saline Iv IV CONT 75 mls/hr .[id number] JUANCARLOS Administration Piperacillin Sod/Tazobactam 50 mls @ 100 mls/hr 01/07/25 04:00 01/08/25 10:58 Sod 2.25 gm/ Sodium Chloride IVPB 100 mls/hr Q6H JUANCARLOS Administration Levetiracetam 500 mg in 100 mls @ 400 mls/hr 01/07/25 10:00 01/08/25 08:35 Keppra Iv IVPB 400 mls/hr Q12HR JUANCARLOS Administration Levalbuterol HCl 0.625 mg 01/07/25 05:59 Levalbuterol Neb 1.25 Mg/3 Ml INHALATION Q6H PRN shortness of breath or wheezing Morphine Sulfate 2 mg 01/07/25 00:44 01/08/25 09:13 Morphine Sulfate (*Crx) 2 Mg/Ml Inj IV PUSH 2 mg Q2H PRN Administration Pain Rated 7-10 Ondansetron HCl 4 mg 01/07/25 00:44 Ondansetron Inj 4 Mg/2 Ml Vial IV PUSH Q4H PRN Nausea Radiology Results: ITS Impressions Abdomen/Pelvis CT 01/07/25 07:34 IMPRESSION: 1. Small bowel obstruction secondary to a parastomal hernia. Abdomen X-Ray 01/08/25 10:09 IMPRESSION: 1. Nasogastric tube folded back upon itself in the distal esophagus. Labs Labs: Laboratory Results - last 24 hr 01/08/25 05:35 WBC 4.3 L RBC 3.85 L Hgb 11.7 L Hct 38.0 MCV 98.7 MCH 30.4 MCHC 30.8 L RDW 12.9 Plt Count 207 MPV 9.7 Immature Gran % (Auto) Not Reportable Neut % (Auto) Not Reportable Lymph % (Auto) Not Reportable [place] % (Auto) Not Reportable Eos % (Auto) Not Reportable Baso % (Auto) Not Reportable Lymph # (Auto) Not Reportable [place] # (Auto) Not Reportable Eos # (Auto) Not Reportable Baso # (Auto) Not Reportable Abs Immat Gran (auto) Not Reportable Absolute Neuts (auto) Not Reportable Absolute Nucleated RBC Not Reportable Total Counted 100 Neutrophils % (Manual) 38 L Band Neutrophils % 25 H Lymphocytes % (Manual) 24 Monocytes % (Manual) 8 Eosinophils % (Manual) 3 Basophils % (Manual) 2 H Nucleated RBC % Not Reportable Abs Neuts (Manual) 2.70 Abs Lymphs (Manual) 1.03 L Abs Monocytes (Manual) 0.34 Absolute Eos (Manual) 0.12 Abs Basophils (Manual) 0.08 Platelet Estimate Adequate Schistocytes None seen Sodium 137 Potassium 3.9 Chloride 109 H Carbon Dioxide 25 Anion Gap 3 L BUN 31 H Creatinine 0.98 Estim Creat Clear Calc 35 Estimated GFR 55 L Glucose 79 Lactic Acid 0.6 L Calcium 8.4 Magnesium 2.1 Total Bilirubin 0.4 AST 29 ALT 18 Alkaline Phosphatase 46 Total Protein 5.8 L Albumin 3.3 L Quality VTE Prophylaxis VTE prophylaxis: mechanical ordered
[2025-01-08 15:21] VITALS: BP 133/70; PULSE 90; RESP 16; TEMP 36.4; O2SAT 93
[2025-01-08 20:00] VITALS: PULSE 86; RESP 18; O2SAT 94
[2025-01-08 20:13] VITALS: BP 130/75; PULSE 86; RESP 18; TEMP 36.6; O2SAT 94
--- NOTE | 2025-01-09 02:03 | PC.NURSE ---
About 2029 I had flushed/irrigated patients NG tube because it was clogged. From 2029 til 199 shes had 200 ml of dark brown liquid with some blood. Also patients ostomy now having output.
[2025-01-09] MEDS: PIPERACILLIN/TAZOBACTAM SOD 2.25 GM in SODIUM CHLORIDE 0.9% IV 50 ML 100 ML IVPB ×4 (04:09→21:30)
[2025-01-09 04:58] VITALS: BP 126/64; PULSE 92; RESP 20; TEMP 36.6; O2SAT 94
[2025-01-09 05:25] LABS: Hematocrit 37.4 % (37.0-47.0); Hemoglobin 11.2 g/dL (12.0-15.0); Immature Granulocyte Percent A 7.5 % (0-0.5); Lymphocytes Absolute Auto 0.89 K/mm3 (0.9-3.2); Mean Corpuscular HGB Conc 29.9 g/dl (32-36); Mean Corpuscular Hemoglobin 30.1 pg (26-34); Mean Corpuscular Volume 100.5 fl (80-100); Nucleated Red Blood Cells Absolute Auto 0.000 K/mm3 (0.0-0.012); Nucleated Red Blood Cells Perc 0.0 % (0.0-0.2); Platelet Count Result 190 k/mm3 (150-375); Red Blood Count 3.72 M/mm3 (4.2-5.4); White Blood Count 4.1 K/mm3 (4.5-10.0)
[2025-01-09 05:45] LABS: INR 1.2; Prothrombin Time 15.5 Seconds (11.1-14.7)
[2025-01-09 05:52] LABS: Alanine Aminotransferase 21 U/L (6-35); Albumin Level 2.9 g/dL (3.5-5.1); Alkaline Phosphatase 44 U/L (38-126); Anion Gap 7 mmol/L (4-12); Aspartate Amino Transferase 32 U/L (14-36); Bilirubin,Total 0.4 mg/dL (0.2-1.3); Blood Urea Nitrogen 26 mg/dL (7-17); Calcium 8.2 mg/dL (8.4-10.2); Carbon Dioxide 21 mmol/L (22-30); Chloride 112 mmol/L (98-107); Estimated CRCL calculation 40 ml/min; Estimated Glomerular Filt Rate > 60; Glucose 58 mg/dL (65-110); Magnesium 2.2 mg/dL (1.6-2.3); Potassium 3.5 mmol/L (3.4-5.0); Sodium 140 mmol/L (137-145); Total Protein 5.3 g/dL (6.3-8.2)
[2025-01-09] MEDS: DEXTROSE 50% 25 GM/50 ML SYRINGE IV PUSH ×2 (06:19→11:46)
--- NOTE | 2025-01-09 08:40 | P.PN_ITS ---
Progress Note: A&P Assessment and Plan (1) Small bowel obstruction: Code(s): K56.609 - Unspecified intestinal obstruction, unspecified as to partial versus complete obstruction Status: Acute Assessment and Plan: High-grade small-bowel obstruction secondary to incarcerated peristomal hernia seems to be improving. She is not having output through the ileostomy. I suspected nasogastric tube was propelled down into the stomach with contractions of the esophagus and now she has responded to NG tube and GI tract decompression. With this being the case under clinical improvement I have discussed with the family and they all agree that continuing non operative management NG tube decompression today is indicated rather than proceeding to the operating for surgery. We will cancel her surgery for this morning and continue the NG tube decompression today. She continues to progress then likely either start tube feeds or removed NG tube is start liquids tomorrow. Subjective Date/time seen: 01/09/25 08:40 Interval history: Patient seen and evaluated at the bedside today with family. Brief history the patient has a small-bowel obstruction secondary to a incarcerated peristomal hernia. She has had a placement of a permanent end ileostomy and subtotal colectomy in the past. Her comorbidities include prior stroke as well as prior myocardial infarction and pacemaker placement. She also has dementia. She was brought to the hospital with a 3 to four-day history of worsening abdominal distension and minimal ileostomy output. Upon evaluation in the emergency room initially she was found to have these small-bowel obstruction due to the peristomal hernia. Loops of small bowel were incarcerated causing a lead point for the obstruction. Lactic acid was normal and white blood cell count was normal. Multiple attempts of placing nasogastric tube at least 5 times with a couple of the attempts being under fluoroscopy in Radiology by the radiologist were unsuccessful. The last placement had the NG tube curled in the esophagus. The patient still was not having significant ileostomy output yesterday and so I discussed with the family proceeding with operative management since non operative management decompression of the stomach and GI tract with a nasogastric tube was not successful due to not being to place an NG tube in the proper position. Family agreed to proceed with surgery and patient remained stable. Overnight at approximately 3:00 a.m. the patient started having ostomy output. Patient also started having output through the NG tube. [id number] was emptied out of her ileostomy bag overnight and this morning when I evaluated her she probably had another 200 to 300 cc of ileostomy output in the bag. White blood cell count is still normal this morning. Electrolytes are normal as well. Exam GI: Other: Patient abdominal exam is improved. She has much less abdominal distension. Minimal diffuse pain across the abdomen. Much less tenderness than yesterday. Ileostomy bag has typical output with approximate 2 to 300 cc in the bag right now. Objective Data Vital Signs Vital Signs: Vital Signs - 24 hr 01/08/25 08:50 01/08/25 15:21 01/08/25 20:00 Temperature 36.4 C Pulse Rate 90 86 Respiratory Rate 16 18 Blood Pressure 133/70 Pulse Oximetry 95 93 94 Oxygen Delivery Room Air Room Air 01/08/25 20:13 01/09/25 04:58 Temperature 36.6 C 36.6 C Pulse Rate 86 92 Respiratory Rate 18 20 Blood Pressure 130/75 126/64 Pulse Oximetry 94 94 Oxygen Delivery Intake/Output Intake/Output: Intake & Output 01/06/25 01/07/25 01/08/25 01/09/25 23:59 23:59 23:59 23:59 Intake Total 1000 1600 2006.2 0 Output Total 0 850 400 Balance 1000 1600 1156.2 -400 Meds/Results Medications: Active Medications Generic Name Dose Route Start Last Admin Trade Name Freq PRN Reason Stop Dose Admin Acetaminophen 650 mg 01/07/25 00:44 Acetaminophen 650 Mg Suppository RECTAL Q6H PRN Mild Pain (1-3) or Fever Olanzapine 5 mg/ Sterile Water 0 mg 01/07/25 15:30 01/08/25 08:58 2.1 ml IM 5 mg DAILY JUANCARLOS Administration Dextrose 12.5 gm 01/09/25 05:54 01/09/25 06:19 Dextrose 50% 25 Gm/50 Ml Syringe IV PUSH 12.5 gm PRN PRN Administration Hypoglycemia Protocol Glucagon 1 mg 01/09/25 05:54 Glucagon For Inj 1 Mg Vial IM PRN PRN Hypoglycemia Protocol Glucose 15 gm 01/09/25 05:54 Glucose Oral Gel 15 Gm Of Glucse In 37.5 Gm Tube PO PRN PRN Hypoglycemia Protocol Hydralazine HCl 10 mg 01/07/25 06:44 Hydralazine Hcl 20 Mg/Ml Vial IV PUSH Q8H PRN Blood Pressure - High systolic Sodium Chloride 1,000 mls @ 75 mls/hr 01/07/25 00:45 01/08/25 21:23 Normal Saline Iv IV CONT 75 mls/hr .[id number] JUANCARLOS Administration Piperacillin Sod/Tazobactam 50 mls @ 100 mls/hr 01/07/25 04:00 01/09/25 04:09 Sod 2.25 gm/ Sodium Chloride IVPB 100 mls/hr Q6H JUANCARLOS Administration Levetiracetam 500 mg in 100 mls @ 400 mls/hr 01/07/25 10:00 01/08/25 21:59 Keppra Iv IVPB Infused Q12HR JUANCARLOS Infusion Dextrose 1,000 mls @ 100 mls/hr 01/09/25 05:54 Dextrose 5% 1,000 Ml IVPB PRN PRN Hypoglycemia Protocol Levalbuterol HCl 0.625 mg 01/07/25 05:59 Levalbuterol Neb 1.25 Mg/3 Ml INHALATION Q6H PRN shortness of breath or wheezing Morphine Sulfate 2 mg 01/07/25 00:44 01/08/25 22:48 Morphine Sulfate (*Crx) 2 Mg/Ml Inj IV PUSH 2 mg Q2H PRN Administration Pain Rated 7-10 Ondansetron HCl 4 mg 01/07/25 00:44 Ondansetron Inj 4 Mg/2 Ml Vial IV PUSH Q4H PRN Nausea Radiology Results: ITS Impressions Abdomen/Pelvis CT 01/07/25 07:34 IMPRESSION: 1. Small bowel obstruction secondary to a parastomal hernia. Abdomen X-Ray 01/08/25 10:09 IMPRESSION: 1. Nasogastric tube folded back upon itself in the distal esophagus. Labs Labs: Laboratory Results - last 24 hr 01/08/25 01/09/25 01/09/25 20:15 04:53 06:18 WBC 4.1 L RBC 3.72 L Hgb 11.2 L Hct 37.4 MCV 100.5 H MCH 30.1 MCHC 29.9 L RDW 12.4 Plt Count 190 MPV 9.9 Immature Gran % (Auto) 7.5 H Neut % (Auto) 49.0 Lymph % (Auto) 21.6 [place] % (Auto) 16.5 H Eos % (Auto) 3.2 Baso % (Auto) 2.2 H Lymph # (Auto) 0.89 L [place] # (Auto) 0.7 H Eos # (Auto) 0.1 Baso # (Auto) 0.1 Abs Immat Gran (auto) 0.31 H Absolute Neuts (auto) 2.0 Absolute Nucleated RBC 0.000 Nucleated RBC % 0.0 PT 15.5 H INR 1.2 Sodium 140 Potassium 3.5 Chloride 112 H Carbon Dioxide 21 L Anion Gap 7 BUN 26 H Creatinine 0.84 Estim Creat Clear Calc 40 Estimated GFR > 60 Glucose 58 L* POC Capillary Glucose 69 118 H Calcium 8.2 L Magnesium 2.2 Total Bilirubin 0.4 AST 32 ALT 21 Alkaline Phosphatase 44 Total Protein 5.3 L Albumin 2.9 L Blood Type A Positive Antibody Screen Negative 01/09/25 06:46 WBC RBC Hgb Hct MCV MCH MCHC RDW Plt Count MPV Immature Gran % (Auto) Neut % (Auto) Lymph % (Auto) [place] % (Auto) Eos % (Auto) Baso % (Auto) Lymph # (Auto) [place] # (Auto) Eos # (Auto) Baso # (Auto) Abs Immat Gran (auto) Absolute Neuts (auto) Absolute Nucleated RBC Nucleated RBC % PT INR Sodium Potassium Chloride Carbon Dioxide Anion Gap BUN Creatinine Estim Creat Clear Calc Estimated GFR Glucose POC Capillary Glucose 111 H Calcium Magnesium Total Bilirubin AST ALT Alkaline Phosphatase Total Protein Albumin Blood Type Antibody Screen
[2025-01-09] MEDS: PHENOL/SOD PHENO SPRAY CHERRY (*BKC) 1 SPRAY MUCOUS MEM ×2 (09:13→16:15)
[2025-01-09] MEDS: levETIRAcetam 500MG/NACL 100ML 500 MG/100 ML BAG 400 MG IVPB ×2 (09:13→20:50)
[2025-01-09] MEDS: OLANZapine 5 MG, WATER, STERILE FOR INJECTION 2.1 ML IM ×2 (09:14→21:29)
[2025-01-09] MEDS: SODIUM CHLORIDE 0.9% IV 1,000 ML 75 ML IV CONT (10:26)
--- NOTE | 2025-01-09 10:26 | PM.IMPN ---
Progress Note: A&P Assessment and Plan (1) Small bowel obstruction: Code(s): K56.609 - Unspecified intestinal obstruction, unspecified as to partial versus complete obstruction Status: Acute Assessment and Plan: CT AP reviewed, BS subdued on NG tube after multiple failed attempts including with IR Drainging bloody fluid today For Ex lap today Continue NPO and IVF Gen surgery following Continue PRN IV morphine for pain control (2) Atrial fib/flutter, transient: Code(s): I48.91 - Unspecified atrial fibrillation; I48.92 - Unspecified atrial flutter Status: Acute Assessment and Plan: -the patient has a pacemaker and she is paced on the monitor. Therefore her rate is controlled. -according to the daughter the patient had a brain bleed from falling and is not a candidate for anticoagulation. (3) Colon cancer: Code(s): C18.9 - Malignant neoplasm of colon, unspecified Status: Acute Assessment and Plan: -according to the daughter her treatment for colon cancer has been completed and she is cancer free. According to the daughter she has a palliative Care team. (4) Hemiplegia following cerebrovascular accident (CVA): Code(s): I69.359 - Hemiplegia and hemiparesis following cerebral infarction affecting unspecified side Status: Acute Assessment and Plan: -chronic left side weakness. -she is answering some questions but the daughters at bedside assisting with history. -the patient is aware of herself and place but not always time. (5) Seizure: Code(s): R56.9 - Unspecified convulsions Status: Acute Assessment and Plan: - keppra iv instead of po (6) MDD (major depressive disorder), recurrent episode, moderate: Code(s): F33.1 - Major depressive disorder, recurrent, moderate Status: Acute Assessment and Plan: - trazodone on hold -quetiapine on hold - olanzapine on hold - escitalopram on hold (7) Hyperlipidemia: Code(s): E78.5 - Hyperlipidemia, unspecified Status: Acute Assessment and Plan: - atorvastatin on hold (8) HTN (hypertension): Code(s): I10 - Essential (primary) hypertension Status: Acute Assessment and Plan: - bp on the lower spectrum and he bp medications are on hold due to npo status however she has been on a beta angel and may need iv metoprolol or iv lopresser iv bp Plan DVT prophylaxis SCD, no AC due to recent Cerebral hemorrhage Subjective Date/time seen: 01/09/25 10:26 Interval history: Comfortable at bedside, awaiting EX lap today Review of Systems Constitutional: Constitutional: Reports as per HPI and Reports no additional constitutional complaints Eyes: Eyes: Reports as per HPI and Reports no additional eye complaints ENT: Reports system reviewed and no additional complaints, except as documented and Reports Normal hearing present Cardiovascular: Cardiovascular: Reports no additional cardiovascular complaints Respiratory: Respiratory: Reports as per HPI and Reports no additional respiratory complaints Gastrointestinal: Gastrointestinal: Reports as per HPI and Reports no additional gastrointestinal complaints Genitourinary: Genitourinary: Reports no additional female genitourinary complaints Musculoskeletal: Musculoskeletal: Reports no additional musculoskeletal complaints Integumentary/Breasts: Skin/Breast: Reports system reviewed and no additional complaints, except as docu Neurologic: Reports system reviewed and no additional complaints, except as documented and Reports Normal hearing present Psychiatric: Psychiatric: Reports no additional psychiatric complaints and Reports as per HPI Hematologic/Lymphatic: Hematologic/Lymphatic: Reports no additional hematologic/lymphatic complaints Allergic/Immunologic: Allergic/Immunologic: Reports no additional allergic/immunologic complaints Exam Const: General: cooperative, healthy appearing, comfortable, no acute distress, well developed, awake, Physically active, average body habitus and well nourished Nutritional Appearance: average body habitus and well nourished Orientation/consciousness: oriented to person, oriented to place, oriented to time and patient oriented x3 Other: She is forgetful at times. The daughters at the bedside answered questions. HENMT: Head: normal to inspection, No palpable skull fracture present, normocephalic, atraumatic and abrasion Ears: hearing grossly normal bilaterally and external ears normal Other: Bleeding from right nares status post attempt of NG tube insertion Eyes: General: appearance normal, both eyes and all related structures Alignment and Position: alignment normal Periorbital: periorbital findings normal Eyelids: eyelids normal Pupils: Pupil accommodation reflex normal EOM: EOMs intact bilaterally Neck: Neck: normal visual inspection, full ROM, no lymphadenopathy, trachea midline and supple Resp: Effort & Inspection: normal respiratory effort Auscultation: clear to auscultation bilaterally Cardio: Palpation: normal PMI Rate: regular rate Rhythm: regular rhythm Heart sounds: S1 normal heart sound present and S2 normal heart sound present Peripheral pulses: Peripheral pulses 2+ throughout Other: Paced beats GI: Inspection: normal to inspection Other: Colostomy bag the right lower quadrant intact without any stool noted. Abdomen is distended. No bowel sounds are heard at this time. Diffuse tenderness all over abdomen : General: Yes no CVA tenderness Back/Spine/Pelvis: Back: no CVA tenderness Skin: General skin exam: normal color Lesions: no lesions Rashes: no rashes Trauma: no lacerations or abrasions Wounds: no wounds Hair: normal Nails: normal Neuro: General: oriented to person, oriented to place, oriented to time and patient oriented x3 Cranial nerves: Yes Normal hearing present Extrem: General: normal to inspection Right upper extremity: normal to inspection and shoulder/upper arm Left upper extremity: normal to inspection and shoulder/upper arm Right lower extremity: normal to inspection Left lower extremity: normal to inspection Psych: Appearance: grossly normal Mental Status: mental status grossly normal Speech and movement: Normal speech and movement present Affect: normal affect Attitude: cooperative Thought process: Normal thought process present Insight: Poor insight present (Psych) Judgement: Limited judgement present (Psych) Objective Data Vital Signs Vital Signs: Vital Signs - 24 hr 01/08/25 15:21 01/08/25 20:00 01/08/25 20:13 Temperature 97.6 F 98 F Pulse Rate 90 86 86 Respiratory Rate 16 18 18 Blood Pressure 133/70 130/75 Pulse Oximetry 93 94 94 Oxygen Delivery Room Air 01/09/25 04:58 Temperature 98 F Pulse Rate 92 Respiratory Rate 20 Blood Pressure 126/64 Pulse Oximetry 94 Oxygen Delivery Intake/Output Intake/Output: Intake & Output 01/06/25 01/07/25 01/08/25 01/09/25 23:59 23:59 23:59 23:59 Intake Total 1000 1600 2006.2 1028.8 Output Total 0 850 400 Balance 1000 1600 1156.2 628.8 Meds/Results Medications: Active Medications Generic Name Dose Route Start Last Admin Trade Name Freq PRN Reason Stop Dose Admin Acetaminophen 650 mg 01/07/25 00:44 Acetaminophen 650 Mg Suppository RECTAL Q6H PRN Mild Pain (1-3) or Fever Al Hydrox/Mg Hydrox/Simethicone 30 ml 01/09/25 10:00 Mag Hydrox/Al Hydrox/Simeth 30 Ml Udc PO Q8H JUANCARLOS Olanzapine 5 mg/ Sterile Water 0 mg 01/07/25 15:30 01/09/25 09:14 2.1 ml IM 5 mg DAILY JUANCARLOS Administration Dextrose 12.5 gm 01/09/25 05:54 01/09/25 06:19 Dextrose 50% 25 Gm/50 Ml Syringe IV PUSH 12.5 gm PRN PRN Administration Hypoglycemia Protocol Glucagon 1 mg 01/09/25 05:54 Glucagon For Inj 1 Mg Vial IM PRN PRN Hypoglycemia Protocol Glucose 15 gm 01/09/25 05:54 Glucose Oral Gel 15 Gm Of Glucse In 37.5 Gm Tube PO PRN PRN Hypoglycemia Protocol Hydralazine HCl 10 mg 01/07/25 06:44 Hydralazine Hcl 20 Mg/Ml Vial IV PUSH Q8H PRN Blood Pressure - High systolic Sodium Chloride 1,000 mls @ 75 mls/hr 01/07/25 00:45 01/09/25 10:26 Normal Saline Iv IV CONT 75 mls/hr .[id number] JUANCARLOS Administration Piperacillin Sod/Tazobactam 50 mls @ 100 mls/hr 01/07/25 04:00 01/09/25 10:25 Sod 2.25 gm/ Sodium Chloride IVPB 100 mls/hr Q6H JUANCARLOS Administration Levetiracetam 500 mg in 100 mls @ 400 mls/hr 01/07/25 10:00 01/09/25 09:13 Keppra Iv IVPB 400 mls/hr Q12HR JUANCARLOS Administration Dextrose 1,000 mls @ 100 mls/hr 01/09/25 05:54 Dextrose 5% 1,000 Ml IVPB PRN PRN Hypoglycemia Protocol Dextrose 1,000 mls @ 50 mls/hr 01/09/25 09:19 Dextrose 10% IV CONT .Q20H PRN if PN is interrupted Amino Acids/Electrolytes/Dextrose 1,000 mls @ 80 mls/hr 01/09/25 10:00 Clinimix E 4.25%/5% Solution IV CONT .[id number] JUANCARLOS Protocol Fat Emulsion Intravenous 250 mls @ 20.833 mls/hr 01/09/25 09:20 Lipids 20% IVPB Q24H JUANCARLOS Levalbuterol HCl 0.625 mg 01/07/25 05:59 Levalbuterol Neb 1.25 Mg/3 Ml INHALATION Q6H PRN shortness of breath or wheezing Morphine Sulfate 2 mg 01/07/25 00:44 01/08/25 22:48 Morphine Sulfate (*Crx) 2 Mg/Ml Inj IV PUSH 2 mg Q2H PRN Administration Pain Rated 7-10 Ondansetron HCl 4 mg 01/07/25 00:44 Ondansetron Inj 4 Mg/2 Ml Vial IV PUSH Q4H PRN Nausea Pantoprazole Sodium 40 mg 01/10/25 09:00 Pantoprazole Sodium Iv 40 Mg Vial IV PUSH QAM JUANCARLOS Phenol 1 spray 01/09/25 08:47 01/09/25 09:13 Phenol/Sod Pheno [place] Hdz (*Bkc) MUCOUS MEM 1 spray PRN PRN Administration Sore Throat Radiology Results: ITS Impressions Abdomen/Pelvis CT 01/07/25 07:34 IMPRESSION: 1. Small bowel obstruction secondary to a parastomal hernia. Labs Labs: Laboratory Results - last 24 hr 01/08/25 01/09/25 01/09/25 20:15 04:53 06:18 WBC 4.1 L RBC 3.72 L Hgb 11.2 L Hct 37.4 MCV 100.5 H MCH 30.1 MCHC 29.9 L RDW 12.4 Plt Count 190 MPV 9.9 Immature Gran % (Auto) 7.5 H Neut % (Auto) 49.0 Lymph % (Auto) 21.6 [place] % (Auto) 16.5 H Eos % (Auto) 3.2 Baso % (Auto) 2.2 H Lymph # (Auto) 0.89 L [place] # (Auto) 0.7 H Eos # (Auto) 0.1 Baso # (Auto) 0.1 Abs Immat Gran (auto) 0.31 H Absolute Neuts (auto) 2.0 Absolute Nucleated RBC 0.000 Nucleated RBC % 0.0 PT 15.5 H INR 1.2 Sodium 140 Potassium 3.5 Chloride 112 H Carbon Dioxide 21 L Anion Gap 7 BUN 26 H Creatinine 0.84 Estim Creat Clear Calc 40 Estimated GFR > 60 Glucose 58 L* POC Capillary Glucose 69 118 H Calcium 8.2 L Magnesium 2.2 Total Bilirubin 0.4 AST 32 ALT 21 Alkaline Phosphatase 44 Total Protein 5.3 L Albumin 2.9 L Blood Type A Positive Antibody Screen Negative 01/09/25 06:46 WBC RBC Hgb Hct MCV MCH MCHC RDW Plt Count MPV Immature Gran % (Auto) Neut % (Auto) Lymph % (Auto) [place] % (Auto) Eos % (Auto) Baso % (Auto) Lymph # (Auto) [place] # (Auto) Eos # (Auto) Baso # (Auto) Abs Immat Gran (auto) Absolute Neuts (auto) Absolute Nucleated RBC Nucleated RBC % PT INR Sodium Potassium Chloride Carbon Dioxide Anion Gap BUN Creatinine Estim Creat Clear Calc Estimated GFR Glucose POC Capillary Glucose 111 H Calcium Magnesium Total Bilirubin AST ALT Alkaline Phosphatase Total Protein Albumin Blood Type Antibody Screen Quality VTE Prophylaxis VTE prophylaxis: mechanical ordered
[2025-01-09] MEDS: FAT EMULSIONS IV 20% 250 ML 20.83 ML IVPB (13:17)
[2025-01-09] MEDS: AMINO ACIDS 4.25%/D5W/LYTES/CA 1,000 ML 80 ML IV CONT ×2 (13:17→19:00)
[2025-01-09] MEDS: MAG HYDROX/AL HYDROX/SIMETH 30 ML UDC PO ×2 (13:17→18:46)
[2025-01-09 14:00] VITALS: BP 139/66; PULSE 91; RESP 17; TEMP 37.1; O2SAT 95
[2025-01-09] MEDS: ACETAMINOPHEN 650 MG SUPPOSITORY RECTAL (16:14)
[2025-01-09 19:47] VITALS: BP 133/77; PULSE 89; RESP 17; TEMP 36.6; O2SAT 94
[2025-01-09 20:00] VITALS: PULSE 88; RESP 17; O2SAT 94
[2025-01-10] MEDS: MAG HYDROX/AL HYDROX/SIMETH 30 ML UDC PO ×3 (02:58→17:44)
[2025-01-10] MEDS: HALOPERIDOL LACTATE 5 MG/ML VIAL IV PUSH (03:02)
[2025-01-10] MEDS: PIPERACILLIN/TAZOBACTAM SOD 2.25 GM in SODIUM CHLORIDE 0.9% IV 50 ML 100 ML IVPB ×3 (03:55→16:02)
[2025-01-10 05:25] LABS: Hematocrit 36.3 % (37.0-47.0); Hemoglobin 11.5 g/dL (12.0-15.0); Mean Corpuscular HGB Conc 31.7 g/dl (32-36); Mean Corpuscular Hemoglobin 30.0 pg (26-34); Mean Corpuscular Volume 94.8 fl (80-100); Platelet Count Result 190 k/mm3 (150-375); Red Blood Count 3.83 M/mm3 (4.2-5.4); White Blood Count 5.4 K/mm3 (4.5-10.0)
[2025-01-10 05:49] LABS: Alanine Aminotransferase 21 U/L (6-35); Albumin Level 2.8 g/dL (3.5-5.1); Alkaline Phosphatase 46 U/L (38-126); Anion Gap 5 mmol/L (4-12); Aspartate Amino Transferase 29 U/L (14-36); Bilirubin,Total 0.2 mg/dL (0.2-1.3); Blood Urea Nitrogen 19 mg/dL (7-17); Calcium 8.2 mg/dL (8.4-10.2); Carbon Dioxide 25 mmol/L (22-30); Chloride 107 mmol/L (98-107); Estimated CRCL calculation 47 ml/min; Estimated Glomerular Filt Rate > 60; Glucose 135 mg/dL (65-110); Magnesium 2.0 mg/dL (1.6-2.3); Potassium 2.9 mmol/L (3.4-5.0); Sodium 137 mmol/L (137-145); Total Protein 5.3 g/dL (6.3-8.2); Triglycerides 177 mg/dL (<150)
[2025-01-10 06:00] VITALS: BP 129/69; PULSE 92; RESP 16; TEMP 36.6; O2SAT 96
[2025-01-10 06:16] LABS: Band Neutrophils Percent 22 % (0-6); Eosinophils Absolute Manual 0.21 K/mm3 (0.02-0.50); Eosinophils Percent Manual 4 % (0-4); Lymphocytes Absolute Manual 0.70 K/mm3 (1.1-4.5); Lymphocytes Percent Manual 13 % (18-44); Monocytes Absolute Manual 0.32 K/mm3 (0.1-0.90); Monocytes Percent Manual 6 % (3-9); Neutrophils Absolute Manual 4.15 K/mm3 (1.3-6.7); Neutrophils Percent Manual 55 % (46-73); Schistocytes None Seen; Total Cells Counted 100
[2025-01-10] MEDS: OLANZapine 5 MG, WATER, STERILE FOR INJECTION 2.1 ML IM ×2 (08:51→15:15)
[2025-01-10] MEDS: PANTOPRAZOLE SODIUM IV 40 MG VIAL IV PUSH (08:53)
[2025-01-10] MEDS: levETIRAcetam 500MG/NACL 100ML 500 MG/100 ML BAG 100 MG IVPB (08:53)
[2025-01-10 08:59] LABS: Transferrin 111 mg/dL (206-381)
[2025-01-10] MEDS: AMINO ACIDS 4.25%/D5W/LYTES/CA 1,000 ML 80 ML IV CONT (10:46)
--- NOTE | 2025-01-10 11:46 | PM.PNGS ---
Progress Note: A&P Assessment and Plan (1) Insomnia: Qualifiers: Insomnia type: unspecified Qualified Code(s): G47.00 - Insomnia, unspecified Code(s): G47.00 - Insomnia, unspecified Status: Acute Assessment and Plan: Discussed this with patient's daughter. Patient takes trazodone in the morning and at bedtime, 50 mg each time. She also takes 50 mg a trazodone sometimes in the afternoons depending on her degree of agitation or restlessness. Will get this restarted with a sip of water and hopefully patient will have more ability to sleep at night. (2) Small bowel obstruction: Code(s): K56.609 - Unspecified intestinal obstruction, unspecified as to partial versus complete obstruction Status: Acute Assessment and Plan: Nasogastric tube in place and working well. Having ileostomy output. Will leave nasogastric tube in place for now as it was exceptionally difficult to place. Possible small-bowel follow-through per Dr. Murillo tomorrow before clamping or removing NG tube. (3) Colostomy in place: Code(s): Z93.3 - Colostomy status Status: Acute Assessment and Plan: Ileostomy functioning with output in bag this morning (4) Cognitive impairment: Code(s): R41.89 - Other symptoms and signs involving cognitive functions and awareness Status: Chronic Assessment and Plan: Previous stroke Subjective Subjective Date/Time Seen: 01/10/25 11:46 Patient reports: bowel movement, afebrile and other (Insomnia) Review of Systems Review of Systems: ROS unobtainable: Yes unobtainable due to medical condition Exam Const: General: comfortable, alert and awake Nutritional Appearance: thin Orientation/consciousness: confusion GI: Inspection: normal to inspection (NG tube in place, output noted in ileostomy bag) and distended GI Palp: Yes Soft to palpation, No Tenderness to palpation present (GI), No Guarding due to palpation present (GI) and No Hernia present (No palpable hernia, stoma appliance not taken down) Auscultation: Hypoactive bowel sounds present Objective Data Vital Signs Vital Signs: Vital Signs - 24 hr 01/09/25 14:00 01/09/25 15:39 01/09/25 19:47 Temperature 37.1 C 36.6 C Pulse Rate 91 89 Respiratory Rate 17 17 Blood Pressure 139/66 133/77 Pulse Oximetry 95 94 Oxygen Delivery Room Air 01/09/25 20:00 01/10/25 06:00 01/10/25 07:15 Temperature 36.6 C Pulse Rate 88 92 Respiratory Rate 17 16 Blood Pressure 129/69 Pulse Oximetry 94 96 Oxygen Delivery Room Air Room Air Intake/Output Intake/Output: Intake & Output 01/07/25 01/08/25 01/09/25 01/10/25 23:59 23:59 23:59 23:59 Intake Total 1600 2006.2 2051.1 1418.3 Output Total 0 850 1750 750 Balance 1600 1156.2 301.1 668.3 Meds/Results Medications: Active Medications Generic Name Dose Route Start Last Admin Trade Name Freq PRN Reason Stop Dose Admin Acetaminophen 650 mg 01/07/25 00:44 01/09/25 16:14 Acetaminophen 650 Mg Suppository RECTAL 650 mg Q6H PRN Administration Mild Pain (1-3) or Fever Al Hydrox/Mg Hydrox/Simethicone 30 ml 01/09/25 10:00 01/10/25 09:14 Mag Hydrox/Al Hydrox/Simeth 30 Ml Udc PO 30 ml Q8H JUANCARLOS Administration Olanzapine 5 mg/ Sterile Water 0 mg 01/07/25 15:30 01/10/25 08:51 2.1 ml IM 5 mg DAILY JUANCARLOS Administration Dextrose 12.5 gm 01/09/25 05:54 01/09/25 11:46 Dextrose 50% 25 Gm/50 Ml Syringe IV PUSH 12.5 gm PRN PRN Administration Hypoglycemia Protocol Glucagon 1 mg 01/09/25 05:54 Glucagon For Inj 1 Mg Vial IM PRN PRN Hypoglycemia Protocol Glucose 15 gm 01/09/25 05:54 Glucose Oral Gel 15 Gm Of Glucse In 37.5 Gm Tube PO PRN PRN Hypoglycemia Protocol Hydralazine HCl 10 mg 01/07/25 06:44 Hydralazine Hcl 20 Mg/Ml Vial IV PUSH Q8H PRN Blood Pressure - High systolic Piperacillin Sod/Tazobactam 50 mls @ 100 mls/hr 01/07/25 04:00 01/10/25 10:50 Sod 2.25 gm/ Sodium Chloride IVPB Infused Q6H JUANCARLOS Infusion Levetiracetam 500 mg in 100 mls @ 400 mls/hr 01/07/25 10:00 01/10/25 09:34 Keppra Iv IVPB 0 mls/hr Q12HR JUANCARLOS Infusion Dextrose 1,000 mls @ 100 mls/hr 01/09/25 05:54 Dextrose 5% 1,000 Ml IVPB PRN PRN Hypoglycemia Protocol Dextrose 1,000 mls @ 50 mls/hr 01/09/25 09:19 Dextrose 10% IV CONT .Q20H PRN if PN is interrupted Amino Acids/Electrolytes/Dextrose 1,000 mls @ 80 mls/hr 01/09/25 10:00 01/10/25 10:46 Clinimix E 4.25%/5% Solution IV CONT 80 mls/hr .[id number] JUANCARLOS Administration Protocol Fat Emulsion Intravenous 250 mls @ 20.833 mls/hr 01/09/25 09:20 01/10/25 02:57 Lipids 20% IVPB Infused Q24H JUANCARLOS Infusion Levalbuterol HCl 0.625 mg 01/07/25 05:59 Levalbuterol Neb 1.25 Mg/3 Ml INHALATION Q6H PRN shortness of breath or wheezing Morphine Sulfate 2 mg 01/07/25 00:44 01/08/25 22:48 Morphine Sulfate (*Crx) 2 Mg/Ml Inj IV PUSH 2 mg Q2H PRN Administration Pain Rated 7-10 Ondansetron HCl 4 mg 01/07/25 00:44 Ondansetron Inj 4 Mg/2 Ml Vial IV PUSH Q4H PRN Nausea Pantoprazole Sodium 40 mg 01/10/25 09:00 01/10/25 08:53 Pantoprazole Sodium Iv 40 Mg Vial IV PUSH 40 mg QAM JUANCARLOS Administration Phenol 1 spray 01/09/25 08:47 01/09/25 16:15 Phenol/Sod Pheno [place] Hdz (*Bkc) MUCOUS MEM 1 spray PRN PRN Administration Sore Throat Quetiapine Fumarate 25 mg 01/10/25 21:00 Quetiapine Fumarate 25 Mg Tablet PO HS JUANCARLOS Quetiapine Fumarate 25 mg 01/10/25 21:00 Quetiapine Fumarate 25 Mg Tablet PO HS JUANCARLOS Trazodone HCl 50 mg 01/10/25 17:00 Trazodone Hcl 50 Mg Tablet PO BID ON LICENSE OF [facility] Radiology Results: ITS Impressions Abdomen/Pelvis CT 01/07/25 07:34 IMPRESSION: 1. Small bowel obstruction secondary to a parastomal hernia. Labs Labs: Laboratory Results - last 24 hr 01/09/25 01/09/25 01/10/25 12:08 18:37 00:02 WBC RBC Hgb Hct MCV MCH MCHC RDW Plt Count MPV Immature Gran % (Auto) Neut % (Auto) Lymph % (Auto) [place] % (Auto) Eos % (Auto) Baso % (Auto) Lymph # (Auto) [place] # (Auto) Eos # (Auto) Baso # (Auto) Abs Immat Gran (auto) Absolute Neuts (auto) Absolute Nucleated RBC Total Counted Neutrophils % (Manual) Band Neutrophils % Lymphocytes % (Manual) Monocytes % (Manual) Eosinophils % (Manual) Nucleated RBC % Abs Neuts (Manual) Abs Lymphs (Manual) Abs Monocytes (Manual) Absolute Eos (Manual) Platelet Estimate Schistocytes Sodium Potassium Chloride Carbon Dioxide Anion Gap BUN Creatinine Estim Creat Clear Calc Estimated GFR Glucose POC Capillary Glucose 116 H 102 137 H Calcium Phosphorus Magnesium Transferrin Total Bilirubin AST ALT Alkaline Phosphatase Total Protein Albumin Triglycerides 01/10/25 01/10/25 05:06 06:30 WBC 5.4 RBC 3.83 L Hgb 11.5 L Hct 36.3 L MCV 94.8 D MCH 30.0 MCHC 31.7 L RDW 12.1 Plt Count 190 MPV 9.5 Immature Gran % (Auto) Not Reportable Neut % (Auto) Not Reportable Lymph % (Auto) Not Reportable [place] % (Auto) Not Reportable Eos % (Auto) Not Reportable Baso % (Auto) Not Reportable Lymph # (Auto) Not Reportable [place] # (Auto) Not Reportable Eos # (Auto) Not Reportable Baso # (Auto) Not Reportable Abs Immat Gran (auto) Not Reportable Absolute Neuts (auto) Not Reportable Absolute Nucleated RBC Not Reportable Total Counted 100 Neutrophils % (Manual) 55 Band Neutrophils % 22 H Lymphocytes % (Manual) 13 L Monocytes % (Manual) 6 Eosinophils % (Manual) 4 Nucleated RBC % Not Reportable Abs Neuts (Manual) 4.15 Abs Lymphs (Manual) 0.70 L Abs Monocytes (Manual) 0.32 Absolute Eos (Manual) 0.21 Platelet Estimate Adequate Schistocytes None seen Sodium 137 Potassium 2.9 L Chloride 107 Carbon Dioxide 25 Anion Gap 5 BUN 19 H Creatinine 0.70 Estim Creat Clear Calc 47 Estimated GFR > 60 Glucose 135 H POC Capillary Glucose 134 H Calcium 8.2 L Phosphorus 2.3 L Magnesium 2.0 Transferrin 111 L Total Bilirubin 0.2 AST 29 ALT 21 Alkaline Phosphatase 46 Total Protein 5.3 L Albumin 2.8 L Triglycerides 177 H
--- NOTE | 2025-01-10 12:47 | PM.IMPN ---
Progress Note: A&P Assessment and Plan (1) Small bowel obstruction: Code(s): K56.609 - Unspecified intestinal obstruction, unspecified as to partial versus complete obstruction Status: Acute Assessment and Plan: CT AP reviewed, BS subdued on NG tube after multiple failed attempts including with IR NG tube drainage much reduced and colostomy tube draining Continue PPN Advance diet per Gen surgery Gen surgery following Continue PRN IV morphine for pain control (2) Atrial fib/flutter, transient: Code(s): I48.91 - Unspecified atrial fibrillation; I48.92 - Unspecified atrial flutter Status: Acute Assessment and Plan: -the patient has a pacemaker and she is paced on the monitor. Therefore her rate is controlled. -according to the daughter the patient had a brain bleed from falling and is not a candidate for anticoagulation. (3) Colon cancer: Code(s): C18.9 - Malignant neoplasm of colon, unspecified Status: Acute Assessment and Plan: -according to the daughter her treatment for colon cancer has been completed and she is cancer free. According to the daughter she has a palliative Care team. (4) Hemiplegia following cerebrovascular accident (CVA): Code(s): I69.359 - Hemiplegia and hemiparesis following cerebral infarction affecting unspecified side Status: Acute Assessment and Plan: -chronic left side weakness. -she is answering some questions but the daughters at bedside assisting with history. -the patient is aware of herself and place but not always time. (5) Seizure: Code(s): R56.9 - Unspecified convulsions Status: Acute Assessment and Plan: - keppra iv instead of po (6) MDD (major depressive disorder), recurrent episode, moderate: Code(s): F33.1 - Major depressive disorder, recurrent, moderate Status: Acute Assessment and Plan: - trazodone on hold -quetiapine on hold - olanzapine on hold - escitalopram on hold (7) Hyperlipidemia: Code(s): E78.5 - Hyperlipidemia, unspecified Status: Acute Assessment and Plan: - atorvastatin on hold (8) HTN (hypertension): Code(s): I10 - Essential (primary) hypertension Status: Acute Assessment and Plan: - bp on the lower spectrum and he bp medications are on hold due to npo status however she has been on a beta angel and may need iv metoprolol or iv lopresser iv bp Plan Delirium Patient is mildly agitated this morning nurse noted she is not sleeping at night Home trazodone restarted DVT prophylaxis SCD, no AC due to recent Cerebral hemorrhage Subjective Date/time seen: 01/10/25 12:47 Interval history: Comfortable at bedside Gen surgery advancing oral intake, started on home po meds Review of Systems Constitutional: Constitutional: Reports as per HPI and Reports no additional constitutional complaints Eyes: Eyes: Reports as per HPI and Reports no additional eye complaints ENT: Reports system reviewed and no additional complaints, except as documented and Reports Normal hearing present Cardiovascular: Cardiovascular: Reports no additional cardiovascular complaints Respiratory: Respiratory: Reports as per HPI and Reports no additional respiratory complaints Gastrointestinal: Gastrointestinal: Reports as per HPI and Reports no additional gastrointestinal complaints Genitourinary: Genitourinary: Reports no additional female genitourinary complaints Musculoskeletal: Musculoskeletal: Reports no additional musculoskeletal complaints Integumentary/Breasts: Skin/Breast: Reports system reviewed and no additional complaints, except as docu Neurologic: Reports system reviewed and no additional complaints, except as documented and Reports Normal hearing present Psychiatric: Psychiatric: Reports no additional psychiatric complaints and Reports as per HPI Hematologic/Lymphatic: Hematologic/Lymphatic: Reports no additional hematologic/lymphatic complaints Allergic/Immunologic: Allergic/Immunologic: Reports no additional allergic/immunologic complaints Exam Const: General: cooperative, healthy appearing, comfortable, no acute distress, well developed, awake, Physically active, average body habitus and well nourished Nutritional Appearance: average body habitus and well nourished Orientation/consciousness: oriented to person, oriented to place, oriented to time and patient oriented x3 Other: She is forgetful at times. The daughters at the bedside answered questions. HENMT: Head: normal to inspection, No palpable skull fracture present, normocephalic, atraumatic and abrasion Ears: hearing grossly normal bilaterally and external ears normal Other: Bleeding from right nares status post attempt of NG tube insertion Eyes: General: appearance normal, both eyes and all related structures Alignment and Position: alignment normal Periorbital: periorbital findings normal Eyelids: eyelids normal Pupils: Pupil accommodation reflex normal EOM: EOMs intact bilaterally Neck: Neck: normal visual inspection, full ROM, no lymphadenopathy, trachea midline and supple Resp: Effort & Inspection: normal respiratory effort Auscultation: clear to auscultation bilaterally Cardio: Palpation: normal PMI Rate: regular rate Rhythm: regular rhythm Heart sounds: S1 normal heart sound present and S2 normal heart sound present Peripheral pulses: Peripheral pulses 2+ throughout Other: Paced beats GI: Inspection: normal to inspection Other: Colostomy bag the right lower quadrant intact without any stool noted. Abdomen is distended. No bowel sounds are heard at this time. Diffuse tenderness all over abdomen : General: Yes no CVA tenderness Back/Spine/Pelvis: Back: no CVA tenderness Skin: General skin exam: normal color Lesions: no lesions Rashes: no rashes Trauma: no lacerations or abrasions Wounds: no wounds Hair: normal Nails: normal Neuro: General: oriented to person, oriented to place, oriented to time and patient oriented x3 Cranial nerves: Yes Normal hearing present Extrem: General: normal to inspection Right upper extremity: normal to inspection and shoulder/upper arm Left upper extremity: normal to inspection and shoulder/upper arm Right lower extremity: normal to inspection Left lower extremity: normal to inspection Psych: Appearance: grossly normal Mental Status: mental status grossly normal Speech and movement: Normal speech and movement present Affect: normal affect Attitude: cooperative Thought process: Normal thought process present Insight: Poor insight present (Psych) Judgement: Limited judgement present (Psych) Objective Data Vital Signs Vital Signs: Vital Signs - 24 hr 01/09/25 14:00 01/09/25 15:39 01/09/25 19:47 Temperature 98.8 F 97.8 F Pulse Rate 91 89 Respiratory Rate 17 17 Blood Pressure 139/66 133/77 Pulse Oximetry 95 94 Oxygen Delivery Room Air 01/09/25 20:00 01/10/25 06:00 01/10/25 07:15 Temperature 97.8 F Pulse Rate 88 92 Respiratory Rate 17 16 Blood Pressure 129/69 Pulse Oximetry 94 96 Oxygen Delivery Room Air Room Air Intake/Output Intake/Output: Intake & Output 01/07/25 01/08/25 01/09/25 01/10/25 23:59 23:59 23:59 23:59 Intake Total 1600 2006.2 2051.1 1418.3 Output Total 0 850 1750 750 Balance 1600 1156.2 301.1 668.3 Meds/Results Medications: Active Medications Generic Name Dose Route Start Last Admin Trade Name Freq PRN Reason Stop Dose Admin Acetaminophen 650 mg 01/07/25 00:44 01/09/25 16:14 Acetaminophen 650 Mg Suppository RECTAL 650 mg Q6H PRN Administration Mild Pain (1-3) or Fever Al Hydrox/Mg Hydrox/Simethicone 30 ml 01/09/25 10:00 01/10/25 09:14 Mag Hydrox/Al Hydrox/Simeth 30 Ml Udc PO 30 ml Q8H JUANCARLOS Administration Olanzapine 5 mg/ Sterile Water 0 mg 01/07/25 15:30 01/10/25 08:51 2.1 ml IM 5 mg DAILY JUANCARLOS Administration Dextrose 12.5 gm 01/09/25 05:54 01/09/25 11:46 Dextrose 50% 25 Gm/50 Ml Syringe IV PUSH 12.5 gm PRN PRN Administration Hypoglycemia Protocol Glucagon 1 mg 01/09/25 05:54 Glucagon For Inj 1 Mg Vial IM PRN PRN Hypoglycemia Protocol Glucose 15 gm 01/09/25 05:54 Glucose Oral Gel 15 Gm Of Glucse In 37.5 Gm Tube PO PRN PRN Hypoglycemia Protocol Hydralazine HCl 10 mg 01/07/25 06:44 Hydralazine Hcl 20 Mg/Ml Vial IV PUSH Q8H PRN Blood Pressure - High systolic Piperacillin Sod/Tazobactam 50 mls @ 100 mls/hr 01/07/25 04:00 01/10/25 10:50 Sod 2.25 gm/ Sodium Chloride IVPB Infused Q6H JUANCARLOS Infusion Levetiracetam 500 mg in 100 mls @ 400 mls/hr 01/07/25 10:00 01/10/25 09:34 Keppra Iv IVPB 0 mls/hr Q12HR JUANCARLOS Infusion Dextrose 1,000 mls @ 100 mls/hr 01/09/25 05:54 Dextrose 5% 1,000 Ml IVPB PRN PRN Hypoglycemia Protocol Dextrose 1,000 mls @ 50 mls/hr 01/09/25 09:19 Dextrose 10% IV CONT .Q20H PRN if PN is interrupted Amino Acids/Electrolytes/Dextrose 1,000 mls @ 80 mls/hr 01/09/25 10:00 01/10/25 10:46 Clinimix E 4.25%/5% Solution IV CONT 80 mls/hr .[id number] JUANCARLOS Administration Protocol Fat Emulsion Intravenous 250 mls @ 20.833 mls/hr 01/09/25 09:20 01/10/25 02:57 Lipids 20% IVPB Infused Q24H JUANCARLOS Infusion Levalbuterol HCl 0.625 mg 01/07/25 05:59 Levalbuterol Neb 1.25 Mg/3 Ml INHALATION Q6H PRN shortness of breath or wheezing Miscellaneous Information 1 each 01/10/25 00:01 Zyprexa Im Qam? Home Med Link Looks Like Olanzapine (Zyprexa) 5mg Po Qhs. Please Clarify W XX 02/09/25 00:00 CLARIFY JUANCARLOS Morphine Sulfate 2 mg 01/07/25 00:44 01/08/25 22:48 Morphine Sulfate (*Crx) 2 Mg/Ml Inj IV PUSH 2 mg Q2H PRN Administration Pain Rated 7-10 Ondansetron HCl 4 mg 01/07/25 00:44 Ondansetron Inj 4 Mg/2 Ml Vial IV PUSH Q4H PRN Nausea Pantoprazole Sodium 40 mg 01/10/25 09:00 01/10/25 08:53 Pantoprazole Sodium Iv 40 Mg Vial IV PUSH 40 mg QAM JUANCARLOS Administration Phenol 1 spray 01/09/25 08:47 01/09/25 16:15 Phenol/Sod Pheno [place] Hdz (*Bkc) MUCOUS MEM 1 spray PRN PRN Administration Sore Throat Trazodone HCl 50 mg 01/10/25 21:00 Trazodone Hcl 50 Mg Tablet PO Q12HR JUANCARLOS Trazodone HCl 50 mg 01/10/25 11:44 01/10/25 12:31 Trazodone Hcl 50 Mg Tablet PO 50 mg QPM PRN Administration restlessness, agitation Radiology Results: ITS Impressions Abdomen/Pelvis CT 01/07/25 07:34 IMPRESSION: 1. Small bowel obstruction secondary to a parastomal hernia. Labs Labs: Laboratory Results - last 24 hr 01/09/25 01/10/25 01/10/25 18:37 00:02 05:06 WBC 5.4 RBC 3.83 L Hgb 11.5 L Hct 36.3 L MCV 94.8 D MCH 30.0 MCHC 31.7 L RDW 12.1 Plt Count 190 MPV 9.5 Immature Gran % (Auto) Not Reportable Neut % (Auto) Not Reportable Lymph % (Auto) Not Reportable [place] % (Auto) Not Reportable Eos % (Auto) Not Reportable Baso % (Auto) Not Reportable Lymph # (Auto) Not Reportable [place] # (Auto) Not Reportable Eos # (Auto) Not Reportable Baso # (Auto) Not Reportable Abs Immat Gran (auto) Not Reportable Absolute Neuts (auto) Not Reportable Absolute Nucleated RBC Not Reportable Total Counted 100 Neutrophils % (Manual) 55 Band Neutrophils % 22 H Lymphocytes % (Manual) 13 L Monocytes % (Manual) 6 Eosinophils % (Manual) 4 Nucleated RBC % Not Reportable Abs Neuts (Manual) 4.15 Abs Lymphs (Manual) 0.70 L Abs Monocytes (Manual) 0.32 Absolute Eos (Manual) 0.21 Platelet Estimate Adequate Schistocytes None seen Sodium 137 Potassium 2.9 L Chloride 107 Carbon Dioxide 25 Anion Gap 5 BUN 19 H Creatinine 0.70 Estim Creat Clear Calc 47 Estimated GFR > 60 Glucose 135 H POC Capillary Glucose 102 137 H Calcium 8.2 L Phosphorus 2.3 L Magnesium 2.0 Transferrin 111 L Total Bilirubin 0.2 AST 29 ALT 21 Alkaline Phosphatase 46 Total Protein 5.3 L Albumin 2.8 L Triglycerides 177 H 01/10/25 01/10/25 06:30 12:00 WBC RBC Hgb Hct MCV MCH MCHC RDW Plt Count MPV Immature Gran % (Auto) Neut % (Auto) Lymph % (Auto) [place] % (Auto) Eos % (Auto) Baso % (Auto) Lymph # (Auto) [place] # (Auto) Eos # (Auto) Baso # (Auto) Abs Immat Gran (auto) Absolute Neuts (auto) Absolute Nucleated RBC Total Counted Neutrophils % (Manual) Band Neutrophils % Lymphocytes % (Manual) Monocytes % (Manual) Eosinophils % (Manual) Nucleated RBC % Abs Neuts (Manual) Abs Lymphs (Manual) Abs Monocytes (Manual) Absolute Eos (Manual) Platelet Estimate Schistocytes Sodium Potassium Chloride Carbon Dioxide Anion Gap BUN Creatinine Estim Creat Clear Calc Estimated GFR Glucose POC Capillary Glucose 134 H 132 H Calcium Phosphorus Magnesium Transferrin Total Bilirubin AST ALT Alkaline Phosphatase Total Protein Albumin Triglycerides Quality VTE Prophylaxis VTE prophylaxis: mechanical ordered
[2025-01-10 14:00] VITALS: BP 161/86; PULSE 98; RESP 16; TEMP 36.5; O2SAT 97
[2025-01-10] MEDS: POTASSIUM CHLORIDE INJ 40 MEQ in SODIUM CHLORIDE 0.9% IV 500 ML 130 MEQ IVPB (17:25)
[2025-01-10 19:55] VITALS: BP 148/94; PULSE 110; RESP 20; TEMP 37.1; O2SAT 95
[2025-01-10] MEDS: MELATONIN 5 MG TABLET PO (20:29)
--- NOTE | 2025-01-10 22:19 | PC.NURSE ---
Spoke to pharmacy related to Lipid's running over time due to other medications being ran ie Ravi Fowler and she stated to go ahead and give Keppra and then restart Lipids.
[2025-01-10] MEDS: levETIRAcetam 500MG/NACL 100ML 500 MG/100 ML BAG 400 MG IVPB (22:50)
[2025-01-11] MEDS: PIPERACILLIN/TAZOBACTAM SOD 2.25 GM in SODIUM CHLORIDE 0.9% IV 50 ML 100 ML IVPB ×2 (00:03→04:16)
[2025-01-11] MEDS: AMINO ACIDS 4.25%/D5W/LYTES/CA 1,000 ML 80 ML IV CONT ×2 (00:46→13:27)
[2025-01-11] MEDS: FAT EMULSIONS IV 20% 250 ML 20.83 ML IVPB ×2 (00:47→10:31)
[2025-01-11] MEDS: MAG HYDROX/AL HYDROX/SIMETH 30 ML UDC PO (04:16)
[2025-01-11 05:10] LABS: Hematocrit 40.9 % (37.0-47.0); Hemoglobin 12.8 g/dL (12.0-15.0); Immature Granulocyte Percent A 5.0 % (0-0.5); Lymphocytes Absolute Auto 1.01 K/mm3 (0.9-3.2); Mean Corpuscular HGB Conc 31.3 g/dl (32-36); Mean Corpuscular Hemoglobin 30.3 pg (26-34); Mean Corpuscular Volume 96.7 fl (80-100); Nucleated Red Blood Cells Absolute Auto 0.000 K/mm3 (0.0-0.012); Nucleated Red Blood Cells Perc 0.0 % (0.0-0.2); Platelet Count Result 181 k/mm3 (150-375); Red Blood Count 4.23 M/mm3 (4.2-5.4); White Blood Count 6.8 K/mm3 (4.5-10.0)
[2025-01-11 05:23] LABS: INR 1.1; Prothrombin Time 14.5 Seconds (11.1-14.7)
[2025-01-11 05:24] LABS: Partial Thromboplastin Time 25.8 Seconds (22.3-36.8)
[2025-01-11 05:29] LABS: Alanine Aminotransferase 18 U/L (6-35); Albumin Level 3.1 g/dL (3.5-5.1); Alkaline Phosphatase 46 U/L (38-126); Anion Gap 8 mmol/L (4-12); Aspartate Amino Transferase 27 U/L (14-36); Bilirubin,Total 0.3 mg/dL (0.2-1.3); Blood Urea Nitrogen 12 mg/dL (7-17); Calcium 8.2 mg/dL (8.4-10.2); Carbon Dioxide 23 mmol/L (22-30); Chloride 106 mmol/L (98-107); Estimated CRCL calculation 51 ml/min; Estimated Glomerular Filt Rate > 60; Glucose 93 mg/dL (65-110); Magnesium 2.1 mg/dL (1.6-2.3); Potassium 3.1 mmol/L (3.4-5.0); Sodium 137 mmol/L (137-145); Total Protein 5.7 g/dL (6.3-8.2)
[2025-01-11 05:33] LABS: Transferrin 119 mg/dL (206-381)
[2025-01-11 06:00] VITALS: BP 135/71; PULSE 96; RESP 20; TEMP 36.6; O2SAT 96
[2025-01-11 07:40] VITALS: RESP 20; O2SAT 96
--- NOTE | 2025-01-11 10:16 | P.PNGS_ITS ---
Progress Note: A&P Assessment and Plan (1) Small bowel obstruction: Code(s): K56.609 - Unspecified intestinal obstruction, unspecified as to partial versus complete obstruction Status: Acute Assessment and Plan: * Resolving with conservative management. Ostomy started functioning over the weekend and surgery was cancelled. Continue NG tube decompression and PPN for now. Will re-evaluate her parastomal hernia and small bowel obstruction with a CT scan of the abdomen and pelvis with oral contrast today. (2) Colostomy in place: Code(s): Z93.3 - Colostomy status Status: Acute Assessment and Plan: * Ileostomy functioning well. (3) Insomnia: Qualifiers: Insomnia type: unspecified Qualified Code(s): G47.00 - Insomnia, unspecified Code(s): G47.00 - Insomnia, unspecified Status: Acute Assessment and Plan: * Patient typically takes 50 mg trazodone in the morning and at night, and then at times another 50 mg dose in the afternoons. Trazadone was resumed yesterday and she received a total of 100 mg at night after a 50 mg dose around noon, as well as her zyprexa. She is somnolent this morning, which is likely related to the medication. Will hold her morning dose of trazadone and monitor. (4) Cognitive impairment: Code(s): R41.89 - Other symptoms and signs involving cognitive functions and awareness Status: Chronic Assessment and Plan: * Previous stroke Plan I have discussed the patient's case and plan of care with Dr. Murillo. Subjective Subjective Date/Time Seen: 01/11/25 10:16 Interval history: Patient sleeping when entering the room and she has family, Maricel, at the bedside. She is difficult to arouse. She tries to open eyes, but quickly closes them. She will not open eyes and answer any questions. I spoke with the nurse who states she was arousable earlier this morning. In review of her chart, she was restarted on her trazadone, which was given through her NG tube. She is typically taking (per the family) 50 mg trazadone Q12H and then as needed once during the day. She received a 50 mg dose yesterday around noon and then she received a total of 100 mg last night before bed. I asked nursing to hold her morning dose this am. Ostomy functioning with minimal soft stool in bag this morning (350 cc stool out in past 24 hours). No fevers. WBC count normal. Exam Const: General: no acute distress Nutritional Appearance: malnourished and thin Orientation/consciousness: No patient oriented x3 (Unable to answer questions due to lethargy) and lethargic GI: Inspection: other (Mildly distended) GI Palp: Yes Soft to palpation, Yes Tenderness to palpation present (GI) (Grimacing with palpation in the RUQ) and No Guarding due to palpation present (GI) Auscultation: Hypoactive bowel sounds present Other: Ileostomy with minimal output in bag. No obvious herniation noted around stoma, which is soft and nontender, but appliance not removed. Objective Data Vital Signs Vital Signs: Vital Signs - 24 hr 01/10/25 14:00 01/10/25 19:55 01/10/25 20:00 Temperature 97.7 F 98.8 F Pulse Rate 98 110 H Respiratory Rate 16 20 Blood Pressure 161/86 H 148/94 H Pulse Oximetry 97 95 Oxygen Delivery Room Air 01/11/25 06:00 Temperature 97.9 F Pulse Rate 96 Respiratory Rate 20 Blood Pressure 135/71 Pulse Oximetry 96 Oxygen Delivery Intake/Output Intake/Output: Intake & Output 01/08/25 01/09/25 01/10/25 01/11/25 23:59 23:59 23:59 23:59 Intake Total 2006.2 2051.1 2568.3 50 Output Total 850 1750 1075 100 Balance 1156.2 301.1 1493.3 -50 Meds/Results Medications: Active Medications Generic Name Dose Route Start Last Admin Trade Name Freq PRN Reason Stop Dose Admin Acetaminophen 650 mg 01/07/25 00:44 01/09/25 16:14 Acetaminophen 650 Mg Suppository RECTAL 650 mg Q6H PRN Administration Mild Pain (1-3) or Fever Al Hydrox/Mg Hydrox/Simethicone 30 ml 01/09/25 10:00 01/11/25 04:16 Mag Hydrox/Al Hydrox/Simeth 30 Ml Udc PO 30 ml Q8H JUANCARLOS Administration Dextrose 12.5 gm 01/09/25 05:54 01/09/25 11:46 Dextrose 50% 25 Gm/50 Ml Syringe IV PUSH 12.5 gm PRN PRN Administration Hypoglycemia Protocol Glucagon 1 mg 01/09/25 05:54 Glucagon For Inj 1 Mg Vial IM PRN PRN Hypoglycemia Protocol Glucose 15 gm 01/09/25 05:54 Glucose Oral Gel 15 Gm Of Glucse In 37.5 Gm Tube PO PRN PRN Hypoglycemia Protocol Hydralazine HCl 10 mg 01/07/25 06:44 Hydralazine Hcl 20 Mg/Ml Vial IV PUSH Q8H PRN Blood Pressure - High systolic Piperacillin Sod/Tazobactam 50 mls @ 100 mls/hr 01/07/25 04:00 01/11/25 04:16 Sod 2.25 gm/ Sodium Chloride IVPB 100 mls/hr Q6H JUANCARLOS Administration Levetiracetam 500 mg in 100 mls @ 400 mls/hr 01/07/25 10:00 01/10/25 23:05 Keppra Iv IVPB Infused Q12HR JUANCARLOS Infusion Dextrose 1,000 mls @ 100 mls/hr 01/09/25 05:54 Dextrose 5% 1,000 Ml IVPB PRN PRN Hypoglycemia Protocol Dextrose 1,000 mls @ 50 mls/hr 01/09/25 09:19 Dextrose 10% IV CONT .Q20H PRN if PN is interrupted Amino Acids/Electrolytes/Dextrose 1,000 mls @ 80 mls/hr 01/09/25 10:00 01/11/25 00:46 Clinimix E 4.25%/5% Solution IV CONT 80 mls/hr .[id number] JUANCARLOS Administration Protocol Fat Emulsion Intravenous 250 mls @ 20.833 mls/hr 01/09/25 09:20 01/11/25 00:47 Lipids 20% IVPB 20.83 mls/hr Q24H JUANCARLOS Administration Levalbuterol HCl 0.625 mg 01/07/25 05:59 Levalbuterol Neb 1.25 Mg/3 Ml INHALATION Q6H PRN shortness of breath or wheezing Melatonin 5 mg 01/10/25 21:00 01/10/25 20:29 Melatonin 5 Mg Tablet PO 5 mg HS JUANCARLOS Administration Morphine Sulfate 2 mg 01/07/25 00:44 01/08/25 22:48 Morphine Sulfate (*Crx) 2 Mg/Ml Inj IV PUSH 2 mg Q2H PRN Administration Pain Rated 7-10 Olanzapine 2.5 mg 01/10/25 18:57 Olanzapine 2.5 Mg Tablet PO DAILY PRN Agitation Olanzapine 5 mg 01/10/25 21:00 01/10/25 20:29 Olanzapine 5 Mg Tablet PO 5 mg QHS JUANCARLOS Administration Ondansetron HCl 4 mg 01/07/25 00:44 Ondansetron Inj 4 Mg/2 Ml Vial IV PUSH Q4H PRN Nausea Pantoprazole Sodium 40 mg 01/10/25 09:00 01/10/25 08:53 Pantoprazole Sodium Iv 40 Mg Vial IV PUSH 40 mg QAM JUANCRALOS Administration Phenol 1 spray 01/09/25 08:47 01/09/25 16:15 Phenol/Sod Pheno [place] Hdz (*Bkc) MUCOUS MEM 1 spray PRN PRN Administration Sore Throat Trazodone HCl 50 mg 01/11/25 10:12 Trazodone Hcl 50 Mg Tablet PO Q12H PRN Insomnia Radiology Results: ITS Impressions Abdomen/Pelvis CT 01/07/25 07:34 IMPRESSION: 1. Small bowel obstruction secondary to a parastomal hernia. Abdomen X-Ray 01/11/25 09:04 IMPRESSION: 1. Persistent dilated loops of gas-filled small bowel consistent with small bowel obstruction. 2. Nasogastric tube folded back upon itself with distal tip in proximal side port in the proximal body of the stomach. Labs Labs: Laboratory Results - last 24 hr 01/07/25 01/10/25 01/10/25 04:34 12:00 16:52 WBC RBC Hgb Hct MCV MCH MCHC RDW Plt Count MPV Immature Gran % (Auto) Neut % (Auto) Lymph % (Auto) [place] % (Auto) Eos % (Auto) Baso % (Auto) Lymph # (Auto) [place] # (Auto) Eos # (Auto) Baso # (Auto) Abs Immat Gran (auto) Absolute Neuts (auto) Absolute Nucleated RBC Nucleated RBC % PT INR APTT Sodium Potassium Chloride Carbon Dioxide Anion Gap BUN Creatinine Estim Creat Clear Calc Estimated GFR Glucose POC Capillary Glucose 132 H 125 H Lactic Acid Calcium Phosphorus Magnesium Transferrin Total Bilirubin AST ALT Alkaline Phosphatase Total Protein Albumin Levetiracetam 35.9 01/10/25 01/11/25 01/11/25 23:28 04:56 05:44 WBC 6.8 RBC 4.23 Hgb 12.8 Hct 40.9 MCV 96.7 MCH 30.3 MCHC 31.3 L RDW 12.2 Plt Count 181 MPV 9.8 Immature Gran % (Auto) 5.0 H Neut % (Auto) 62.7 Lymph % (Auto) 14.9 L [place] % (Auto) 13.9 H Eos % (Auto) 3.4 Baso % (Auto) 0.1 L Lymph # (Auto) 1.01 [place] # (Auto) 0.9 H Eos # (Auto) 0.2 Baso # (Auto) 0.0 Abs Immat Gran (auto) 0.34 H Absolute Neuts (auto) 4.3 Absolute Nucleated RBC 0.000 Nucleated RBC % 0.0 PT 14.5 INR 1.1 APTT 25.8 Sodium 137 Potassium 3.1 L Chloride 106 Carbon Dioxide 23 Anion Gap 8 BUN 12 D Creatinine 0.65 L Estim Creat Clear Calc 51 Estimated GFR > 60 Glucose 93 POC Capillary Glucose 97 87 Lactic Acid 1.1 Calcium 8.2 L Phosphorus 2.4 L Magnesium 2.1 Transferrin 119 L Total Bilirubin 0.3 AST 27 ALT 18 Alkaline Phosphatase 46 Total Protein 5.7 L Albumin 3.1 L Levetiracetam
[2025-01-11] MEDS: levETIRAcetam 500MG/NACL 100ML 500 MG/100 ML BAG 400 MG IVPB ×2 (10:29→20:47)
[2025-01-11] MEDS: PANTOPRAZOLE SODIUM IV 40 MG VIAL IV PUSH (10:30)
--- NOTE | 2025-01-11 10:42 | PM.IMPN ---
Progress Note: A&P Assessment and Plan (1) Small bowel obstruction: Code(s): K56.609 - Unspecified intestinal obstruction, unspecified as to partial versus complete obstruction Status: Acute Assessment and Plan: CT AP reviewed, BS subdued continue NG Tube drainage Continue PPN Advance diet per Gen surgery Gen surgery following Continue PRN IV morphine for pain control (2) Atrial fib/flutter, transient: Code(s): I48.91 - Unspecified atrial fibrillation; I48.92 - Unspecified atrial flutter Status: Acute Assessment and Plan: -the patient has a pacemaker and she is paced on the monitor. Therefore her rate is controlled. -according to the daughter the patient had a brain bleed from falling and is not a candidate for anticoagulation. (3) Colon cancer: Code(s): C18.9 - Malignant neoplasm of colon, unspecified Status: Acute Assessment and Plan: -according to the daughter her treatment for colon cancer has been completed and she is cancer free. According to the daughter she has a palliative Care team. (4) Hemiplegia following cerebrovascular accident (CVA): Code(s): I69.359 - Hemiplegia and hemiparesis following cerebral infarction affecting unspecified side Status: Acute Assessment and Plan: -chronic left side weakness. -she is answering some questions but the daughters at bedside assisting with history. -the patient is aware of herself and place but not always time. (5) Seizure: Code(s): R56.9 - Unspecified convulsions Status: Acute Assessment and Plan: - keppra iv instead of po (6) MDD (major depressive disorder), recurrent episode, moderate: Code(s): F33.1 - Major depressive disorder, recurrent, moderate Status: Acute Assessment and Plan: Continue home meds (7) Hyperlipidemia: Code(s): E78.5 - Hyperlipidemia, unspecified Status: Acute Assessment and Plan: - atorvastatin on hold (8) HTN (hypertension): Code(s): I10 - Essential (primary) hypertension Status: Acute Assessment and Plan: - bp on the lower spectrum and he bp medications are on hold due to npo status however she has been on a beta angel and may need iv metoprolol or iv lopresser iv bp Plan Delirium resolved,since restarting home meds continue home meds DVT prophylaxis SCD, no AC due to recent Cerebral hemorrhage Subjective Date/time seen: 01/11/25 10:42 Interval history: Comfortable at bedside Abdominal obstruction series still showed SBO this morning Review of Systems Constitutional: Constitutional: Reports as per HPI and Reports no additional constitutional complaints Eyes: Eyes: Reports as per HPI and Reports no additional eye complaints ENT: Reports system reviewed and no additional complaints, except as documented and Reports Normal hearing present Cardiovascular: Cardiovascular: Reports no additional cardiovascular complaints Respiratory: Respiratory: Reports as per HPI and Reports no additional respiratory complaints Gastrointestinal: Gastrointestinal: Reports as per HPI and Reports no additional gastrointestinal complaints Genitourinary: Genitourinary: Reports no additional female genitourinary complaints Musculoskeletal: Musculoskeletal: Reports no additional musculoskeletal complaints Integumentary/Breasts: Skin/Breast: Reports system reviewed and no additional complaints, except as docu Neurologic: Reports system reviewed and no additional complaints, except as documented and Reports Normal hearing present Psychiatric: Psychiatric: Reports no additional psychiatric complaints and Reports as per HPI Hematologic/Lymphatic: Hematologic/Lymphatic: Reports no additional hematologic/lymphatic complaints Allergic/Immunologic: Allergic/Immunologic: Reports no additional allergic/immunologic complaints Exam Const: General: cooperative, healthy appearing, comfortable, no acute distress, well developed, awake, Physically active, average body habitus and well nourished Nutritional Appearance: average body habitus and well nourished Orientation/consciousness: oriented to person, oriented to place, oriented to time and patient oriented x3 Other: She is forgetful at times. The daughters at the bedside answered questions. HENMT: Head: normal to inspection, No palpable skull fracture present, normocephalic, atraumatic and abrasion Ears: hearing grossly normal bilaterally and external ears normal Other: Bleeding from right nares status post attempt of NG tube insertion Eyes: General: appearance normal, both eyes and all related structures Alignment and Position: alignment normal Periorbital: periorbital findings normal Eyelids: eyelids normal Pupils: Pupil accommodation reflex normal EOM: EOMs intact bilaterally Neck: Neck: normal visual inspection, full ROM, no lymphadenopathy, trachea midline and supple Resp: Effort & Inspection: normal respiratory effort Auscultation: clear to auscultation bilaterally Cardio: Palpation: normal PMI Rate: regular rate Rhythm: regular rhythm Heart sounds: S1 normal heart sound present and S2 normal heart sound present Peripheral pulses: Peripheral pulses 2+ throughout Other: Paced beats GI: Inspection: normal to inspection Other: Colostomy bag the right lower quadrant intact without any stool noted. Abdomen is distended. No bowel sounds are heard at this time. Diffuse tenderness all over abdomen : General: Yes no CVA tenderness Back/Spine/Pelvis: Back: no CVA tenderness Skin: General skin exam: normal color Lesions: no lesions Rashes: no rashes Trauma: no lacerations or abrasions Wounds: no wounds Hair: normal Nails: normal Neuro: General: oriented to person, oriented to place, oriented to time and patient oriented x3 Cranial nerves: Yes Normal hearing present Extrem: General: normal to inspection Right upper extremity: normal to inspection and shoulder/upper arm Left upper extremity: normal to inspection and shoulder/upper arm Right lower extremity: normal to inspection Left lower extremity: normal to inspection Psych: Appearance: grossly normal Mental Status: mental status grossly normal Speech and movement: Normal speech and movement present Affect: normal affect Attitude: cooperative Thought process: Normal thought process present Insight: Poor insight present (Psych) Judgement: Limited judgement present (Psych) Objective Data Vital Signs Vital Signs: Vital Signs - 24 hr 01/10/25 14:00 01/10/25 19:55 01/10/25 20:00 Temperature 97.7 F 98.8 F Pulse Rate 98 110 H Respiratory Rate 16 20 Blood Pressure 161/86 H 148/94 H Pulse Oximetry 97 95 Oxygen Delivery Room Air 01/11/25 06:00 Temperature 97.9 F Pulse Rate 96 Respiratory Rate 20 Blood Pressure 135/71 Pulse Oximetry 96 Oxygen Delivery Intake/Output Intake/Output: Intake & Output 01/08/25 01/09/25 01/10/25 01/11/25 23:59 23:59 23:59 23:59 Intake Total 2006.2 2051.1 2568.3 252.7 Output Total 850 1750 1075 100 Balance 1156.2 301.1 1493.3 152.7 Meds/Results Medications: Active Medications Generic Name Dose Route Start Last Admin Trade Name Freq PRN Reason Stop Dose Admin Acetaminophen 650 mg 01/07/25 00:44 01/09/25 16:14 Acetaminophen 650 Mg Suppository RECTAL 650 mg Q6H PRN Administration Mild Pain (1-3) or Fever Al Hydrox/Mg Hydrox/Simethicone 30 ml 01/09/25 10:00 01/11/25 10:30 Mag Hydrox/Al Hydrox/Simeth 30 Ml Udc PO 30 ml Q8H JUANCARLOS Administration Dextrose 12.5 gm 01/09/25 05:54 01/09/25 11:46 Dextrose 50% 25 Gm/50 Ml Syringe IV PUSH 12.5 gm PRN PRN Administration Hypoglycemia Protocol Glucagon 1 mg 01/09/25 05:54 Glucagon For Inj 1 Mg Vial IM PRN PRN Hypoglycemia Protocol Glucose 15 gm 01/09/25 05:54 Glucose Oral Gel 15 Gm Of Glucse In 37.5 Gm Tube PO PRN PRN Hypoglycemia Protocol Hydralazine HCl 10 mg 01/07/25 06:44 Hydralazine Hcl 20 Mg/Ml Vial IV PUSH Q8H PRN Blood Pressure - High systolic Levetiracetam 500 mg in 100 mls @ 400 mls/hr 01/07/25 10:00 01/11/25 10:29 Keppra Iv IVPB 400 mls/hr Q12HR JUANCARLOS Administration Dextrose 1,000 mls @ 100 mls/hr 01/09/25 05:54 Dextrose 5% 1,000 Ml IVPB PRN PRN Hypoglycemia Protocol Dextrose 1,000 mls @ 50 mls/hr 01/09/25 09:19 Dextrose 10% IV CONT .Q20H PRN if PN is interrupted Amino Acids/Electrolytes/Dextrose 1,000 mls @ 80 mls/hr 01/09/25 10:00 01/11/25 00:46 Clinimix E 4.25%/5% Solution IV CONT 80 mls/hr .[id number] JUANCARLOS Administration Protocol Fat Emulsion Intravenous 250 mls @ 20.833 mls/hr 01/09/25 09:20 01/11/25 10:31 Lipids 20% IVPB 20.83 mls/hr Q24H JUANCARLOS Administration Potassium Phosphate 20 mmol/ 256.6667 mls @ 64.167 mls/hr 01/11/25 10:45 Sodium Chloride IVPB 01/11/25 14:44 ONCE ONE Potassium Chloride 100 mls @ 50 mls/hr 01/11/25 18:00 Kcl 20 Meq/Sw 100 Ml IVPB 01/11/25 19:59 ONCE ONE Levalbuterol HCl 0.625 mg 01/07/25 05:59 Levalbuterol Neb 1.25 Mg/3 Ml INHALATION Q6H PRN shortness of breath or wheezing Melatonin 5 mg 01/10/25 21:00 01/10/25 20:29 Melatonin 5 Mg Tablet PO 5 mg HS JUANCARLOS Administration Miscellaneous Information 1 each 01/11/25 00:01 Trazodone Q12hr Prn Insomnia? Q12hr Insomnia? Please Clarify Prn Indication XX 02/10/25 00:00 CLARIFY JUANCARLOS Morphine Sulfate 2 mg 01/11/25 10:22 Morphine Sulfate (*Crx) 4 Mg/Ml Inj IV PUSH Q2H PRN Pain Rated 7-10 Olanzapine 2.5 mg 01/10/25 18:57 Olanzapine 2.5 Mg Tablet PO DAILY PRN Agitation Olanzapine 5 mg 01/10/25 21:00 01/10/25 20:29 Olanzapine 5 Mg Tablet PO 5 mg QHS JUANCARLOS Administration Ondansetron HCl 4 mg 01/07/25 00:44 Ondansetron Inj 4 Mg/2 Ml Vial IV PUSH Q4H PRN Nausea Pantoprazole Sodium 40 mg 01/10/25 09:00 01/11/25 10:30 Pantoprazole Sodium Iv 40 Mg Vial IV PUSH 40 mg QAM JUANCARLOS Administration Phenol 1 spray 01/09/25 08:47 01/09/25 16:15 Phenol/Sod Pheno [place] Hdz (*Bkc) MUCOUS MEM 1 spray PRN PRN Administration Sore Throat Trazodone HCl 50 mg 01/11/25 10:12 Trazodone Hcl 50 Mg Tablet PO Q12H PRN Insomnia Radiology Results: ITS Impressions Abdomen/Pelvis CT 01/07/25 07:34 IMPRESSION: 1. Small bowel obstruction secondary to a parastomal hernia. Abdomen X-Ray 01/11/25 09:04 IMPRESSION: 1. Persistent dilated loops of gas-filled small bowel consistent with small bowel obstruction. 2. Nasogastric tube folded back upon itself with distal tip in proximal side port in the proximal body of the stomach. Labs Labs: Laboratory Results - last 24 hr 01/07/25 01/10/25 01/10/25 04:34 12:00 16:52 WBC RBC Hgb Hct MCV MCH MCHC RDW Plt Count MPV Immature Gran % (Auto) Neut % (Auto) Lymph % (Auto) [place] % (Auto) Eos % (Auto) Baso % (Auto) Lymph # (Auto) [place] # (Auto) Eos # (Auto) Baso # (Auto) Abs Immat Gran (auto) Absolute Neuts (auto) Absolute Nucleated RBC Nucleated RBC % PT INR APTT Sodium Potassium Chloride Carbon Dioxide Anion Gap BUN Creatinine Estim Creat Clear Calc Estimated GFR Glucose POC Capillary Glucose 132 H 125 H Lactic Acid Calcium Phosphorus Magnesium Transferrin Total Bilirubin AST ALT Alkaline Phosphatase Total Protein Albumin Levetiracetam 35.9 01/10/25 01/11/25 01/11/25 23:28 04:56 05:44 WBC 6.8 RBC 4.23 Hgb 12.8 Hct 40.9 MCV 96.7 MCH 30.3 MCHC 31.3 L RDW 12.2 Plt Count 181 MPV 9.8 Immature Gran % (Auto) 5.0 H Neut % (Auto) 62.7 Lymph % (Auto) 14.9 L [place] % (Auto) 13.9 H Eos % (Auto) 3.4 Baso % (Auto) 0.1 L Lymph # (Auto) 1.01 [place] # (Auto) 0.9 H Eos # (Auto) 0.2 Baso # (Auto) 0.0 Abs Immat Gran (auto) 0.34 H Absolute Neuts (auto) 4.3 Absolute Nucleated RBC 0.000 Nucleated RBC % 0.0 PT 14.5 INR 1.1 APTT 25.8 Sodium 137 Potassium 3.1 L Chloride 106 Carbon Dioxide 23 Anion Gap 8 BUN 12 D Creatinine 0.65 L Estim Creat Clear Calc 51 Estimated GFR > 60 Glucose 93 POC Capillary Glucose 97 87 Lactic Acid 1.1 Calcium 8.2 L Phosphorus 2.4 L Magnesium 2.1 Transferrin 119 L Total Bilirubin 0.3 AST 27 ALT 18 Alkaline Phosphatase 46 Total Protein 5.7 L Albumin 3.1 L Levetiracetam Quality VTE Prophylaxis VTE prophylaxis: mechanical ordered
[2025-01-11] MEDS: POTASSIUM PHOS,M-BASIC-D-BASIC 20 MMOL in SODIUM CHLORIDE 0.9% IV 250 ML 64.17 MMOL IVPB (11:00)
[2025-01-11 11:51] VITALS: BMI 24.2
[2025-01-11 14:00] VITALS: BP 140/62; PULSE 96; RESP 16; TEMP 36.8; O2SAT 98
[2025-01-11] MEDS: KCL 20 MEQ/SW 100 ML 100 ML 50 MEQ IVPB (17:16)
[2025-01-11 20:20] VITALS: O2SAT 93
[2025-01-11 20:31] VITALS: BP 133/69; PULSE 85; RESP 20; TEMP 37.1; O2SAT 97
[2025-01-11] MEDS: MELATONIN 5 MG TABLET PO (20:57)
[2025-01-12] MEDS: AMINO ACIDS 4.25%/D5W/LYTES/CA 1,000 ML 80 ML IV CONT (03:02)
[2025-01-12 05:18] VITALS: BP 132/44; PULSE 90; RESP 20; TEMP 36.3; O2SAT 96
[2025-01-12 05:20] LABS: Hematocrit 37.3 % (37.0-47.0); Hemoglobin 11.6 g/dL (12.0-15.0); Immature Granulocyte Percent A 3.9 % (0-0.5); Lymphocytes Absolute Auto 1.10 K/mm3 (0.9-3.2); Mean Corpuscular HGB Conc 31.1 g/dl (32-36); Mean Corpuscular Hemoglobin 30.4 pg (26-34); Mean Corpuscular Volume 97.9 fl (80-100); Nucleated Red Blood Cells Absolute Auto 0.000 K/mm3 (0.0-0.012); Nucleated Red Blood Cells Perc 0.0 % (0.0-0.2); Platelet Count Result 171 k/mm3 (150-375); Red Blood Count 3.81 M/mm3 (4.2-5.4); White Blood Count 7.4 K/mm3 (4.5-10.0)
[2025-01-12 05:23] LABS: Triglycerides 96 mg/dL (<150)
[2025-01-12 05:24] LABS: Alanine Aminotransferase 15 U/L (6-35); Albumin Level 3.0 g/dL (3.5-5.1); Alkaline Phosphatase 39 U/L (38-126); Anion Gap 2 mmol/L (4-12); Aspartate Amino Transferase 22 U/L (14-36); Bilirubin,Total 0.3 mg/dL (0.2-1.3); Blood Urea Nitrogen 19 mg/dL (7-17); Calcium 8.2 mg/dL (8.4-10.2); Carbon Dioxide 28 mmol/L (22-30); Chloride 103 mmol/L (98-107); Estimated CRCL calculation 47 ml/min; Estimated Glomerular Filt Rate > 60; Glucose 110 mg/dL (65-110); Magnesium 2.4 mg/dL (1.6-2.3); Potassium 3.9 mmol/L (3.4-5.0); Sodium 133 mmol/L (137-145); Total Protein 5.5 g/dL (6.3-8.2)
--- NOTE | 2025-01-12 06:46 | P.CDI_ITS ---
CDI Query Clarification Request BMI:24.2 Nutritional Diagnostic Statement: Please refer to the comprehensive nutrition assessment for further information. If you agree with diagnosis of Severe Protein Calorie Malnutrition as related to inadequate protein-energy intake in the setting of acute disease (SBO) as evidenced < 75% EER for > 7 days; severe muscle wasting (temporalis) and severe subcutaneous fat loss (orbital fat pads). Please specify severity if known: * Mild * Moderate * Severe * Other/Unknown <Carol Sheth RN - Last Filed: 01/12/25 06:47> Clarified Diagnosis Clarified Diagnosis: Severe <Roberth Purcell MD - Last Filed: 01/12/25 17:03>
[2025-01-12 08:00] VITALS: RESP 20; O2SAT 96
--- NOTE | 2025-01-12 08:08 | P.PNIM_ITS ---
Progress Note: A&P Assessment and Plan (1) Small bowel obstruction: Code(s): K56.609 - Unspecified intestinal obstruction, unspecified as to partial versus complete obstruction Status: Acute Assessment and Plan: CT AP reviewed, BS subdued Discontinue PPN Advance diet per Gen surgery Gen surgery following Continue PRN IV morphine for pain control (2) Atrial fib/flutter, transient: Code(s): I48.91 - Unspecified atrial fibrillation; I48.92 - Unspecified atrial flutter Status: Acute Assessment and Plan: -the patient has a pacemaker and she is paced on the monitor. Therefore her rate is controlled. -according to the daughter the patient had a brain bleed from falling and is not a candidate for anticoagulation. (3) Colon cancer: Code(s): C18.9 - Malignant neoplasm of colon, unspecified Status: Acute Assessment and Plan: -according to the daughter her treatment for colon cancer has been completed and she is cancer free. According to the daughter she has a palliative Care team. (4) Hemiplegia following cerebrovascular accident (CVA): Code(s): I69.359 - Hemiplegia and hemiparesis following cerebral infarction affecting unspecified side Status: Acute Assessment and Plan: -chronic left side weakness. -she is answering some questions but the daughters at bedside assisting with history. -the patient is aware of herself and place but not always time. (5) Seizure: Code(s): R56.9 - Unspecified convulsions Status: Acute Assessment and Plan: - keppra iv instead of po (6) MDD (major depressive disorder), recurrent episode, moderate: Code(s): F33.1 - Major depressive disorder, recurrent, moderate Status: Acute Assessment and Plan: Continue home meds (7) Hyperlipidemia: Code(s): E78.5 - Hyperlipidemia, unspecified Status: Acute Assessment and Plan: - atorvastatin on hold (8) HTN (hypertension): Code(s): I10 - Essential (primary) hypertension Status: Acute Assessment and Plan: - bp on the lower spectrum and may need iv metoprolol or iv lopresser has been Plan DVT prophylaxis SCD, no AC due to recent Cerebral hemorrhage Subjective Date/time seen: 01/12/25 08:08 Interval history: Patient has a history of colon cancer, ostomy, CVA with a residual left-sided weakness, AFib not on anticoagulant due to fall and brain bleed. Patient is admitted in the setting of SBO, tolerating full liquid diet. Review of Systems Constitutional: Constitutional: Reports as per HPI and Reports no additional constitutional complaints Eyes: Eyes: Reports as per HPI and Reports no additional eye complaints ENT: Reports system reviewed and no additional complaints, except as documented and Reports Normal hearing present Cardiovascular: Cardiovascular: Reports no additional cardiovascular complain ts Respiratory: Respiratory: Reports as per HPI and Reports no additional respiratory complaints Gastrointestinal: Gastrointestinal: Reports as per HPI and Reports no additional gastrointestinal complaints Genitourinary: Genitourinary: Reports no additional female genitourinary complaints Musculoskeletal: Musculoskeletal: Reports no additional musculoskeletal complaints Integumentary/Breasts: Skin/Breast: Reports system reviewed and no additional complaints, except as docu Neurologic: Reports system reviewed and no additional complaints, except as documented and Reports Normal hearing present Psychiatric: Psychiatric: Reports no additional psychiatric complaints and Reports as per HPI Hematologic/Lymphatic: Hematologic/Lymphatic: Reports no additional hematologic/lymphatic complaints Allergic/Immunologic: Allergic/Immunologic: Reports no additional allergic/immunologic complaints Exam Const: General: cooperative, healthy appearing, comfortable, no acute distress, well developed, awake, Physically active, average body habitus and well nourished Nutritional Appearance: average body habitus and well nourished Orientation/consciousness: oriented to person, oriented to place, oriented to time and patient oriented x3 Other: She is forgetful at times. The daughters at the bedside answered questions. HENMT: Head: normal to inspection, No palpable skull fracture present, normocephalic, atraumatic and abrasion Ears: hearing grossly normal bilaterally and external ears normal Other: Bleeding from right nares status post attempt of NG tube insertion Eyes: General: appearance normal, both eyes and all related structures Alignment and Position: alignment normal Periorbital: periorbital findings normal Eyelids: eyelids normal Pupils: Pupil accommodation reflex normal EOM: EOMs intact bilaterally Neck: Neck: normal visual inspection, full ROM, no lymphadenopathy, trachea midline and supple Resp: Effort & Inspection: normal respiratory effort Auscultation: clear to auscultation bilaterally Cardio: Palpation: normal PMI Rate: regular rate Rhythm: regular rhythm Heart sounds: S1 normal heart sound present and S2 normal heart sound present Peripheral pulses: Peripheral pulses 2+ throughout Other: Paced beats GI: Inspection: normal to inspection Other: Colostomy bag the right lower quadrant intact without any stool noted. Abdomen is distended. No bowel sounds are heard at this time. Diffuse tenderness all over abdomen : General: Yes no CVA tenderness Back/Spine/Pelvis: Back: no CVA tenderness Skin: General skin exam: normal color Lesions: no lesions Rashes: no rashes Trauma: no lacerations or abrasions Wounds: no wounds Hair: normal Nails: normal Neuro: General: oriented to person, oriented to place, oriented to time and patient oriented x3 Cranial nerves: Yes Normal hearing present Extrem: General: normal to inspection Right upper extremity: normal to inspection and shoulder/upper arm Left upper extremity: normal to inspection and shoulder/upper arm Right lower extremity: normal to inspection Left lower extremity: normal to inspection Psych: Appearance: grossly normal Mental Status: mental status grossly normal Speech and movement: Normal speech and movement present Affect: normal affect Attitude: cooperative Thought process: Normal thought process present Insight: Poor insight present (Psych) Judgement: Limited judgement present (Psych) Objective Data Vital Signs Vital Signs: Vital Signs - 24 hr 01/11/25 14:00 01/11/25 20:00 01/11/25 20:20 Temperature 98.2 F Pulse Rate 96 Respiratory Rate 16 Blood Pressure 140/62 Pulse Oximetry 98 93 Oxygen Delivery Room Air Room Air Fraction of Inspired Oxygen 21 01/11/25 20:31 01/12/25 05:18 Temperature 98.7 F 97.4 F L Pulse Rate 85 90 Respiratory Rate 20 20 Blood Pressure 133/69 132/44 L Pulse Oximetry 97 96 Oxygen Delivery Fraction of Inspired Oxygen Intake/Output Intake/Output: Intake & Output 01/09/25 01/10/25 01/11/25 01/12/25 23:59 23:59 23:59 23:59 Intake Total 2051.1 2568.3 2508.0 940 Output Total 1750 9914 529 4361 Balance 301.1 1493.3 1983.0 -535 Meds/Results Medications: Active Medications Generic Name Dose Route Start Last Admin Trade Name Freq PRN Reason Stop Dose Admin Acetaminophen 650 mg 01/07/25 00:44 01/09/25 16:14 Acetaminophen 650 Mg Suppository RECTAL 650 mg Q6H PRN Administration Mild Pain (1-3) or Fever Dextrose 12.5 gm 01/09/25 05:54 01/09/25 11:46 Dextrose 50% 25 Gm/50 Ml Syringe IV PUSH 12.5 gm PRN PRN Administration Hypoglycemia Protocol Glucagon 1 mg 01/09/25 05:54 Glucagon For Inj 1 Mg Vial IM PRN PRN Hypoglycemia Protocol Glucose 15 gm 01/09/25 05:54 Glucose Oral Gel 15 Gm Of Glucse In 37.5 Gm Tube PO PRN PRN Hypoglycemia Protocol Hydralazine HCl 10 mg 01/07/25 06:44 Hydralazine Hcl 20 Mg/Ml Vial IV PUSH Q8H PRN Blood Pressure - High systolic Levetiracetam 500 mg in 100 mls @ 400 mls/hr 01/07/25 10:00 01/11/25 21:02 Keppra Iv IVPB Infused Q12HR JUANCARLOS Infusion Dextrose 1,000 mls @ 100 mls/hr 01/09/25 05:54 Dextrose 5% 1,000 Ml IVPB PRN PRN Hypoglycemia Protocol Dextrose 1,000 mls @ 50 mls/hr 01/09/25 09:19 Dextrose 10% IV CONT .Q20H PRN if PN is interrupted Amino Acids/Electrolytes/Dextrose 1,000 mls @ 80 mls/hr 01/09/25 10:00 03:02 Clinimix E 4.25%/5% Solution IV CONT 80 mls/hr .[id number] JUANCARLOS Administration Protocol Fat Emulsion Intravenous 250 mls @ 20.833 mls/hr 01/09/25 09:20 01/11/25 23:18 Lipids 20% IVPB Infused Q24H JUANCARLOS Infusion Levalbuterol HCl 0.625 mg 01/07/25 05:59 Levalbuterol Neb 1.25 Mg/3 Ml INHALATION Q6H PRN shortness of breath or wheezing Melatonin 5 mg 01/10/25 21:00 01/11/25 20:57 Melatonin 5 Mg Tablet PO 5 mg HS JUANCARLOS Administration Morphine Sulfate 2 mg 01/11/25 10:22 Morphine Sulfate (*Crx) 4 Mg/Ml Inj IV PUSH Q2H PRN Pain Rated 7-10 Olanzapine 2.5 mg 01/10/25 18:57 Olanzapine 2.5 Mg Tablet PO DAILY PRN Agitation Olanzapine 5 mg 01/10/25 21:00 01/11/25 20:57 Olanzapine 5 Mg Tablet PO 5 mg QHS JUANCARLOS Administration Ondansetron HCl 4 mg 01/07/25 00:44 Ondansetron Inj 4 Mg/2 Ml Vial IV PUSH Q4H PRN Nausea Pantoprazole Sodium 40 mg 01/10/25 09:00 01/11/25 10:30 Pantoprazole Sodium Iv 40 Mg Vial IV PUSH 40 mg QAM JUANCARLOS Administration Phenol 1 spray 01/09/25 08:47 01/09/25 16:15 Phenol/Sod Pheno [place] [facility] (*Bkc) MUCOUS MEM 1 spray PRN PRN Administration Sore Throat Trazodone HCl 50 mg 01/11/25 21:00 01/11/25 20:56 Trazodone Hcl 50 Mg Tablet PO 50 mg HS JUANCARLOS Administration Radiology Results: ITS Impressions Abdomen X-Ray 01/11/25 12:53 IMPRESSION: 1. Persistent small bowel obstruction without evident oral contrast material which could be due to dilution from residual fluid in the small bowel. Abdomen/Pelvis CT 01/11/25 15:05 IMPRESSION: 1. Significant delay of passage of oral contrast throughout the dilated proximal to mid small bowel which gradually decreases in caliber more distally without a discrete transition point to suggest obstruction which favors an ileus. 2. Small bilateral pleural effusions and small amount of ascites in the abdomen and pelvis. Labs Labs: Laboratory Results - last 24 hr 01/11/25 01/11/25 01/11/25 11:34 17:02 20:21 WBC RBC Hgb Hct MCV MCH MCHC RDW Plt Count MPV Immature Gran % (Auto) Neut % (Auto) Lymph % (Auto) [place] % (Auto) Eos % (Auto) Baso % (Auto) Lymph # (Auto) [place] # (Auto) Eos # (Auto) Baso # (Auto) Abs Immat Gran (auto) Absolute Neuts (auto) Absolute Nucleated RBC Nucleated RBC % Sodium Potassium Chloride Carbon Dioxide Anion Gap BUN Creatinine Estim Creat Clear Calc Estimated GFR Glucose POC Capillary Glucose 108 H 118 H 120 H Calcium Phosphorus Magnesium Total Bilirubin AST ALT Alkaline Phosphatase Total Protein Albumin Triglycerides 01/12/25 01/12/25 04:45 07:55 WBC 7.4 RBC 3.81 L Hgb 11.6 L Hct 37.3 MCV 97.9 MCH 30.4 MCHC 31.1 L RDW 12.5 Plt Count 171 MPV 9.7 Immature Gran % (Auto) 3.9 H Neut % (Auto) 65.6 Lymph % (Auto) 14.9 L [place] % (Auto) 10.4 H Eos % (Auto) 4.5 H Baso % (Auto) 0.7 Lymph # (Auto) 1.10 [place] # (Auto) 0.8 H Eos # (Auto) 0.3 Baso # (Auto) 0.1 Abs Immat Gran (auto) 0.29 H Absolute Neuts (auto) 4.9 Absolute Nucleated RBC 0.000 Nucleated RBC % 0.0 Sodium 133 L Potassium 3.9 Chloride 103 Carbon Dioxide 28 Anion Gap 2 L BUN 19 H Creatinine 0.71 Estim Creat Clear Calc 47 Estimated GFR > 60 Glucose 110 POC Capillary Glucose 132 H Calcium 8.2 L Phosphorus 4.2 Magnesium 2.4 H Total Bilirubin 0.3 AST 22 ALT 15 Alkaline Phosphatase 39 Total Protein 5.5 L Albumin 3.0 L Triglycerides 96 Quality VTE Prophylaxis VTE prophylaxis: mechanical ordered Hospitalist MIPS Advance Care Plan I have confirmed that the patient's Advanced Care Plan is present, code status is documented, or surrogate decision maker is listed in patient medical record.: Yes Medication Reconciliation I have utilized all available resources to obtain, update and review the patients current medications (includes all prescriptions, OTC, herbals, cannabis, and nutritional supplements).: Yes
[2025-01-12] MEDS: PANTOPRAZOLE SODIUM IV 40 MG VIAL IV PUSH (09:57)
[2025-01-12] MEDS: levETIRAcetam 500MG/NACL 100ML 500 MG/100 ML BAG 400 MG IVPB ×2 (09:57→20:45)
--- NOTE | 2025-01-12 10:06 | P.PNGS_ITS ---
Progress Note: A&P Assessment and Plan (1) Small bowel obstruction: Code(s): K56.609 - Unspecified intestinal obstruction, unspecified as to partial versus complete obstruction Status: Acute Assessment and Plan: * Resolving with conservative management. CT scan of the abdomen and pelvis with oral contrast yesterday showed no small bowel obstruction and still a loop of decompressed small bowel within the parastomal hernia without a transition point. NG was removed and she has been tolerating clear liquids. * Will advance her to full liquids. Potassium is better at 3.9 today. Phos is also normal. Stop the PPN. * Her parastomal hernia is stable for now, but she still has a loop of small bowel within the hernia and is at risk for recurrent small bowel obstructions. Although it is not emergent, we could consider the option for surgical repair as an outpatient to prevent this from recurring vs monitoring the hernia. We will discuss these options with the POA/family and plan accordingly. (2) Colostomy in place: Code(s): Z93.3 - Colostomy status Status: Acute Assessment and Plan: * Ileostomy functioning well. (3) Insomnia: Qualifiers: Insomnia type: unspecified Qualified Code(s): G47.00 - Insomnia, unspecified Code(s): G47.00 - Insomnia, unspecified Status: Acute Assessment and Plan: * More alert today. Continue home trazadone dose. (4) Cognitive impairment: Code(s): R41.89 - Other symptoms and signs involving cognitive functions and awareness Status: Chronic Assessment and Plan: * Previous stroke Plan I have discussed the patient's case and plan of care with Dr. Murillo. Subjective Subjective Date/Time Seen: 01/12/25 10:06 Patient reports: no new complaints Interval history: Patient more alert this morning. She is asking to advance her diet. She had over 1500 cc out of ostomy overnight per nursing. She is tolerating clear liquids without any issues. No nausea or vomiting. PPN still running. Exam Const: General: comfortable and no acute distress Nutritional Appearance: malnourished and thin GI: Inspection: other (Mildly distended) GI Palp: Yes Soft to palpation, No Tenderness to palpation present (GI) and No Guarding due to palpation present (GI) Auscultation: normal bowel sounds Other: Ileostomy with output noted in bag. No obvious visible herniation noted around stoma, which is soft and nontender, but appliance not removed. Objective Data Vital Signs Vital Signs: Vital Signs - 24 hr 01/11/25 14:00 01/11/25 20:00 01/11/25 20:20 Temperature 98.2 F Pulse Rate 96 Respiratory Rate 16 Blood Pressure 140/62 Pulse Oximetry 98 93 Oxygen Delivery Room Air Room Air Fraction of Inspired Oxygen 21 01/11/25 20:31 01/12/25 05:18 01/12/25 08:00 Temperature 98.7 F 97.4 F L Pulse Rate 85 90 Respiratory Rate 20 20 20 Blood Pressure 133/69 132/44 L Pulse Oximetry 97 96 96 Oxygen Delivery Room Air Fraction of Inspired Oxygen Intake/Output Intake/Output: Intake & Output 01/09/25 01/10/25 01/11/25 01/12/25 23:59 23:59 23:59 23:59 Intake Total 2051.1 2568.3 2508.0 940 Output Total 1750 2083 182 8877 Balance 301.1 1493.3 1983.0 -535 Meds/Results Medications: Active Medications Generic Name Dose Route Start Last Admin Trade Name Freq PRN Reason Stop Dose Admin Acetaminophen 650 mg 01/07/25 00:44 01/09/25 16:14 Acetaminophen 650 Mg Suppository RECTAL 650 mg Q6H PRN Administration Mild Pain (1-3) or Fever Dextrose 12.5 gm 01/09/25 05:54 01/09/25 11:46 Dextrose 50% 25 Gm/50 Ml Syringe IV PUSH 12.5 gm PRN PRN Administration Hypoglycemia Protocol Glucagon 1 mg 01/09/25 05:54 Glucagon For Inj 1 Mg Vial IM PRN PRN Hypoglycemia Protocol Glucose 15 gm 01/09/25 05:54 Glucose Oral Gel 15 Gm Of Glucse In 37.5 Gm Tube PO PRN PRN Hypoglycemia Protocol Hydralazine HCl 10 mg 01/07/25 06:44 Hydralazine Hcl 20 Mg/Ml Vial IV PUSH Q8H PRN Blood Pressure - High systolic Levetiracetam 500 mg in 100 mls @ 400 mls/hr 01/07/25 10:00 01/12/25 09:57 Keppra Iv IVPB 400 mls/hr Q12HR JUANCARLOS Administration Dextrose 1,000 mls @ 100 mls/hr 01/09/25 05:54 Dextrose 5% 1,000 Ml IVPB PRN PRN Hypoglycemia Protocol Levalbuterol HCl 0.625 mg 01/07/25 05:59 Levalbuterol Neb 1.25 Mg/3 Ml INHALATION Q6H PRN shortness of breath or wheezing Melatonin 5 mg 01/10/25 21:00 01/11/25 20:57 Melatonin 5 Mg Tablet PO 5 mg HS JUANCARLOS Administration Olanzapine 2.5 mg 01/10/25 18:57 Olanzapine 2.5 Mg Tablet PO DAILY PRN Agitation Olanzapine 5 mg 01/10/25 21:00 01/11/25 20:57 Olanzapine 5 Mg Tablet PO 5 mg QHS JUANCARLOS Administration Ondansetron HCl 4 mg 01/07/25 00:44 Ondansetron Inj 4 Mg/2 Ml Vial IV PUSH Q4H PRN Nausea Pantoprazole Sodium 40 mg 01/10/25 09:00 01/12/25 09:57 Pantoprazole Sodium Iv 40 Mg Vial IV PUSH 40 mg QAM JUANCARLOS Administration Trazodone HCl 50 mg 01/11/25 21:00 01/11/25 20:56 Trazodone Hcl 50 Mg Tablet PO 50 mg HS JUANCARLOS Administration Radiology Results: ITS Impressions Abdomen X-Ray 01/11/25 12:53 IMPRESSION: 1. Persistent small bowel obstruction without evident oral contrast material which could be due to dilution from residual fluid in the small bowel. Abdomen/Pelvis CT 01/11/25 15:05 IMPRESSION: 1. Significant delay of passage of oral contrast throughout the dilated proximal to mid small bowel which gradually decreases in caliber more distally without a discrete transition point to suggest obstruction which favors an ileus. 2. Small bilateral pleural effusions and small amount of ascites in the abdomen and pelvis. Labs Labs: Laboratory Results - last 24 hr 01/11/25 01/11/25 01/11/25 11:34 17:02 20:21 WBC RBC Hgb Hct MCV MCH MCHC RDW Plt Count MPV Immature Gran % (Auto) Neut % (Auto) Lymph % (Auto) [place] % (Auto) Eos % (Auto) Baso % (Auto) Lymph # (Auto) [place] # (Auto) Eos # (Auto) Baso # (Auto) Abs Immat Gran (auto) Absolute Neuts (auto) Absolute Nucleated RBC Nucleated RBC % Sodium Potassium Chloride Carbon Dioxide Anion Gap BUN Creatinine Estim Creat Clear Calc Estimated GFR Glucose POC Capillary Glucose 108 H 118 H 120 H Calcium Phosphorus Magnesium Total Bilirubin AST ALT Alkaline Phosphatase Total Protein Albumin Triglycerides 01/12/25 01/12/25 04:45 07:55 WBC 7.4 RBC 3.81 L Hgb 11.6 L Hct 37.3 MCV 97.9 MCH 30.4 MCHC 31.1 L RDW 12.5 Plt Count 171 MPV 9.7 Immature Gran % (Auto) 3.9 H Neut % (Auto) 65.6 Lymph % (Auto) 14.9 L [place] % (Auto) 10.4 H Eos % (Auto) 4.5 H Baso % (Auto) 0.7 Lymph # (Auto) 1.10 [place] # (Auto) 0.8 H Eos # (Auto) 0.3 Baso # (Auto) 0.1 Abs Immat Gran (auto) 0.29 H Absolute Neuts (auto) 4.9 Absolute Nucleated RBC 0.000 Nucleated RBC % 0.0 Sodium 133 L Potassium 3.9 Chloride 103 Carbon Dioxide 28 Anion Gap 2 L BUN 19 H Creatinine 0.71 Estim Creat Clear Calc 47 Estimated GFR > 60 Glucose 110 POC Capillary Glucose 132 H Calcium 8.2 L Phosphorus 4.2 Magnesium 2.4 H Total Bilirubin 0.3 AST 22 ALT 15 Alkaline Phosphatase 39 Total Protein 5.5 L Albumin 3.0 L Triglycerides 96
--- NOTE | 2025-01-12 11:22 | PCNFU ---
Nutrition Follow-Up Complete: Severe Protein Calorie Malnutrition as related to inadequate protein-energy intake in the setting of acute disease (SBO) as evidenced < 75% EER for > 7 days; severe muscle wasting (temporalis) and severe subcutaneous fat loss (orbital fat pads). Goal: Meeting estimated nutritional needs. Patient is progressing towards goal. We will continue current goal. Pt current nutrition is Full liquids with diet supplements. Last recorded weight is 62 kg Bowel Motility: +BM reported 01/12, Ileostomy Labs Reviewed:BUN 19, Alb 3.0, Na 133 Meds Noted: Keppra, Protonix. Skin: WNL Additional Notes:NGT removed. PPN discontinued. Diet order advanced to full liquids. Recommending Ensure Plus High Protein for additional 350 kcal and 20 gm protein. Agree with diet orders at this time. Will monitor weight, labs, skin, diet orders, meds every 3 days.
--- NOTE | 2025-01-12 11:43 | PC.NURSE ---
On 01/12/25, the student, [Jesús Paez], provided care and completed [facility] documentation on this patient. I have reviewed the student's documentation and agree with the findings.
[2025-01-12 14:00] VITALS: BP 132/58; PULSE 90; RESP 19; TEMP 36.4; O2SAT 96
[2025-01-12 20:00] VITALS: PULSE 98; RESP 16; O2SAT 94
[2025-01-12] MEDS: SALINE LOCK FLUSH 10 ML IV PUSH (20:46)
[2025-01-12] MEDS: MELATONIN 5 MG TABLET PO (20:46)
[2025-01-12 21:35] VITALS: BP 109/67; PULSE 98; RESP 16; TEMP 36.8; O2SAT 94
[2025-01-13 06:24] VITALS: BP 105/48; PULSE 90; RESP 16; TEMP 36.6; O2SAT 95
--- NOTE | 2025-01-13 08:46 | P.PNIM_ITS ---
Progress Note: A&P Assessment and Plan (1) Small bowel obstruction: Code(s): K56.609 - Unspecified intestinal obstruction, unspecified as to partial versus complete obstruction Status: Acute Assessment and Plan: CT AP reviewed, BS subdued Discontinue PPN Advance diet per Gen surgery Surgery discussed with POA in regards to parastomal hernia repair with possible mesh placement to prevent recurrent SBO. Possible surgery later this week. Gen surgery following Continue PRN IV morphine for pain control (2) Atrial fib/flutter, transient: Code(s): I48.91 - Unspecified atrial fibrillation; I48.92 - Unspecified atrial flutter Status: Acute Assessment and Plan: -the patient has a pacemaker and she is paced on the monitor. Therefore her rate is controlled. -according to the daughter the patient had a brain bleed from falling and is not a candidate for anticoagulation. (3) Colon cancer: Code(s): C18.9 - Malignant neoplasm of colon, unspecified Status: Acute Assessment and Plan: -according to the daughter her treatment for colon cancer has been completed and she is cancer free. According to the daughter she has a palliative Care team. (4) Hemiplegia following cerebrovascular accident (CVA): Code(s): I69.359 - Hemiplegia and hemiparesis following cerebral infarction affecting unspecified side Status: Acute Assessment and Plan: -chronic left side weakness. -she is answering some questions but the daughters at bedside assisting with history. -the patient is aware of herself and place but not always time. (5) Seizure: Code(s): R56.9 - Unspecified convulsions Status: Acute Assessment and Plan: - keppra iv instead of po (6) MDD (major depressive disorder), recurrent episode, moderate: Code(s): F33.1 - Major depressive disorder, recurrent, moderate Status: Acute Assessment and Plan: Continue home meds (7) Hyperlipidemia: Code(s): E78.5 - Hyperlipidemia, unspecified Status: Acute Assessment and Plan: - atorvastatin on hold (8) HTN (hypertension): Code(s): I10 - Essential (primary) hypertension Status: Acute Assessment and Plan: - bp on the lower spectrum and may need iv metoprolol or iv lopresser has been Plan DVT prophylaxis SCD, no AC due to recent Cerebral hemorrhage Subjective Date/time seen: 01/13/25 08:46 Interval history: Patient tolerating clear liquid diet. No evidence of nausea or vomiting. Surgery discussed with POA in regards to parastomal hernia repair with possible mesh placement to prevent recurrent SBO. Possible surgery later this week. Review of Systems Constitutional: Constitutional: Reports as per HPI and Reports no additional constitutional complaints Eyes: Eyes: Reports as per HPI and Reports no additional eye complaints ENT: Reports system reviewed and no additional complaints, except as docume nted and Reports Normal hearing present Cardiovascular: Cardiovascular: Reports no additional cardiovascular complaints Respiratory: Respiratory: Reports as per HPI and Reports no additional respiratory complaints Gastrointestinal: Gastrointestinal: Reports as per HPI and Reports no additional gastrointestinal complaints Genitourinary: Genitourinary: Reports no additional female genitourinary complaints Musculoskeletal: Musculoskeletal: Reports no additional musculoskeletal complaints Integumentary/Breasts: Skin/Breast: Reports system reviewed and no additional complaints, except as docu Neurologic: Reports system reviewed and no additional complaints, except as documented and Reports Normal hearing present Psychiatric: Psychiatric: Reports no additional psychiatric complaints and Reports as per HPI Hematologic/Lymphatic: Hematologic/Lymphatic: Reports no additional hematologic/lymphatic complaints Allergic/Immunologic: Allergic/Immunologic: Reports no additional allergic/immunologic complaints Exam Const: General: cooperative, healthy appearing, comfortable, no acute distress, well developed, awake, Physically active, average body habitus and well nourished Nutritional Appearance: average body habitus and well nourished Orientation/consciousness: oriented to person, oriented to place, oriented to time and patient oriented x3 Other: She is forgetful at times. The daughters at the bedside answered questions. HENMT: Head: normal to inspection, No palpable skull fracture present, normocephalic, atraumatic and abrasion Ears: hearing grossly normal bilaterally and external ears normal Other: Bleeding from right nares status post attempt of NG tube insertion Eyes: General: appearance normal, both eyes and all related structures Alignment and Position: alignment normal Periorbital: periorbital findings normal Eyelids: eyelids normal Pupils: Pupil accommodation reflex normal EOM: EOMs intact bilaterally Neck: Neck: normal visual inspection, full ROM, no lymphadenopathy, trachea midline and supple Resp: Effort & Inspection: normal respiratory effort Auscultation: clear to auscultation bilaterally Cardio: Palpation: normal PMI Rate: regular rate Rhythm: regular rhythm Heart sounds: S1 normal heart sound present and S2 normal heart sound present Peripheral pulses: Peripheral pulses 2+ throughout Other: Paced beats GI: Inspection: normal to inspection Other: Colostomy bag the right lower quadrant intact without any stool noted. Abdomen is distended. No bowel sounds are heard at this time. Diffuse tenderness all over abdomen : General: Yes no CVA tenderness Back/Spine/Pelvis: Back: no CVA tenderness Skin: General skin exam: normal color Lesions: no lesions Rashes: no rashes Trauma: no lacerations or abrasions Wounds: no wounds Hair: normal Nails: normal Neuro: General: oriented to person, oriented to place, oriented to time and patient oriented x3 Cranial nerves: Yes Normal hearing present Extrem: General: normal to inspection Right upper extremity: normal to i nspection and shoulder/upper arm Left upper extremity: normal to inspection and shoulder/upper arm Right lower extremity: normal to inspection Left lower extremity: normal to inspection Psych: Appearance: grossly normal Mental Status: mental status grossly normal Speech and movement: Normal speech and movement present Affect: normal affect Attitude: cooperative Thought process: Normal thought process present Insight: Poor insight present (Psych) Judgement: Limited judgement present (Psych) Objective Data Vital Signs Vital Signs: Vital Signs - 24 hr 01/12/25 14:00 01/12/25 20:00 01/12/25 21:35 Temperature 97.6 F 98.2 F Pulse Rate 90 98 98 Respiratory Rate 19 16 16 Blood Pressure 132/58 L 109/67 Pulse Oximetry 96 94 94 Oxygen Delivery Room Air Fraction of Inspired Oxygen 21 01/13/25 06:24 Temperature 97.9 F Pulse Rate 90 Respiratory Rate 16 Blood Pressure 105/48 L Pulse Oximetry 95 Oxygen Delivery Fraction of Inspired Oxygen Intake/Output Intake/Output: Intake & Output 01/10/25 01/11/25 01/12/25 01/13/25 23:59 23:59 23:59 23:59 Intake Total 2568.3 2508.0 2677 Output Total 9829 339 0371 700 Balance 1493.3 1983.0 -298 -700 Meds/Results Medications: Active Medications Generic Name Dose Route Start Last Admin Trade Name Freq PRN Reason Stop Dose Admin Acetaminophen 650 mg 01/07/25 00:44 01/09/25 16:14 Acetaminophen 650 Mg Suppository RECTAL 650 mg Q6H PRN Administration Mild Pain (1-3) or Fever Dextrose 12.5 gm 01/09/25 05:54 01/09/25 11:46 Dextrose 50% 25 Gm/50 Ml Syringe IV PUSH 12.5 gm PRN PRN Administration Hypoglycemia Protocol Glucagon 1 mg 01/09/25 05:54 Glucagon For Inj 1 Mg Vial IM PRN PRN Hypoglycemia Protocol Glucose 15 gm 01/09/25 05:54 Glucose Oral Gel 15 Gm Of Glucse In 37.5 Gm Tube PO PRN PRN Hypoglycemia Protocol Hydralazine HCl 10 mg 01/07/25 06:44 Hydralazine Hcl 20 Mg/Ml Vial IV PUSH Q8H PRN Blood Pressure - High systolic Levetiracetam 500 mg in 100 mls @ 400 mls/hr 01/07/25 10:00 01/12/25 20:45 Keppra Iv IVPB 400 mls/hr Q12HR JUANCARLOS Administration Dextrose 1,000 mls @ 100 mls/hr 01/09/25 05:54 Dextrose 5% 1,000 Ml IVPB PRN PRN Hypoglycemia Protocol Levalbuterol HCl 0.625 mg 01/07/25 05:59 Levalbuterol Neb 1.25 Mg/3 Ml INHALATION Q6H PRN shortness of breath or wheezing Melatonin 5 mg 01/10/25 21:00 01/12/25 20:46 Melatonin 5 Mg Tablet PO 5 mg HS JAUNCARLOS Administration Olanzapine 2.5 mg 01/10/25 18:57 Olanzapine 2.5 Mg Tablet PO DAILY PRN Agitation Olanzapine 5 mg 01/10/25 21:00 01/12/25 20:46 Olanzapine 5 Mg Tablet PO 5 mg QHS JUANCARLOS Administration Ondansetron HCl 4 mg 01/07/25 00:44 Ondansetron Inj 4 Mg/2 Ml Vial IV PUSH Q4H PRN Nausea Pantoprazole Sodium 40 mg 01/10/25 09:00 01/12/25 09:57 Pantoprazole Sodium Iv 40 Mg Vial IV PUSH 40 mg QAM JUANCARLOS Administration Sodium Chloride 10 ml 01/12/25 22:00 01/13/25 04:44 Saline Lock Flush IV PUSH Not Given Q8HR JUANCARLOS Sodium Chloride 10 ml 01/12/25 15:51 Saline Lock Flush IV PUSH PRN PRN Flush Sodium Chloride 20 ml 01/12/25 15:51 Saline Lock Flush IV PUSH PRN PRN after blood draws Trazodone HCl 50 mg 01/11/25 21:00 01/12/25 20:46 Trazodone Hcl 50 Mg Tablet PO 50 mg HS JUANCARLOS Administration Radiology Results: ITS Impressions Abdomen X-Ray 01/11/25 12:53 IMPRESSION: 1. Persistent small bowel obstruction without evident oral contrast material which could be due to dilution from residual fluid in the small bowel. Abdomen/Pelvis CT 01/11/25 15:05 IMPRESSION: 1. Significant delay of passage of oral contrast throughout the dilated proximal to mid small bowel which gradually decreases in caliber more distally without a discrete transition point to suggest obstruction which favors an ileus. 2. Small bilateral pleural effusions and small amount of ascites in the abdomen and pelvis. Labs Labs: Laboratory Results - last 24 hr 01/12/25 11:28 POC Capillary Glucose 129 H Quality VTE Prophylaxis VTE prophylaxis: mechanical ordered Hospitalist [facility] Advance Care Plan I have confirmed that the patient's Advanced Care Plan is present, code status is documented, or surrogate decision maker is listed in patient medical record.: Yes Medication Reconciliation I have utilized all available resources to obtain, update and review the patients current medications (includes all prescriptions, OTC, herbals, cannabis, and nutritional supplements).: Yes
[2025-01-13] MEDS: levETIRAcetam 500MG/NACL 100ML 500 MG/100 ML BAG 400 MG IVPB ×2 (09:01→21:30)
[2025-01-13] MEDS: PANTOPRAZOLE SODIUM IV 40 MG VIAL IV PUSH (09:01)
[2025-01-13 09:16] VITALS: RESP 16; O2SAT 95
[2025-01-13 10:02] LABS: Anion Gap 5 mmol/L (4-12); Blood Urea Nitrogen 22 mg/dL (7-17); Calcium 8.5 mg/dL (8.4-10.2); Carbon Dioxide 27 mmol/L (22-30); Chloride 103 mmol/L (98-107); Estimated CRCL calculation 41 ml/min; Estimated Glomerular Filt Rate > 60; Glucose 154 mg/dL (65-110); Potassium 3.7 mmol/L (3.4-5.0); Sodium 135 mmol/L (137-145)
--- NOTE | 2025-01-13 13:14 | P.PNGS_ITS ---
Progress Note: A&P Assessment and Plan (1) Small bowel obstruction: Code(s): K56.609 - Unspecified intestinal obstruction, unspecified as to partial versus complete obstruction Status: Acute Assessment and Plan: * Resolved with conservative management. Having good output through ileostomy. * Her parastomal hernia is stable for now, but she still has a loop of small bowel within the hernia and is at risk for recurrent small bowel obstructions. Patient was added to the surgery schedule for Saturday01/15/25 at 1 pm. She will have a robotic assisted laparoscopic peristomal hernia repair with possible mesh placement with Dr. Murillo. * Continue full liquid diet. Moe make her NPO tomorrow at midnight. (2) Colostomy in place: Code(s): Z93.3 - Colostomy status Status: Acute Assessment and Plan: * Ileostomy functioning well. Normal output today upon exam. (3) Insomnia: Qualifiers: Insomnia type: unspecified Qualified Code(s): G47.00 - Insomnia, unspecified Code(s): G47.00 - Insomnia, unspecified Status: Acute Assessment and Plan: * More alert today. Continue home trazadone dose. (4) Cognitive impairment: Code(s): R41.89 - Other symptoms and signs involving cognitive functions and awareness Status: Chronic Assessment and Plan: * Previous stroke Plan I have discussed the patient's case and plan of care with Dr. Murillo. Subjective Subjective Date/Time Seen: 01/13/25 13:14 Patient reports: no new complaints, feels better and bowel movement (good ileostomy output) Interval history: Patient is doing well today. No new complaints. She is passing stool through her ostomy. Tolerating full liquid diet without nausea or vomiting. She notes some abdominal discomfort after eating. Labs and vitals stable. Exam GI: Inspection: normal to inspection (NG tube in place, output noted in ileostomy bag) GI Palp: Yes Soft to palpation Auscultation: normal bowel sounds Other: Ileostomy with good output noted in bag. No obvious visible herniation noted around stoma, which is soft and nontender. Appliance dry and intact. Skin: General skin exam: normal color and no rashes or lesions noted Objective Data Vital Signs Vital Signs: Vital Signs - 24 hr 01/12/25 14:00 01/12/25 20:00 01/12/25 21:35 Temperature 97.6 F 98.2 F Pulse Rate 90 98 98 Respiratory Rate 19 16 16 Blood Pressure 132/58 L 109/67 Pulse Oximetry 96 94 94 Oxygen Delivery Room Air Fraction of Inspired Oxygen 21 01/13/25 06:24 01/13/25 09:16 Temperature 97.9 F Pulse Rate 90 Respiratory Rate 16 16 Blood Pressure 105/48 L Pulse Oximetry 95 95 Oxygen Delivery Room Air Fraction of Inspired Oxygen Intake/Output Intake/Output: Intake & Output 01/10/25 01/11/25 01/12/25 01/13/25 23:59 23:59 23:59 23:59 Intake Total 2568.3 2508.0 2777 640 Output Total 7304 279 5738 1300 Balance 1493.3 1983.0 -198 -660 Meds/Results Medications: Active Medications Generic Name Dose Route Start Last Admin Trade Name Freq PRN Reason Stop Dose Admin Acetaminophen 650 mg 01/07/25 00:44 01/09/25 16:14 Acetaminophen 650 Mg Suppository RECTAL 650 mg Q6H PRN Administration Mild Pain (1-3) or Fever Hydrocodone Bitart/Acetaminophen 1 tab 01/13/25 10:25 Hydrocodone/Acetaminophen (*Crx) 5-325 Mg Tablet PO Q6H PRN Pain Rated 4-6 Dextrose 12.5 gm 01/09/25 05:54 01/09/25 11:46 Dextrose 50% 25 Gm/50 Ml Syringe IV PUSH 12.5 gm PRN PRN Administration Hypoglycemia Protocol Glucagon 1 mg 01/09/25 05:54 Glucagon For Inj 1 Mg Vial IM PRN PRN Hypoglycemia Protocol Glucose 15 gm 01/09/25 05:54 Glucose Oral Gel 15 Gm Of Glucse In 37.5 Gm Tube PO PRN PRN Hypoglycemia Protocol Hydralazine HCl 10 mg 01/07/25 06:44 Hydralazine Hcl 20 Mg/Ml Vial IV PUSH Q8H PRN Blood Pressure - High systolic Levetiracetam 500 mg in 100 mls @ 400 mls/hr 01/07/25 10:00 01/13/25 09:16 Keppra Iv IVPB Infused Q12HR JUANCARLOS Infusion Dextrose 1,000 mls @ 100 mls/hr 01/09/25 05:54 Dextrose 5% 1,000 Ml IVPB PRN PRN Hypoglycemia Protocol Levalbuterol HCl 0.625 mg 01/07/25 05:59 Levalbuterol Neb 1.25 Mg/3 Ml INHALATION Q6H PRN shortness of breath or wheezing Melatonin 5 mg 01/10/25 21:00 01/12/25 20:46 Melatonin 5 Mg Tablet PO 5 mg HS JUANCARLOS Administration Olanzapine 2.5 mg 01/10/25 18:57 Olanzapine 2.5 Mg Tablet PO DAILY PRN Agitation Olanzapine 5 mg 01/10/25 21:00 01/12/25 20:46 Olanzapine 5 Mg Tablet PO 5 mg QHS JUANCARLOS Administration Ondansetron HCl 4 mg 01/07/25 00:44 Ondansetron Inj 4 Mg/2 Ml Vial IV PUSH Q4H PRN Nausea Pantoprazole Sodium 40 mg 01/10/25 09:00 01/13/25 09:01 Pantoprazole Sodium Iv 40 Mg Vial IV PUSH 40 mg QAM JUANCARLOS Administration Sodium Chloride 10 ml 01/12/25 22:00 01/13/25 04:44 Saline Lock Flush IV PUSH Not Given Q8HR JUANCARLOS Sodium Chloride 10 ml 01/12/25 15:51 Saline Lock Flush IV PUSH PRN PRN Flush Sodium Chloride 20 ml 01/12/25 15:51 Saline Lock Flush IV PUSH PRN PRN after blood draws Trazodone HCl 50 mg 01/11/25 21:00 01/12/25 20:46 Trazodone Hcl 50 Mg Tablet PO 50 mg HS JUANCARLOS Administration Radiology Results: ITS Impressions Abdomen X-Ray 01/11/25 12:53 IMPRESSION: 1. Persistent small bowel obstruction without evident oral contrast material which could be due to dilution from residual fluid in the small bowel. Abdomen/Pelvis CT 01/11/25 15:05 IMPRESSION: 1. Significant delay of passage of oral contrast throughout the dilated proximal to mid small bowel which gradually decreases in caliber more distally without a discrete transition point to suggest obstruction which favors an ileus. 2. Small bilateral pleural effusions and small amount of ascites in the abdomen and pelvis. Labs Labs: Laboratory Results - last 24 hr 01/13/25 09:32 Sodium 135 L Potassium 3.7 Chloride 103 Carbon Dioxide 27 Anion Gap 5 BUN 22 H Creatinine 0.82 Estim Creat Clear Calc 41 Estimated GFR > 60 Glucose 154 H Calcium 8.5
[2025-01-13 14:00] VITALS: BP 107/61; PULSE 91; RESP 18; TEMP 36.7; O2SAT 96
[2025-01-13] MEDS: SALINE LOCK FLUSH 10 ML IV PUSH ×2 (14:43→21:38)
[2025-01-13] MEDS: HYDROcodone/acetaminophen (*CRX) 5-325 MG TABLET 1 TAB PO (16:22)
[2025-01-13 20:37] VITALS: BP 111/66; PULSE 89; RESP 16; TEMP 36.7; O2SAT 94
[2025-01-13 20:44] VITALS: PULSE 81; O2SAT 91
[2025-01-13] MEDS: MELATONIN 5 MG TABLET PO (21:33)
--- NOTE | 2025-01-13 23:46 | PC.NURSE ---
DAUGHTER APPROACHED ME IN HALLWAY AND CONCERNED PT HAVING SURGERY ON SATURDAY AND HAS NOT SEEN A THEATRICAL RIGGER. WENT OVER HOME MEDICATIONS WITH ME AND CHANGED IN COMPUTER. WILL NOTIFY HOSPITALIST IN AM TO CLARIFY
[2025-01-14] MEDS: SALINE LOCK FLUSH 10 ML IV PUSH ×3 (05:13→20:49)
[2025-01-14 05:17] VITALS: BP 123/62; PULSE 90; RESP 16; TEMP 36.7; O2SAT 94
[2025-01-14 05:45] LABS: Hematocrit 37.7 % (37.0-47.0); Hemoglobin 11.8 g/dL (12.0-15.0); Mean Corpuscular HGB Conc 31.3 g/dl (32-36); Mean Corpuscular Hemoglobin 30.4 pg (26-34); Mean Corpuscular Volume 97.2 fl (80-100); Platelet Count Result 169 k/mm3 (150-375); Red Blood Count 3.88 M/mm3 (4.2-5.4); White Blood Count 6.9 K/mm3 (4.5-10.0)
[2025-01-14 05:54] LABS: Alanine Aminotransferase 14 U/L (6-35); Albumin Level 3.4 g/dL (3.5-5.1); Alkaline Phosphatase 44 U/L (38-126); Anion Gap 6 mmol/L (4-12); Aspartate Amino Transferase 24 U/L (14-36); Bilirubin,Total 0.4 mg/dL (0.2-1.3); Blood Urea Nitrogen 20 mg/dL (7-17); Calcium 8.8 mg/dL (8.4-10.2); Carbon Dioxide 29 mmol/L (22-30); Chloride 100 mmol/L (98-107); Estimated CRCL calculation 40 ml/min; Estimated Glomerular Filt Rate > 60; Glucose 89 mg/dL (65-110); Potassium 3.9 mmol/L (3.4-5.0); Sodium 135 mmol/L (137-145); Total Protein 6.0 g/dL (6.3-8.2)
--- NOTE | 2025-01-14 07:49 | P.PNIM_ITS ---
Progress Note: A&P Assessment and Plan (1) Small bowel obstruction: Code(s): K56.609 - Unspecified intestinal obstruction, unspecified as to partial versus complete obstruction Status: Acute Assessment and Plan: CT AP reviewed, BS subdued Discontinue PPN Advance diet per Gen surgery Surgery discussed with POA in regards to parastomal hernia repair with possible mesh placement to prevent recurrent SBO. Possible surgery later this week. Gen surgery following Continue PRN IV morphine for pain control (2) Atrial fib/flutter, transient: Code(s): I48.91 - Unspecified atrial fibrillation; I48.92 - Unspecified atrial flutter Status: Acute Assessment and Plan: -the patient has a pacemaker and she is paced on the monitor. Therefore her rate is controlled. -according to the daughter the patient had a brain bleed from falling and is not a candidate for anticoagulation. (3) Colon cancer: Code(s): C18.9 - Malignant neoplasm of colon, unspecified Status: Acute Assessment and Plan: -according to the daughter her treatment for colon cancer has been completed and she is cancer free. According to the daughter she has a palliative Care team. (4) Hemiplegia following cerebrovascular accident (CVA): Code(s): I69.359 - Hemiplegia and hemiparesis following cerebral infarction affecting unspecified side Status: Acute Assessment and Plan: -chronic left side weakness. -she is answering some questions but the daughters at bedside assisting with history. -the patient is aware of herself and place but not always time. (5) Seizure: Code(s): R56.9 - Unspecified convulsions Status: Acute Assessment and Plan: - keppra iv instead of po (6) MDD (major depressive disorder), recurrent episode, moderate: Code(s): F33.1 - Major depressive disorder, recurrent, moderate Status: Acute Assessment and Plan: Continue home meds (7) Hyperlipidemia: Code(s): E78.5 - Hyperlipidemia, unspecified Status: Acute Assessment and Plan: - atorvastatin on hold (8) HTN (hypertension): Code(s): I10 - Essential (primary) hypertension Status: Acute Assessment and Plan: - bp on the lower spectrum and may need iv metoprolol or iv lopresser has been Plan DVT prophylaxis SCD, no AC due to recent Cerebral hemorrhage Subjective Date/time seen: 01/14/25 07:49 Interval history: No acute events overnight. Family requesting cardiology clearance.Restarted het home meds amiodarone, atorvastatin and metoprolol Review of Systems Constitutional: Constitutional: Reports as per HPI and Reports no additional constitutional complaints Eyes: Eyes: Reports as per HPI and Reports no additional eye complaints ENT: Reports system reviewed and no additional complaints, except as documented and Reports Normal hearing present Cardiovascular: Cardiovascular: Reports no additional cardiovascular complaints Respiratory: Respiratory: Reports as per HPI and Reports no additional re spiratory complaints Gastrointestinal: Gastrointestinal: Reports as per HPI and Reports no additional gastrointestinal complaints Genitourinary: Genitourinary: Reports no additional female genitourinary complaints Musculoskeletal: Musculoskeletal: Reports no additional musculoskeletal complaints Integumentary/Breasts: Skin/Breast: Reports system reviewed and no additional complaints, except as docu Neurologic: Reports system reviewed and no additional complaints, except as documented and Reports Normal hearing present Psychiatric: Psychiatric: Reports no additional psychiatric complaints and Reports as per HPI Hematologic/Lymphatic: Hematologic/Lymphatic: Reports no additional hematologic/lymphatic complaints Allergic/Immunologic: Allergic/Immunologic: Reports no additional allergi c/immunologic complaints Exam Const: General: cooperative, healthy appearing, comfortable, no acute distr ess, well developed, awake, Physically active, average body habitus and well nourished Nutritional Appearance: average body habitus and well nourished Orientation/consciousness: oriented to person, oriented to place, oriented to time and patient oriented x3 Other: She is forgetful at times. The daughters at the bedside answered questions. HENMT: Head: normal to inspection, No palpable skull fracture present, normocephalic, atraumatic and abrasion Ears: hearing grossly normal bilaterally and external ears normal Other: Bleeding from right nares status post attempt of NG tube insertion Eyes: General: appearance normal, both eyes and all related structures Alignment and Position: alignment normal Periorbital: periorbital findings normal Eyelids: eyelids normal Pupils: Pupil accommodation reflex normal EOM: EOMs intact bilaterally Neck: Neck: normal visual inspection, full ROM, no lymphadenopathy, trachea midline and supple Resp: Effort & Inspection: normal respiratory effort Auscultation: clear to auscultation bilaterally Cardio: Palpation: normal PMI Rate: regular rate Rhythm: regular rhythm Heart sounds: S1 normal heart sound present and S2 normal heart sound present Peripheral pulses: Peripheral pulses 2+ throughout Other: Paced beats GI: Inspection: normal to inspection Other: Colostomy bag the right lower quadrant intact without any stool noted. Abdomen is distended. No bowel sounds are heard at this time. Diffuse tenderness all over abdomen : General: Yes no CVA tenderness Back/Spine/Pelvis: Back: no CVA tenderness Skin: General skin exam: normal color Lesions: no lesions Rashes: no rashes Trauma: no lacerations or abrasions Wounds: no wounds Hair: normal Nails: normal Neuro: General: oriented to person, oriented to place, oriented to time and patient oriented x3 Cranial nerves: Yes Normal hearing present Extrem: General: normal to inspection Right upper extremity: normal to inspection and shoulder/upper arm Left upper extremity: normal to inspection and shoulder/upper arm Right lower extremity: normal to inspection Left lower extremity: normal to inspection Psych: Appearance: grossly normal Mental Status: mental status grossly normal Speech and movement: Normal speech and movement present Affect: normal affect Attitude: cooperative Thought process: Normal thought process present Insight: Poor insight present (Psych) Judgement: Limited judgement present (Psych) Objective Data Vital Signs Vital Signs: Vital Signs - 24 hr 01/13/25 09:16 01/13/25 14:00 01/13/25 20:37 Temperature 98.1 F 98.0 F Pulse Rate 91 89 Respiratory Rate 16 18 16 Blood Pressure 107/61 111/66 Pulse Oximetry 95 96 94 Oxygen Delivery Room Air Fraction of Inspired Oxygen 01/13/25 20:44 01/14/25 05:17 Temperature 98.1 F Pulse Rate 81 90 Respiratory Rate 16 Blood Pressure 123/62 Pulse Oximetry 91 94 Oxygen Delivery Room Air Fraction of Inspired Oxygen 21 Intake/Output Intake/Output: Intake & Output 01/11/25 01/12/25 01/13/25 01/14/25 23:59 23:59 23:59 23:59 Intake Total 2508.0 2777 860 300 Output Total 525 8155 2300 550 Balance 1983.0 -198 -1440 -250 Meds/Results Medications: Active Medications Generic Name Dose Route Start Last Admin Trade Name Freq PRN Reason Stop Dose Admin Acetaminophen 650 mg 01/07/25 00:44 01/09/25 16:14 Acetaminophen 650 Mg Suppository RECTAL 650 mg Q6H PRN Administration Mild Pain (1-3) or Fever Hydrocodone Bitart/Acetaminophen 1 tab 01/13/25 10:25 01/13/25 16:22 Hydrocodone/Acetaminophen (*Crx) 5-325 Mg Tablet PO 1 tab Q6H PRN Administration Pain Rated 4-6 Dextrose 12.5 gm 01/09/25 05:54 01/09/25 11:46 Dextrose 50% 25 Gm/50 Ml Syringe IV PUSH 12.5 gm PRN PRN Administration Hypoglycemia Protocol Glucagon 1 mg 01/09/25 05:54 Glucagon For Inj 1 Mg Vial IM PRN PRN Hypoglycemia Protocol Glucose 15 gm 01/09/25 05:54 Glucose Oral Gel 15 Gm Of Glucse In 37.5 Gm Tube PO PRN PRN Hypoglycemia Protocol Hydralazine HCl 10 mg 01/07/25 06:44 Hydralazine Hcl 20 Mg/Ml Vial IV PUSH Q8H PRN Blood Pressure - High systolic Levetiracetam 500 mg in 100 mls @ 400 mls/hr 01/07/25 10:00 01/13/25 21:45 Keppra Iv IVPB Infused Q12HR JUANCARLOS Infusion Dextrose 1,000 mls @ 100 mls/hr 01/09/25 05:54 Dextrose 5% 1,000 Ml IVPB PRN PRN Hypoglycemia Protocol Levalbuterol HCl 0.625 mg 01/07/25 05:59 Levalbuterol Neb 1.25 Mg/3 Ml INHALATION Q6H PRN shortness of breath or wheezing Melatonin 5 mg 01/10/25 21:00 01/13/25 21:33 Melatonin 5 Mg Tablet PO 5 mg HS JUANCARLOS Administration Olanzapine 2.5 mg 01/10/25 18:57 Olanzapine 2.5 Mg Tablet PO DAILY PRN Agitation Olanzapine 5 mg 01/10/25 21:00 01/13/25 21:33 Olanzapine 5 Mg Tablet PO 5 mg QHS JUANCARLOS Administration Ondansetron HCl 4 mg 01/07/25 00:44 Ondansetron Inj 4 Mg/2 Ml Vial IV PUSH Q4H PRN Nausea Pantoprazole Sodium 40 mg 01/10/25 09:00 01/13/25 09:01 Pantoprazole Sodium Iv 40 Mg Vial IV PUSH 40 mg QAM JUANCARLOS Administration Sodium Chloride 10 ml 01/12/25 22:00 01/14/25 05:13 Saline Lock Flush IV PUSH 10 ml Q8HR JUANCARLOS Administration Sodium Chloride 10 ml 01/12/25 15:51 Saline Lock Flush IV PUSH PRN PRN Flush Sodium Chloride 20 ml 01/12/25 15:51 Saline Lock Flush IV PUSH PRN PRN after blood draws Trazodone HCl 50 mg 01/11/25 21:00 01/13/25 21:33 Trazodone Hcl 50 Mg Tablet PO 50 mg HS JUANCARLOS Administration Radiology Results: ITS Impressions Abdomen X-Ray 01/11/25 12:53 IMPRESSION: 1. Persistent small bowel obstruction without evident oral contrast material which could be due to dilution from residual fluid in the small bowel. Abdomen/Pelvis CT 01/11/25 15:05 IMPRESSION: 1. Significant delay of passage of oral contrast throughout the dilated proximal to mid small bowel which gradually decreases in caliber more distally without a discrete transition point to suggest obstruction which favors an ileus. 2. Small bilateral pleural effusions and small amount of ascites in the abdomen and pelvis. Labs Labs: Laboratory Results - last 24 hr 01/13/25 01/14/25 09:32 04:56 WBC 6.9 RBC 3.88 L Hgb 11.8 L Hct 37.7 MCV 97.2 MCH 30.4 MCHC 31.3 L RDW 12.5 Plt Count 169 MPV 9.8 Sodium 135 L 135 L Potassium 3.7 3.9 Chloride 103 100 Carbon Dioxide 27 29 Anion Gap 5 6 BUN 22 H 20 H Creatinine 0.82 0.84 Estim Creat Clear Calc 41 40 Estimated GFR > 60 > 60 Glucose 154 H 89 Calcium 8.5 8.8 Total Bilirubin 0.4 AST 24 ALT 14 Alkaline Phosphatase 44 Total Protein 6.0 L Albumin 3.4 L Quality VTE Prophylaxis VTE prophylaxis: mechanical ordered Hospitalist MIPS Advance Care Plan I have confirmed that the patient's Advanced Care Plan is present, code status is documented, or surrogate decision maker is listed in patient medical record.: Yes Medication Reconciliation I have utilized all available resources to obtain, update and review the patients current medications (includes all prescriptions, OTC, herbals, cannabis, and nutritional supplements).: Yes
[2025-01-14] MEDS: levETIRAcetam 500MG/NACL 100ML 500 MG/100 ML BAG 400 MG IVPB ×2 (09:00→20:48)
[2025-01-14] MEDS: PANTOPRAZOLE SODIUM IV 40 MG VIAL IV PUSH (09:00)
--- NOTE | 2025-01-14 10:28 | ECG_ITS ---
Test Date: 2025-01-14 14:16:33 Measurements Intervals [place] Rate: 111 P: 0 MO: 0 QRS: -32 QRSD: 97 T: 71 QT: 373 QTc: 509 Interpretive Statements ATRIAL FLUTTER/TACHYCARDIA WITH RAPID VENTRICULAR RESPONSE LEFT AXIS DEVIATION [QRS AXIS < -30] LOW QRS VOLTAGE IN EXTREMITY LEADS [QRS DEFLECTION < 0.5 mV IN LIMB LEADS] PATTERN CONSISTENT WITH PULMONARY DISEASE POSSIBLE INFERIOR MYOCARDIAL INFARCTION , PROBABLY OLD [30 ms Q WAVE IN II/aVF] No previous ECG available for comparison Electronically Signed On 01-14-2025 15:23:28 CDT by Alondra Bolton M.D.
--- NOTE | 2025-01-14 12:00 | PM.CNCAR ---
Assessment and Plan Assessment and plan (1) Preop cardiovascular exam: Code(s): Z01.810 - Encounter for preprocedural cardiovascular examination Status: Acute Assessment and Plan: Check EKG. Asymptomatic from cardiac standpoint. Functional status unable to assess due to stroke. Risk factors: age, stroke, hypertension, dyslipidemia. She is at at least an intermediate cardiac risk and may proceed to abdominal surgery with that risk. Otherwise, would perform lexiscan myoview stress test tomorrow to further risk stratify her cardiac risk, but may not be able to have surgery until Saturday (?). (2) Pacemaker: Code(s): Z95.0 - Presence of cardiac pacemaker Status: Acute Assessment and Plan: Unknown type. Her regular aircraft cylinder mechanic is Dr. Lisa with [facility]. (3) HTN (hypertension): Code(s): I10 - Essential (primary) hypertension Status: Acute Assessment and Plan: Stable. (4) Atrial fib/flutter, transient: Code(s): I48.91 - Unspecified atrial fibrillation; I48.92 - Unspecified atrial flutter Status: Acute Assessment and Plan: Stable. On Amiodarone. (5) Hyperlipidemia: Code(s): E78.5 - Hyperlipidemia, unspecified Status: Acute Assessment and Plan: On Atorvastatin. History of Present Illness History of Present Illness Consult date/time: 01/14/25 12:00 Reason For Visit: Small bowel obstruction; CURTIS Narrative: 79 yr old woman admitted for abdominal pain. She has a history of pacemaker, stroke in Mar 2023 with residual left sided weakness, PAF, dyslipidemia. Her regular aircraft cylinder mechanic is Dr. Lisa with [facility]. Reason for consult is preop risk stratification. She presented with complaints of nausea, vomiting and abdominal pain, and found to have SBO requiring surgery. Since her stroke in Mar 2023 she only gets up with assistance due to left sided weakness. Denies chest pain, sob, orthopnea, PND, edema, dizziness, palpitations. Review of Systems Review of Systems: All systems reviewed & are unremarkable except as noted in HPI and below Constitutional: Constitutional: Reports as per HPI, Denies chills and Denies fever(s) Cardiovascular: Cardiovascular: Reports as per HPI, Denies chest pain and Denies irregular heart rhythm Respiratory: Respiratory: Reports as per HPI and Denies dyspnea Gastrointestinal: Gastrointestinal: Reports as per HPI, Reports abdominal pain, Reports nausea and Reports vomiting Genitourinary: Genitourinary: Reports as per HPI Musculoskeletal: Musculoskeletal: Reports as per HPI Neurologic: Reports as per HPI, Denies dizziness and Denies syncope [facility] Past Medical History Medical History Hyperlipidemia Seizure Pacemaker Colostomy in place Cardiac arrest Brain bleed Atrial fib/flutter, transient Colon cancer Hemiplegia following cerebrovascular accident (CVA) HTN (hypertension) Alcohol abuse Surgical History Surgical History (Updated 01/07/25 @ 02:33 by Nohelia Yousif APRN) H/O: hysterectomy H/O colectomy Family History Family History (Updated 01/07/25 @ 03:39 by Kaycee Baron RN) Father Lung cancer Other Parents Social History Social History (Updated 01/07/25 @ 03:10 by Nohelia Yousif APRN) Social History: Her daughter is her caregiver. She is retired. Code status DNR Smoking status: Former smoker Tobacco type: cigarettes Alcohol intake: never Substance use: current Substance use type: marijuana Other substance usage details: daily drops Lack of Transportation: No Lack of Food: Never True Current Housing: I Have Housing Concerned About Future Housing: No Difficulty Paying Gas/Electric Bills: No Difficulty Paying for Meds: No Currently Unemployed: No Education: Bachelor's Degree Difficulty w/ Childcare or Family Care: No Spiritual care concerns: No Meds Home Medications and Allergies Home Medications ?Medication ?Instructions ?Recorded ?Confirmed ?Type aspirin 81 mg chewable tablet 1 tablet PO DAILY 01/07/25 01/07/25 History atorvastatin 20 mg tablet 40 mg PO QPM 01/07/25 01/07/25 History cholecalciferol (vitamin D3) 25 25 mcg PO DAILY 01/07/25 01/07/25 History mcg (1,000 unit) capsule levetiracetam 500 mg tablet 500 mg PO Q12H 01/07/25 01/07/25 History metoprolol succinate 50 mg 50 mg PO DAILY 01/07/25 01/07/25 History tablet,extended release 24 hr nystatin 100,000 unit/gram topical 1 applic topical BID PRN fungal 01/07/25 01/07/25 History powder (Nystop) olanzapine 2.5 mg tablet 2.5 mg PO DAILY PRN agitation 01/07/25 01/07/25 History olanzapine 5 mg tablet 5 mg PO HS 01/07/25 01/07/25 History trazodone 50 mg tablet 50 mg PO HS 01/07/25 01/07/25 History amiodarone 200 mg tablet 200 mg PO Q24H 01/13/25 01/13/25 History venlafaxine 75 mg capsule,extended 75 mg PO QAM 01/13/25 01/13/25 History release 24 hr Allergies Allergy/AdvReac Type Severity Reaction Status Date / Time No Known Allergies Allergy Verified 01/06/25 19:55 Vital Signs Vital Signs - 24 hr 01/13/25 14:00 01/13/25 20:37 01/13/25 20:44 Temperature 98.1 F 98.0 F Pulse Rate 91 89 81 Respiratory Rate 18 16 Blood Pressure 107/61 111/66 Pulse Oximetry 96 94 91 Oxygen Delivery Room Air Fraction of Inspired Oxygen 21 01/14/25 05:17 01/14/25 09:00 Temperature 98.1 F Pulse Rate 90 Respiratory Rate 16 Blood Pressure 123/62 Pulse Oximetry 94 Oxygen Delivery Room Air Fraction of Inspired Oxygen Exam Const: General: cooperative, healthy appearing and comfortable Resp: Auscultation: clear to auscultation bilaterally, no crackles, no rales, no rhonchi and no wheezes Cardio: Rate: regular rate Rhythm: regular rhythm Heart sounds: no murmurs Peripheral pulses: dorsalis pedis present GI: GI Palp: Yes Soft to palpation and Yes Tenderness to palpation present (GI) Neuro: General: oriented to person, oriented to place and oriented to time Extrem: Right lower extremity: no edema Left lower extremity: no edema Results Labs and Meds 01/14/25 04:56 01/14/25 04:56 Lab results: Cardiac Enzymes 01/14/25 Range/Units 04:56 AST 24 (14-36) U/L CBC 01/14/25 Range/Units 04:56 WBC 6.9 (4.5-10.0) K/mm3 RBC 3.88 L (4.2-5.4) M/mm3 Hgb 11.8 L (12.0-15.0) g/dL Hct 37.7 (37.0-47.0) % Plt Count 169 (150-375) k/mm3 Comprehensive Metabolic Panel 01/14/25 Range/Units 04:56 Sodium 135 L (137-145) mmol/L Potassium 3.9 (3.4-5.0) mmol/L Chloride 100 (98-107) mmol/L Carbon Dioxide 29 (22-30) mmol/L BUN 20 H (7-17) mg/dL Creatinine 0.84 (0.7-1.0) mg/dL Glucose 89 (65-110) mg/dL Calcium 8.8 (8.4-10.2) mg/dL AST 24 (14-36) U/L ALT 14 (6-35) U/L Alkaline Phosphatase 44 (38-126) U/L Total Protein 6.0 L (6.3-8.2) g/dL Albumin 3.4 L (3.5-5.1) g/dL Intake and Output 01/13/25 01/14/25 01/14/25 23:59 07:59 15:59 Intake Total 220 300 580 Output Total 1000 550 Balance -780 -250 580 Intake: IV 100 100 levETIRAcetam 500MG/NACL 100ML 100 100 500 mg In 100 ml @ 400 mls/hr IVPB Q12HR [facility] Rx#:[id number] Oral 120 300 240 Oral Supplement 240 Output: Catheter Urine 700 200 Urethral Catheter 700 200 Output, Urine/Stool Mix Amount 350 Stool 300 Other: Number of Bowel Movements Today 4 1
[2025-01-14] MEDS: ONDANSETRON INJ 4 MG/2 ML VIAL IV PUSH (13:49)
[2025-01-14 14:00] VITALS: BP 116/63; PULSE 92; RESP 16; TEMP 36.6; O2SAT 95
--- NOTE | 2025-01-14 14:06 | P.PNGS_ITS ---
Progress Note: A&P Assessment and Plan (1) Small bowel obstruction: Code(s): K56.609 - Unspecified intestinal obstruction, unspecified as to partial versus complete obstruction Status: Acute Assessment and Plan: * Resolved with conservative management. Having good output through ileostomy. * Her parastomal hernia is stable for now, but she still has a loop of small bowel within the hernia and is at risk for recurrent small bowel obstructions. Patient is on the surgery schedule for Saturday01/15/25 at 1 pm. She will have a robotic assisted laparoscopic peristomal hernia repair with possible mesh placement with Dr. Murillo. * Continue full liquid diet. NPO at midnight. Start normal saline continuous IV when patient is made NPO. (2) Colostomy in place: Code(s): Z93.3 - Colostomy status Status: Acute Assessment and Plan: * Ileostomy functioning well. Normal output today upon exam. (3) Insomnia: Qualifiers: Insomnia type: unspecified Qualified Code(s): G47.00 - Insomnia, unspecified Code(s): G47.00 - Insomnia, unspecified Status: Acute Assessment and Plan: * More alert today. Continue home trazadone dose. (4) Cognitive impairment: Code(s): R41.89 - Other symptoms and signs involving cognitive functions and awareness Status: Chronic Assessment and Plan: * Previous stroke Plan I have discussed the patient's case and plan of care with Dr. Murillo. Subjective Subjective Date/Time Seen: 01/14/25 14:06 Patient reports: no new complaints, tolerating liquids well and bowel movement Interval history: Patient doing well today. Having moderate output from ileostomy. Denies abdominal pain. Tolerating full liquid diet without nausea or vomiting. Labs and vitals stable. Exam Const: General: comfortable and no acute distress GI: Inspection: non-distended GI Palp: Yes Soft to palpation, No Tenderness to palpation present (GI) and No Guarding due to palpation present (GI) Other: Liquid light brown output in ostomy bag. Objective Data Vital Signs Vital Signs: Vital Signs - 24 hr 01/13/25 20:37 01/13/25 20:44 01/14/25 05:17 Temperature 98.0 F 98.1 F Pulse Rate 89 81 90 Respiratory Rate 16 16 Blood Pressure 111/66 123/62 Pulse Oximetry 94 91 94 Oxygen Delivery Room Air Fraction of Inspired Oxygen 01/14/25 09:00 Temperature Pulse Rate Respiratory Rate Blood Pressure Pulse Oximetry Oxygen Delivery Room Air Fraction of Inspired Oxygen Intake/Output Intake/Output: Intake & Output 01/11/25 01/12/25 01/13/25 01/14/25 23:59 23:59 23:59 23:59 Intake Total 2508.0 2777 860 880 Output Total 525 2975 2300 550 Balance 1983.0 198 -1440 330 Meds/Results Medications: Active Medications Generic Name Dose Route Start Last Admin Trade Name Freq PRN Reason Stop Dose Admin Acetaminophen 650 mg 01/07/25 00:44 01/09/25 16:14 Acetaminophen 650 Mg Suppository RECTAL 650 mg Q6H PRN Administration Mild Pain (1-3) or Fever Hydrocodone Bitart/Acetaminophen 1 tab 01/13/25 10:25 01/13/25 16:22 Hydrocodone/Acetaminophen (*Crx) 5-325 Mg Tablet PO 1 tab Q6H PRN Administration Pain Rated 4-6 Amiodarone HCl 200 mg 01/14/25 12:05 Amiodarone Hcl 200 Mg Tablet PO DAILY JUANCARLOS Atorvastatin Calcium 40 mg 01/14/25 18:00 Atorvastatin 40 Mg Tablet PO QPM JUANCARLOS Dextrose 12.5 gm 01/09/25 05:54 01/09/25 11:46 Dextrose 50% 25 Gm/50 Ml Syringe IV PUSH 12.5 gm PRN PRN Administration Hypoglycemia Protocol Glucagon 1 mg 01/09/25 05:54 Glucagon For Inj 1 Mg Vial IM PRN PRN Hypoglycemia Protocol Glucose 15 gm 01/09/25 05:54 Glucose Oral Gel 15 Gm Of Glucse In 37.5 Gm Tube PO PRN PRN Hypoglycemia Protocol Hydralazine HCl 10 mg 01/07/25 06:44 Hydralazine Hcl 20 Mg/Ml Vial IV PUSH Q8H PRN Blood Pressure - High systolic Levetiracetam 500 mg in 100 mls @ 400 mls/hr 01/07/25 10:00 01/14/25 09:15 Keppra Iv IVPB Infused Q12HR JUANCARLOS Infusion Dextrose 1,000 mls @ 100 mls/hr 01/09/25 05:54 Dextrose 5% 1,000 Ml IVPB PRN PRN Hypoglycemia Protocol Sodium Chloride 1,000 mls @ 100 mls/hr 01/15/25 00:01 Normal Saline Iv IV CONT .Q10H JUANCARLOS Levalbuterol HCl 0.625 mg 01/07/25 05:59 Levalbuterol Neb 1.25 Mg/3 Ml INHALATION Q6H PRN shortness of breath or wheezing Melatonin 5 mg 01/10/25 21:00 01/13/25 21:33 Melatonin 5 Mg Tablet PO 5 mg HS JUANCARLOS Administration Metoprolol Succinate 50 mg 01/15/25 09:00 Metoprolol Succinate Ext Rel 50 Mg Tabcr PO DAILY JUANCARLOS Olanzapine 2.5 mg 01/10/25 18:57 Olanzapine 2.5 Mg Tablet PO DAILY PRN Agitation Olanzapine 5 mg 01/10/25 21:00 01/13/25 21:33 Olanzapine 5 Mg Tablet PO 5 mg QHS JUANCARLOS Administration Ondansetron HCl 4 mg 01/07/25 00:44 01/14/25 13:49 Ondansetron Inj 4 Mg/2 Ml Vial IV PUSH 4 mg Q4H PRN Administration Nausea Pantoprazole Sodium 40 mg 01/10/25 09:00 01/14/25 09:00 Pantoprazole Sodium Iv 40 Mg Vial IV PUSH 40 mg QAM JUANCARLOS Administration Sodium Chloride 10 ml 01/12/25 22:00 01/14/25 13:50 Saline Lock Flush IV PUSH 10 ml Q8HR JUANCARLOS Administration Sodium Chloride 10 ml 01/12/25 15:51 Saline Lock Flush IV PUSH PRN PRN Flush Sodium Chloride 20 ml 01/12/25 15:51 Saline Lock Flush IV PUSH PRN PRN after blood draws Trazodone HCl 50 mg 01/11/25 21:00 01/13/25 21:33 Trazodone Hcl 50 Mg Tablet PO 50 mg HS JUANCARLOS Administration Radiology Results: ITS Impressions Abdomen X-Ray 01/11/25 12:53 IMPRESSION: 1. Persistent small bowel obstruction without evident oral contrast material which could be due to dilution from residual fluid in the small bowel. Abdomen/Pelvis CT 01/11/25 15:05 IMPRESSION: 1. Significant delay of passage of oral contrast throughout the dilated proximal to mid small bowel which gradually decreases in caliber more distally without a discrete transition point to suggest obstruction which favors an ileus. 2. Small bilateral pleural effusions and small amount of ascites in the abdomen and pelvis. Labs Labs: Laboratory Results - last 24 hr 01/14/25 04:56 WBC 6.9 RBC 3.88 L Hgb 11.8 L Hct 37.7 MCV 97.2 MCH 30.4 MCHC 31.3 L RDW 12.5 Plt Count 169 MPV 9.8 Sodium 135 L Potassium 3.9 Chloride 100 Carbon Dioxide 29 Anion Gap 6 BUN 20 H Creatinine 0.84 Estim Creat Clear Calc 40 Estimated GFR > 60 Glucose 89 Calcium 8.8 Total Bilirubin 0.4 AST 24 ALT 14 Alkaline Phosphatase 44 Total Protein 6.0 L Albumin 3.4 L
[2025-01-14 14:28] VITALS: PULSE 111
[2025-01-14] MEDS: HYDROcodone/acetaminophen (*CRX) 5-325 MG TABLET 1 TAB PO (14:28)
[2025-01-14] MEDS: AMIODARONE HCL 200 MG TABLET PO (14:28)
[2025-01-14 16:59] VITALS: PULSE 85
[2025-01-14] MEDS: ATORVASTATIN 40 MG TABLET PO (16:59)
[2025-01-14] MEDS: METOPROLOL SUCCINATE EXT REL 50 MG TABCR PO (16:59)
[2025-01-14 20:02] VITALS: BP 112/62; PULSE 90; RESP 16; TEMP 36.7; O2SAT 92
[2025-01-14] MEDS: MELATONIN 5 MG TABLET PO (20:49)
[2025-01-14] MEDS: SODIUM CHLORIDE 0.9% IV 1,000 ML 100 ML IV CONT (23:44)
[2025-01-15] VITALS (16 sets, daily range): BP systolic 101–137; BP diastolic 58–79; PULSE 90–94; RESP 12–16; TEMP 36.1–36.8; O2SAT 93–100
[2025-01-15 05:04] LABS: Hematocrit 40.5 % (37.0-47.0); Hemoglobin 12.4 g/dL (12.0-15.0); Mean Corpuscular HGB Conc 30.6 g/dl (32-36); Mean Corpuscular Hemoglobin 30.2 pg (26-34); Mean Corpuscular Volume 98.8 fl (80-100); Platelet Count Result 183 k/mm3 (150-375); Red Blood Count 4.10 M/mm3 (4.2-5.4); White Blood Count 8.9 K/mm3 (4.5-10.0)
[2025-01-15 05:30] LABS: Alanine Aminotransferase 12 U/L (6-35); Albumin Level 3.4 g/dL (3.5-5.1); Alkaline Phosphatase 43 U/L (38-126); Anion Gap 5 mmol/L (4-12); Aspartate Amino Transferase 22 U/L (14-36); Bilirubin,Total 0.6 mg/dL (0.2-1.3); Blood Urea Nitrogen 20 mg/dL (7-17); Calcium 8.9 mg/dL (8.4-10.2); Carbon Dioxide 26 mmol/L (22-30); Chloride 103 mmol/L (98-107); Estimated CRCL calculation 39 ml/min; Estimated Glomerular Filt Rate > 60; Glucose 98 mg/dL (65-110); Potassium 4.6 mmol/L (3.4-5.0); Sodium 134 mmol/L (137-145); Total Protein 6.0 g/dL (6.3-8.2)
--- NOTE | 2025-01-15 08:17 | P.PNCA_ITS ---
Progress Note: A&P Assessment and Plan (1) Preop cardiovascular exam: Code(s): Z01.810 - Encounter for preprocedural cardiovascular examination Status: Acute Assessment and Plan: EKG shows she does go in and has paroxysmal atrial flutter/tachycardia. Asymptomatic from cardiac standpoint. Functional status unable to assess due to stroke. Risk factors: age, stroke, hypertension, dyslipidemia. She is at at least an intermediate cardiac risk and may proceed to abdominal surgery with that risk. Otherwise, would perform lexiscan myoview stress test to further risk stratify her cardiac risk. She is scheduled for surgery this afternoon. (2) Pacemaker: Code(s): Z95.0 - Presence of cardiac pacemaker Status: Acute Assessment and Plan: Unknown type. Her regular lan administrator is Dr. Lsia with [facility]. (3) HTN (hypertension): Code(s): I10 - Essential (primary) hypertension Status: Acute Assessment and Plan: Stable. (4) Atrial fib/flutter, transient: Code(s): I48.91 - Unspecified atrial fibrillation; I48.92 - Unspecified atrial flutter Status: Acute Assessment and Plan: Stable. On Amiodarone. (5) Hyperlipidemia: Code(s): E78.5 - Hyperlipidemia, unspecified Status: Acute Assessment and Plan: On Atorvastatin. Subjective Date/time seen: 01/15/25 08:17 Interval history: Denies chest pain or sob. Has intermittent abdominal pain. Exam Const: General: cooperative, healthy appearing and comfortable Orientation/consciousness: oriented to person, oriented to place and oriented to time Resp: Auscultation: clear to auscultation bilaterally, no crackles, no rales, no rhonchi and no wheezes Cardio: Rate: regular rate Rhythm: regular rhythm Heart sounds: no murmurs Peripheral pulses: dorsalis pedis present Neuro: General: oriented to person, oriented to place and oriented to time Extrem: Right lower extremity: no edema Left lower extremity: no edema Objective Data Vital Signs Vital Signs: Vital Signs - 24 hr 01/14/25 09:00 01/14/25 14:00 01/14/25 14:28 Temperature 97.8 F Pulse Rate 92 111 H Respiratory Rate 16 Blood Pressure 116/63 Pulse Oximetry 95 Oxygen Delivery Room Air 01/14/25 16:59 01/14/25 20:02 01/15/25 05:18 Temperature 98.1 F 98.2 F Pulse Rate 85 90 90 Respiratory Rate 16 16 Blood Pressure 112/62 109/59 L Pulse Oximetry 92 95 Oxygen Delivery Intake/Output Intake/Output: Intake & Output 01/12/25 01/13/25 01/14/25 01/15/25 23:59 23:59 23:59 23:59 Intake Total 2777 860 1630 Output Total 2975 2300 1475 200 Balance -198 -1440 155 -200 Meds/Results Medications: Active Medications Generic Name Dose Route Start Last Admin Trade Name Freq PRN Reason Stop Dose Admin Acetaminophen 650 mg 01/07/25 00:44 01/09/25 16:14 Acetaminophen 650 Mg Suppository RECTAL 650 mg Q6H PRN Administration Mild Pain (1-3) or Fever Hydrocodone Bitart/Acetaminophen 1 tab 01/13/25 10:25 01/14/25 14:28 Hydrocodone/Acetaminophen (*Crx) 5-325 Mg Tablet PO 1 tab Q6H PRN Administration Pain Rated 4-6 Amiodarone HCl 200 mg 01/14/25 12:05 01/14/25 14:28 Amiodarone Hcl 200 Mg Tablet PO 200 mg DAILY JUANCARLOS Administration Atorvastatin Calcium 40 mg 01/14/25 18:00 01/14/25 16:59 Atorvastatin 40 Mg Tablet PO 40 mg QPM JUANCARLOS Administration Dextrose 12.5 gm 01/09/25 05:54 01/09/25 11:46 Dextrose 50% 25 Gm/50 Ml Syringe IV PUSH 12.5 gm PRN PRN Administration Hypoglycemia Protocol Glucagon 1 mg 01/09/25 05:54 Glucagon For Inj 1 Mg Vial IM PRN PRN Hypoglycemia Protocol Glucose 15 gm 01/09/25 05:54 Glucose Oral Gel 15 Gm Of Glucse In 37.5 Gm Tube PO PRN PRN Hypoglycemia Protocol Hydralazine HCl 10 mg 01/07/25 06:44 Hydralazine Hcl 20 Mg/Ml Vial IV PUSH Q8H PRN Blood Pressure - High systolic Levetiracetam 500 mg in 100 mls @ 400 mls/hr 01/07/25 10:00 01/14/25 20:48 Keppra Iv IVPB 400 mls/hr Q12HR JUANCARLOS Administration Dextrose 1,000 mls @ 100 mls/hr 01/09/25 05:54 Dextrose 5% 1,000 Ml IVPB PRN PRN Hypoglycemia Protocol Sodium Chloride 1,000 mls @ 100 mls/hr 01/15/25 00:01 01/14/25 23:44 Normal Saline Iv IV CONT 100 mls/hr .Q10H JUANCARLOS Administration Levalbuterol HCl 0.625 mg 01/07/25 05:59 Levalbuterol Neb 1.25 Mg/3 Ml INHALATION Q6H PRN shortness of breath or wheezing Melatonin 5 mg 01/10/25 21:00 01/14/25 20:49 Melatonin 5 Mg Tablet PO 5 mg HS JUANCARLOS Administration Metoprolol Succinate 50 mg 01/14/25 17:00 01/14/25 16:59 Metoprolol Succinate Ext Rel 50 Mg Tabcr PO 50 mg Q12HR JUANCARLOS Administration Olanzapine 2.5 mg 01/10/25 18:57 Olanzapine 2.5 Mg Tablet PO DAILY PRN Agitation Olanzapine 5 mg 01/10/25 21:00 01/14/25 20:49 Olanzapine 5 Mg Tablet PO 5 mg QHS JUANCARLOS Administration Ondansetron HCl 4 mg 01/07/25 00:44 01/14/25 13:49 Ondansetron Inj 4 Mg/2 Ml Vial IV PUSH 4 mg Q4H PRN Administration Nausea Pantoprazole Sodium 40 mg 01/10/25 09:00 01/14/25 09:00 Pantoprazole Sodium Iv 40 Mg Vial IV PUSH 40 mg QAM JUANCARLOS Administration Sodium Chloride 10 ml 01/12/25 22:00 01/15/25 07:06 Saline Lock Flush IV PUSH Not Given Q8HR JUANCARLOS Sodium Chloride 10 ml 01/12/25 15:51 Saline Lock Flush IV PUSH PRN PRN Flush Sodium Chloride 20 ml 01/12/25 15:51 Saline Lock Flush IV PUSH PRN PRN after blood draws Trazodone HCl 50 mg 01/11/25 21:00 01/14/25 20:49 Trazodone Hcl 50 Mg Tablet PO 50 mg HS JUANCARLOS Administration Radiology Results: ITS Impressions Abdomen X-Ray 01/11/25 12:53 IMPRESSION: 1. Persistent small bowel obstruction without evident oral contrast material which could be due to dilution from residual fluid in the small bowel. Abdomen/Pelvis CT 01/11/25 15:05 IMPRESSION: 1. Significant delay of passage of oral contrast throughout the dilated proximal to mid small bowel which gradually decreases in caliber more distally without a discrete transition point to suggest obstruction which favors an ileus. 2. Small bilateral pleural effusions and small amount of ascites in the abdomen and pelvis. Labs Labs: Laboratory Results - last 24 hr 01/15/25 04:36 WBC 8.9 RBC 4.10 L Hgb 12.4 Hct 40.5 MCV 98.8 MCH 30.2 MCHC 30.6 L RDW 12.3 Plt Count 183 MPV 9.9 Sodium 134 L Potassium 4.6 Chloride 103 Carbon Dioxide 26 Anion Gap 5 BUN 20 H Creatinine 0.87 Estim Creat Clear Calc 39 Estimated GFR > 60 Glucose 98 Calcium 8.9 Total Bilirubin 0.6 AST 22 ALT 12 Alkaline Phosphatase 43 Total Protein 6.0 L Albumin 3.4 L
[2025-01-15] MEDS: PANTOPRAZOLE SODIUM IV 40 MG VIAL IV PUSH (08:32)
[2025-01-15] MEDS: levETIRAcetam 500MG/NACL 100ML 500 MG/100 ML BAG 400 MG IVPB ×2 (08:32→21:04)
[2025-01-15] MEDS: AMIODARONE HCL 200 MG TABLET PO (08:32)
[2025-01-15] MEDS: METOPROLOL SUCCINATE EXT REL 50 MG TABCR PO (08:33)
[2025-01-15] MEDS: SODIUM CHLORIDE 0.9% IV 1,000 ML 100 ML IV CONT (08:45)
--- NOTE | 2025-01-15 09:18 | P.PNIM_ITS ---
Progress Note: A&P Assessment and Plan (1) Small bowel obstruction: Code(s): K56.609 - Unspecified intestinal obstruction, unspecified as to partial versus complete obstruction Status: Acute Assessment and Plan: CT AP reviewed, BS subdued Discontinue PPN Advance diet per Gen surgery Surgery discussed with POA in regards to parastomal hernia repair with possible mesh placement to prevent recurrent SBO. Planned surgery this afternoon Gen surgery following Continue PRN IV morphine for pain control (2) Atrial fib/flutter, transient: Code(s): I48.91 - Unspecified atrial fibrillation; I48.92 - Unspecified atrial flutter Status: Acute Assessment and Plan: -the patient has a pacemaker and she is paced on the monitor. Therefore her rate is controlled. -according to the daughter the patient had a brain bleed from falling and is not a candidate for anticoagulation. (3) Colon cancer: Code(s): C18.9 - Malignant neoplasm of colon, unspecified Status: Acute Assessment and Plan: -according to the daughter her treatment for colon cancer has been completed and she is cancer free. According to the daughter she has a palliative Care team. (4) Hemiplegia following cerebrovascular accident (CVA): Code(s): I69.359 - Hemiplegia and hemiparesis following cerebral infarction affecting unspecified side Status: Acute Assessment and Plan: -chronic left side weakness. -she is answering some questions but the daughters at bedside assisting with history. -the patient is aware of herself and place but not always time. (5) Seizure: Code(s): R56.9 - Unspecified convulsions Status: Acute Assessment and Plan: - keppra iv instead of po (6) MDD (major depressive disorder), recurrent episode, moderate: Code(s): F33.1 - Major depressive disorder, recurrent, moderate Status: Acute Assessment and Plan: Continue home meds (7) Hyperlipidemia: Code(s): E78.5 - Hyperlipidemia, unspecified Status: Acute Assessment and Plan: - atorvastatin on hold (8) HTN (hypertension): Code(s): I10 - Essential (primary) hypertension Status: Acute Assessment and Plan: - bp on the lower spectrum and may need iv metoprolol or iv lopresser has been Plan DVT prophylaxis SCD, no AC due to recent Cerebral hemorrhage Subjective Date/time seen: 01/15/25 09:18 Interval history: No overnight events. Family at bedside and discussed with her. Denies any chest pain or shortness of breath. Abdomen is bloated. Plan for surgery this afternoon. Review of Systems Review of Systems: All systems reviewed & are unremarkable except as noted in HPI and below Exam Narrative: GENERAL: The patient is thin built, not in acute distress HEENT: Nonicteric sclerae, PERRLA, EOMI. CHEST: Chest wall is nontender. HEART: Regular rate and rhythm without murmur, rubs, or gallops LUNGS: Clear to auscultation bilaterally. no respiratory distress ABDOMEN: Soft, positive bowel sounds, mildly distended, colostomy bag in C2 with mild liquids, mildly tender diffusely, no organomegaly. SKIN: No rash, no excessive bruising, petechiae, or purpura. NEUROLOGIC: Cranial nerves II-XII intact, alert and oriented x 3, no gross motor deficits EXTREMITIES: no edema, cyanosis or clubbing Objective Data Vital Signs Vital Signs: Vital Signs - 24 hr 01/14/25 14:00 01/14/25 14:28 01/14/25 16:59 Temperature 97.8 F Pulse Rate 92 111 H 85 Respiratory Rate 16 Blood Pressure 116/63 Pulse Oximetry 95 01/14/25 20:02 01/15/25 05:18 01/15/25 08:32 Temperature 98.1 F 98.2 F Pulse Rate 90 90 90 Respiratory Rate 16 16 Blood Pressure 112/62 109/59 L Pulse Oximetry 92 95 01/15/25 08:33 Temperature Pulse Rate 90 Respiratory Rate Blood Pressure Pulse Oximetry Intake/Output Intake/Output: Intake & Output 01/12/25 01/13/25 01/14/25 01/15/25 23:59 23:59 23:59 23:59 Intake Total 2777 860 1730 1100 Output Total 2098 2300 1475 200 Balance -198 -1440 255 900 Meds/Results Medications: Active Medications Generic Name Dose Route Start Last Admin Trade Name Freq PRN Reason Stop Dose Admin Acetaminophen 650 mg 01/07/25 00:44 01/09/25 16:14 Acetaminophen 650 Mg Suppository RECTAL 650 mg Q6H PRN Administration Mild Pain (1-3) or Fever Hydrocodone Bitart/Acetaminophen 1 tab 01/13/25 10:25 01/14/25 14:28 Hydrocodone/Acetaminophen (*Crx) 5-325 Mg Tablet PO 1 tab Q6H PRN Administration Pain Rated 4-6 Amiodarone HCl 200 mg 01/14/25 12:05 01/15/25 08:32 Amiodarone Hcl 200 Mg Tablet PO 200 mg DAILY JUANCARLOS Administration Atorvastatin Calcium 40 mg 01/14/25 18:00 01/14/25 16:59 Atorvastatin 40 Mg Tablet PO 40 mg QPM JUANCARLOS Administration Dextrose 12.5 gm 01/09/25 05:54 01/09/25 11:46 Dextrose 50% 25 Gm/50 Ml Syringe IV PUSH 12.5 gm PRN PRN Administration Hypoglycemia Protocol Glucagon 1 mg 01/09/25 05:54 Glucagon For Inj 1 Mg Vial IM PRN PRN Hypoglycemia Protocol Glucose 15 gm 01/09/25 05:54 Glucose Oral Gel 15 Gm Of Glucse In 37.5 Gm Tube PO PRN PRN Hypoglycemia Protocol Hydralazine HCl 10 mg 01/07/25 06:44 Hydralazine Hcl 20 Mg/Ml Vial IV PUSH Q8H PRN Blood Pressure - High systolic Levetiracetam 500 mg in 100 mls @ 400 mls/hr 01/07/25 10:00 01/15/25 08:47 Keppra Iv IVPB Infused Q12HR JUANCARLOS Infusion Dextrose 1,000 mls @ 100 mls/hr 01/09/25 05:54 Dextrose 5% 1,000 Ml IVPB PRN PRN Hypoglycemia Protocol Sodium Chloride 1,000 mls @ 100 mls/hr 01/15/25 00:01 01/15/25 08:45 Normal Saline Iv IV CONT 100 mls/hr .Q10H JUANCARLOS Administration Levalbuterol HCl 0.625 mg 01/07/25 05:59 Levalbuterol Neb 1.25 Mg/3 Ml INHALATION Q6H PRN shortness of breath or wheezing Melatonin 5 mg 01/10/25 21:00 01/14/25 20:49 Melatonin 5 Mg Tablet PO 5 mg HS JUANCARLOS Administration Metoprolol Succinate 50 mg 01/14/25 17:00 01/15/25 08:33 Metoprolol Succinate Ext Rel 50 Mg Tabcr PO 50 mg Q12HR JUANCARLOS Administration Olanzapine 2.5 mg 01/10/25 18:57 Olanzapine 2.5 Mg Tablet PO DAILY PRN Agitation Olanzapine 5 mg 01/10/25 21:00 01/14/25 20:49 Olanzapine 5 Mg Tablet PO 5 mg QHS JUANCARLOS Administration Ondansetron HCl 4 mg 01/07/25 00:44 01/14/25 13:49 Ondansetron Inj 4 Mg/2 Ml Vial IV PUSH 4 mg Q4H PRN Administration Nausea Pantoprazole Sodium 40 mg 01/10/25 09:00 01/15/25 08:32 Pantoprazole Sodium Iv 40 Mg Vial IV PUSH 40 mg QAM JUANCARLOS Administration Sodium Chloride 10 ml 01/12/25 22:00 01/15/25 07:06 Saline Lock Flush IV PUSH Not Given Q8HR JUANCARLOS Sodium Chloride 10 ml 01/12/25 15:51 Saline Lock Flush IV PUSH PRN PRN Flush Sodium Chloride 20 ml 01/12/25 15:51 Saline Lock Flush IV PUSH PRN PRN after blood draws Trazodone HCl 50 mg 01/11/25 21:00 01/14/25 20:49 Trazodone Hcl 50 Mg Tablet PO 50 mg HS JUANCARLOS Administration Radiology Results: ITS Impressions Abdomen X-Ray 01/11/25 12:53 IMPRESSION: 1. Persistent small bowel obstruction without evident oral contrast material which could be due to dilution from residual fluid in the small bowel. Abdomen/Pelvis CT 01/11/25 15:05 IMPRESSION: 1. Significant delay of passage of oral contrast throughout the dilated proximal to mid small bowel which gradually decreases in caliber more distally without a discrete transition point to suggest obstruction which favors an ileus. 2. Small bilateral pleural effusions and small amount of ascites in the abdomen and pelvis. Labs Labs: Laboratory Results - last 24 hr 01/15/25 04:36 WBC 8.9 RBC 4.10 L Hgb 12.4 Hct 40.5 MCV 98.8 MCH 30.2 MCHC 30.6 L RDW 12.3 Plt Count 183 MPV 9.9 Sodium 134 L Potassium 4.6 Chloride 103 Carbon Dioxide 26 Anion Gap 5 BUN 20 H Creatinine 0.87 Estim Creat Clear Calc 39 Estimated GFR > 60 Glucose 98 Calcium 8.9 Total Bilirubin 0.6 AST 22 ALT 12 Alkaline Phosphatase 43 Total Protein 6.0 L Albumin 3.4 L
--- NOTE | 2025-01-15 11:26 | PCOTNOTE ---
Attempted to see Patient. Patient is going down for surgery, having a hernia repair.
--- NOTE | 2025-01-15 11:28 | PCNFU ---
Nutrition Follow-Up Complete: Severe Protein Calorie Malnutrition as related to inadequate protein-energy intake in the setting of acute disease (SBO) as evidenced < 75% EER for > 7 days; severe muscle wasting (temporalis) and severe subcutaneous fat loss (orbital fat pads). Meeting estimated nutritional needs. - Not progressing with goal at this time, NPO for surgery. Slow progress with intakes. Continue with same goal Goal: Pt current nutrition is NPO for hernia repair surgery today. Nutrition recommendation: Advance diet when medically able. Resume supplement: Ensure Plus HP TID (350 kcal, 20 g protein each) Last recorded weight is 67.5 kg. Bowel Motility: +1 BM 01/15 Labs Reviewed:Alb 3.4, Na 134, BUN 20, Mag 2.4 Meds Noted: Kepp protonix Skin: No skin issues Additional Notes: Pt is NPO today for hernia repair surgery. Intakes 0-25% on previous full liquid. Diet orders per surgery. Surgery note says TPN not needed at this time. Will continue to monitor for diet orders. Will monitor weight, labs, skin, diet orders, meds every Saturday and Saturday.
--- NOTE | 2025-01-15 11:58 | PC.NURSE ---
Patient off floor to pre op via bed. Report given to Shirley VEGA.
[2025-01-15] MEDS: LACTATED RINGERS 1,000 ML 30 ML IV CONT (12:10)
--- NOTE | 2025-01-15 14:07 | WPDHPUPDATE1 ---
History and Physical Update Update Date/Time: 01/15/25 14:07 History and Physical has been reviewed, including an updated exam of the patient. There are NO changes in the patient's condition. Risks, benefits, and alternatives have been discussed and questions answered. Patient agrees to proceed with procedure.
--- NOTE | 2025-01-15 14:29 | WPDANESEPPF ---
Anes - Initial Pre Proc Eval Procedure: Operation Date: 01/09/25 08:00 Proposed Procedures p Exploratory Laparotomy, Repair of Incarcerated Parastomal Hernia, Possible Small Bowel Resection, Possible Resetting of Stoma - Michael Murillo MD Operation Date: 01/15/25 13:00 Proposed Procedures p Robotic Assisted Laparoscopic Peristomal Hernia Repair, Possible Mesh Placement, Possible Open - Michael Murillo MD Date/Time: 01/15/25 14:29 Surgeon: Wero Pimentel MD Pre Op Diagnosis: Small bowel obstruction; CURTIS Patient Data Age: 79 Gender: F Height: 1.6 m Weight: 67.5 kg Last Vital Signs Temp 98.2 F 01/15/25 05:18 Pulse 90 01/15/25 12:05 Resp 14 01/15/25 12:05 BP 101/58 L 01/15/25 12:05 Pulse Ox 93 01/15/25 12:05 O2 Del Method Room Air 01/15/25 12:05 FiO2 21 01/13/25 20:44 Allergies Allergy/AdvReac Type Severity Reaction Status Date / Time No Known Allergies Allergy Verified 01/06/25 19:55 Home Medications ?Medication ?Instructions ?Recorded ?Confirmed ?Type aspirin 81 mg chewable tablet 1 tablet PO DAILY 01/07/25 01/07/25 History atorvastatin 20 mg tablet 40 mg PO QPM 01/07/25 01/07/25 History cholecalciferol (vitamin D3) 25 25 mcg PO DAILY 01/07/25 01/07/25 History mcg (1,000 unit) capsule levetiracetam 500 mg tablet 500 mg PO Q12H 01/07/25 01/07/25 History metoprolol succinate 50 mg 50 mg PO DAILY 01/07/25 01/07/25 History tablet,extended release 24 hr nystatin 100,000 unit/gram topical 1 applic topical BID PRN fungal 01/07/25 01/07/25 History powder (Nystop) olanzapine 2.5 mg tablet 2.5 mg PO DAILY PRN agitation 01/07/25 01/07/25 History olanzapine 5 mg tablet 5 mg PO HS 01/07/25 01/07/25 History trazodone 50 mg tablet 50 mg PO HS 01/07/25 01/07/25 History amiodarone 200 mg tablet 200 mg PO Q24H 01/13/25 01/13/25 History venlafaxine 75 mg capsule,extended 75 mg PO QAM 01/13/25 01/13/25 History release 24 hr Laboratory Tests 01/15/25 04:36 WBC 8.9 K/mm3 (4.5-10.0) RBC 4.10 L M/mm3 (4.2-5.4) Hgb 12.4 g/dL (12.0-15.0) Hct 40.5 % (37.0-47.0) MCV 98.8 fl (80-100) MCH 30.2 pg (26-34) MCHC 30.6 L g/dl (32-36) RDW 12.3 % (11.5-14.5) Plt Count 183 k/mm3 (150-375) MPV 9.9 fl (7.4-10.4) Sodium 134 L mmol/L (137-145) Potassium 4.6 mmol/L (3.4-5.0) Chloride 103 mmol/L (98-107) Carbon Dioxide 26 mmol/L (22-30) Anion Gap 5 mmol/L (4-12) BUN 20 H mg/dL (7-17) Creatinine 0.87 mg/dL (0.7-1.0) Estim Creat Clear Calc 39 ml/min Estimated GFR > 60 (59 - ) Glucose 98 mg/dL (65-110) Calcium 8.9 mg/dL (8.4-10.2) Total Bilirubin 0.6 mg/dL (0.2-1.3) AST 22 U/L (14-36) ALT 12 U/L (6-35) Alkaline Phosphatase 43 U/L (38-126) Total Protein 6.0 L g/dL (6.3-8.2) Albumin 3.4 L g/dL (3.5-5.1) Patient hx anesthesia problems: none Family hx anesthesia problems: none Results Review: All pre-operative results and documents have been reviewed as part of the pre-operative evaluation. [facility] Past Medical History Medical History Hyperlipidemia Seizure Pacemaker Colostomy in place Cardiac arrest Brain bleed Atrial fib/flutter, transient Colon cancer Hemiplegia following cerebrovascular accident (CVA) HTN (hypertension) Alcohol abuse Surgical History Surgical History (Updated 01/07/25 @ 02:33 by Nohelia Yousif APRN) H/O: hysterectomy H/O colectomy Family History Family History (Updated 01/07/25 @ 03:39 by Kaycee Baron RN) Father Lung cancer Other Parents Social History Social History (Updated 01/07/25 @ 03:10 by Nohelia Yousif APRN) Social History: Her daughter is her caregiver. She is retired. Code status DNR Smoking status: Former smoker Tobacco type: cigarettes Alcohol intake: never Substance use: current Substance use type: marijuana Other substance usage details: daily drops Lack of Transportation: No Lack of Food: Never True Current Housing: I Have Housing Concerned About Future Housing: No Difficulty Paying Gas/Electric Bills: No Difficulty Paying for Meds: No Currently Unemployed: No Education: Bachelor's Degree Difficulty w/ Childcare or Family Care: No Spiritual care concerns: No Anes - Eval Final PreProcedure Day of Procedure 01/15/25 14:29 Patient weight: normal Heart: regular rate and rhythm Lungs: clear to auscultation Airway: Mallampati scale class II Neurological: alert and oriented Last oral intake: >/= 8 hours ASA classification: III Emergent: no Anesthetic plan: proceed Anesthesia type and monitoring: general ETT and standard monitoring Results Review: All pre-operative results and documents have been reviewed as part of the pre-operative evaluation. Informed Consent: The patient's anesthetic plan and its attendant risks and benefits were discussed with the patient/family/POA. Questions were solicited and answers provided to the satisfaction of the patient/family/POA.
[2025-01-15] MEDS: ceFAZolin 2 GM in SODIUM CHLORIDE 0.9% IV 50 ML 100 ML IVPB (14:43)
[2025-01-15] MEDS: LIDO 1%/EPINEPHRINE 1:100,000 20 ML VIAL 30 ML INFILTRATE (16:01)
--- NOTE | 2025-01-15 16:25 | PCPTNOTE ---
The patient treatment was not able to be completed due to patient having surgery today. Will plan to continue treatment per plan of care when medically able.
--- NOTE | 2025-01-15 17:47 | PM.OP ---
Procedure Note - Brief Procedure Note - Brief Date of procedure: 01/15/25 Small-bowel obstruction secondary to incarcerated peristomal hernia. Post-op diagnosis: Other (Small-bowel obstruction secondary to the incarcerated peristomal hernia. Mid epigastric abdominal wall incisional hernia) Procedure performed: Robotic assisted laparoscopic peristomal hernia repair without mesh Robotic assisted laparoscopic incisional hernia repair without mesh Surgeon: Michael Murillo MD [employer] Engineer: VIVEK Arauz Anesthesia: GETA Implants: None Estimated blood loss (mL): 25 Urine output (mL): 50 Drains: No Packing: No Pathology: None sent Complications: No immediate complications Condition: Stable Disposition: PACU
[2025-01-15] MEDS: fentaNYL CITRATE INJ (*CRX) 100 MCG/2 ML VIAL 25 MCG IV PUSH ×2 (18:04→18:13)
--- NOTE | 2025-01-15 18:50 | PC.NURSE ---
Patient returned to floor from PACU via bed. No complaints at this time. Report from Taisha VEGA. Family at bedside.
[2025-01-15] MEDS: SALINE LOCK FLUSH 10 ML IV PUSH (21:12)
[2025-01-16] VITALS (11 sets, daily range): BP systolic 109–118; BP diastolic 60–84; PULSE 90–91; RESP 16–18; TEMP 36.6–36.9; O2SAT 94–100
[2025-01-16] MEDS: METOPROLOL SUCCINATE EXT REL 50 MG TABCR PO ×3 (00:35→20:33)
[2025-01-16] MEDS: HYDROcodone/acetaminophen (*CRX) 5-325 MG TABLET 1 TAB PO ×3 (02:12→20:32)
[2025-01-16] MEDS: SODIUM CHLORIDE 0.9% IV 1,000 ML 75 ML IV CONT (04:32)
[2025-01-16 05:38] LABS: Hematocrit 32.1 % (37.0-47.0); Hemoglobin 10.0 g/dL (12.0-15.0); Immature Granulocyte Percent A 0.6 % (0-0.5); Lymphocytes Absolute Auto 0.88 K/mm3 (0.9-3.2); Mean Corpuscular HGB Conc 31.2 g/dl (32-36); Mean Corpuscular Hemoglobin 30.7 pg (26-34); Mean Corpuscular Volume 98.5 fl (80-100); Nucleated Red Blood Cells Absolute Auto 0.000 K/mm3 (0.0-0.012); Nucleated Red Blood Cells Perc 0.0 % (0.0-0.2); Platelet Count Result 145 k/mm3 (150-375); Red Blood Count 3.26 M/mm3 (4.2-5.4); White Blood Count 9.7 K/mm3 (4.5-10.0)
[2025-01-16] MEDS: SALINE LOCK FLUSH 10 ML IV PUSH ×3 (06:00→21:02)
[2025-01-16 06:01] LABS: Alanine Aminotransferase 9 U/L (6-35); Albumin Level 2.7 g/dL (3.5-5.1); Alkaline Phosphatase 48 U/L (38-126); Anion Gap 3 mmol/L (4-12); Aspartate Amino Transferase 20 U/L (14-36); Bilirubin,Total 0.3 mg/dL (0.2-1.3); Blood Urea Nitrogen 16 mg/dL (7-17); Calcium 7.9 mg/dL (8.4-10.2); Carbon Dioxide 25 mmol/L (22-30); Chloride 107 mmol/L (98-107); Estimated CRCL calculation 43 ml/min; Estimated Glomerular Filt Rate > 60; Glucose 82 mg/dL (65-110); Magnesium 1.8 mg/dL (1.6-2.3); Potassium 3.8 mmol/L (3.4-5.0); Sodium 135 mmol/L (137-145); Total Protein 5.1 g/dL (6.3-8.2)
--- NOTE | 2025-01-16 07:40 | ECG_ITS ---
Test Date: 2025-01-16 08:13:28 Measurements Intervals [place] Rate: 90 P: 0 MS: 0 QRS: 56 QRSD: 167 T: 221 QT: 436 QTc: 534 Interpretive Statements ELECTRONIC VENTRICULAR PACEMAKER Electronically Signed On 01-17-2025 20:39:14 CDT by Elian Breen D.O
--- NOTE | 2025-01-16 08:37 | PM.PNCARD ---
Progress Note: A&P Assessment and Plan (1) Preop cardiovascular exam: Code(s): Z01.810 - Encounter for preprocedural cardiovascular examination Status: Acute Assessment and Plan: EKG shows she does go in and has paroxysmal atrial flutter/tachycardia. Asymptomatic from cardiac standpoint. Functional status unable to assess due to stroke. Risk factors: age, stroke, hypertension, dyslipidemia. She is at at least an intermediate cardiac risk and may proceed to abdominal surgery with that risk. Otherwise, would perform lexiscan myoview stress test to further risk stratify her cardiac risk. Post op Day#1. Doing well. EKG showed paced ventricular rhythm at 90 bpm. Will sign off, please call with any questions. 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 (2) Pacemaker: Code(s): Z95.0 - Presence of cardiac pacemaker Status: Acute Assessment and Plan: Unknown type. (3) HTN (hypertension): Code(s): I10 - Essential (primary) hypertension Status: Acute Assessment and Plan: Stable. (4) Atrial fib/flutter, transient: Code(s): I48.91 - Unspecified atrial fibrillation; I48.92 - Unspecified atrial flutter Status: Acute Assessment and Plan: Stable. On Amiodarone. (5) Hyperlipidemia: Code(s): E78.5 - Hyperlipidemia, unspecified Status: Acute Assessment and Plan: On Atorvastatin. Subjective Date/time seen: 01/16/25 08:37 Interval history: Denies chest pain or sob. No longer having abdominal pain after surgery yesterday. Exam Const: General: cooperative, healthy appearing and comfortable Orientation/consciousness: oriented to person, oriented to place and oriented to time Resp: Auscultation: clear to auscultation bilaterally, no crackles, no rales, no rhonchi and no wheezes Cardio: Rate: regular rate Rhythm: regular rhythm Heart sounds: no murmurs Peripheral pulses: dorsalis pedis present Neuro: General: oriented to person, oriented to place and oriented to time Extrem: Right lower extremity: no edema Left lower extremity: no edema Objective Data Vital Signs Vital Signs: Vital Signs - 24 hr 01/15/25 09:17 01/15/25 12:05 01/15/25 17:35 Temperature 97.8 F Pulse Rate 90 90 Respiratory Rate 14 14 Blood Pressure 101/58 L 137/79 Pulse Oximetry 93 93 100 Oxygen Delivery Room Air Room Air Simple Face Mask Oxygen Flow Rate 8 01/15/25 17:50 01/15/25 18:05 01/15/25 18:20 Temperature 97.2 F L Pulse Rate 90 90 90 Respiratory Rate 12 12 12 Blood Pressure 137/77 124/71 124/71 Pulse Oximetry 100 97 97 Oxygen Delivery Simple Face Mask Nasal Cannula Nasal Cannula Oxygen Flow Rate 8 3 3 01/15/25 18:49 01/15/25 19:01 01/15/25 19:16 Temperature 96.9 F L 97.5 F L Pulse Rate 90 92 Respiratory Rate 14 14 Blood Pressure 120/67 125/74 Pulse Oximetry 98 99 100 Oxygen Delivery Nasal Cannula Oxygen Flow Rate 3 01/15/25 19:46 01/15/25 20:00 01/15/25 20:46 Temperature 97.7 F 97.8 F Pulse Rate 94 91 Respiratory Rate 14 14 Blood Pressure 129/71 124/65 Pulse Oximetry 100 100 100 Oxygen Delivery Nasal Cannula Oxygen Flow Rate 3 01/15/25 22:00 01/16/25 00:35 01/16/25 00:44 Temperature 98.4 F Pulse Rate 90 90 Respiratory Rate 18 Blood Pressure 118/84 Pulse Oximetry 94 100 Oxygen Delivery Nasal Cannula Oxygen Flow Rate 2 01/16/25 00:45 01/16/25 05:42 Temperature 97.8 F Pulse Rate 90 Respiratory Rate 16 Blood Pressure 109/63 Pulse Oximetry 100 95 Oxygen Delivery Nasal Cannula Oxygen Flow Rate 2 Intake/Output Intake/Output: Intake & Output 01/13/25 01/14/25 01/15/25 01/16/25 23:59 23:59 23:59 23:59 Intake Total 860 1730 1823.3 676.7 Output Total 2300 1475 250 500 Balance -4096 026 8501.3 176.7 Meds/Results Medications: Active Medications Generic Name Dose Route Start Last Admin Trade Name Freq PRN Reason Stop Dose Admin Acetaminophen 650 mg 01/07/25 00:44 01/09/25 16:14 Acetaminophen 650 Mg Suppository RECTAL 650 mg Q6H PRN Administration Mild Pain (1-3) or Fever Hydrocodone Bitart/Acetaminophen 1 tab 01/13/25 10:25 01/16/25 02:12 Hydrocodone/Acetaminophen (*Crx) 5-325 Mg Tablet PO 1 tab Q6H PRN Administration Pain Rated 4-6 Amiodarone HCl 200 mg 01/14/25 12:05 01/15/25 08:32 Amiodarone Hcl 200 Mg Tablet PO 200 mg DAILY JUANCARLOS Administration Atorvastatin Calcium 40 mg 01/14/25 18:00 01/15/25 16:48 Atorvastatin 40 Mg Tablet PO Not Given QPM JUANCARLOS Dextrose 12.5 gm 01/09/25 05:54 01/09/25 11:46 Dextrose 50% 25 Gm/50 Ml Syringe IV PUSH 12.5 gm PRN PRN Administration Hypoglycemia Protocol Fentanyl Citrate 25 mcg 01/15/25 14:33 Fentanyl Citrate Inj (*Crx) 100 Mcg/2 Ml Vial IV PUSH Q2M PRN Pain Glucagon 1 mg 01/09/25 05:54 Glucagon For Inj 1 Mg Vial IM PRN PRN Hypoglycemia Protocol Glucose 15 gm 01/09/25 05:54 Glucose Oral Gel 15 Gm Of Glucse In 37.5 Gm Tube PO PRN PRN Hypoglycemia Protocol Hydralazine HCl 10 mg 01/07/25 06:44 Hydralazine Hcl 20 Mg/Ml Vial IV PUSH Q8H PRN Blood Pressure - High systolic Levetiracetam 500 mg in 100 mls @ 400 mls/hr 01/07/25 10:00 01/15/25 21:19 Keppra Iv IVPB Infused Q12HR JUANCARLOS Infusion Dextrose 1,000 mls @ 100 mls/hr 01/09/25 05:54 Dextrose 5% 1,000 Ml IVPB PRN PRN Hypoglycemia Protocol Sodium Chloride 1,000 mls @ 75 mls/hr 01/15/25 00:01 01/16/25 04:32 Normal Saline Iv IV CONT 75 mls/hr .[id number] JUANCARLOS Administration Levalbuterol HCl 0.625 mg 01/07/25 05:59 Levalbuterol Neb 1.25 Mg/3 Ml INHALATION Q6H PRN shortness of breath or wheezing Lidocaine 1 patch 01/16/25 09:00 Lidocaine 5% Patch TRANSDERM DAILY JUANCARLOS Melatonin 5 mg 01/10/25 21:00 01/16/25 03:59 Melatonin 5 Mg Tablet PO Not Given HS JUANCARLOS Metoprolol Succinate 50 mg 01/14/25 17:00 01/16/25 00:35 Metoprolol Succinate Ext Rel 50 Mg Tabcr PO 50 mg Q12HR JUANCARLOS Administration Morphine Sulfate 2 mg 01/15/25 18:02 Morphine Sulfate (*Crx) 4 Mg/Ml Inj IV PUSH Q3H PRN Pain Rated 7-10 Olanzapine 2.5 mg 01/10/25 18:57 Olanzapine 2.5 Mg Tablet PO DAILY PRN Agitation Olanzapine 5 mg 01/10/25 21:00 01/16/25 03:59 Olanzapine 5 Mg Tablet PO Not Given QHS JUANCARLOS Ondansetron HCl 4 mg 01/07/25 00:44 01/14/25 13:49 Ondansetron Inj 4 Mg/2 Ml Vial IV PUSH 4 mg Q4H PRN Administration Nausea Pantoprazole Sodium 40 mg 01/10/25 09:00 01/15/25 08:32 Pantoprazole Sodium Iv 40 Mg Vial IV PUSH 40 mg QAM JUANCARLOS Administration Sodium Chloride 10 ml 01/12/25 22:00 01/16/25 06:00 Saline Lock Flush IV PUSH 10 ml Q8HR JUANCARLOS Administration Sodium Chloride 10 ml 01/12/25 15:51 Saline Lock Flush IV PUSH PRN PRN Flush Sodium Chloride 20 ml 01/12/25 15:51 Saline Lock Flush IV PUSH PRN PRN after blood draws Trazodone HCl 50 mg 01/11/25 21:00 01/16/25 02:11 Trazodone Hcl 50 Mg Tablet PO 50 mg HS JUANCARLOS Administration Radiology Results: ITS Impressions Abdomen X-Ray 01/11/25 12:53 IMPRESSION: 1. Persistent small bowel obstruction without evident oral contrast material which could be due to dilution from residual fluid in the small bowel. Abdomen/Pelvis CT 01/11/25 15:05 IMPRESSION: 1. Significant delay of passage of oral contrast throughout the dilated proximal to mid small bowel which gradually decreases in caliber more distally without a discrete transition point to suggest obstruction which favors an ileus. 2. Small bilateral pleural effusions and small amount of ascites in the abdomen and pelvis. Labs Labs: Laboratory Results - last 24 hr 01/16/25 05:26 WBC 9.7 RBC 3.26 L Hgb 10.0 L Hct 32.1 L MCV 98.5 MCH 30.7 MCHC 31.2 L RDW 12.0 Plt Count 145 L MPV 9.5 Immature Gran % (Auto) 0.6 H Neut % (Auto) 81.7 H Lymph % (Auto) 9.1 L [place] % (Auto) 7.4 Eos % (Auto) 0.9 Baso % (Auto) 0.3 Lymph # (Auto) 0.88 L [place] # (Auto) 0.7 H Eos # (Auto) 0.1 Baso # (Auto) 0.0 Abs Immat Gran (auto) 0.06 H Absolute Neuts (auto) 7.9 H Absolute Nucleated RBC 0.000 Nucleated RBC % 0.0 Sodium 135 L Potassium 3.8 Chloride 107 Carbon Dioxide 25 Anion Gap 3 L BUN 16 Creatinine 0.77 Estim Creat Clear Calc 43 Estimated GFR > 60 Glucose 82 Calcium 7.9 L Magnesium 1.8 Total Bilirubin 0.3 AST 20 ALT 9 Alkaline Phosphatase 48 Total Protein 5.1 L Albumin 2.7 L
[2025-01-16] MEDS: AMIODARONE HCL 200 MG TABLET PO (09:45)
[2025-01-16] MEDS: LIDOCAINE 5% PATCH 1 PATCH TRANSDERM (09:45)
[2025-01-16] MEDS: PANTOPRAZOLE SODIUM IV 40 MG VIAL IV PUSH (09:45)
[2025-01-16] MEDS: levETIRAcetam 500MG/NACL 100ML 500 MG/100 ML BAG 400 MG IVPB ×2 (09:46→20:31)
--- NOTE | 2025-01-16 09:54 | WPDPN ---
Progress Note: A&P Assessment and Plan (1) Parastomal hernia: Code(s): K43.5 - Parastomal hernia without obstruction or gangrene Status: Acute Assessment and Plan: Repaired yesterday by robotic assisted laparoscopic approach. Hernia was repaired primarily without use of any mesh. Ostomy is working well now. Continue supportive management. We will go ahead and have her Castillo catheter removed and bedside commode. Continue working with PT OT. Okay to start on Lovenox for DVT prophylaxis. Continue oral GI prophylaxis. Hep-Lock IV fluids and continue to advance diet as tolerated. (2) Incisional hernia: Code(s): K43.2 - Incisional hernia without obstruction or gangrene Status: Acute Assessment and Plan: As above. Subjective Date/time seen: 01/16/25 09:54 Interval history: Patient is postop day 1 after robotic assisted laparoscopic parastomal hernia repair without mesh and repair of epigastric incisional hernia without mesh. Is doing well today. Pain complaints are minimal. She already has output of semi-solid stool out of her end ileostomy. She tolerated some liquids this morning but does not like the clear liquids. Still has a Castillo in place. Nasal cannula oxygen is weaned down to [id number]/minute. Morning labs reviewed and significant abnormalities. Exam GI: Other: Abdomen is soft and nondistended. Right lower quadrant end ileostomy producing semi-solid stool. Port site incisions are healing well without any redness or drainage. Expected mild tenderness around the port site incisions. Objective Data Vital Signs Vital Signs: Vital Signs - 24 hr 01/15/25 12:05 01/15/25 17:35 01/15/25 17:50 Temperature 36.6 C Pulse Rate 90 90 90 Respiratory Rate 14 14 12 Blood Pressure 101/58 L 137/79 137/77 Pulse Oximetry 93 100 100 Oxygen Delivery Room Air Simple Face Mask Simple Face Mask Oxygen Flow Rate 8 8 01/15/25 18:05 01/15/25 18:20 01/15/25 18:49 Temperature 36.2 C L Pulse Rate 90 90 Respiratory Rate 12 12 Blood Pressure 124/71 124/71 Pulse Oximetry 97 97 98 Oxygen Delivery Nasal Cannula Nasal Cannula Nasal Cannula Oxygen Flow Rate 3 3 3 01/15/25 19:01 01/15/25 19:16 01/15/25 19:46 Temperature 36.1 C L 36.4 C L 36.5 C Pulse Rate 90 92 94 Respiratory Rate 14 14 14 Blood Pressure 120/67 125/74 129/71 Pulse Oximetry 99 100 100 Oxygen Delivery Oxygen Flow Rate 01/15/25 20:00 01/15/25 20:46 01/15/25 22:00 Temperature 36.6 C Pulse Rate 91 Respiratory Rate 14 Blood Pressure 124/65 Pulse Oximetry 100 100 94 Oxygen Delivery Nasal Cannula Nasal Cannula Oxygen Flow Rate 3 2 01/16/25 00:35 01/16/25 00:44 01/16/25 00:45 Temperature 36.9 C Pulse Rate 90 90 Respiratory Rate 18 Blood Pressure 118/84 Pulse Oximetry 100 100 Oxygen Delivery Nasal Cannula Oxygen Flow Rate 2 01/16/25 05:42 Temperature 36.6 C Pulse Rate 90 Respiratory Rate 16 Blood Pressure 109/63 Pulse Oximetry 95 Oxygen Delivery Oxygen Flow Rate Intake/Output Intake/Output: Intake & Output 01/13/25 01/14/25 01/15/25 01/16/25 23:59 23:59 23:59 23:59 Intake Total 860 1730 1823.3 676.7 Output Total 2300 1475 250 500 Balance -0519 378 2261.3 176.7 Meds/Results Medications: Active Medications Generic Name Dose Route Start Last Admin Trade Name Freq PRN Reason Stop Dose Admin Acetaminophen 650 mg 01/07/25 00:44 01/09/25 16:14 Acetaminophen 650 Mg Suppository RECTAL 650 mg Q6H PRN Administration Mild Pain (1-3) or Fever Hydrocodone Bitart/Acetaminophen 1 tab 01/13/25 10:25 01/16/25 02:12 Hydrocodone/Acetaminophen (*Crx) 5-325 Mg Tablet PO 1 tab Q6H PRN Administration Pain Rated 4-6 Amiodarone HCl 200 mg 01/14/25 12:05 01/15/25 08:32 Amiodarone Hcl 200 Mg Tablet PO 200 mg DAILY JUANCARLOS Administration Atorvastatin Calcium 40 mg 01/14/25 18:00 01/15/25 16:48 Atorvastatin 40 Mg Tablet PO Not Given QPM JUANCARLOS Dextrose 12.5 gm 01/09/25 05:54 01/09/25 11:46 Dextrose 50% 25 Gm/50 Ml Syringe IV PUSH 12.5 gm PRN PRN Administration Hypoglycemia Protocol Fentanyl Citrate 25 mcg 01/15/25 14:33 Fentanyl Citrate Inj (*Crx) 100 Mcg/2 Ml Vial IV PUSH Q2M PRN Pain Glucagon 1 mg 01/09/25 05:54 Glucagon For Inj 1 Mg Vial IM PRN PRN Hypoglycemia Protocol Glucose 15 gm 01/09/25 05:54 Glucose Oral Gel 15 Gm Of Glucse In 37.5 Gm Tube PO PRN PRN Hypoglycemia Protocol Hydralazine HCl 10 mg 01/07/25 06:44 Hydralazine Hcl 20 Mg/Ml Vial IV PUSH Q8H PRN Blood Pressure - High systolic Levetiracetam 500 mg in 100 mls @ 400 mls/hr 01/07/25 10:00 01/15/25 21:19 Keppra Iv IVPB Infused Q12HR JUANCARLOS Infusion Dextrose 1,000 mls @ 100 mls/hr 01/09/25 05:54 Dextrose 5% 1,000 Ml IVPB PRN PRN Hypoglycemia Protocol Sodium Chloride 1,000 mls @ 75 mls/hr 01/15/25 00:01 01/16/25 04:32 Normal Saline Iv IV CONT 75 mls/hr .[id number] JUANCARLOS Administration Levalbuterol HCl 0.625 mg 01/07/25 05:59 Levalbuterol Neb 1.25 Mg/3 Ml INHALATION Q6H PRN shortness of breath or wheezing Lidocaine 1 patch 01/16/25 09:00 Lidocaine 5% Patch TRANSDERM DAILY JUANCARLOS Melatonin 5 mg 01/10/25 21:00 01/16/25 03:59 Melatonin 5 Mg Tablet PO Not Given HS JUANCARLOS Metoprolol Succinate 50 mg 01/14/25 17:00 01/16/25 00:35 Metoprolol Succinate Ext Rel 50 Mg Tabcr PO 50 mg Q12HR JUANCARLOS Administration Morphine Sulfate 2 mg 01/15/25 18:02 Morphine Sulfate (*Crx) 4 Mg/Ml Inj IV PUSH Q3H PRN Pain Rated 7-10 Olanzapine 2.5 mg 01/10/25 18:57 Olanzapine 2.5 Mg Tablet PO DAILY PRN Agitation Olanzapine 5 mg 01/10/25 21:00 01/16/25 03:59 Olanzapine 5 Mg Tablet PO Not Given QHS JUANCARLOS Ondansetron HCl 4 mg 01/07/25 00:44 01/14/25 13:49 Ondansetron Inj 4 Mg/2 Ml Vial IV PUSH 4 mg Q4H PRN Administration Nausea Pantoprazole Sodium 40 mg 01/10/25 09:00 01/15/25 08:32 Pantoprazole Sodium Iv 40 Mg Vial IV PUSH 40 mg QAM JUANCARLOS Administration Sodium Chloride 10 ml 01/12/25 22:00 01/16/25 06:00 Saline Lock Flush IV PUSH 10 ml Q8HR JUANCARLOS Administration Sodium Chloride 10 ml 01/12/25 15:51 Saline Lock Flush IV PUSH PRN PRN Flush Sodium Chloride 20 ml 01/12/25 15:51 Saline Lock Flush IV PUSH PRN PRN after blood draws Trazodone HCl 50 mg 01/11/25 21:00 01/16/25 02:11 Trazodone Hcl 50 Mg Tablet PO 50 mg HS JUANCARLOS Administration Radiology Results: ITS Impressions Abdomen X-Ray 01/11/25 12:53 IMPRESSION: 1. Persistent small bowel obstruction without evident oral contrast material which could be due to dilution from residual fluid in the small bowel. Abdomen/Pelvis CT 01/11/25 15:05 IMPRESSION: 1. Significant delay of passage of oral contrast throughout the dilated proximal to mid small bowel which gradually decreases in caliber more distally without a discrete transition point to suggest obstruction which favors an ileus. 2. Small bilateral pleural effusions and small amount of ascites in the abdomen and pelvis. Labs Labs: Laboratory Results - last 24 hr 01/16/25 05:26 WBC 9.7 RBC 3.26 L Hgb 10.0 L Hct 32.1 L MCV 98.5 MCH 30.7 MCHC 31.2 L RDW 12.0 Plt Count 145 L MPV 9.5 Immature Gran % (Auto) 0.6 H Neut % (Auto) 81.7 H Lymph % (Auto) 9.1 L [place] % (Auto) 7.4 Eos % (Auto) 0.9 Baso % (Auto) 0.3 Lymph # (Auto) 0.88 L [place] # (Auto) 0.7 H Eos # (Auto) 0.1 Baso # (Auto) 0.0 Abs Immat Gran (auto) 0.06 H Absolute Neuts (auto) 7.9 H Absolute Nucleated RBC 0.000 Nucleated RBC % 0.0 Sodium 135 L Potassium 3.8 Chloride 107 Carbon Dioxide 25 Anion Gap 3 L BUN 16 Creatinine 0.77 Estim Creat Clear Calc 43 Estimated GFR > 60 Glucose 82 Calcium 7.9 L Magnesium 1.8 Total Bilirubin 0.3 AST 20 ALT 9 Alkaline Phosphatase 48 Total Protein 5.1 L Albumin 2.7 L
[2025-01-16] MEDS: MORPHINE SULFATE (*CRX) 4 MG/ML INJ 2 MG IV PUSH (13:04)
--- NOTE | 2025-01-16 15:45 | P.OP_ITS ---
Procedure Note - Detailed Date of Procedure 01/16/25 Pre-op Diagnosis Right lower quadrant peristomal hernia. Post-op Diagnosis Other ( Right lower quadrant peristomal hernia, mid epigastric abdominal wall reducible incisional hernia) Procedure Performed Robotic assisted laparoscopic parastomal hernia repair without mesh Robotic assisted laparoscopic incisional hernia repair without mesh Surgeon Michael Murillo MD Cps Team Lead Hoang Wilson COMMERCIAL ILLUSTRATOR Anesthesia General Indications patient is a 79-year-old female who initially was admitted to the hospital for a small-bowel obstruction secondary to an incarcerated right lower quadrant peristomal hernia. She has a history of a subtotal colectomy and placement of an end ileostomy. She was able to resolve the small-bowel obstruction due to the peristomal hernia after NG tube decompression. Repeat CT scan revealed what appeared to be a residual loop of small bowel within the hernia sac with a transition point causing a partial small-bowel obstruction. Given the likelihood that she would get another high-grade small-bowel obstruction it was recommended that she undergo a robotic assisted laparoscopic parastomal hernia repair. Findings Within the abdomen there were surprisingly few adhesions of the small bowel to the abdominal wall. The loop of bowel which was in the peristomal hernia on CT scan had spontaneously reduced leaving the segment her ileum going through the f ascia to the skin in place. I could easily tell because I injected ICG dye into the ileostomy and with firefly imaging on the [employer] robot this loop of small bowel was fluorescent green. The peristomal hernia defect measured approximately 4x2cm. I found a mid epigastric incisional hernia which measured approximately 4x3cm as well. Both of the hernia defects were repaired primarily with suture and no mesh. Description of Procedure After informed consent was obtained patient was brought to the operating room she was placed in a supine position and then general endotracheal anesthesia was administered. The abdomen was then prepped and draped usual sterile fashion. The patient already had a Castillo catheter in place. Entered the abdomen in the left upper quadrant utilizing a 5mm Optiview port. Once inside the abdomen I insufflated to adequate pneumoperitoneum of 15mmHg of CO2. I could then see that there were surprisingly few adhesions of the small bowel to the anterior abdominal wall. There is only 1 small adhesion to the mesentery to the loop of ileum going up to the ostomy. I then placed additional robotic trocar ports on the abdominal wall and then switched out the left upper quadrant trocar port to a 10mm trocar port. The [employer] robot was then brought to the patient's bedside and docked. The robotic arms were attached robotic ports and then robotic instruments were advanced into the abdomen. I then scrubbed out the procedure to sit down at the robotic console to perform the dissection. I very carefully released adhesion of the loop of small bowel to the mesentery to the ileum. I then used firefly imaging to visualize the loop of small bowel going up to the ostomy. This was fluorescein green since I had injected ICG dye into the ostomy orifice prior to the beginning of the procedure. I then very carefully work robotic dissection with robotic janeth define the edges of the defect and released the bowel from the hernia sac and dissected the hernia sac away from the mesentery. I then measured the hernia defect was probably 4x2cm. Through the central portion of the defect was the terminal ileum going up to the skin. I then proceeded to close the edges of the defect around the ileum going to the ostomy. This was done with a nonabsorbable 0V lock suture. As I closed the defect around the ileostomy segment I was careful not to impinge upon the lumen of the bowel and stricture of the ileostomy. After viewing the primary repair I felt that given the patient's overall morbidity and age that taking the additional time to place mesh would not significantly give any benefit at this time and actually could increase risks of bowel adhesions to the mesh given there was really no omentum to place between the mesh and the bowel. I turned my attention towards a mid epigastric incisional hernia. This defect measured approximately 4x3cm. I then proceeded to close this defect with a no other nonabsorbable 0 the lead lock suture to approximate the edges of the fascia and closing the defect. Again no mesh was used to reinforce this primary closure. At the end the procedure I then ran the small bowel and did not see any evidence of any intra loop adhesions. I then proceeded to have all the robotic instruments removed from the abdomen and the [employer] robot was then docked from the patient's bedside. I then scrubbed back in the procedure and then utilizing the robotic laparoscopic placed transfascial 0 Vicryl sutures at all the port sites very carefully. The abdomen was then allowed to decompress and remove all the trocar ports. The sutures then tied down closing off all the port sites at the fascial level. The port sites were then irrigated sterile saline solution hemostasis was excellent. I then proceeded to close all the port sites utilizing a running subcuticular 4-0 Monocryl suture. The left upper qadran 10mm trocar port site was closed with 0 Vicryl suture at the fascial level be an open technique. Incisions were then cleaned the skin glue was applied. The drapes were then removed and I then digitized the ileostomy opening. My index finger went into the the ostomy and down into the abdomen past the fascia easily without evidence of any stenosis. an ostial classes re placed over the ileostomy opening. He The patient tolerated the procedure well no complications. All sponges, needles, and instrument counts were correct at the end procedure. EBL was _25__cc. The patient was awakened and taken to recovery in stable and satisfactory condition. Implants None Estimated Blood Loss 25 Urine Output 50 Drains No Packing No Pathology None sent Complications No immediate complications Condition Stable Disposition PACU [facility] Billing Surgery - Charge Forward: Surgery Billing
--- NOTE | 2025-01-16 16:06 | PM.IMPN ---
Progress Note: A&P Assessment and Plan (1) Small bowel obstruction: Code(s): K56.609 - Unspecified intestinal obstruction, unspecified as to partial versus complete obstruction Status: Acute (2) Atrial fib/flutter, transient: Code(s): I48.91 - Unspecified atrial fibrillation; I48.92 - Unspecified atrial flutter Status: Acute (3) Pacemaker: Code(s): Z95.0 - Presence of cardiac pacemaker Status: Acute (4) Colon cancer: Code(s): C18.9 - Malignant neoplasm of colon, unspecified Status: Acute (5) Hemiplegia following cerebrovascular accident (CVA): Code(s): I69.359 - Hemiplegia and hemiparesis following cerebral infarction affecting unspecified side Status: Acute (6) Seizure: Code(s): R56.9 - Unspecified convulsions Status: Acute (7) HTN (hypertension): Code(s): I10 - Essential (primary) hypertension Status: Acute Plan 79-year-old female with PMH dementia, has 24 hour caretakers, colon cancer in remission status post colostomy creation, history of cerebral hemorrhage, left hemiplegia status post CVA AFib/flutter, hypertension, presents to [facility] on 01[facility]25 with nausea, vomiting, abdominal distention, decreased urinary output. SBO: Status post robotic assisted laparoscopic incisional hernia repair without mesh on 01/15/[address] Murillo. She is doing well postop, abdominal exam is largely benign, she complains of minimal tenderness. Remove Castillo catheter, advanced diet as tolerated. I have discontinued her morphine and fentanyl, she can continue to use Jeffrey p.r.n.. She has a decreased functional status at baseline considering her previous CVA and bed-bound status and she is on 1 L of nasal cannula since surgery. She denies any shortness of breath or cough, her lung exam is clear except for scant dry crackles which could be due to atelectasis status post surgery. Continue to wean oxygen per protocol, ordered incentive spirometer. Again, avoid IV narcotics if possible. Lidocaine patch was started on 01/16/2025. Currently paced, goes in and out of AFib/flutter. She had a brain bleed from falling and is not on anticoagulation. Continue metoprolol 50 mg p.o. b.i.d., amiodarone 200 mg p.o. q.day. Continue telemetry for now. Continue Keppra for history of seizure. Depression: Restart CLINICAL LABORATORY TECHNOLOGIST medications if she is tolerating diet more. Hyperlipidemia: Restart CLINICAL LABORATORY TECHNOLOGIST medications if she is tolerating diet more. Hypertension: Continue to monitor. DNR. Saline lock IV. Protonix 40 mg p.o. q.a.m.. Advanced diet as tolerated. SCDs only, history of brain bleed. Time Spent With Patient Time with patient: Greater than 35 minutes Subjective Date/time seen: 01/16/25 16:06 Interval history: No major acute overnight events. Patient complains of persistent pain in the abdomen, she denies feeling fevers/chills, chest pain, shortness of breath, cough. Review of Systems Review of Systems: All systems reviewed & are unremarkable except as noted in HPI and below (Subjective) Exam Const: General: comfortable and no acute distress HENMT: Mouth: Yes moist mucous membranes Eyes: Pupils: Equal, round and reactive pupils present Neck: Neck: supple Resp: Effort & Inspection: normal respiratory effort Auscultation: clear to auscultation bilaterally Cardio: Rate: regular rate Rhythm: regular rhythm GI: Inspection: non-distended GI Palp: Yes Soft to palpation, No Tenderness to palpation present (GI) and No Guarding due to palpation present (GI) Extrem: General: no edema Objective Data Vital Signs Vital Signs: Vital Signs - 24 hr 01/15/25 17:35 01/15/25 17:50 01/15/25 18:05 Temperature 97.8 F Pulse Rate 90 90 90 Respiratory Rate 14 12 12 Blood Pressure 137/79 137/77 124/71 Pulse Oximetry 100 100 97 Oxygen Delivery Simple Face Mask Simple Face Mask Nasal Cannula Oxygen Flow Rate 8 8 3 01/15/25 18:20 01/15/25 18:49 01/15/25 19:01 Temperature 97.2 F L 96.9 F L Pulse Rate 90 90 Respiratory Rate 12 14 Blood Pressure 124/71 120/67 Pulse Oximetry 97 98 99 Oxygen Delivery Nasal Cannula Nasal Cannula Oxygen Flow Rate 3 3 01/15/25 19:16 01/15/25 19:46 01/15/25 20:00 Temperature 97.5 F L 97.7 F Pulse Rate 92 94 Respiratory Rate 14 14 Blood Pressure 125/74 129/71 Pulse Oximetry 100 100 100 Oxygen Delivery Nasal Cannula Oxygen Flow Rate 3 01/15/25 20:46 01/15/25 22:00 01/16/25 00:35 Temperature 97.8 F Pulse Rate 91 90 Respiratory Rate 14 Blood Pressure 124/65 Pulse Oximetry 100 94 Oxygen Delivery Nasal Cannula Oxygen Flow Rate 2 01/16/25 00:44 01/16/25 00:45 01/16/25 05:42 Temperature 98.4 F 97.8 F Pulse Rate 90 90 Respiratory Rate 18 16 Blood Pressure 118/84 109/63 Pulse Oximetry 100 100 95 Oxygen Delivery Nasal Cannula Oxygen Flow Rate 2 01/16/25 08:00 01/16/25 09:45 01/16/25 09:45 Temperature Pulse Rate 90 90 Respiratory Rate Blood Pressure Pulse Oximetry 95 Oxygen Delivery Nasal Cannula Oxygen Flow Rate 0.5 01/16/25 11:50 Temperature Pulse Rate Respiratory Rate Blood Pressure Pulse Oximetry 94 Oxygen Delivery Nasal Cannula Oxygen Flow Rate 1 Intake/Output Intake/Output: Intake & Output 01/13/25 01/14/25 01/15/25 01/16/25 23:59 23:59 23:59 23:59 Intake Total 860 1730 1823.3 916.7 Output Total 2300 1475 250 550 Balance -5453 275 6460.3 366.7 Meds/Results Medications: Active Medications Generic Name Dose Route Start Last Admin Trade Name Freq PRN Reason Stop Dose Admin Acetaminophen 650 mg 01/07/25 00:44 01/09/25 16:14 Acetaminophen 650 Mg Suppository RECTAL 650 mg Q6H PRN Administration Mild Pain (1-3) or Fever Hydrocodone Bitart/Acetaminophen 1 tab 01/13/25 10:25 01/16/25 10:34 Hydrocodone/Acetaminophen (*Crx) 5-325 Mg Tablet PO 1 tab Q6H PRN Administration Pain Rated 4-6 Amiodarone HCl 200 mg 01/14/25 12:05 01/16/25 09:45 Amiodarone Hcl 200 Mg Tablet PO 200 mg DAILY JUANCARLOS Administration Atorvastatin Calcium 40 mg 01/14/25 18:00 01/15/25 16:48 Atorvastatin 40 Mg Tablet PO Not Given QPM JUANCARLOS Dextrose 12.5 gm 01/09/25 05:54 01/09/25 11:46 Dextrose 50% 25 Gm/50 Ml Syringe IV PUSH 12.5 gm PRN PRN Administration Hypoglycemia Protocol Fentanyl Citrate 25 mcg 01/15/25 14:33 Fentanyl Citrate Inj (*Crx) 100 Mcg/2 Ml Vial IV PUSH Q2M PRN Pain Glucagon 1 mg 01/09/25 05:54 Glucagon For Inj 1 Mg Vial IM PRN PRN Hypoglycemia Protocol Glucose 15 gm 01/09/25 05:54 Glucose Oral Gel 15 Gm Of Glucse In 37.5 Gm Tube PO PRN PRN Hypoglycemia Protocol Hydralazine HCl 10 mg 01/07/25 06:44 Hydralazine Hcl 20 Mg/Ml Vial IV PUSH Q8H PRN Blood Pressure - High systolic Levetiracetam 500 mg in 100 mls @ 400 mls/hr 01/07/25 10:00 01/16/25 09:46 Keppra Iv IVPB 400 mls/hr Q12HR JUANCARLOS Administration Dextrose 1,000 mls @ 100 mls/hr 01/09/25 05:54 Dextrose 5% 1,000 Ml IVPB PRN PRN Hypoglycemia Protocol Levalbuterol HCl 0.625 mg 01/07/25 05:59 Levalbuterol Neb 1.25 Mg/3 Ml INHALATION Q6H PRN shortness of breath or wheezing Lidocaine 1 patch 01/16/25 09:00 01/16/25 09:45 Lidocaine 5% Patch TRANSDERM 1 patch DAILY JUANCARLOS Administration Melatonin 5 mg 01/10/25 21:00 01/16/25 03:59 Melatonin 5 Mg Tablet PO Not Given HS JUANCARLOS Metoprolol Succinate 50 mg 01/14/25 17:00 01/16/25 09:45 Metoprolol Succinate Ext Rel 50 Mg Tabcr PO 50 mg Q12HR JUANCARLOS Administration Morphine Sulfate 2 mg 01/15/25 18:02 01/16/25 13:04 Morphine Sulfate (*Crx) 4 Mg/Ml Inj IV PUSH 2 mg Q3H PRN Administration Pain Rated 7-10 Olanzapine 2.5 mg 01/10/25 18:57 Olanzapine 2.5 Mg Tablet PO DAILY PRN Agitation Olanzapine 5 mg 01/10/25 21:00 01/16/25 03:59 Olanzapine 5 Mg Tablet PO Not Given QHS JUANCARLOS Ondansetron HCl 4 mg 01/07/25 00:44 01/14/25 13:49 Ondansetron Inj 4 Mg/2 Ml Vial IV PUSH 4 mg Q4H PRN Administration Nausea Pantoprazole Sodium 40 mg 01/17/25 09:00 Pantoprazole 40 Mg Tablet PO QAM JUANCARLOS Sodium Chloride 10 ml 01/12/25 22:00 01/16/25 15:35 Saline Lock Flush IV PUSH 10 ml Q8HR JUANCARLOS Administration Sodium Chloride 10 ml 01/12/25 15:51 Saline Lock Flush IV PUSH PRN PRN Flush Sodium Chloride 20 ml 01/12/25 15:51 Saline Lock Flush IV PUSH PRN PRN after blood draws Trazodone HCl 50 mg 01/11/25 21:00 01/16/25 02:11 Trazodone Hcl 50 Mg Tablet PO 50 mg HS JUANCARLOS Administration Radiology Results: ITS Impressions Abdomen X-Ray 01/11/25 12:53 IMPRESSION: 1. Persistent small bowel obstruction without evident oral contrast material which could be due to dilution from residual fluid in the small bowel. Abdomen/Pelvis CT 01/11/25 15:05 IMPRESSION: 1. Significant delay of passage of oral contrast throughout the dilated proximal to mid small bowel which gradually decreases in caliber more distally without a discrete transition point to suggest obstruction which favors an ileus. 2. Small bilateral pleural effusions and small amount of ascites in the abdomen and pelvis. Labs Labs: Laboratory Results - last 24 hr 01/16/25 05:26 WBC 9.7 RBC 3.26 L Hgb 10.0 L Hct 32.1 L MCV 98.5 MCH 30.7 MCHC 31.2 L RDW 12.0 Plt Count 145 L MPV 9.5 Immature Gran % (Auto) 0.6 H Neut % (Auto) 81.7 H Lymph % (Auto) 9.1 L Starr % (Auto) 7.4 Eos % (Auto) 0.9 Baso % (Auto) 0.3 Lymph # (Auto) 0.88 L Starr # (Auto) 0.7 H Eos # (Auto) 0.1 Baso # (Auto) 0.0 Abs Immat Gran (auto) 0.06 H Absolute Neuts (auto) 7.9 H Absolute Nucleated RBC 0.000 Nucleated RBC % 0.0 Sodium 135 L Potassium 3.8 Chloride 107 Carbon Dioxide 25 Anion Gap 3 L BUN 16 Creatinine 0.77 Estim Creat Clear Calc 43 Estimated GFR > 60 Glucose 82 Calcium 7.9 L Magnesium 1.8 Total Bilirubin 0.3 AST 20 ALT 9 Alkaline Phosphatase 48 Total Protein 5.1 L Albumin 2.7 L
--- NOTE | 2025-01-16 17:22 | WPDANESPN ---
Anes - Prog Note Post-Op Date/Time: 01/16/25 17:22 Cardiovascular status: normal Respiratory status: normal Airway patency: baseline Mental status: baseline Post-Op hydration status: normal Vital Signs: Last Vital Signs Temp 97.8 F 01/16/25 05:42 Pulse 90 01/16/25 09:45 Resp 16 01/16/25 05:42 BP 109/63 01/16/25 05:42 Pulse Ox 94 01/16/25 11:50 O2 Del Method Nasal Cannula 01/16/25 11:50 O2 Flow Rate 1 01/16/25 11:50 FiO2 21 01/13/25 20:44 Pain Score (VAS): 0/10 I/O: Intake & Output 01/16/25 01/16/25 01/16/25 07:59 15:59 23:59 Intake Total 676.7 240 Output Total 500 50 Balance 176.7 190 Laboratory Tests 01/16/25 05:26 01/16/25 05:26 01/16/25 05:26 WBC 9.7 RBC 3.26 L Hgb 10.0 L Hct 32.1 L MCV 98.5 MCH 30.7 MCHC 31.2 L RDW 12.0 Plt Count 145 L MPV 9.5 Immature Gran % (Auto) 0.6 H Neut % (Auto) 81.7 H Lymph % (Auto) 9.1 L Th[place]morton % (Auto) 7.4 Eos % (Auto) 0.9 Baso % (Auto) 0.3 Lymph # (Auto) 0.88 L Th[place]morton # (Auto) 0.7 H Eos # (Auto) 0.1 Baso # (Auto) 0.0 Abs Immat Gran (auto) 0.06 H Absolute Neuts (auto) 7.9 H Absolute Nucleated RBC 0.000 Nucleated RBC % 0.0 Sodium 135 L Potassium 3.8 Chloride 107 Carbon Dioxide 25 Anion Gap 3 L BUN 16 Creatinine 0.77 Estim Creat Clear Calc 43 Estimated GFR > 60 Glucose 82 Calcium 7.9 L Magnesium 1.8 Total Bilirubin 0.3 AST 20 ALT 9 Alkaline Phosphatase 48 Total Protein 5.1 L Albumin 2.7 L Post-procedural complaints: none Patient Feedback: Patient satisfied with anesthetic care.
[2025-01-16] MEDS: ATORVASTATIN 40 MG TABLET PO (17:24)
[2025-01-16] MEDS: MELATONIN 5 MG TABLET PO (20:35)
[2025-01-17] VITALS (9 sets, daily range): BP systolic 106–114; BP diastolic 60–84; PULSE 76–90; RESP 16–20; TEMP 36.6–36.9; O2SAT 93–98
[2025-01-17 05:26] LABS: Hematocrit 31.6 % (37.0-47.0); Hemoglobin 9.9 g/dL (12.0-15.0); Immature Granulocyte Percent A 0.5 % (0-0.5); Lymphocytes Absolute Auto 0.92 K/mm3 (0.9-3.2); Mean Corpuscular HGB Conc 31.3 g/dl (32-36); Mean Corpuscular Hemoglobin 30.7 pg (26-34); Mean Corpuscular Volume 97.8 fl (80-100); Nucleated Red Blood Cells Absolute Auto 0.000 K/mm3 (0.0-0.012); Nucleated Red Blood Cells Perc 0.0 % (0.0-0.2); Platelet Count Result 145 k/mm3 (150-375); Red Blood Count 3.23 M/mm3 (4.2-5.4); White Blood Count 6.2 K/mm3 (4.5-10.0)
[2025-01-17 05:51] LABS: Anion Gap 3 mmol/L (4-12); Blood Urea Nitrogen 12 mg/dL (7-17); Calcium 8.2 mg/dL (8.4-10.2); Carbon Dioxide 26 mmol/L (22-30); Chloride 106 mmol/L (98-107); Estimated CRCL calculation 44 ml/min; Estimated Glomerular Filt Rate > 60; Glucose 81 mg/dL (65-110); Magnesium 1.9 mg/dL (1.6-2.3); Potassium 3.7 mmol/L (3.4-5.0); Sodium 135 mmol/L (137-145)
[2025-01-17] MEDS: SALINE LOCK FLUSH 10 ML IV PUSH ×3 (06:15→20:44)
[2025-01-17] MEDS: HYDROcodone/acetaminophen (*CRX) 5-325 MG TABLET 1 TAB PO ×2 (08:34→23:02)
[2025-01-17] MEDS: METOPROLOL SUCCINATE EXT REL 50 MG TABCR PO ×2 (08:35→20:43)
[2025-01-17] MEDS: LIDOCAINE 5% PATCH 1 PATCH TRANSDERM (08:36)
[2025-01-17] MEDS: AMIODARONE HCL 200 MG TABLET PO (08:36)
[2025-01-17] MEDS: PANTOPRAZOLE 40 MG TABLET PO (08:36)
[2025-01-17] MEDS: levETIRAcetam 500MG/NACL 100ML 500 MG/100 ML BAG 400 MG IVPB ×2 (08:36→20:42)
--- NOTE | 2025-01-17 10:49 | PM.IMPN ---
Progress Note: A&P Assessment and Plan (1) Small bowel obstruction: Code(s): K56.609 - Unspecified intestinal obstruction, unspecified as to partial versus complete obstruction Status: Acute (2) Atrial fib/flutter, transient: Code(s): I48.91 - Unspecified atrial fibrillation; I48.92 - Unspecified atrial flutter Status: Acute (3) Pacemaker: Code(s): Z95.0 - Presence of cardiac pacemaker Status: Acute (4) Colon cancer: Code(s): C18.9 - Malignant neoplasm of colon, unspecified Status: Acute (5) Hemiplegia following cerebrovascular accident (CVA): Code(s): I69.359 - Hemiplegia and hemiparesis following cerebral infarction affecting unspecified side Status: Acute (6) Seizure: Code(s): R56.9 - Unspecified convulsions Status: Acute (7) HTN (hypertension): Code(s): I10 - Essential (primary) hypertension Status: Acute Plan 79-year-old female with PMH dementia, has 24 hour caretakers, colon cancer in remission status post colostomy creation, history of cerebral hemorrhage, left hemiplegia status post CVA AFib/flutter, hypertension, presents to [facility] on 01/06/2025 with nausea, vomiting, abdominal distention, decreased urinary output. SBO: Status post robotic assisted laparoscopic incisional hernia repair without mesh on 01/15/[address] Murillo. She has not been participating with therapy, encouraged her to participate and using incentive spirometer. She had transient acute hypoxic respiratory failure, there is a small right-sided pleural effusion on chest x-ray. Nurse to bladder scan again, urinate post Castillo catheter removal. Continue [place] p.r.n., lidocaine patch. Currently paced, goes in and out of AFib/flutter. She had a brain bleed from falling and is not on anticoagulation. Continue metoprolol 50 mg p.o. b.i.d., amiodarone 200 mg p.o. q.day. Continue telemetry for now. Continue Keppra for history of seizure. Depression: Restart CIGAR[employer] medications if she is tolerating diet more. Hyperlipidemia: Restart CIGARETTE PAPER TESTER medications if she is tolerating diet more. Hypertension: Continue to monitor. DNR. Saline lock IV. Protonix 40 mg p.o. q.a.m.. Advanced diet as tolerated. SCDs only, history of brain bleed. Time Spent With Patient Time with patient: Greater than 35 minutes Subjective Date/time seen: 01/17/25 10:49 Interval history: Patient complains of generalized pain and left upper quadrant pain. Denies shortness of breath or cough. I discussed with nursing, as that the incentive spirometer be used. Review of Systems Review of Systems: All systems reviewed & are unremarkable except as noted in HPI and below (Subjective) Exam Const: General: comfortable and no acute distress HENMT: Mouth: Yes moist mucous membranes Eyes: Pupils: Equal, round and reactive pupils present Neck: Neck: supple Resp: Effort & Inspection: normal respiratory effort Auscultation: clear to auscultation bilaterally Cardio: Rate: regular rate Rhythm: regular rhythm GI: GI Palp: Yes Soft to palpation, Yes Firmness to palpation present (GI) and Yes Tenderness to palpation present (GI) Neuro: Motor exam (neuro): 5/5 motor strength present throughout Extrem: General: no edema Objective Data Vital Signs Vital Signs: Vital Signs - 24 hr 01/16/25 11:50 01/16/25 16:46 01/16/25 20:00 Temperature Pulse Rate 90 Respiratory Rate 16 Blood Pressure 109/66 Pulse Oximetry 94 97 96 Oxygen Delivery Nasal Cannula Nasal Cannula Oxygen Flow Rate 1 1 01/16/25 20:33 01/16/25 21:43 01/17/25 07:18 Temperature 97.9 F 97.8 F Pulse Rate 90 91 76 Respiratory Rate 16 16 Blood Pressure 111/60 106/65 Pulse Oximetry 96 95 Oxygen Delivery Oxygen Flow Rate 01/17/25 08:35 01/17/25 08:36 Temperature Pulse Rate 76 76 Respiratory Rate Blood Pressure Pulse Oximetry Oxygen Delivery Oxygen Flow Rate Intake/Output Intake/Output: Intake & Output 01/14/25 01/15/25 01/16/25 01/17/25 23:59 23:59 23:59 23:59 Intake Total 1730 1823.3 2406.7 530 Output Total 1116 673 1523 Balance 255 1573.3 1256.7 530 Meds/Results Medications: Active Medications Generic Name Dose Route Start Last Admin Trade Name Freq PRN Reason Stop Dose Admin Acetaminophen 650 mg 01/07/25 00:44 01/09/25 16:14 Acetaminophen 650 Mg Suppository RECTAL 650 mg Q6H PRN Administration Mild Pain (1-3) or Fever Hydrocodone Bitart/Acetaminophen 1 tab 01/13/25 10:25 01/17/25 08:34 Hydrocodone/Acetaminophen (*Crx) 5-325 Mg Tablet PO 1 tab Q6H PRN Administration Pain Rated 4-6 Amiodarone HCl 200 mg 01/14/25 12:05 01/17/25 08:36 Amiodarone Hcl 200 Mg Tablet PO 200 mg DAILY JUANCARLOS Administration Atorvastatin Calcium 40 mg 01/14/25 18:00 01/16/25 17:24 Atorvastatin 40 Mg Tablet PO 40 mg QPM JUANCARLOS Administration Dextrose 12.5 gm 01/09/25 05:54 01/09/25 11:46 Dextrose 50% 25 Gm/50 Ml Syringe IV PUSH 12.5 gm PRN PRN Administration Hypoglycemia Protocol Glucagon 1 mg 01/09/25 05:54 Glucagon For Inj 1 Mg Vial IM PRN PRN Hypoglycemia Protocol Glucose 15 gm 01/09/25 05:54 Glucose Oral Gel 15 Gm Of Glucse In 37.5 Gm Tube PO PRN PRN Hypoglycemia Protocol Hydralazine HCl 10 mg 01/07/25 06:44 Hydralazine Hcl 20 Mg/Ml Vial IV PUSH Q8H PRN Blood Pressure - High systolic Levetiracetam 500 mg in 100 mls @ 400 mls/hr 01/07/25 10:00 01/17/25 08:36 Keppra Iv IVPB 400 mls/hr Q12HR JUANCARLOS Administration Dextrose 1,000 mls @ 100 mls/hr 01/09/25 05:54 Dextrose 5% 1,000 Ml IVPB PRN PRN Hypoglycemia Protocol Levalbuterol HCl 0.625 mg 01/07/25 05:59 Levalbuterol Neb 1.25 Mg/3 Ml INHALATION Q6H PRN shortness of breath or wheezing Lidocaine 1 patch 01/16/25 09:00 01/17/25 08:36 Lidocaine 5% Patch TRANSDERM 1 patch DAILY JUANCARLOS Administration Melatonin 5 mg 01/10/25 21:00 01/16/25 20:35 Melatonin 5 Mg Tablet PO 5 mg HS JUANCARLOS Administration Metoprolol Succinate 50 mg 01/14/25 17:00 01/17/25 08:35 Metoprolol Succinate Ext Rel 50 Mg Tabcr PO 50 mg Q12HR JUANCARLOS Administration Olanzapine 2.5 mg 01/10/25 18:57 01/17/25 08:59 Olanzapine 2.5 Mg Tablet PO 2.5 mg DAILY PRN Administration Agitation Olanzapine 5 mg 01/10/25 21:00 01/16/25 20:34 Olanzapine 5 Mg Tablet PO 5 mg QHS JUANCARLOS Administration Ondansetron HCl 4 mg 01/07/25 00:44 01/14/25 13:49 Ondansetron Inj 4 Mg/2 Ml Vial IV PUSH 4 mg Q4H PRN Administration Nausea Pantoprazole Sodium 40 mg 01/17/25 09:00 01/17/25 08:36 Pantoprazole 40 Mg Tablet PO 40 mg QAM JUANCARLOS Administration Sodium Chloride 10 ml 01/12/25 22:00 01/17/25 06:15 Saline Lock Flush IV PUSH 10 ml Q8HR JUANCARLOS Administration Sodium Chloride 10 ml 01/12/25 15:51 Saline Lock Flush IV PUSH PRN PRN Flush Sodium Chloride 20 ml 01/12/25 15:51 Saline Lock Flush IV PUSH PRN PRN after blood draws Trazodone HCl 50 mg 01/11/25 21:00 01/16/25 20:34 Trazodone Hcl 50 Mg Tablet PO 50 mg HS JUANCARLOS Administration Radiology Results: ITS Impressions Abdomen X-Ray 01/11/25 12:53 IMPRESSION: 1. Persistent small bowel obstruction without evident oral contrast material which could be due to dilution from residual fluid in the small bowel. Abdomen/Pelvis CT 01/11/25 15:05 IMPRESSION: 1. Significant delay of passage of oral contrast throughout the dilated proximal to mid small bowel which gradually decreases in caliber more distally without a discrete transition point to suggest obstruction which favors an ileus. 2. Small bilateral pleural effusions and small amount of ascites in the abdomen and pelvis. Labs Labs: Laboratory Results - last 24 hr 01/17/25 05:17 WBC 6.2 RBC 3.23 L Hgb 9.9 L Hct 31.6 L MCV 97.8 MCH 30.7 MCHC 31.3 L RDW 12.0 Plt Count 145 L MPV 9.3 Immature Gran % (Auto) 0.5 Neut % (Auto) 70.9 Lymph % (Auto) 14.7 L [place] % (Auto) 11.2 H Eos % (Auto) 2.2 Baso % (Auto) 0.5 Lymph # (Auto) 0.92 [place] # (Auto) 0.7 H Eos # (Auto) 0.1 Baso # (Auto) 0.0 Abs Immat Gran (auto) 0.03 Absolute Neuts (auto) 4.4 Absolute Nucleated RBC 0.000 Nucleated RBC % 0.0 Sodium 135 L Potassium 3.7 Chloride 106 Carbon Dioxide 26 Anion Gap 3 L BUN 12 Creatinine 0.76 Estim Creat Clear Calc 44 Estimated GFR > 60 Glucose 81 Calcium 8.2 L Magnesium 1.9
--- NOTE | 2025-01-17 13:41 | P.PNGS_ITS ---
Progress Note: A&P Assessment and Plan (1) Parastomal hernia: Code(s): K43.5 - Parastomal hernia without obstruction or gangrene Status: Acute Assessment and Plan: * Castillo catheter removed yesterday but patient may be having some urinary retention and this could be leading to some increased confusion. * Will have bladder scan performed and possibly replace catheter if her retention is noted. * Continue advancing diet as tolerated. * PT/OT. * SCDs for DVT prophylaxis--patient has had brain bleed in the past therefore Lovenox being avoided. (2) Incisional hernia: Code(s): K43.2 - Incisional hernia without obstruction or gangrene Status: Acute Assessment and Plan: As above. Subjective Subjective Date/Time Seen: 01/17/25 13:41 Interval history: Patient having a little more pain today. Also appears slightly confused. Castillo catheter removed yesterday but not having much urine output yet. Nurse will be obtaining bladder scan this afternoon. Not much appetite yet and mostly sipping on liquids. Exam GI: Inspection: distended Other: Right lower quadrant end ileostomy producing semi-solid stool and gas. Port site incisions are healing well without any redness or drainage. Expected mild tenderness around the port site incisions. Objective Data Vital Signs Vital Signs: Vital Signs - 24 hr 01/16/25 16:46 01/16/25 20:00 01/16/25 20:33 Temperature Pulse Rate 90 90 Respiratory Rate 16 Blood Pressure 109/66 Pulse Oximetry 97 96 Oxygen Delivery Nasal Cannula Oxygen Flow Rate 1 01/16/25 21:43 01/17/25 07:18 01/17/25 08:00 Temperature 97.9 F 97.8 F Pulse Rate 91 76 Respiratory Rate 16 16 Blood Pressure 111/60 106/65 Pulse Oximetry 96 95 98 Oxygen Delivery Nasal Cannula Oxygen Flow Rate 1 01/17/25 08:35 01/17/25 08:36 01/17/25 12:37 Temperature Pulse Rate 76 76 Respiratory Rate Blood Pressure Pulse Oximetry 98 Oxygen Delivery Nasal Cannula Oxygen Flow Rate 1 01/17/25 12:56 Temperature Pulse Rate Respiratory Rate Blood Pressure Pulse Oximetry 93 Oxygen Delivery Room Air Oxygen Flow Rate Intake/Output Intake/Output: Intake & Output 01/14/25 01/15/25 01/16/25 01/17/25 23:59 23:59 23:59 23:59 Intake Total 1730 1823.3 2406.7 530 Output Total 3440 180 7520 Balance 255 1573.3 1256.7 530 Meds/Results Medications: Active Medications Generic Name Dose Route Start Last Admin Trade Name Freq PRN Reason Stop Dose Admin Acetaminophen 650 mg 01/07/25 00:44 01/09/25 16:14 Acetaminophen 650 Mg Suppository RECTAL 650 mg Q6H PRN Administration Mild Pain (1-3) or Fever Hydrocodone Bitart/Acetaminophen 1 tab 01/13/25 10:25 01/17/25 08:34 Hydrocodone/Acetaminophen (*Crx) 5-325 Mg Tablet PO 1 tab Q6H PRN Administration Pain Rated 4-6 Amiodarone HCl 200 mg 01/14/25 12:05 01/17/25 08:36 Amiodarone Hcl 200 Mg Tablet PO 200 mg DAILY JUANCARLOS Administration Atorvastatin Calcium 40 mg 01/14/25 18:00 01/16/25 17:24 Atorvastatin 40 Mg Tablet PO 40 mg QPM JUANCARLOS Administration Dextrose 12.5 gm 01/09/25 05:54 01/09/25 11:46 Dextrose 50% 25 Gm/50 Ml Syringe IV PUSH 12.5 gm PRN PRN Administration Hypoglycemia Protocol Glucagon 1 mg 01/09/25 05:54 Glucagon For Inj 1 Mg Vial IM PRN PRN Hypoglycemia Protocol Glucose 15 gm 01/09/25 05:54 Glucose Oral Gel 15 Gm Of Glucse In 37.5 Gm Tube PO PRN PRN Hypoglycemia Protocol Hydralazine HCl 10 mg 01/07/25 06:44 Hydralazine Hcl 20 Mg/Ml Vial IV PUSH Q8H PRN Blood Pressure - High systolic Levetiracetam 500 mg in 100 mls @ 400 mls/hr 01/07/25 10:00 01/17/25 08:36 Keppra Iv IVPB 400 mls/hr Q12HR JUANCARLOS Administration Dextrose 1,000 mls @ 100 mls/hr 01/09/25 05:54 Dextrose 5% 1,000 Ml IVPB PRN PRN Hypoglycemia Protocol Levalbuterol HCl 0.625 mg 01/07/25 05:59 Levalbuterol Neb 1.25 Mg/3 Ml INHALATION Q6H PRN shortness of breath or wheezing Lidocaine 1 patch 01/16/25 09:00 01/17/25 08:36 Lidocaine 5% Patch TRANSDERM 1 patch DAILY JUANCARLOS Administration Melatonin 5 mg 01/10/25 21:00 01/16/25 20:35 Melatonin 5 Mg Tablet PO 5 mg HS JUANCARLOS Administration Metoprolol Succinate 50 mg 01/14/25 17:00 01/17/25 08:35 Metoprolol Succinate Ext Rel 50 Mg Tabcr PO 50 mg Q12HR JUANCARLOS Administration Olanzapine 2.5 mg 01/10/25 18:57 01/17/25 08:59 Olanzapine 2.5 Mg Tablet PO 2.5 mg DAILY PRN Administration Agitation Olanzapine 5 mg 01/10/25 21:00 01/16/25 20:34 Olanzapine 5 Mg Tablet PO 5 mg QHS JUANCARLOS Administration Ondansetron HCl 4 mg 01/07/25 00:44 01/14/25 13:49 Ondansetron Inj 4 Mg/2 Ml Vial IV PUSH 4 mg Q4H PRN Administration Nausea Pantoprazole Sodium 40 mg 01/17/25 09:00 01/17/25 08:36 Pantoprazole 40 Mg Tablet PO 40 mg QAM JUANCARLOS Administration Sodium Chloride 10 ml 01/12/25 22:00 01/17/25 06:15 Saline Lock Flush IV PUSH 10 ml Q8HR JUANCARLOS Administration Sodium Chloride 10 ml 01/12/25 15:51 Saline Lock Flush IV PUSH PRN PRN Flush Sodium Chloride 20 ml 01/12/25 15:51 Saline Lock Flush IV PUSH PRN PRN after blood draws Trazodone HCl 50 mg 01/11/25 21:00 01/16/25 20:34 Trazodone Hcl 50 Mg Tablet PO 50 mg HS JUANCARLOS Administration Radiology Results: ITS Impressions Abdomen X-Ray 01/11/25 12:53 IMPRESSION: 1. Persistent small bowel obstruction without evident oral contrast material which could be due to dilution from residual fluid in the small bowel. Abdomen/Pelvis CT 01/11/25 15:05 IMPRESSION: 1. Significant delay of passage of oral contrast throughout the dilated proximal to mid small bowel which gradually decreases in caliber more distally without a discrete transition point to suggest obstruction which favors an ileus. 2. Small bilateral pleural effusions and small amount of ascites in the abdomen and pelvis. Chest X-Ray 01/17/25 13:25 IMPRESSION: 1. Right pleural effusion, with associated basilar atelectasis and/or pneumonitis or airspace disease. Labs Labs: Laboratory Results - last 24 hr 01/17/25 05:17 WBC 6.2 RBC 3.23 L Hgb 9.9 L Hct 31.6 L MCV 97.8 MCH 30.7 MCHC 31.3 L RDW 12.0 Plt Count 145 L MPV 9.3 Immature Gran % (Auto) 0.5 Neut % (Auto) 70.9 Lymph % (Auto) 14.7 L [place] % (Auto) 11.2 H Eos % (Auto) 2.2 Baso % (Auto) 0.5 Lymph # (Auto) 0.92 [place] # (Auto) 0.7 H Eos # (Auto) 0.1 Baso # (Auto) 0.0 Abs Immat Gran (auto) 0.03 Absolute Neuts (auto) 4.4 Absolute Nucleated RBC 0.000 Nucleated RBC % 0.0 Sodium 135 L Potassium 3.7 Chloride 106 Carbon Dioxide 26 Anion Gap 3 L BUN 12 Creatinine 0.76 Estim Creat Clear Calc 44 Estimated GFR > 60 Glucose 81 Calcium 8.2 L Magnesium 1.9
[2025-01-17] MEDS: ATORVASTATIN 40 MG TABLET PO (17:49)
[2025-01-17] MEDS: MELATONIN 5 MG TABLET PO (20:43)
[2025-01-18] VITALS (7 sets, daily range): BP systolic 90–112; BP diastolic 60–66; PULSE 80–92; RESP 12–16; TEMP 36.3–36.8; O2SAT 90–99
[2025-01-18] MEDS: SALINE LOCK FLUSH 10 ML IV PUSH ×3 (05:54→20:53)
[2025-01-18 07:28] LABS: Hematocrit 35.0 % (37.0-47.0); Hemoglobin 10.6 g/dL (12.0-15.0); Immature Granulocyte Percent A 0.6 % (0-0.5); Lymphocytes Absolute Auto 0.99 K/mm3 (0.9-3.2); Mean Corpuscular HGB Conc 30.3 g/dl (32-36); Mean Corpuscular Hemoglobin 30.5 pg (26-34); Mean Corpuscular Volume 100.6 fl (80-100); Nucleated Red Blood Cells Absolute Auto 0.000 K/mm3 (0.0-0.012); Nucleated Red Blood Cells Perc 0.0 % (0.0-0.2); Platelet Count Result 168 k/mm3 (150-375); Red Blood Count 3.48 M/mm3 (4.2-5.4); White Blood Count 4.9 K/mm3 (4.5-10.0)
[2025-01-18 07:49] LABS: Anion Gap 3 mmol/L (4-12); Blood Urea Nitrogen 13 mg/dL (7-17); Calcium 8.2 mg/dL (8.4-10.2); Carbon Dioxide 26 mmol/L (22-30); Chloride 106 mmol/L (98-107); Estimated CRCL calculation 44 ml/min; Estimated Glomerular Filt Rate > 60; Glucose 90 mg/dL (65-110); Magnesium 2.0 mg/dL (1.6-2.3); Potassium 3.6 mmol/L (3.4-5.0); Sodium 135 mmol/L (137-145)
[2025-01-18] MEDS: AMIODARONE HCL 200 MG TABLET PO (08:59)
[2025-01-18] MEDS: PANTOPRAZOLE 40 MG TABLET PO (08:59)
[2025-01-18] MEDS: METOPROLOL SUCCINATE EXT REL 50 MG TABCR PO ×2 (08:59→20:49)
[2025-01-18] MEDS: HYDROcodone/acetaminophen (*CRX) 5-325 MG TABLET 1 TAB PO ×2 (09:00→20:48)
[2025-01-18] MEDS: LIDOCAINE 5% PATCH 1 PATCH TRANSDERM (09:00)
[2025-01-18] MEDS: ONDANSETRON INJ 4 MG/2 ML VIAL IV PUSH (09:08)
--- NOTE | 2025-01-18 12:12 | PCNFU ---
Nutrition Follow-Up Complete: Severe Protein Calorie Malnutrition as related to inadequate protein-energy intake in the setting of acute disease (SBO) as evidenced < 75% EER for > 7 days; severe muscle wasting (temporalis) and severe subcutaneous fat loss (orbital fat pads). Meeting estimated nutritional needs. - - Progressing with goal slowly. Continue same goal Goal: Pt current nutrition is Soft & Bite Size L6 diet. Ensure Plus HP TID (350 kcal, 20 g protein) Nutrition recommendation: Continue current nutrition care plan and orders. Agree with orders Last recorded weight is 67.5 kg. Bowel Motility: +1 BM 01/18 Labs Reviewed: Hgb 10.6, hct 35, Alb 2.7, Na 135 Meds Noted: Keppra, protonix Skin: No skin issues Additional Notes: Slow improvement to intakes post hernia repair surgery, Mostly drinking liquids. Continue to encourage PO intake. Agree with current nutrition care plan and orders Will monitor weight, labs, skin, diet orders, meds every Saturday and Saturday.
--- NOTE | 2025-01-18 13:13 | P.PNGS_ITS ---
Progress Note: A&P Assessment and Plan (1) Parastomal hernia: Code(s): K43.5 - Parastomal hernia without obstruction or gangrene Status: Acute Assessment and Plan: * Incisions are clean and dry with glue intact. Minimal pain surrounding incisions. Tolerating diet. Stoma with good output. * Harrison catheter removed over the weekend, but due to urinary retention, it was placed again last night. Per nursing staff, roughly 7500 out. Consider urology consult if patient continues to retain urine. Management per hospitalist. Otherwise, surgically stable for discharge. * Patient tolerating soft and bite sized level 6 diet. Caregiver at bedside states she is not eating too much, but still able to keep it down without nausea and vomiting today. * PT/OT. Continue this at home. * SCDs for DVT prophylaxis--patient has had brain bleed in the past therefore Lovenox being avoided. (2) Incisional hernia: Code(s): K43.2 - Incisional hernia without obstruction or gangrene Status: Acute Assessment and Plan: As above. Plan Discussed patient's case and plan of care with Dr. Murillo. Subjective Subjective Date/Time Seen: 01/18/25 13:13 Post Op day: 2 Patient reports: no new complaints and tolerating a regular diet (Soft and bite sized, level 6 diet) Interval history: Patient doing well today. Minimal abdominal pain. Ostomy with brown stool in bag. Reportedly, patient failed a voiding trial and she had a harrison catheter placed again last night. h 7500 mL out per nursing staff. Exam Const: General: comfortable and no acute distress GI: Inspection: non-distended GI Palp: Yes Soft to palpation, Yes Tenderness to palpation present (GI) (minimal incisinoal tendernesss), No Guarding due to palpation present (GI) and No Hernia present Auscultation: normal bowel sounds Other: Incisions clean and dry with glue intact. No signs of infection. Ostomy bag with brown soft stool. Objective Data Vital Signs Vital Signs: Vital Signs - 24 hr 01/17/25 14:00 01/17/25 19:38 01/17/25 20:00 Temperature 98.5 F 98.3 F Pulse Rate 90 90 Respiratory Rate 20 17 Blood Pressure 107/84 114/60 Pulse Oximetry 97 94 Oxygen Delivery Room Air 01/17/25 20:43 01/18/25 05:48 01/18/25 08:59 Temperature 98.3 F Pulse Rate 90 92 92 Respiratory Rate 16 Blood Pressure 112/66 Pulse Oximetry 90 Oxygen Delivery 01/18/25 08:59 01/18/25 09:00 01/18/25 12:48 Temperature Pulse Rate 92 90 Respiratory Rate 12 Blood Pressure 90/62 L Pulse Oximetry Oxygen Delivery Room Air 01/18/25 12:52 01/18/25 12:52 Temperature 97.8 F Pulse Rate Respiratory Rate Blood Pressure Pulse Oximetry 97 Oxygen Delivery Intake/Output Intake/Output: Intake & Output 01/15/25 01/16/25 01/17/25 01/18/25 23:59 23:59 23:59 23:59 Intake Total 1823.3 2406.7 1770 120 Output Total 250 1150 450 550 Balance 1573.3 1256.7 1320 -430 Meds/Results Medications: Active Medications Generic Name Dose Route Start Last Admin Trade Name Freq PRN Reason Stop Dose Admin Acetaminophen 650 mg 01/07/25 00:44 01/09/25 16:14 Acetaminophen 650 Mg Suppository RECTAL 650 mg Q6H PRN Administration Mild Pain (1-3) or Fever Hydrocodone Bitart/Acetaminophen 1 tab 01/13/25 10:25 01/18/25 09:00 Hydrocodone/Acetaminophen (*Crx) 5-325 Mg Tablet PO 1 tab Q6H PRN Administration Pain Rated 4-6 Amiodarone HCl 200 mg 01/14/25 12:05 01/18/25 08:59 Amiodarone Hcl 200 Mg Tablet PO 200 mg DAILY JUANCARLOS Administration Atorvastatin Calcium 40 mg 01/14/25 18:00 01/17/25 17:49 Atorvastatin 40 Mg Tablet PO 40 mg QPM JUANCARLOS Administration Dextrose 12.5 gm 01/09/25 05:54 01/09/25 11:46 Dextrose 50% 25 Gm/50 Ml Syringe IV PUSH 12.5 gm PRN PRN Administration Hypoglycemia Protocol Glucagon 1 mg 01/09/25 05:54 Glucagon For Inj 1 Mg Vial IM PRN PRN Hypoglycemia Protocol Glucose 15 gm 01/09/25 05:54 Glucose Oral Gel 15 Gm Of Glucse In 37.5 Gm Tube PO PRN PRN Hypoglycemia Protocol Hydralazine HCl 10 mg 01/07/25 06:44 Hydralazine Hcl 20 Mg/Ml Vial IV PUSH Q8H PRN Blood Pressure - High systolic Dextrose 1,000 mls @ 100 mls/hr 01/09/25 05:54 Dextrose 5% 1,000 Ml IVPB PRN PRN Hypoglycemia Protocol Levalbuterol HCl 0.625 mg 01/07/25 05:59 Levalbuterol Neb 1.25 Mg/3 Ml INHALATION Q6H PRN shortness of breath or wheezing Levetiracetam 500 mg 01/18/25 09:00 01/18/25 09:00 Levetiracetam 500 Mg Tablet PO 500 mg Q12HR JUANCARLOS Administration Lidocaine 1 patch 01/16/25 09:00 01/18/25 09:00 Lidocaine 5% Patch TRANSDERM 1 patch DAILY JUANCARLOS Administration Melatonin 5 mg 01/10/25 21:00 01/17/25 20:43 Melatonin 5 Mg Tablet PO 5 mg HS JUANCARLOS Administration Metoprolol Succinate 50 mg 01/14/25 17:00 01/18/25 08:59 Metoprolol Succinate Ext Rel 50 Mg Tabcr PO 50 mg Q12HR JUANCARLOS Administration Olanzapine 2.5 mg 01/10/25 18:57 01/18/25 08:59 Olanzapine 2.5 Mg Tablet PO 2.5 mg DAILY PRN Administration Agitation Olanzapine 5 mg 01/10/25 21:00 01/17/25 20:43 Olanzapine 5 Mg Tablet PO 5 mg QHS JUANCARLOS Administration Ondansetron HCl 4 mg 01/07/25 00:44 01/18/25 09:08 Ondansetron Inj 4 Mg/2 Ml Vial IV PUSH 4 mg Q4H PRN Administration Nausea Pantoprazole Sodium 40 mg 01/17/25 09:00 01/18/25 08:59 Pantoprazole 40 Mg Tablet PO 40 mg QAM JUANCARLOS Administration Sodium Chloride 10 ml 01/12/25 22:00 01/18/25 13:11 Saline Lock Flush IV PUSH 10 ml Q8HR JUANCARLOS Administration Sodium Chloride 10 ml 01/12/25 15:51 Saline Lock Flush IV PUSH PRN PRN Flush Sodium Chloride 20 ml 01/12/25 15:51 Saline Lock Flush IV PUSH PRN PRN after blood draws Trazodone HCl 50 mg 01/11/25 21:00 01/17/25 20:43 Trazodone Hcl 50 Mg Tablet PO 50 mg HS JUANCARLOS Administration Radiology Results: ITS Impressions Abdomen X-Ray 01/11/25 12:53 IMPRESSION: 1. Persistent small bowel obstruction without evident oral contrast material which could be due to dilution from residual fluid in the small bowel. Abdomen/Pelvis CT 01/11/25 15:05 IMPRESSION: 1. Significant delay of passage of oral contrast throughout the dilated proximal to mid small bowel which gradually decreases in caliber more distally without a discrete transition point to suggest obstruction which favors an ileus. 2. Small bilateral pleural effusions and small amount of ascites in the abdomen and pelvis. Chest X-Ray 01/17/25 13:25 IMPRESSION: 1. Right pleural effusion, with associated basilar atelectasis and/or pneumonitis or airspace disease. Labs Labs: Laboratory Results - last 24 hr 01/18/25 07:19 WBC 4.9 RBC 3.48 L Hgb 10.6 L Hct 35.0 L MCV 100.6 H MCH 30.5 MCHC 30.3 L RDW 12.1 Plt Count 168 MPV 9.5 Immature Gran % (Auto) 0.6 H Neut % (Auto) 62.2 Lymph % (Auto) 20.2 [place] % (Auto) 12.5 H Eos % (Auto) 3.7 Baso % (Auto) 0.8 Lymph # (Auto) 0.99 [place] # (Auto) 0.6 Eos # (Auto) 0.2 Baso # (Auto) 0.0 Abs Immat Gran (auto) 0.03 Absolute Neuts (auto) 3.0 Absolute Nucleated RBC 0.000 Nucleated RBC % 0.0 Sodium 135 L Potassium 3.6 Chloride 106 Carbon Dioxide 26 Anion Gap 3 L BUN 13 Creatinine 0.76 Estim Creat Clear Calc 44 Estimated GFR > 60 Glucose 90 Calcium 8.2 L Magnesium 2.0
[2025-01-18] MEDS: ATORVASTATIN 40 MG TABLET PO (16:01)
[2025-01-18] MEDS: ACETAMINOPHEN 325 MG TABLET 650 MG PO (16:01)
--- NOTE | 2025-01-18 17:33 | P.PNIM_ITS ---
Progress Note: A&P Assessment and Plan (1) Small bowel obstruction: Code(s): K56.609 - Unspecified intestinal obstruction, unspecified as to partial versus complete obstruction Status: Acute (2) Atrial fib/flutter, transient: Code(s): I48.91 - Unspecified atrial fibrillation; I48.92 - Unspecified atrial flutter Status: Acute (3) Pacemaker: Code(s): Z95.0 - Presence of cardiac pacemaker Status: Acute (4) Colon cancer: Code(s): C18.9 - Malignant neoplasm of colon, unspecified Status: Acute (5) Hemiplegia following cerebrovascular accident (CVA): Code(s): I69.359 - Hemiplegia and hemiparesis following cerebral infarction affecting unspecified side Status: Acute (6) Seizure: Code(s): R56.9 - Unspecified convulsions Status: Acute (7) HTN (hypertension): Code(s): I10 - Essential (primary) hypertension Status: Acute Plan 79-year-old female with PMH dementia, has 24 hour caretakers, colon cancer in remission status post colostomy creation, history of cerebral hemorrhage, left hemiplegia status post CVA AFib/flutter, hypertension, presents to [facility] on 01/06/2025 with nausea, vomiting, abdominal distention, decreased urinary output. SBO: Status post robotic assisted laparoscopic incisional hernia repair without mesh on 01/15/[address] Murillo. She has not been participating with therapy, encouraged her to participate and using incentive spirometer. She had transient acute hypoxic respiratory failure, there is a small right-sided pleural effusion on chest x-ray. Urinary retention, failed voiding trial on 01/17/2025. Trying voiding trial again on 01/18/2025, pending Neurology consultation if failing again. Continue Newcomb p.r.n., lidocaine patch. Currently paced, goes in and out of AFib/flutter. She had a brain bleed from falling and is not on anticoagulation. Continue metoprolol 50 mg p.o. b.i.d., amiodarone 200 mg p.o. q.day. Continue telemetry for now. Continue Keppra for history of seizure. DNR. Saline lock IV. Protonix 40 mg p.o. q.a.m.. Advanced diet as tolerated. SCDs only, history of brain bleed. Time Spent With Patient Time with patient: 25 - 35 minutes Subjective Date/time seen: 01/18/25 17:33 Interval history: [facility]. To return home with home health. Denies shortness of breath. Confused at times, farm marketer at bedside is reports she has dementia and this is her usual. Review of Systems Review of Systems: All systems reviewed & are unremarkable except as noted in HPI and below (Subjective) Exam Const: General: comfortable and no acute distress HENMT: Mouth: Yes moist mucous membranes Eyes: Pupils: Equal, round and reactive pupils present Neck: Neck: supple Resp: Effort & Inspection: normal respiratory effort Auscultation: clear to auscultation bilaterally Cardio: Rate: regular rate Rhythm: regular rhythm GI: GI Palp: Yes Soft to palpation, Yes Firmness to palpation present (GI) and Yes Tenderness to palpation present (GI) Neuro: Motor exam (neuro): 5/5 motor strength present throughout Extrem: General: no edema Objective Data Vital Signs Vital Signs: Vital Signs - 24 hr 01/17/25 19:38 01/17/25 20:00 01/17/25 20:43 Temperature 98.3 F Pulse Rate 90 90 Respiratory Rate 17 Blood Pressure 114/60 Pulse Oximetry 94 Oxygen Delivery Room Air 01/18/25 05:48 01/18/25 08:59 01/18/25 08:59 Temperature 98.3 F Pulse Rate 92 92 92 Respiratory Rate 16 Blood Pressure 112/66 Pulse Oximetry 90 Oxygen Delivery 01/18/25 09:00 01/18/25 12:48 01/18/25 12:52 Temperature Pulse Rate 90 Respiratory Rate 12 Blood Pressure 90/62 L Pulse Oximetry 97 Oxygen Delivery Room Air 01/18/25 12:52 01/18/25 13:11 01/18/25 13:37 Temperature 97.8 F 97.4 F L Pulse Rate 89 Respiratory Rate 16 Blood Pressure 92/60 L Pulse Oximetry 99 Oxygen Delivery Room Air Intake/Output Intake/Output: Intake & Output 01/15/25 01/16/25 01/17/25 01/18/25 23:59 23:59 23:59 23:59 Intake Total 1823.3 2406.7 1770 480 Output Total 250 1150 450 550 Balance 1573.3 1256.7 1320 -70 Meds/Results Medications: Active Medications Generic Name Dose Route Start Last Admin Trade Name Freq PRN Reason Stop Dose Admin Acetaminophen 650 mg 01/18/25 15:52 01/18/25 16:01 Acetaminophen 325 Mg Tablet PO 650 mg Q6H PRN Administration Mild Pain (1-3) or Fever Hydrocodone Bitart/Acetaminophen 1 tab 01/13/25 10:25 01/18/25 09:00 Hydrocodone/Acetaminophen (*Crx) 5-325 Mg Tablet PO 1 tab Q6H PRN Administration Pain Rated 4-6 Amiodarone HCl 200 mg 01/14/25 12:05 01/18/25 08:59 Amiodarone Hcl 200 Mg Tablet PO 200 mg DAILY JUANCARLOS Administration Atorvastatin Calcium 40 mg 01/14/25 18:00 01/18/25 16:01 Atorvastatin 40 Mg Tablet PO 40 mg QPM JUANCARLOS Administration Dextrose 12.5 gm 01/09/25 05:54 01/09/25 11:46 Dextrose 50% 25 Gm/50 Ml Syringe IV PUSH 12.5 gm PRN PRN Administration Hypoglycemia Protocol Glucagon 1 mg 01/09/25 05:54 Glucagon For Inj 1 Mg Vial IM PRN PRN Hypoglycemia Protocol Glucose 15 gm 01/09/25 05:54 Glucose Oral Gel 15 Gm Of Glucse In 37.5 Gm Tube PO PRN PRN Hypoglycemia Protocol Hydralazine HCl 10 mg 01/07/25 06:44 Hydralazine Hcl 20 Mg/Ml Vial IV PUSH Q8H PRN Blood Pressure - High systolic Dextrose 1,000 mls @ 100 mls/hr 01/09/25 05:54 Dextrose 5% 1,000 Ml IVPB PRN PRN Hypoglycemia Protocol Levalbuterol HCl 0.625 mg 01/07/25 05:59 Levalbuterol Neb 1.25 Mg/3 Ml INHALATION Q6H PRN shortness of breath or wheezing Levetiracetam 500 mg 01/18/25 09:00 01/18/25 09:00 Levetiracetam 500 Mg Tablet PO 500 mg Q12HR JUANCARLOS Administration Lidocaine 1 patch 01/16/25 09:00 01/18/25 09:00 Lidocaine 5% Patch TRANSDERM 1 patch DAILY JUANCARLOS Administration Melatonin 5 mg 01/10/25 21:00 01/17/25 20:43 Melatonin 5 Mg Tablet PO 5 mg HS JUANCARLOS Administration Metoprolol Succinate 50 mg 01/14/25 17:00 01/18/25 08:59 Metoprolol Succinate Ext Rel 50 Mg Tabcr PO 50 mg Q12HR JUANCARLOS Administration Olanzapine 2.5 mg 01/10/25 18:57 01/18/25 08:59 Olanzapine 2.5 Mg Tablet PO 2.5 mg DAILY PRN Administration Agitation Olanzapine 5 mg 01/10/25 21:00 01/17/25 20:43 Olanzapine 5 Mg Tablet PO 5 mg QHS JUANCARLOS Administration Ondansetron HCl 4 mg 01/07/25 00:44 01/18/25 09:08 Ondansetron Inj 4 Mg/2 Ml Vial IV PUSH 4 mg Q4H PRN Administration Nausea Pantoprazole Sodium 40 mg 01/17/25 09:00 01/18/25 08:59 Pantoprazole 40 Mg Tablet PO 40 mg QAM JUANCARLOS Administration Sodium Chloride 10 ml 01/12/25 22:00 01/18/25 13:11 Saline Lock Flush IV PUSH 10 ml Q8HR JUANCARLOS Administration Sodium Chloride 10 ml 01/12/25 15:51 Saline Lock Flush IV PUSH PRN PRN Flush Sodium Chloride 20 ml 01/12/25 15:51 Saline Lock Flush IV PUSH PRN PRN after blood draws Trazodone HCl 50 mg 01/11/25 21:00 01/17/25 20:43 Trazodone Hcl 50 Mg Tablet PO 50 mg HS JUANCARLOS Administration Radiology Results: ITS Impressions Abdomen X-Ray 01/11/25 12:53 IMPRESSION: 1. Persistent small bowel obstruction without evident oral contrast material which could be due to dilution from residual fluid in the small bowel. Abdomen/Pelvis CT 01/11/25 15:05 IMPRESSION: 1. Significant delay of passage of oral contrast throughout the dilated proximal to mid small bowel which gradually decreases in caliber more distally without a discrete transition point to suggest obstruction which favors an ileus. 2. Small bilateral pleural effusions and small amount of ascites in the abdomen and pelvis. Chest X-Ray 01/17/25 13:25 IMPRESSION: 1. Right pleural effusion, with associated basilar atelectasis and/or pneumonitis or airspace disease. Labs Labs: Laboratory Results - last 24 hr 01/18/25 07:19 WBC 4.9 RBC 3.48 L Hgb 10.6 L Hct 35.0 L MCV 100.6 H MCH 30.5 MCHC 30.3 L RDW 12.1 Plt Count 168 MPV 9.5 Immature Gran % (Auto) 0.6 H Neut % (Auto) 62.2 Lymph % (Auto) 20.2 [place] % (Auto) 12.5 H Eos % (Auto) 3.7 Baso % (Auto) 0.8 Lymph # (Auto) 0.99 [place] # (Auto) 0.6 Eos # (Auto) 0.2 Baso # (Auto) 0.0 Abs Immat Gran (auto) 0.03 Absolute Neuts (auto) 3.0 Absolute Nucleated RBC 0.000 Nucleated RBC % 0.0 Sodium 135 L Potassium 3.6 Chloride 106 Carbon Dioxide 26 Anion Gap 3 L BUN 13 Creatinine 0.76 Estim Creat Clear Calc 44 Estimated GFR > 60 Glucose 90 Calcium 8.2 L Magnesium 2.0
[2025-01-18] MEDS: MELATONIN 5 MG TABLET PO (20:49)
--- NOTE | 2025-01-18 23:41 | PC.NURSE ---
PT CONTINUES TO YELL OUT. REORIENTED PT MULTIPLE TIMES AND SHE IS BECOMING INCREASINGLY AGITATED. STATING SHE WANTS TO LEAVE. CALLED PT DAUGHTERS TO INFORM THEM OF HER BEHAVIOR NO ANSWER.
[2025-01-19] MEDS: SALINE LOCK FLUSH 10 ML IV PUSH (05:22)
[2025-01-19 05:53] VITALS: BP 100/61; PULSE 91; RESP 16; TEMP 36.6; O2SAT 94
--- NOTE | 2025-01-19 09:07 | PM.DS ---
DS: Admitting Diagnosis Discharge Date 01/19/2025 Admitting Diagnosis Nausea vomiting and abdominal distension DS: Discharge Diagnosis Discharge Diagnosis (1) Incisional hernia: Code(s): K43.2 - Incisional hernia without obstruction or gangrene Status: Acute (2) Small bowel obstruction: Code(s): K56.609 - Unspecified intestinal obstruction, unspecified as to partial versus complete obstruction Status: Acute DS: Summary Hospital Course Hospital Course: 79-year-old female with PMH dementia, has 24 hour caretakers, colon cancer in remission status post colostomy creation, history of cerebral hemorrhage, left hemiplegia status post CVA AFib/flutter, hypertension, presents to [facility] on 01/06/2025 with nausea, vomiting, abdominal distention, decreased urinary output. Status post robotic assisted laparoscopic incisional hernia repair without mesh on 01/15/[address] Murillo. Received therapy evaluation, advised custodial facility on discharge, the patient decline. She returned home in stable condition with her 24 hour caretakers. She had mild acute hypoxic respiratory failure. X-ray demonstrated small right-sided pleural effusion. Resolved. Urinary retention, past voiding trial on 01/18/2025. Caretakers report patient has urinary retention while in hospital, it resolves at home. Tolerating diet, will follow-up with PCP and General surgery in the outpatient setting. She was DNR during the admission. Time Spent with Patient Time attestation: Total time spent providing and/or coordinating discharge services: Time spent: Greater than 30 minutes Exam Const: General: comfortable and no acute distress HENMT: Mouth: Yes moist mucous membranes Eyes: Pupils: Equal, round and reactive pupils present Neck: Neck: supple Resp: Effort & Inspection: normal respiratory effort Auscultation: clear to auscultation bilaterally Cardio: Rate: regular rate Rhythm: regular rhythm GI: GI Palp: Yes Soft to palpation, No Firmness to palpation present (GI), No Tenderness to palpation present (GI) and No Guarding due to palpation present (GI) Neuro: Other: Generalized weakness Extrem: General: no edema Discharge Plan Discharge Attending physician on discharge: Yvrose Baker Consulting providers: Michael Murillo Rafe M. Discharging Clinician: Yvrose Baker Patient Disposition: Home Activity: may shower Diet: other - see discharge instructions Discharge Instructions: Ok to shower. No soaking in a bath or any other body of water for 2 weeks. Avoid heavy lifting >10-15 pounds until otherwise instructed by Dr. Murillo. Call general surgery office at to schedule a follow up appointment for 2 weeks from discharge from hospital. Call the office or go to the Emergency department if you notice any fevers or vomiting, or any increased pain, drainage, or redness to incision sites. Prescription pain medication will be sent to your pharmacy. Take this as prescribed. No driving while taking narcotic pain medications. Take ibuprofen or Tylenol for pain as needed. soft and bite sized diet. Patient Instructions: Antibiotic Form Patient Language: Upper Sorbian Stand Alone Forms: General Discharge Information Follow-up/Referrals: Jermaine,Lorna JOSEPH [Other] Michael Murillo MD [Physician, General Surgery] - Call for Appointment Referral Note: Call to schedule Discharge Medications: Continued quetiapine 25 mg tablet 25 mg PO HS trazodone 50 mg tablet 50 mg PO HS levetiracetam 500 mg tablet 500 mg PO Q12H sodium bicarbonate 650 mg tablet 650 mg PO TID escitalopram oxalate 10 mg tablet 10 mg PO DAILY cholecalciferol (vitamin D3) 25 mcg (1,000 unit) capsule 25 mcg PO DAILY baclofen 5 mg tablet 2.5 mg PO TID olanzapine 2.5 mg tablet 2.5 mg PO DAILY PRN (Reason: agitation) olanzapine 5 mg tablet 5 mg PO HS nystatin [Nystop] 100,000 unit/gram powder 1 applic topical BID PRN (Reason: fungal) atorvastatin 20 mg tablet 40 mg PO QPM metoprolol succinate 50 mg tablet extended release 24 hr 50 mg PO DAILY amiodarone 200 mg tablet 200 mg PO Q24H venlafaxine 75 mg capsule,extended release 24hr 75 mg PO QAM Discontinued loperamide 2 mg capsule 4 mg PO TID metoprolol succinate 50 mg tablet extended release 24 hr 50 mg PO DAILY olanzapine 2.5 mg tablet 2.5 - 5 mg PO DAILY PRN (Reason: NEEDED ) aspirin 81 mg tablet,chewable 1 tablet PO DAILY amoxicillin-pot clavulanate 875-125 mg tablet 1 tablet PO Q12H Qty: 10 0RF levetiracetam 500 mg tablet 500 mg PO Q12H cholecalciferol (vitamin D3) 25 mcg (1,000 unit) capsule 25 mcg PO DAILY trazodone 50 mg tablet 50 mg PO HS aspirin 81 mg tablet,chewable 1 tablet PO DAILY Date of admission: 01/07/25 08:07 Primary Care Provider: Jermaine,Lorna JOSEPH Admitting Provider: Wero Pimentel Attending physician on admission: Wero Pimentel Condition: Stable Hospitalist MIPS Heart Failure (Exclusion) Patient has history of Heart Transplant or Left Ventricular Assistive Device?: No IF YES, STOP HERE Heart Failure (Qualifier) Patient has current or prior documentation of LVEF less than or equal to 40%, or mod/servere depressed LVSF?: No IF NO, STOP HERE
[2025-01-19] MEDS: SIMETHICONE 80 MG TAB.CHEW PO (09:34)
[2025-01-19] MEDS: VENLAFAXINE HCL XR 75 MG CAP.ER.24H PO (09:34)
[2025-01-19 09:35] VITALS: PULSE 64; PULSE 92
[2025-01-19] MEDS: AMIODARONE HCL 200 MG TABLET PO (09:35)
[2025-01-19] MEDS: METOPROLOL SUCCINATE EXT REL 50 MG TABCR PO (09:35)
[2025-01-19] MEDS: HYDROcodone/acetaminophen (*CRX) 5-325 MG TABLET 1 TAB PO (09:35)
[2025-01-19] MEDS: PANTOPRAZOLE 40 MG TABLET PO (09:35)
[2025-01-19] MEDS: LIDOCAINE 5% PATCH 1 PATCH TRANSDERM (09:36)
== END 2025-01-19 13:50 | disposition home or self-care (01) | DRG 353 ==
LOC: ANHED 01-07 00:43 → ANH3MEDSUR 01-07 01:38 → ANH2MED 01-07 02:15
PROVIDERS: Emergency Medicine; Internal Medicine; Nurse Practitioner; Nurse Practitioner Family; Surgery; Admitting Provider Family Medicine; Emergency Provider Student in an Organized Health Care Education/Training Program; Visit Provider General Practice
PROC: (CPT 49000; principal; 2025-01-09 08:00)
PROC: 0DTF4ZZ Resection of Right Large Intestine, Percutaneous Endoscopic Approach (ICD-10-PCS; principal; 2025-01-15 13:00)
DX: K43.3 Parastomal hernia with obstruction, without gangrene (principal); E43 Unspecified severe protein-calorie malnutrition; F33.1 Major depressive disorder, recurrent, moderate; I48.92 Unspecified atrial flutter; I69.354 Hemiplegia and hemiparesis following cerebral infarction affecting left non-dominant side; E78.5 Hyperlipidemia, unspecified; F03.90 Unspecified dementia, unspecified severity, without behavioral disturbance, psychotic disturbance, mood disturbance, and anxiety; F10.10 Alcohol abuse, uncomplicated; G40.909 Epilepsy, unspecified, not intractable, without status epilepticus; G47.00 Insomnia, unspecified; I10 Essential (primary) hypertension; I48.91 Unspecified atrial fibrillation; I25.2 Old myocardial infarction; R33.8 Other retention of urine; Z85.038 Personal history of other malignant neoplasm of large intestine; Z93.2 Ileostomy status; Z95.0 Presence of cardiac pacemaker; Z66 Do not resuscitate; Z87.891 Personal history of nicotine dependence; Z92.21 Personal history of antineoplastic chemotherapy; Z92.3 Personal history of irradiation; Z68.24 Body mass index [BMI] 24.0-24.9, adult
CPT/HCPCS: 36415; 36569; 43752; 71045; 74018; 74019; 74176; 74177; 80048; 80053; 80177; 81001; 82948; 83605; 83690; 83735; 84100; 84443; 84466; 84478; 85025; 85027; 85610; 85730; 86850; 86900; 86901; 93005; 96361; 96365; 96375; 97110; 97162; 97164; 97165; 97168; 97530; 97535; 99285; J0690; A9270; C1751; G0378; J1630; J1953; J2003; J2004; J2270; J2359; J2371; J2405; J2470; J2543; J2704; J2765; J3010; J3360; J3480; J7030; J7040; J7050; J7120; Q9967

== ENCOUNTER 2025-01-23 08:16 | Inpatient (IN) | payer MEDICARE, SELFPAY ==
--- OUTSIDE RECORDS SUMMARY | 2025-01-07 19:00 | XMS_ITS | Continuity of Care Document ---
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 Phone Yohana RODRIGUEZ, FACC, GREGORIA, Christian Unavailable Unava ilable Procedures Procedure Date ICM DEVICE INTERROGAT REMOTE ICM DEVICE INTERROGAT REMOTE PM/ICD REMOTE TECH SERV PM DEVICE INTERROGATE REMOTE Advance Directives Directive Yes / No Effective Date File Name No Information Encounters Encounter Description Practice Location Reason(s) For Visit Diagnoses Date Provider Providers Copied on Encounter [facility] , [address] [place] [address], [id number] , tel: [phone] [facility] Paroxysmal atrial fibrillationOther persistent atrial fibrillationAtypical atrial flutterUnspecified atrial flutterVentricular fibrillationSick sinus syndromeBradycardia, unspecifiedSyncope and collapsePresence of cardiac pacemaker [id number] , [address], [id number] , [place]. tel: [phone] Referring Provider: Jessica [address] [place] [address], [id number] . tel:[phone] [facility] , [address] [place] [address], [id number] , tel: [phone] [facility] [place] Presence of cardiac pacemaker [address], [address] [place] [address], [id number] , [place]. tel: [phone] Referring Provider: Christian Houser, [address] [place] [address] [place] [address], [address] . tel:[phone] sulting Provider: Christian Houser, [address] [place] [address] [place] [address], [id number] . tel:[phone] [facility] , [address] [place] [address], [id number] , tel: [phone] [facility] Graham Presence of cardiac pacemaker [address]. [address] [facility], [address] [place] [address], [id number] , . tel: [phone] Referring Provider: Christian Houser, [id number] [place] [address] [place] [address], [id number] . tel: [phone] sulting Provider: Christian Houser, [address] [place] [address] [place] [address], [id number] . tel:[phone] [facility] , [address] [place] [address], [id number] , tel: [phone] [facility] Graham Presence of cardiac pacemaker [address]. [address] [facility], [address] [place] [address], [id number] , . tel: [phone] Referring Provider: Christian Houser, [id number] [place] [address] [place] [address], [id number] . tel:[phone] sulting Provider: Christian Houser, [address] [place] [address], [id number] . tel:[phone] Family History Family Member Type Diagnosis Age At Onset No Information Payers Payer name Insurance type Covered constitution party ID Authoriza tion(s) No Information Social History Type Description Quantity Date Captured [...]
--- OUTSIDE RECORDS SUMMARY | 2025-01-07 19:00 | XMS_ITS | Continuity of Care Document ---
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 Role Phone Yohana RODRIGUEZ, FACC, GREGORIA, Christian Unavailable Unava ilable Procedures Procedure Date ICM DEVICE INTERROGAT REMOTE ICM DEVICE INTERROGAT REMOTE PM/ICD REMOTE TECH SERV PM DEVICE INTERROGATE REMOTE Advance Directives Directive Yes / No Effective Date File Name No Information Encounters Encounter Description Practice Location Reason(s) For Visit Diagnoses Date Provider Providers Copied on Encounter [facility] , [address] [place] [address], [id number] , tel: [phone] [facility] Paroxysmal atrial fibrillationOther persistent atrial fibrillationAtypical atrial flutterUnspecified atrial flutterVentricular fibrillationSick sinus syndromeBradycardia, unspecifiedSyncope and collapsePresence of cardiac pacemaker [address] [address] , [address], [id number] , [place]. tel: [phone] Referring Provider: Jessica [address] [place] [address], [id number] . tel:[phone] [facility] , [address] [place] [address], [id number] , tel: [phone] [facility] [place] Presence of cardiac pacemaker [address], [address] [place] [address], [id number] , [place]. tel: [phone] Referring Provider: Christian Houser, [address] [place] [address], [address] . tel:[phone] sulting Provider: Christian Houser, [address] [place] [address], [address] . tel:[phone] [facility] , [address] [place] [address], [id number] , tel: [phone] [facility] [place] Presence of cardiac pacemaker [address]. [address], [address] [place] [address], [id number] , . tel: [phone] Referring Provider: Christian Houser, [id number] [place] [address] [place] [address], [address] . tel: [phone] sulting Provider: Christian Houser, [address] [place] [address] [place] [address], [address] . tel:[phone] [facility] , [address] [place] [address], [id number] , tel: [phone] [facility] [place] Presence of cardiac pacemaker 5 [address]. [address], [address] [place] [address], [id number] , . tel: [phone] Referring Provider: Christian Houser, [id number] [place] [address] [place] [address], [address] . tel:[phone] sulting Provider: Christian Houser, [address] [place] [address], [address] . tel:[phone] Family History Family Member Type Diagnosis Age At Onset No Information Payers Payer name Insurance type Covered republican ID Authoriza tion(s) No Information Social History Type Description Quantity Date Captured Comments Sex Female Smoking Status No Information Chief Complaint And Reason For Visit No Information Reason For Referral Reason For Referral No Information Plan Of Treatment Date Type Action Status Appointment Sehyla Guthrie BOOKED Appointment Sheyla Guthrie BOOKED History Of Present Illness Encounter Date Complaint History Of Prese nt Illness No Information Functional Status Date Functional Assessmen t No Information Instructions Date Instruction Additional Infor mation No Information Assessments Type Assessment Date No Information Patient Care Teams Name Effective Dates (start - stop) Status Members No Information
[2025-01-23] VITALS (17 sets, daily range): BP systolic 115–161; BP diastolic 65–109; PULSE 90–109; RESP 18–90; TEMP 36.6–36.9; O2SAT 90–97; BMI 21.5
--- NOTE | ~2025-01-23 | CT_ITS ---
CTA CHEST CLINICAL HISTORY: sob/dyspnea . COMPARISON: Chest x-ray today TECHNIQUE: Helical CTA performed from thoracic inlet to upper abdomen 100 mL Omnipaque 350 Coronal, sagittal reformats. Multiplanar MIPS CT images acquired with automatic exposure control for dose reduction DLP: 280 mGy-cm FINDINGS: Respiratory motion artifact. Pulmonary arteries: Scattered PE left lung upper and lower lobe segmental branches. Thoracic Aorta: No dissection or aneurysm. Atherosclerotic disease. Heart/pericardium: Mildly enlarged. Coronary artery calcifications. RV/LV ratio: Normal. Lungs/Pleura: Clear. Minimal basilar atelectasis. Tracheobronchial tree: Patent. Nodes: No enlarged nodes. Bones: No acute bony abnormality. Soft tissues: Unremarkable. Visualized upper abdomen: Small hiatal hernia. IMPRESSION: 1. Scattered PE left lung. Small clot volume. 2. No evidence of right heart failure. 3. Lungs clear. Reviewed, dictated and finalized at location R.
--- NOTE | ~2025-01-23 | US_ITS ---
EXAMINATION: US venous doppler [facility] DATE: 01/25/2025 07:36 INDICATION: Acute pulmonary emboli. TECHNIQUE: Grayscale ultrasound images without and with compression and Doppler ultrasound images of the bilateral lower extremity veins were obtained. COMPARISON: None. FINDINGS: The visualized portions of right common femoral vein, profunda (deep) femoral vein, femoral vein, popliteal vein, peroneal veins, posterior tibial veins, and greater saphenous vein outflow are patent. The visualized portions of left common femoral vein, profunda femoral vein, femoral vein, popliteal vein, peroneal veins, posterior tibial veins, and greater saphenous vein outflow are patent. IMPRESSION: 1. No deep venous thrombosis. Reviewed, dictated and finalized at location E.
--- NOTE | ~2025-01-23 | XR_ITS ---
Examination: XR chest 1V portable Clinical History: sob Comparison: 01/17/2025 Technique: Portable AP Findings: Left pacemaker. Heart size normal. Right pleural effusion poorly seen, if persists. Lungs otherwise clear. No acute bony abnormality. IMPRESSION: 1. No definite acute cardiopulmonary findings given portable technique. Reviewed, dictated and finalized at location R.
--- NOTE | 2025-01-23 08:20 | ECG_ITS ---
Test Date: 2025-01-23 08:32:36 Measurements Intervals [place] Rate: 90 P: 0 NC: 0 QRS: 63 QRSD: 171 T: 91 QT: 428 QTc: 524 Interpretive Statements ELECTRONIC VENTRICULAR PACEMAKER BASELINE ARTIFACT- I, II, III, AVR, AVL, AVF, V4-V6 NO FURTHER INTERPRETATION IS POSSIBLE ATYPICAL ECG Compared to ECG 01/16/2025 08:13:28 No significant changes Electronically Signed On 01-23-2025 10:02:07 CDT by Jey Deleon D.O.
--- OUTSIDE RECORDS SUMMARY | 2025-01-23 08:20 | XMS_ITS ---
Author Organization [facility] [address] Address [address] [place] [address] Care Team Providers Care Microsoft Systems Engineer Name Role Phone Jose Martinez MD, Reji Hunt Unavailable Nohelia Ovalles NP Unavailable [phone] Hoang Mcdonald MD Unavailable [phone] Nohelia Mayen MD Primary Care Provider [phone] Mabel Cunningham MD Unavailable Brandin Joseph MD Unavailable [phone] Active Problems Problem Noted Date Diagnosed Date Delirium 10/19/2023 Assessment & Plan (10/28/2023 7:28 PM CDT): Per daughter, at baseline pt has left sided weakness, arm weaker than leg. More lucid in morning but usually doesn't know date or place, forgetful, talks about people who're , sundowns daily. At baseline is 1 assist, needs assistance with ADLs, needs wheelchair when outside. 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 Interrogation normal. No episodes of VFib/Vtach. Patient [...]
--- OUTSIDE RECORDS SUMMARY | 2025-01-23 08:20 | XMS_ITS | Clinical Summary ---
Author Organization [facility] Address [address] [place] [address] Care Team Providers Care Alcohol Law Enforcement Agent Name Role Phone Jorge A Noel MD Primary Care Provider [phone] Allergies No known active allergies Medications dilTIAZem [...] Comments Blood Pressure 125/68 06/18/2022 8:02 AM PLANE TENDER Pulse 72 06/18/2022 8:02 AM PLANE TENDER Temperature 36.2 C (97.2 F) 06/18/2022 6:49 AM PLANE TENDER Respiratory Rate 20 06/18/2022 6:49 AM PLANE TENDER Oxygen Saturation 98% 06/18/2022 8:02 AM PLANE TENDER Inhaled Oxygen Concentration - - Weight 74.8 kg (165 lb) 06/18/2022 6:49 AM PLANE TENDER Height 165.1 cm (5' 5) 06/18/2022 6:49 AM PLANE TENDER Body Mass Index 27.46 06/18/2022 6:49 AM PLANE TENDER Plan of Treatment Health Maintenance Due Date [...] this topic Medical Devices Implanted Type Area Hybrid Technologist Device Identifier Shelf Expiration Date Model / Serial / Lot Tecnis 1 Piece Iol Simplicity Implanted:Qty: 1 on 05/14/2022 by Kit Daniel MD at [facility] [id number] 02/17/2025 / [id number] / Tecnis Iol Implanted:Qty: 1 on 06/18/2022 by Kit Daniel MD at [facility] Right: Eye 11/10/2024 / [id number] / Insurance MEDICARE [facility] Care Teams Alcohol Law Enforcement Agent Relationship Specialty Start Date End Date Jorge A Noel MD [address] [place] [address] PCP - General INTERNAL MEDICINE 05/14/22
--- OUTSIDE RECORDS SUMMARY | 2025-01-23 08:20 | XMS_ITS | Clinical Summary ---
Author Organization [facility] [address] Address [address] [place] [address] Care Team Providers Care Central Supply Aide Name Role Phone Jose Martinez MD, Reji Hunt Unavailable Nohelia Ovalles NP Unavailable Hoang Mcdonald MD Unavailable Nohelia Mayen MD Primary Care Provider [phone] Mabel Cunningham MD Unavailable Brandin Joseph MD Unavailable [phone] Allergies Active Allergy Reactions Criticality Noted [...] assistance with ADLs, needs wheelchair when outside. 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 Interrogation normal. No episodes of VFib/Vtach. Patient [...] comoribidities - Follows with Dr. Bales - [facility] On amiodarone therapy 05/21/20182020 Goals of care, counseling/discussion 07/29/2017 10/19/2023 Postprocedural state 02/22/2015 019 Overview (07/27/2016): S/P ablation of atrial fibrillation Atrial flutter 05/08/2013 08/19/2023 Overview (07/27/2016): ATRIAL FLUTTER Assessment & Plan (08/19/2023 11:41 PM CDT): - Cont metoprolol Encounters Date Type Department Care Team Description 12/14/2024 Documentation [facility] [address] [place] [id number] Ellen Kirk RN from Last 3 Months [...] CPAP Cardiac arrest with ventricu lar fibrillation ([facility]) 04/06/2023 OOH, at [facility] Acute right MCA stroke ([facility]) 03/27/2023 Car dioembolic source Colon cancer ([facility]) 04/16/[address] ([facility]) 04/20/2023 NSTEMI (non-ST elevated myoc ardial infarction) ([facility]) 04/06/2023 LAD stenosis, cause of SCA CAD (coronary artery disease) EtOH dependence ([facility]) Quit 04/10 23 Aspiration pneumonia ([facility]) 04/06/2023 Dysphagia 04/02/2023 S/p CVA. PEG hattie [...] drink = 0.6 oz pur e alcohol) [facility] Utilities Answer Date Recorded In the past 12 months has e [employer], gas, oil, or water [employer] threatened to shut off services in your [...] often do you attend chur ch or rastafari services? Patient unable to answer 10/21/2023 Do you belong to any clubs o r organizations such as anabaptist groups, unions, fraternal or athletic groups, or [...] place to sleep or slept in a alf (including now)? Patient unable to answer 08/22/2023 [...] were you homeless or living in a alf (including now)? 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 Not on file [...] 165.1 cm (5' 5) 05/08/2024 9:56 AM ANALYTICAL LAB ANALYST Body Mass Index 23 05/08/2024 9:56 AM ANALYTICAL LAB ANALYST Plan of Treatment Health Maintenance Due [...] Screening Discontinued Medical Devices Implanted Type Area Wireless Store Manager Device Identifier Shelf Expiration Date Model / Serial / Lot [employer] Esperanza Angio-Seal Vip 6fr Closere Device [id number] - [id number] - [id number] Implanted:Qty: 1 on 05/03/2023 by Shmuel Thorne MD PhD at [facility] Collagen Right: Femoral [employer] Esperanza 10/01/2023 [id number] / [id number] / [id number] [employer] Stent Coronary De Rx Cocr Ors Msn 2.5x40mm [id number] - [id number] - [id number] Implanted:Qty: 1 on 05/03/2023 by Shmuel Thorne MD PhD at [facility] Stent [employer] 12/15/2024 [id number] / [id number] / [id number] Pacemaker Left: Chest [employer] Trufill Glue 1gm Nbca [id number] - [id number] Implanted:Qty: 1 on 06/25/2023 at [facility] [employer] 04/21/2025 [id number] / / [id number] Procedures Procedure Name Priority Date/Time Associated Diagnosis Comments COLONOSCOPY 04/16/2023 9:23 AM ANALYTICAL LAB ANALYST from Last 3 Months or Most Recently Relevant to Health Maintenance Results * COLONOSCOPY (04/16/2023 9:23 AM ANALYTICAL LAB ANALYST) Anatomical Region Laterality Modality Other Narrative Procedure Note Froilan Vilchis MD - 04/16/2023 9:23 AM [facility] Patient Name: Sheyla Guthrie Procedure Date: 04/16/2023 9:23 AM Date of : 1945 Admit Type: Inpatient Age: 77 Gender: Female Attending MD: Froilan Vilchis M.D. Room: [facility] ENDOSCOPY Note Status: Finalized Procedure: Colonoscopy Indications: [...] The scope was passed under direct vision.The [id number] endoscope was introduced through the anus [...] On: 04/16/2023 9:23 AM Recognized by the [employer] for promoting quality in endoscopy Froilan Vilchis MD ENDOSCOPY PROCED URES Final Result from Last 3 Months or Most Recently Relevant to Health Maintenance Insurance MEDICARE [facility] MEDICARE BLUE CROSS MEDICARE SUPPLEMENT MEDICARE [facility] MEDICARE SUPPLEMENT Advance Directives For more information, please contact: [phone] Documents on File Type Date Recorded Patient Financial Internship Expl anation Power of Can Machine Operator 10/19/2023 7:03 PM Medic alHILDA. 2.pdf ADVANCE DIRECTIVE 05/16/2023 5:48 PM POWER OF VECTOR CONTROL SPECIALIST-MEDICAL ADVANCE DIRECTIVE 05/02/2023 12:31 PM SHMUEL R OF VECTOR CONTROL SPECIALIST-MEDICAL * Full Code (Latest Code Status on [...] Guthrie Daughter Health Care Agent Care Teams Central Supply Aide Relationship Specialty Start Date End Date Nohelia Mayen MD [address] [place] [address] PCP - General Geriatric Medicine 03/04/24 Reji Garcia Jr., MD [address] [facility] [phone] [place] [address] Consulting Physician Colon and Rectal Surgery 06/02/23 Nohelia Ovalles NP [address] [place] [address] [address] [place] [address] Nurse Practitioner Hospice and Palliative Medicine 12/27/23 Hoang Mcdonald MD [address] [place] [address] Medical Oncology 03/04/24 Mabel Cunningham MD [address] [facility] STR[facility]KE, [facility] [address] [place] [address] Consulting Physician Neurology 05/11/24 Brandin Joseph MD [address] [facility] [address] [place] [address] Consulting Physician Cardiology 06/29/24
--- OUTSIDE RECORDS SUMMARY | 2025-01-23 08:20 | XMS_ITS ---
Author Organization [facility] Address [address] [place] [address] Care Team Providers Care Chief Business Officer Name Role Phone Lorna Marie APRN-SHINGLES ROOFER HELPER Primary Care Provider Active Problems * This [...]
--- OUTSIDE RECORDS SUMMARY | 2025-01-23 08:20 | XMS_ITS | Encounter Summary ---
Author Organization [facility] Address [address] [place] [address] Care Team Providers Care Educational Institution Curator Name Role Phone No, Physician Primary Care Provider [phone] Jorge A Noel MD Primary Care Provider [phone] Jose Martinez MD, Reji Hunt Unavailable Esther Nolasco MD Unavailable Nohelia Ovalles NP Unavailable Hoang Mcdonald MD Unavailable Nohelia Mayen MD Primary Care Provider [phone] Mabel Cunningham MD Unavailable Brandin Joseph MD Unavailable [phone] Encounter Details Date Type Department Care Team (Late st Contact Info) Description 07/05/2017 Orders Only [facility] Health Information Management [address] [place] [address] Scanning, Provider Social History Tobacco Use Types Packs/Day Years Used Date Smoking Tobacco: Some Days Alcohol Use Standard Drinks/Week Comments Yes 0 (1 standard drink = 0.6 oz pur e alcohol) Comments Unknown Sex and Gender Information Value Date Recorded Sex Assigned at Not on file Legal Sex Female 11:28 AM FINANCE ANALYST Gender Identity Not on file Sexual [...] COVID: Suspected 04/06/2023 04/06/2023 04/06/2023 12:54 PM FINANCE ANALYST COVID: Suspected 08/19/2023 08/19/2023 08/20/2023 1:01 AM CDT COVID: Suspected 10/19/2023 10/19/2023 10/19/2023 6:41 PM CDT documented as of this encounter Care Teams Educational Institution Curator Relationship Specialty Start Date End Date No, Physician PCP - General 05/02/17 07/28/17 Jorge A Noel MD PCP - General Internal Medicine 07/29/17 03/03/24 Nohelia Mayen MD [address] [address] PCP - General Geriatric Medicine 03/04/24 Reji Garcia Jr., MD [address] [facility] [place] [phone] [place] [address] Consulting Physician Colon and Rectal Surgery 06/02/23 Esther Nolasco MD [address] [facility] [place] [phone] [place] [address] Medical Oncologist/Corporate Trust Officer Medical Oncology 06/02/23 03/03/24 Nohelia Ovalles NP 1 [facility] [address] [place] [address] Nurse Practitioner Hospice and Palliative Medicine 12/27/23 Hoang Mcdonald MD [address] [place] [address] Medical Oncology 03/04/24 Mabel Cunningham MD [address] [facility] NEUR[facility] [address] [address] Consulting Physician Neurology 05/11/24 Brandin Joseph MD [facility] [address] [place] [address] Consulting Physician Cardiology 06/29/24 documented as of this encounter
--- OUTSIDE RECORDS SUMMARY | 2025-01-23 08:20 | XMS_ITS | Clinical Summary ---
Author Organization [facility] [address] Address [address] [place] [address] Care Team Providers Care Rate Supervisor Name Role Phone Frank, Lorna Vela APRN-MECHANICAL LEAD Primary Care Provider Source Comments [facility] [address],non-owned Affiliates and Associated Physician Practices is amultiple site organization consisting of ambulatory clinics and hospital sitesin [place], [place], [place] and [place]. This disclosure is being madepursuant to the Care Everywhere program and may not contain all information available regarding this patient. Last updated 18.[facility] [address] Allergies Active Allergy Reactions Criticality Noted Date [...] tablet 4 12/17/19 24 Active nystatin (Mycostatin) 044790 UNIT/GM powder Apply to affected area 2 [...] 1 10/20/19 25 025 Discontin ued(Reord er) Active Problems Problem Noted Date Diagnosed Date [...] Orders Only [facility] [place] [address] Lorna Marie APRN-ALEXANDER Psychosis, unspecified psychosis type (HCC) 11/11/2024 Orders Only [facility] [address] [place] [phone] Lorna Marie APRN-ALEXANDER Dementia with behavioral disturbance (HCC) 11/10/2024 Telephone [facility] End[facility] [address] [place] [phone] Yazmin Lazar, RN Med Question 10/30/2024 11:00 AM CDT Office Visit [facility] [address] [place] [phone] Lorna Marie APRN-ALEXANDER Vascular dementia, unspecified dementia severity, unspecified whether behavioral, psychotic, or mood disturbance or anxiety (HCC) (Primary Dx); Paranoia (HCC); Hypotension, unspecified hypotension type 10/30/2024 Travel from Last 3 Months Immunizations Immunization Administration Dates Next Due [email or web address] BIVALENT 12Y+ 30mcg/0.3ML 2 Covid Pfizer primary monoval ent 12+ yr [...] st Contact Info) Description 03/05/2025 11:00 AM PARAEDUCATOR Office Visit [facility] [address] [place], [facility] [place] [phone] Lorna Marie, INTERACTIVE PROJECT MANAGER-MECHANICAL LEAD [address] [phone] Health Maintenance Due Date Last Done Comments BONE DENSITY TESTING 1945 MEDICARE AWV 12 MONTHS 1945 HEPATITIS C SCREENING 06/21/1964 Respiratory Syncytial Virus (RSV) Vaccine Pt: or over 60 yrs (1 - 1-dose 75+ series) 2021 COVID-19 VACCINE ( season) 2024 01/21/2022, 03/03/2021, 07/14/2020, Additional history exists INFLUENZA VACCINE (#1) 2024 , 02/02/2021, 01/21/2020, Additional history exists DTAP/TDAP/TD VACCINES [...] on patient's age to complete this topic Insurance MEDICARE MEDICARE MEDICARE Advance Directives * Full Code (Latest Code Status on File) Date Activated Date Inactivated Comments 09/17/2017 6:24 PM 09/20/2017 4:15 PM Care Teams Rate Supervisor Relationship Specialty Start Date End Date Lorna Marie, INTERACTIVE PROJECT MANAGER-MECHANICAL LEAD [address] [phone] PCP - General Nurse Practitioner 01/13/24
--- OUTSIDE RECORDS SUMMARY | 2025-01-23 08:20 | XMS_ITS | Encounter Summary ---
Author Organization [facility] Address [address] [place] [address] Care Team Providers Care Realty Loan Specialist Name Role Phone No, Physician Primary Care Provider Jorge A Noel MD Primary Care Provider [phone] Jose Martinez MD, Reji Hunt Unavailable Esther Nolasco MD Unavailable Nohelia Ovalles NP Unavailable [phone] Hoang Mcdonald MD Unavailable Nohelia Mayen MD Primary Care Provider [phone] Mabel Cunningham MD Unavailable Brandin Joseph MD Unavailable [phone] Encounter Details Date Type Department Care Team (Late st Contact Info) Description 05/28/2017 Orders Only [facility] [place] [address] [place] [address] Scanning, Provider Social History Tobacco Use Types Packs/Day Years Used Date Smoking Tobacco: Some Days Alcohol Use Standard Drinks/Week Comments Yes 0 (1 standard drink = 0.6 oz pur e alcohol) Comments Unknown Sex and Gender Information Value Date Recorded Sex Assigned at Not on file Legal Sex Female 11:28 AM RADIATION THERAPY TECHNOLOGIST Gender Identity Not on file Sexual Orientation [...] COVID: Suspected 04/06/2023 04/06/2023 04/06/2023 12:54 PM RADIATION THERAPY TECHNOLOGIST COVID: Suspected 08/19/2023 08/19/2023 08/20/2023 1:01 AM CDT COVID: Suspected 10/19/2023 10/19/2023 10/19/2023 6:41 PM CDT documented as of this encounter Care Teams Realty Loan Specialist Relationship Specialty Start Date End Date No, Physician PCP - General 05/02/17 07/28/17 Jorge A Noel MD PCP - General Internal Medicine 07/29/17 03/03/24 Nohelia Mayen MD [address] [place] [address] PCP - General Geriatric Medicine 03/04/24 Reji Garcia Jr., MD [address] [facility] [phone] [place] [address] Consulting Physician Colon and Rectal Surgery 06/02/23 Esther Nolasco MD [address] [facility] [phone] [place] [address] Medical Oncologist/Blank Driller Medical Oncology 06/02/23 03/03/24 Nohelia Ovalles NP 1 [facility] [address] [place] [address] Nurse Practitioner Hospice and Palliative Medicine 12/27/23 Hoang Mcdonald MD [address] [place], [place] [phone] Medical Oncology 03/04/24 Mabel Cunningham MD 4921 [facility], [address] [address] Consulting Physician Neurology 05/11/24 Brandin Joseph MD 5201 [facility] [address] [place], [place] [id number] Consulting Physician Cardiology 06/29/24 documented as of this encounter
--- NOTE | 2025-01-23 08:27 | ED.SOB ---
HPI - SOB/Dyspnea General Chief Complaint: Shortness of Breath/Dyspnea Stated Complaint: shortness of breath Source: patient and family (daughter) Mode of arrival: wheelchair Limitations: no limitations History of Present Illness HPI Narrative: 79 year old female is brought to the Emergency Department by daughter complaining of shortness of breath. Patient has history of asthma. Onset last night. Denies chest pain. Some cough. Patient was recently hospitalized at [facility] for bowel blockage [decreased output from colostomy] that was relieved by endoscopy. MD elicited complaint: shortness of breath and cough Pertinent past history: asthma Onset (ago): hour(s) (last night) Context: anxiety Exacerbating factors: nothing Relieving factors: nothing Known history of: asthma Related Data Home Medications ?Medication ?Instructions ?Recorded ?Confirmed ?Last Taken ?Type cholecalciferol (vitamin D3) 25 25 mcg PO DAILY 06/07/24 01/23/25 Unknown History mcg (1,000 unit) capsule levetiracetam 500 mg tablet 500 mg PO Q12H 06/07/24 01/23/25 Unknown History trazodone 50 mg tablet 50 mg PO HS 06/07/24 01/23/25 Unknown History atorvastatin 20 mg tablet 40 mg PO QPM 01/07/25 01/23/25 Unknown History metoprolol succinate 50 mg 50 mg PO DAILY 01/07/25 01/23/25 Unknown History tablet,extended release 24 hr nystatin 100,000 unit/gram topical 1 applic topical BID PRN fungal 01/07/25 01/23/25 Unknown History powder (Nystop) olanzapine 5 mg tablet 5 mg PO HS 01/07/25 01/23/25 01/06/25 History amiodarone 200 mg tablet 200 mg PO Q24H 01/13/25 01/23/25 Unknown History venlafaxine 75 mg capsule,extended 75 mg PO QAM 01/13/25 01/23/25 Unknown History release 24 hr Allergies Allergy/AdvReac Type Severity Reaction Status Date / Time adhesive tape Allergy Unknown Verified 01/23/25 08:30 Review of Systems Review of Systems: All systems reviewed & are unremarkable except as noted in HPI and below Constitutional: Constitutional: Reports as per HPI, Denies chills and Denies fever(s) Eyes: Eyes: Reports as per HPI ENT: Reports system reviewed and no additional complaints, except as documented Cardiovascular: Cardiovascular: Reports as per HPI and Denies chest pain Respiratory: Respiratory: Reports as per HPI, Reports cough and Reports dyspnea Gastrointestinal: Gastrointestinal: Reports as per HPI, Denies diarrhea, Denies nausea and Denies vomiting Genitourinary: Genitourinary: Reports no additional female genitourinary complaints Musculoskeletal: Musculoskeletal: Reports no additional musculoskeletal complaints Integumentary/Breasts: Skin/Breast: Reports system reviewed and no additional complaints, except as docu Neurologic: Reports system reviewed and no additional complaints, except as documented Psychiatric: Psychiatric: Reports no additional psychiatric complaints Endocrine: Endocrine: Reports no additional endocrine complaints Hematologic/Lymphatic: Hematologic/Lymphatic: Reports no additional hematologic/lymphatic complaints Allergic/Immunologic: Allergic/Immunologic: Reports no additional allergic/immunologic complaints PMFSH Past Medical History Medical History Recurrent UTI Colostomy in place Dyslipidemia CAD (coronary artery disease) Colon cancer Atrial fibrillation Intracranial hemorrhage Left hemiplegia Hyperlipidemia Seizure Pacemaker Colostomy in place Cardiac arrest Brain bleed Atrial fib/flutter, transient Colon cancer Hemiplegia following cerebrovascular accident (CVA) HTN (hypertension) Alcohol abuse Surgical History Surgical History H/O heart artery stent H/O: hysterectomy H/O colectomy Family History Family History Father Lung cancer Other Parents Social History Social History Social History: Her daughter is her caregiver. She is retired. Code status DNR Smoking status: Former smoker Tobacco type: cigarettes Alcohol intake: never Substance use: current Substance use type: marijuana Other substance usage details: daily drops Lack of Transportation: No Lack of Food: Never True Current Housing: I Have Housing Concerned About Future Housing: No Difficulty Paying Gas/Electric Bills: No Difficulty Paying for Meds: No Currently Unemployed: No Education: Bachelor's Degree Difficulty w/ Childcare or Family Care: No Spiritual care concerns: No Exam Const: General: alert Nutritional Appearance: well nourished Orientation/consciousness: patient oriented x3 Limitations: physical limitations HENMT: Head: normal to inspection Ears: external ears normal Face/Nose/Sinus: Normal external nose present Face and sinus: normal facial exam Mouth: Yes Normal oral and palatal mucosa present Throat: posterior oropharynx normal Eyes: Pupils: Equal, round and reactive pupils present EOM: EOMs intact bilaterally Direct Ophthalmoscopy: no photophobia Neck: Neck: normal visual inspection Chest: Chest palpation & inspection: normal inspection of the chest Resp: Auscultation: diminished lung sounds Other: hyperventilaint Cardio: Rate: regular rate Rhythm: regular rhythm GI: Inspection: non-distended GI Palp: Yes Soft to palpation and No Tenderness to palpation present (GI) Other: colostomy bag : General: Yes bladder normal to palpation Back/Spine/Pelvis: Back: no CVA tenderness Skin: General skin exam: normal color Rashes: no rashes Neuro: General: patient oriented x3 Speech: Abnormal speech present Other: left sided weakness from previous stroke Extrem: General: normal to inspection Psych: Affect: Anxious affect present Course Course Emergency Course: 79 y/o female presents to the ED c/o difficulty breathing. Onset last night. History of asthma. Patient is anxious and hyperventilating on arrival. Brayan chest pain. Non-productive cough. PE: anxious, hypderventilating, decreased breath sounds CBC: H/H 10.4/33.1, Plt 355; wbc 10.1 CMP: Na 139, K 4.4, Cl 106, CO2 23, Glc 105, BUN 16, Cr 0.83; LFT's normal TNI: <0.012 EKG: paced, 90, wide QRS AB.4/ 63/ 40/ 24, 90% ra D-dimer: 2.01 BNP: 1120 INR/PT/PTT: 1.2 /15.1/ 25.3 Covid/ Influenza/ RSV: negative PCXR: NAD CTA Chest: scattered PE left lung. Small clot burden, no evidence of R heart failure. Tx: rn cardiac cath, pulse ox, DuoNeb, SoluMedrol 125 mg IVP. [patient breathing slowed and comfortable, good O2 sats]. Lovenox 60 mg SQ. *(1020) reviewed and discussed results with patient and her daughter. Discussed further management. Daughter wants to call siblings to discuss their preferences. *(1035) daughter requests [facility] (1045) [facility] contacted. No beds. Placed on Wait List. Cannot speak with hospitalist until bed available. (1110) Discussed with Federica Jennings (Hospitalist). Further discussions with daughter reveal patients' stroke was ischemic and she fell resulting in additional small SDH on opposite side. Daughter states she has been placed on heparin for cardiac cath / [place] a year ago without problems. (1130) Federica Jennings here speaking with daughter and seeing patient. Will admit here, Lovenox, venous doppler legs saturday. Daughter and patient voice understanding and agreement. Vital Signs Vital signs: Vital Signs Temperature 36.6 C 01/23/25 08:16 Pulse Rate 94 01/23/25 08:16 Respiratory Rate 32 H 01/23/25 08:16 Blood Pressure 122/92 H 01/23/25 08:16 Pulse Oximetry 90 01/23/25 08:16 Oxygen Delivery Room Air 01/23/25 08:16 Temperature 36.6 C 01/23/25 08:16 Pulse Rate 90 01/23/25 10:01 Respiratory Rate 29 H 01/23/25 10:01 Blood Pressure 126/75 01/23/25 10:01 Pulse Oximetry 91 01/23/25 10:01 Oxygen Delivery Room Air 01/23/25 10:00 MDM - SOB/Dyspnea Lab Data 01/23/25 08:38 01/23/25 08:38 Labs: Lab Results 01/23/25 01/23/25 Range/Units 08:38 08:41 WBC 10.1 (4.8-10.8) K/mm3 RBC 3.44 L (4.20-5.40) M/mm3 Hgb 10.4 L (11.7-13.8) g/dL Hct 33.1 L (35.0-42.0) % MCV 96.2 (78.0-102.0) fL MCH 30.2 (27.0-31.0) pg MCHC 31.4 L (32-36) g/dL RDW 12.5 (11.6-14.4) % Plt Count 355 (150-420) K/mm3 MPV 9.8 (9.2-11.8) fl Immature Gran % (Auto) Not Reportable Neut % (Auto) Not Reportable Lymph % (Auto) Not Reportable [place] % (Auto) Not Reportable Eos % (Auto) Not Reportable Baso % (Auto) Not Reportable Lymph # (Auto) Not Reportable [place] # (Auto) Not Reportable Eos # (Auto) Not Reportable Baso # (Auto) Not Reportable Abs Immat Gran (auto) Not Reportable Absolute Neuts (auto) Not Reportable Absolute Nucleated RBC Not Reportable Total Counted 100 Neutrophils % (Manual) 86 H (46-73) % Band Neutrophils % 0 (0-6) % Lymphocytes % (Manual) 8 L (18-44) % Monocytes % (Manual) 4 (3-9) % Eosinophils % (Manual) 1 (1-6) % Basophils % (Manual) 1 (0-1) % Nucleated RBC % Not Reportable Abs Neuts (Manual) 8.68 H (1.3-6.7) K/mm3 Abs Lymphs (Manual) 0.80 L (1.1-4.5) K/mm3 Abs Monocytes (Manual) 0.40 (0.1-0.90) K/mm3 Absolute Eos (Manual) 0.10 (0.02-0.50) K/mm3 Abs Basophils (Manual) 0.10 (0-0.1) K/mm3 Platelet Estimate Adequate (Adequate) % Immature Plt Fraction 1.3 (1.0-7.0) % Schistocytes Not Reportable PT 15.1 H (9.64-11.0) Seconds INR 1.2 APTT 25.3 (23.9-30.70) Sec D-Dimer 2.01 H (0.19-0.50) mg/L Sodium 139 (137-145) mmol/L Potassium 4.4 (3.4-5.0) mmol/L Chloride 106 (98-107) mmol/L Carbon Dioxide 23 (22-30) mmol/L Anion Gap 10 (4-12) mmol/L BUN 16 (7-17) mg/dL Creatinine 0.83 (0.7-1.0) mg/dL Estim Creat Clear Calc 44 ml/min Estimated GFR > 60 (59 - ) Glucose 105 (65-110) mg/dL Calculated Osmolality 289 (285-295) mOsm/kg Calcium 9.2 (8.4-10.2) mg/dL Total Bilirubin 0.5 (0.2-1.3) mg/dL AST 24 (14-36) U/L ALT 10 (6-35) U/L Alkaline Phosphatase 58 (38-126) U/L Troponin I < 0.012 (0.000-0.034) ng/mL NT-Pro-B Natriuret Pep 1120 H (19.9-100) pg/mL Total Protein 7.2 (6.3-8.2) g/dL Albumin 3.7 (3.5-5.1) g/dL Influenza A (RT-PCR) Negative (Negative) Influenza B (RT-PCR) Negative (Negative) RSV (RT-PCR) Negative (Negative) SARS-CoV-2 RNA (RT-PCR) Negative (Negative) ABG Data ABG results: 01/23/25 08:38 Puncture Site Right radial ABG pH 7.40 ABG pCO2 40.0 ABG pO2 63.5 L ABG HCO3 24.0 ABG O2 Saturation 90.4 L ABG Base Excess -0.7 L Oxyhemoglobin 89.7 L O2 Delivery Device Room air O2 Liters/Min 0.0 Discharge Plan Discharge Clinical Impression: Pulmonary emboli Patient Disposition: [facility] Condition: Stable Time of Disposition: 11:34
[2025-01-23 08:43] LABS: Hematocrit 33.1 % (35.0-42.0); Hemoglobin 10.4 g/dL (11.7-13.8); Immature Platelet Fraction Pct 1.3 % (1.0-7.0); Mean Corpuscular HGB Conc 31.4 g/dL (32-36); Mean Corpuscular Hemoglobin 30.2 pg (27.0-31.0); Mean Corpuscular Volume 96.2 fL (78.0-102.0); Platelet Count Result 355 K/mm3 (150-420); Red Blood Count 3.44 M/mm3 (4.20-5.40); White Blood Count 10.1 K/mm3 (4.8-10.8)
[2025-01-23 08:46] LABS: HCO3 ABG 24.0 mmol/L (23-29); Oxygen Saturation ABG 90.4 % (95-97); PCO2 ABG 40.0 mmHg (35-45); PO2 ABG 63.5 mmHg (75-85)
[2025-01-23 08:47] LABS: Liters per Minute 0.0 LPM; Modified Allen's Test Pass; Site Drawn RIGHT RADIAL
[2025-01-23 08:52] LABS: Alanine Aminotransferase 10 U/L (6-35); Albumin Level 3.7 g/dL (3.5-5.1); Alkaline Phosphatase 58 U/L (38-126); Anion Gap 10 mmol/L (4-12); Aspartate Amino Transferase 24 U/L (14-36); Bilirubin,Total 0.5 mg/dL (0.2-1.3); Blood Urea Nitrogen 16 mg/dL (7-17); Calcium 9.2 mg/dL (8.4-10.2); Carbon Dioxide 23 mmol/L (22-30); Chloride 106 mmol/L (98-107); Estimated CRCL calculation 44 ml/min; Estimated Glomerular Filt Rate > 60; Glucose 105 mg/dL (65-110); Osmolality Calculated 289 mOsm/kg (285-295); Potassium 4.4 mmol/L (3.4-5.0); Sodium 139 mmol/L (137-145); Total Protein 7.2 g/dL (6.3-8.2)
--- OUTSIDE RECORDS SUMMARY | 2025-01-23 08:55 | XMS_ITS | Clinical Summary ---
Author Organization [facility] [employer] Address [address] [place] [address] Care Team Providers Care Director Prospect Name Role Phone Frank, Lorna Vela APRN-CASE CHECKER Primary Care Provider Source Comments [facility] [employer],non-owned Affiliates and Associated Physician Practices is amultiple site organization consisting of ambulatory clinics and hospital sitesin [place], [place], [place] and [place]. This disclosure is being madepursuant to the Care Everywhere program and may not contain all information available regarding this patient. Last updated 18.[facility] [employer] Allergies Active Allergy Reactions Criticality Noted [...] tablet 4 12/17/19 24 Active nystatin (Mycostatin) 184450 UNIT/GM powder Apply to affected area 2 [...] Orders Only [facility] [place] [address] Lorna Marie APRN-ALEXANDER Psychosis, unspecified psychosis type (HCC) 11/11/2024 Orders Only [facility] [address] [place] [phone] Lorna Marie APRN-ALEXANDER Dementia with behavioral disturbance (HCC) 11/10/2024 Telephone [facility] [address] [place] [phone] Yazmin Lazar, RN Med Question 10/30/2024 11:00 AM CDT Office Visit [facility] [address] [place] [phone] Lorna Marie APRN-ALEXANDER Vascular dementia, unspecified dementia severity, unspecified whether behavioral, psychotic, or mood disturbance or anxiety (HCC) (Primary Dx); Paranoia (HCC); Hypotension, unspecified hypotension type 10/30/2024 Travel from Last 3 Months Immunizations Immunization Administration Dates Next Due COV[employer]hentium BIVALENT 12Y+ 30mcg/0.3ML 2 Covid Pfizer primary [...] st Contact Info) Description 03/05/2025 11:00 AM MICROFILM CLERK Office Visit [facility] [address] [facility] [place] [phone] Lorna Marie, RELATIONSHIP CONSULTANT-CASE CHECKER [address] [phone] Health Maintenance Due Date Last Done Comments [...] 6:24 PM 09/20/2017 4:15 PM Care Teams Director Prospect Relationship Specialty Start Date End Date Lorna Marie, RELATIONSHIP CONSULTANT-CASE CHECKER [address] [phone] PCP - General Nurse Practitioner 01/13/24
--- OUTSIDE RECORDS SUMMARY | 2025-01-23 08:55 | XMS_ITS ---
Author Organization [facility] Address [address] [place] [address] Care Team Providers Care Land Leases And Rentals Manager Name Role Phone Lorna Marie APRN-DIE CAST DIE MAKER Primary Care Provider Active Problems * This [...]
--- OUTSIDE RECORDS SUMMARY | 2025-01-23 08:55 | XMS_ITS | Clinical Summary ---
Author Organization [facility] Address [address] [place] [address] Care Team Providers Care Machine Package Sealer Name Role Phone Jorge A Noel MD Primary Care Provider [phone] Allergies No known active allergies Medications dilTIAZem [...] Comments Blood Pressure 125/68 06/18/2022 8:02 AM DOUBLE SPINDLE SHAPER OPERATOR Pulse 72 06/18/2022 8:02 AM DOUBLE SPINDLE SHAPER OPERATOR Temperature 36.2 C (97.2 F) 06/18/2022 6:49 AM DOUBLE SPINDLE SHAPER OPERATOR Respiratory Rate 20 06/18/2022 6:49 AM DOUBLE SPINDLE SHAPER OPERATOR Oxygen Saturation 98% 06/18/2022 8:02 AM DOUBLE SPINDLE SHAPER OPERATOR Inhaled Oxygen Concentration - - Weight 74.8 kg (165 lb) 06/18/2022 6:49 AM DOUBLE SPINDLE SHAPER OPERATOR Height 165.1 cm (5' 5) 06/18/2022 6:49 AM DOUBLE SPINDLE SHAPER OPERATOR Body Mass Index 27.46 06/18/2022 6:49 AM DOUBLE SPINDLE SHAPER OPERATOR Plan of Treatment Health Maintenance Due Date [...] this topic Medical Devices Implanted Type Area Marine Equipment Design Engineer Device Identifier Shelf Expiration Date Model / Serial / Lot Tecnis 1 Piece Iol Simplicity Implanted:Qty: 1 on 05/14/2022 by Kit Daniel MD at [facility] [id number] 02/17/2025 / [id number] / Tecnis Iol Implanted:Qty: 1 on 06/18/2022 by Kit Daniel MD at [facility] Right: Eye 11/10/2024 / [id number] / Insurance MEDICARE [facility] Care Teams Machine Package Sealer Relationship Specialty Start Date End Date Jorge A Noel MD [address] [place] [address] PCP - General INTERNAL MEDICINE 05/14/22
--- OUTSIDE RECORDS SUMMARY | 2025-01-23 08:55 | XMS_ITS | Encounter Summary ---
Author Organization [facility] Address [address] [place] [address] Care Team Providers Care Packaging Clerk Name Role Phone No, Physician Primary Care Provider Jorge A Noel MD Primary Care Provider [phone] Jose Martinez MD, Reji Hunt Unavailable [phone] Esther Nolasco MD Unavailable Nohelia Ovalles NP Unavailable [phone] Hoang Mcdonald MD Unavailable Nohelia Mayen MD Primary Care Provider [phone] Mabel Cunningham MD Unavailable Brandin Joseph MD Unavailable [phone] Encounter Details Date Type Department Care Team (Late st Contact Info) Description 05/28/[address] [facility] [place] [address] [place] [id number] Scanning, Provider Social History Tobacco Use Types Packs/Day Years Used Date Smoking Tobacco: Some Days Alcohol Use Standard Drinks/Week Comments Yes 0 (1 standard drink = 0.6 oz pur e alcohol) Comments Unknown Sex and Gender Information Value Date Recorded Sex Assigned at Not on file Legal Sex Female 11:28 AM PSYCHIATRIC CNS Gender Identity Not on file Sexual Orientation [...] COVID: Suspected 04/06/2023 04/06/2023 04/06/2023 12:54 PM PSYCHIATRIC CNS COVID: Suspected 08/19/2023 08/19/2023 08/20/2023 1:01 AM CDT COVID: Suspected 10/19/2023 10/19/2023 10/19/2023 6:41 PM CDT documented as of this encounter Care Teams Packaging Clerk Relationship Specialty Start Date End Date No, Physician PCP - General 05/02/17 07/28/17 Jorge A Noel MD PCP - General Internal Medicine 07/29/17 03/03/24 Nohelia Mayen MD [address] [place] [address] PCP - General Geriatric Medicine 03/04/24 Reji Garcia Jr., MD [address] [facility] [place] [phone] [place] [address] Consulting Physician Colon and Rectal Surgery 06/02/23 Esther Nolasco MD [address] [facility] [place] [phone] [place] [address] Medical Oncologist/Auto Technician Medical Oncology 06/02/23 03/03/24 Nohelia Ovalles NP 1 [facility] [address] [place] [address] Nurse Practitioner Hospice and Palliative Medicine 12/27/23 Hoang Mcdonald MD [address] [place], [place] [id number] Medical Oncology 03/04/24 Mabel Cunningham MD [address] [facility] NEUROLOGY [facility], [address] [address] Consulting Physician Neurology 05/11/24 Brandin Joseph MD [address] [facility] [address] [place], [place] [id number] Consulting Physician Cardiology 06/29/24 documented as of this encounter
--- OUTSIDE RECORDS SUMMARY | 2025-01-23 08:55 | XMS_ITS ---
Author Organization [facility] [address] Address [address] [place] [address] Care Team Providers Care Svp Research & Ebusiness Operations Name Role Phone Jose Martinez MD, Reji Hunt Unavailable Nohelia Ovalles NP Unavailable [phone] Hoang Mcdonald MD Unavailable Nohelia Mayen MD Primary Care Provider [phone] Mabel Cunningham MD Unavailable Brandin Joseph MD Unavailable [phone] Active Problems Problem Noted Date Diagnosed Date Delirium 10/19/2023 Assessment & Plan (10/28/2023 7:28 PM CDT): Per daughter, at baseline pt has left sided weakness, arm weaker than leg. More lucid in morning but usually doesn't know date or place, forgetful, talks about people who're , sundowns daily. At baseline is 1 assist, needs assistance with ADLs, needs wheelchair when outside. 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 Interrogation normal. No episodes of VFib/Vtach. Patient [...]
--- OUTSIDE RECORDS SUMMARY | 2025-01-23 08:55 | XMS_ITS | Encounter Summary ---
Author Organization [facility] Address [address] [place] [address] Care Team Providers Care Forest Pathology Professor Name Role Phone No, Physician Primary Care Provider Jorge A Noel MD Primary Care Provider [phone] Jose Martinez MD, Reji Hunt Unavailable Esther Nolasco MD Unavailable Nohelia Ovalles NP Unavailable Hoang Mcdonald MD Unavailable [phone] Nohelia Mayen MD Primary Care Provider [phone] Mabel Cunningham MD Unavailable Brandin Joseph MD Unavailable [phone] Encounter Details Date Type Department Care Team (Late st Contact Info) Description 07/05/2017 Orders Only [facility] [place] Health Information Management [address] [place] [id number] Scanning, Provider Social History Tobacco Use Types Packs/Day Years Used Date Smoking Tobacco: Some Days Alcohol Use Standard Drinks/Week Comments Yes 0 (1 standard drink = 0.6 oz pur e alcohol) Comments Unknown Sex and Gender Information Value Date Recorded Sex Assigned at Not on file Legal Sex Female 11:28 AM PC SUPPORT SPECIALIST Gender Identity Not on file Sexual [...] COVID: Suspected 04/06/2023 04/06/2023 04/06/2023 12:54 PM PC SUPPORT SPECIALIST COVID: Suspected 08/19/2023 08/19/2023 08/20/2023 1:01 AM CDT COVID: Suspected 10/19/2023 10/19/2023 10/19/2023 6:41 PM CDT documented as of this encounter Care Teams Forest Pathology Professor Relationship Specialty Start Date End Date No, Physician PCP - General 05/02/17 07/28/17 Jorge A Noel MD PCP - General Internal Medicine 07/29/17 03/03/24 Nohelia Mayen MD [address] [place] [address] PCP - General Geriatric Medicine 03/04/24 Reji Garcia Jr., MD [address] [facility] [place] [phone] [place] [address] Consulting Physician Colon and Rectal Surgery 06/02/23 Esther Nolasco MD [address] [facility] [place] [phone] [place] [address] Medical Oncologist/Heat Treat Worker Medical Oncology 06/02/23 03/03/24 Nohelia Ovalles NP [address] [facility] [address] [place] [address] Nurse Practitioner Hospice and Palliative Medicine 12/27/23 Hoang Mcdonald MD [address] [place] [address] Medical Oncology 03/04/24 Mabel Cunningham MD [address] [facility] NEUROLOGY [address] [address] Consulting Physician Neurology 05/11/24 Brandin Joseph MD [facility] [address] [place] [address] Consulting Physician Cardiology 06/29/24 documented as of this encounter
[2025-01-23] MEDS: IPRATROPIUM 0.5 MG/ALBUTEROL SULFATE 2.5 MG (BASE) AMPUL.NEB 3 ML INHALATION (09:00)
[2025-01-23 09:03] LABS: NT Pro B Type Natriuretic Pept 1120 pg/mL (19.9-100)
[2025-01-23 09:07] LABS: Troponin I < 0.012 ng/mL (0.000-0.034)
[2025-01-23 09:12] LABS: Band Neutrophils Percent 0 % (0-6); Basophils Absolute Manual 0.10 K/mm3 (0-0.1); Basophils Percent Manual 1 % (0-1); Eosinophils Absolute Manual 0.10 K/mm3 (0.02-0.50); Eosinophils Percent Manual 1 % (1-6); Lymphocytes Absolute Manual 0.80 K/mm3 (1.1-4.5); Lymphocytes Percent Manual 8 % (18-44); Monocytes Absolute Manual 0.40 K/mm3 (0.1-0.90); Monocytes Percent Manual 4 % (3-9); Neutrophils Absolute Manual 8.68 K/mm3 (1.3-6.7); Neutrophils Percent Manual 86 % (46-73); Total Cells Counted 100
--- NOTE | 2025-01-23 09:23 | PC.NURSE ---
Pt taken to radiology for CTA
[2025-01-23 09:29] LABS: Influenza A QL RT-PCR Negative (Negative); Influenza B QL RT-PCR Negative (Negative); RSV RNA, RT-PCR Negative (Negative); SARS-CoV-2 RNA PCR Negative (Negative)
--- NOTE | 2025-01-23 09:48 | PC.NURSE ---
Pt returns from radiology
--- NOTE | 2025-01-23 10:15 | PC.NURSE ---
CTA results back. ERP in room discussing admission vs transfer options with daughter.
[2025-01-23 10:50] LABS: INR 1.2; Partial Thromboplastin Time 25.3 Sec (23.9-30.70); Prothrombin Time 15.1 Seconds (9.64-11.0)
--- NOTE | 2025-01-23 11:28 | PC.NURSE ---
Charge nurse called to request bed. Pt will go to room 208.
[2025-01-23] MEDS: ENOXAPARIN 60 MG/0.6 ML SYRINGE SUB-Q ×2 (11:39→21:13)
--- NOTE | 2025-01-23 11:57 | PC.NURSE ---
Pt taken to room 208 with family.
--- NOTE | 2025-01-23 12:20 | PC.NURSE ---
1220left side sz activity, AVIATION MAINTENANCE INSTRUCTOR notified, 1221 jerking/ acitivty to left side, patient not left alone, placed on left side for safety, lasted till about 1223, relaxed, diaphoretic, no LOC, still alert to self and daughter, no longer shaking/jerking left side, valium on hold at this time, complaints of thirst, did have her eyes roll to the side during active sz, midline now and able to focus on daughter and answer questions,
[2025-01-23] MEDS: METOPROLOL SUCCINATE EXT REL 50 MG TABCR PO (12:39)
[2025-01-23] MEDS: AMIODARONE HCL 200 MG TABLET PO (12:39)
--- NOTE | 2025-01-23 13:17 | PM.IMHP ---
H&P: HPI History of Present Illness Date/Time: 01/23/25 13:17 Chief Complaint: shortness of breath Narrative: Patient is a 79-year-old female with past medical history of dementia, colon cancer in remission s/p creation, history of CVA with residual left hemiplegia, history of small SDH, a-fib/flutter, HTN, seizures and depression. patient presented to the ER complaining shortness breath. Per patient and daughter the shortness of breath started last night and was an acute onset. The patient denies accompanying symptoms including cough, chest pain, fevers, nausea or vomiting. Patient had a CXR in the ER which was without acute findings. Labs showed an elevated d-dimer of 2.01, BNP of 1120 and Covid/influenza/RSV swab was negative. CTA of the chest showed scattered PE of the left lung, small clot volume, otherwise clear lungs. Patient does not appear to be fluid overloaded on exam. Patient is on room air, not tachycardic. Patient's history clarified with her daughter who is her healthcare POA. The patient suffered an ischemic stroke and also a subdural hematoma from falling. Patient has never had a subarachnoid hemorrhage or aneurysm. Patient was treated at [facility] for this, we will request records. Patient had a Head CT on 07/03/2023 here which showed a complex extra-axial soft tissue with lentiform shape involving the left parietal location, likely chronic subdural hematoma and a large chronic right MCA distribution infarction with encephalomalacia. This correlates with what the daughter reports the patient was diagnosed with. Patient was started on full dose Lovenox for anticoagulation. Patient will need venous dopplers to rule out lower extremity DVT's. Patient will be monitored on telemetry. Patient was admitted for further evaluation and treatment. Review of Systems Review of Systems: All systems reviewed & are unremarkable except as noted in HPI and below PMFSH Past Medical History Medical History Recurrent UTI Colostomy in place Dyslipidemia CAD (coronary artery disease) Colon cancer Atrial fibrillation Intracranial hemorrhage Left hemiplegia Hyperlipidemia Seizure Pacemaker Colostomy in place Cardiac arrest Brain bleed Atrial fib/flutter, transient Colon cancer Hemiplegia following cerebrovascular accident (CVA) HTN (hypertension) Alcohol abuse Surgical History Surgical History H/O heart artery stent H/O: hysterectomy H/O colectomy Family History Family History Father Lung cancer Other Parents Social History Social History Social History: Her daughter is her caregiver. She is retired. Code status DNR Smoking status: Never smoker Tobacco type: cigarettes Second hand tobacco smoke exposure: No Alcohol intake: never Substance use: never Substance use type: marijuana Other substance usage details: daily drops Lack of Transportation: No Lack of Food: Never True Current Housing: I Have Housing Concerned About Future Housing: No Difficulty Paying Gas/Electric Bills: No Difficulty Paying for Meds: No Currently Unemployed: No Education: High School Diploma/GED Difficulty w/ Childcare or Family Care: No Spiritual care concerns: No Meds Home Medications and Allergies Home Medications ?Medication ?Instructions ?Recorded ?Confirmed ?Type cholecalciferol (vitamin D3) 25 25 mcg PO DAILY 06/07/24 01/23/25 History mcg (1,000 unit) capsule levetiracetam 500 mg tablet 500 mg PO Q12H 06/07/24 01/23/25 History trazodone 50 mg tablet 50 mg PO HS 06/07/24 01/23/25 History atorvastatin 20 mg tablet 40 mg PO QPM 01/07/25 01/23/25 History metoprolol succinate 50 mg 50 mg PO DAILY 01/07/25 01/23/25 History tablet,extended release 24 hr nystatin 100,000 unit/gram topical 1 applic topical BID PRN fungal 01/07/25 01/23/25 History powder (Nystop) olanzapine 5 mg tablet 5 mg PO HS 01/07/25 01/23/25 History amiodarone 200 mg tablet 200 mg PO Q24H 01/13/25 01/23/25 History venlafaxine 75 mg capsule,extended 75 mg PO QAM 01/13/25 01/23/25 History release 24 hr Allergies Allergy/AdvReac Type Severity Reaction Status Date / Time adhesive tape Allergy Unknown Verified 01/23/25 08:30 Vital Signs Vital Signs - 24 hr 01/23/25 08:16 01/23/25 08:31 01/23/25 08:46 Temperature 97.8 F Pulse Rate 94 90 91 Respiratory Rate 32 H 37 H 30 H Blood Pressure 122/92 H 115/65 117/65 Pulse Oximetry 90 95 94 Oxygen Delivery Room Air 01/23/25 09:01 01/23/25 09:09 01/23/25 09:15 Temperature Pulse Rate 90 90 Respiratory Rate 38 H 31 H Blood Pressure 120/72 Pulse Oximetry 96 97 Oxygen Delivery Room Air 01/23/25 09:16 01/23/25 09:48 01/23/25 10:00 Temperature Pulse Rate 90 90 Respiratory Rate 24 H 21 H Blood Pressure 115/69 124/71 Pulse Oximetry 97 92 Oxygen Delivery Room Air 01/23/25 10:01 01/23/25 12:39 01/23/25 12:39 Temperature Pulse Rate 90 90 90 Respiratory Rate 29 H Blood Pressure 126/75 Pulse Oximetry 91 Oxygen Delivery Exam Const: General: comfortable and no acute distress HENMT: Face/Nose/Sinus: Normal nares present Mouth: Yes moist mucous membranes Eyes: General: appearance normal, both eyes and all related structures Sclera: sclerae normal Neck: Neck: supple Resp: Effort & Inspection: normal respiratory effort Auscultation: clear to auscultation bilaterally Cardio: Rate: regular rate Rhythm: regular rhythm GI: GI Palp: Yes Soft to palpation Auscultation: normal bowel sounds Other: ileostomy bag Skin: General skin exam: normal color and no rashes or lesions noted Neuro: Speech: normal speech Sensory Exam: normal sensation Extrem: General: normal to inspection Psych: Affect: normal affect H&P: Results Labs Labs: Short CBC 01/23/25 Range/Units 08:38 WBC 10.1 (4.8-10.8) K/mm3 Hgb 10.4 L (11.7-13.8) g/dL Hct 33.1 L (35.0-42.0) % Plt Count 355 (150-420) K/mm3 [facility] 01/23/25 08:38 Sodium 139 Potassium 4.4 Chloride 106 Carbon Dioxide 23 BUN 16 Creatinine 0.83 Glucose 105 Calcium 9.2 Cardiac Enzymes 01/23/25 Range/Units 08:38 Troponin I < 0.012 (0.000-0.034) ng/mL Liver Function 01/23/25 Range/Units 08:38 Total Bilirubin 0.5 (0.2-1.3) mg/dL AST 24 (14-36) U/L ALT 10 (6-35) U/L Alkaline Phosphatase 58 (38-126) U/L Albumin 3.7 (3.5-5.1) g/dL Imaging Chest x-ray: Radiologist's impression: Examination: XR chest 1V portable Clinical History: sob Comparison: 01/17/2025 Technique: Portable AP Findings: Left pacemaker. Heart size normal. Right pleural effusion poorly seen, if persists. Lungs otherwise clear. No acute bony abnormality. IMPRESSION: 1. No definite acute cardiopulmonary findings given portable technique. CT scan - chest: Radiologist's impression: CTA CHEST CLINICAL HISTORY: sob/dyspnea . COMPARISON: Chest x-ray today TECHNIQUE: Helical CTA performed from thoracic inlet to upper abdomen 100 mL Omnipaque 350 Coronal, sagittal reformats. Multiplanar MIPS CT images acquired with automatic exposure control for dose reduction DLP: 280 mGy-cm FINDINGS: Respiratory motion artifact. Pulmonary arteries: Scattered PE left lung upper and lower lobe segmental branches. Thoracic Aorta: No dissection or aneurysm. Atherosclerotic disease. Heart/pericardium: Mildly enlarged. Coronary artery calcifications. RV/LV ratio: Normal. Lungs/Pleura: Clear. Minimal basilar atelectasis. Tracheobronchial tree: Patent. Nodes: No enlarged nodes. Bones: No acute bony abnormality. Soft tissues: Unremarkable. Visualized upper abdomen: Small hiatal hernia. IMPRESSION: 1. Scattered PE left lung. Small clot volume. 2. No evidence of right heart failure. 3. Lungs clear. Reviewed, dictated and finalized at location R. Assessment and Plan Assessment and plan (1) Pulmonary emboli: Code(s): I26.99 - Other pulmonary embolism without acute cor pulmonale Status: Acute Assessment and Plan: patient presented with an acute onset of dyspnea d-dimer was elevated at 2.01 Chest CTA showed scattered PE in left lung patient is on room air, no tachycardia patient started on full dose Lovenox, plan to switch to PO Eliquis prior to discharge regulatory compliance specialist respiratory status closely monitor for signs of bleeding (2) Seizure: Code(s): R56.9 - Unspecified convulsions Status: Acute Assessment and Plan: patient has a history of seizures patient did not receive her AM dose of Keppra today shortly after arrival to the nursing floor patient experienced a tonic clonic seizure that lasted approximately 3-4 minutes patients home Keppra was restarted and patient recieved her dose seizure precautions monitor closely (3) Hemiplegia following cerebrovascular accident (CVA): Code(s): I69.359 - Hemiplegia and hemiparesis following cerebral infarction affecting unspecified side Status: Acute Assessment and Plan: continue home atorvastatin PT/OT eval and treat (4) Atrial fib/flutter, transient: Code(s): I48.91 - Unspecified atrial fibrillation; I48.92 - Unspecified atrial flutter Status: Acute Assessment and Plan: appears rate controlled patient was not on anticoagulation prior to admission continue home amiodarone continue home metoprolol regulatory compliance specialist HR (5) HTN (hypertension): Code(s): I10 - Essential (primary) hypertension Status: Acute Assessment and Plan: BP appears stable continue home metoprolol monitor BP and adjust as indicated (6) Hyperlipidemia: Code(s): E78.5 - Hyperlipidemia, unspecified Status: Acute Assessment and Plan: continue home atorvastatin (7) MDD (major depressive disorder), recurrent episode, moderate: Code(s): F33.1 - Major depressive disorder, recurrent, moderate Status: Acute Assessment and Plan: continue home venlafaxine continue home trazodone continue home olanzapine patient sees psychiatry as an outpatient Quality VTE Prophylaxis VTE prophylaxis: pharmacologic ordered
--- NOTE | 2025-01-23 13:18 | ADMGEN ---
This patient, Sheyla Guthrie, was admitted to 2nd Floor Room 208-1. Patient/family oriented to hospital policies and general routines including ID bracelet, bed and alarms, visiting hours, pain management, procedures, bathroom and other care routines, personal items, smoking policy, room service/diet, and visiting hours. Information on how to activate the Rapid Response Team has been discussed. Patient/Family are encouraged to report perceived risks to care and to ask questions if they do not understand what they are told or what they should do.
[2025-01-23] MEDS: ACETAMINOPHEN 325 MG TABLET 650 MG PO (15:56)
[2025-01-23] MEDS: ATORVASTATIN 40 MG TABLET PO (17:29)
--- NOTE | 2025-01-23 20:05 | PC.NURSE ---
Patient in bed with caregiver sitting near by. Caregiver takes care of patient's ileostomy and assists with toileting. Daughter fed patient supper. Patient alert and confused. Pleasant. Brace to left arm intact. Call light and belongings within reach.
[2025-01-24] VITALS (9 sets, daily range): BP systolic 117–131; BP diastolic 71–85; PULSE 90–92; RESP 16–18; TEMP 36.4–36.9; O2SAT 95–98
[2025-01-24 06:34] LABS: Hematocrit 32.8 % (35.0-42.0); Hemoglobin 10.3 g/dL (11.7-13.8); Immature Granulocyte Percent A 0.7 % (0.0-0.0); Lymphocytes Absolute Auto 0.69 K/mm3 (1.10-4.50); Mean Corpuscular HGB Conc 31.4 g/dL (32-36); Mean Corpuscular Hemoglobin 30.4 pg (27.0-31.0); Mean Corpuscular Volume 96.8 fL (78.0-102.0); Nucleated Red Blood Cells Absolute Auto 0.00 K/mm3 (0.00-0.00); Nucleated Red Blood Cells Perc 0.0 % (0-0.0); Platelet Count Result 422 K/mm3 (150-420); Red Blood Count 3.39 M/mm3 (4.20-5.40); White Blood Count 10.7 K/mm3 (4.8-10.8)
[2025-01-24 06:47] LABS: Alanine Aminotransferase 11 U/L (6-35); Albumin Level 3.8 g/dL (3.5-5.1); Alkaline Phosphatase 64 U/L (38-126); Anion Gap 9 mmol/L (4-12); Aspartate Amino Transferase 24 U/L (14-36); Bilirubin,Total 0.4 mg/dL (0.2-1.3); Blood Urea Nitrogen 14 mg/dL (7-17); Calcium 9.6 mg/dL (8.4-10.2); Carbon Dioxide 26 mmol/L (22-30); Chloride 106 mmol/L (98-107); Estimated CRCL calculation 42 ml/min; Estimated Glomerular Filt Rate > 60; Glucose 120 mg/dL (65-110); Osmolality Calculated 293 mOsm/kg (285-295); Potassium 4.5 mmol/L (3.4-5.0); Sodium 141 mmol/L (137-145); Total Protein 7.2 g/dL (6.3-8.2)
[2025-01-24] MEDS: METOPROLOL SUCCINATE EXT REL 50 MG TABCR PO (09:21)
[2025-01-24] MEDS: CHOLECALCIFEROL (VITAMIN D3) 25 MCG (1,000 UNITS) TABLET PO (09:21)
[2025-01-24] MEDS: VENLAFAXINE HCL XR 75 MG CAP.ER.24H PO (09:21)
[2025-01-24] MEDS: AMIODARONE HCL 200 MG TABLET PO (09:22)
[2025-01-24] MEDS: ENOXAPARIN 60 MG/0.6 ML SYRINGE SUB-Q ×2 (09:22→21:49)
[2025-01-24] MEDS: ACETAMINOPHEN 325 MG TABLET 650 MG PO (12:01)
--- NOTE | 2025-01-24 14:57 | PM.IMPN ---
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 closely monitor for signs of bleeding (2) Seizure: Code(s): R56.9 - Unspecified convulsions Status: Acute Assessment and Plan: patient has a history of seizures shortly after arrival to the nursing floor patient experienced a tonic clonic seizure that lasted approximately 3-4 minutes, patient had missed her AM dose of Keppra due to being in the ER patients home Keppra was restarted seizure precautions monitor closely (3) Hemiplegia following cerebrovascular accident (CVA): Code(s): I69.359 - Hemiplegia and hemiparesis following cerebral infarction affecting unspecified side Status: Acute Assessment and Plan: continue home atorvastatin PT/OT eval and treat (4) Atrial fib/flutter, transient: Code(s): I48.91 - Unspecified atrial fibrillation; I48.92 - Unspecified atrial flutter Status: Acute Assessment and Plan: appears rate controlled patient was not on anticoagulation prior to admission continue home amiodarone continue home metoprolol 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 (5) HTN (hypertension): Code(s): I10 - Essential (primary) hypertension Status: Acute Assessment and Plan: BP appears stable continue home metoprolol monitor BP and adjust as indicated (6) Hyperlipidemia: Code(s): E78.5 - Hyperlipidemia, unspecified Status: Acute Assessment and Plan: continue home atorvastatin (7) MDD (major depressive disorder), recurrent episode, moderate: Code(s): F33.1 - Major depressive disorder, recurrent, moderate Status: Acute Assessment and Plan: continue home venlafaxine continue home trazodone continue home olanzapine patient sees psychiatry as an outpatient mood has been stable this far, patient has caregivers present at all times Subjective Date/time seen: 01/24/25 14:57 Interval history: Patient seen for a follow up visit. Patient lying in bed, in no acute distress. Patient denies dyspnea or chest pain. Patient on seizure precautions. No seizures since the one that occurred after admission. Patient's caregiver at bedside and diagnosis and plan explained to patient and caregiver. Bilateral lower extremity venous doppler ordered and will be done tomorrow. Plan to switch patient to PO Eliquis prior to discharge. Review of Systems Review of Systems: All systems reviewed & are unremarkable except as noted in HPI and below Exam Const: General: comfortable and no acute distress HENMT: Face/Nose/Sinus: Normal nares present Mouth: Yes moist mucous membranes Eyes: General: appearance normal, both eyes and all related structures Sclera: sclerae normal Neck: Neck: supple Resp: Effort & Inspection: normal respiratory effort Auscultation: clear to auscultation bilaterally Cardio: Rate: regular rate Rhythm: regular rhythm GI: Auscultation: normal bowel sounds Other: ileostomy bag Skin: General skin exam: normal color and no rashes or lesions noted Neuro: Speech: normal speech Sensory Exam: normal sensation Extrem: General: normal to inspection Psych: Affect: normal affect Objective Data Vital Signs Vital Signs: Vital Signs - 24 hr 01/23/25 16:00 01/23/25 20:00 01/24/25 00:00 Temperature Pulse Rate 90 90 92 Respiratory Rate Blood Pressure Pulse Oximetry Oxygen Delivery 01/24/25 00:00 01/24/25 04:00 01/24/25 08:00 Temperature 98.2 F Pulse Rate 92 90 90 Respiratory Rate 16 Blood Pressure 126/74 Pulse Oximetry 96 Oxygen Delivery Room Air 01/24/25 08:00 01/24/25 09:21 01/24/25 09:22 Temperature 97.6 F Pulse Rate 90 90 90 Respiratory Rate 18 Blood Pressure 117/71 Pulse Oximetry 95 Oxygen Delivery Room Air Intake/Output Intake/Output: Intake & Output 01/21/25 01/22/25 01/23/25 01/24/25 23:59 23:59 23:59 23:59 Intake Total 881 400 Output Total 100 Balance 781 400 Meds/Results Medications: Active Medications Generic Name Dose Route Start Last Admin Trade Name Freq PRN Reason Stop Dose Admin Acetaminophen 650 mg 01/23/25 13:08 01/24/25 12:01 Acetaminophen 325 Mg Tablet PO 650 mg Q4H PRN Administration Mild Pain (1-3) or Fever Amiodarone HCl 200 mg 01/24/25 09:00 01/24/25 09:22 Amiodarone Hcl 200 Mg Tablet PO 200 mg Q24H JUANCARLOS Administration Atorvastatin Calcium 40 mg 01/23/25 18:00 01/23/25 17:29 Atorvastatin 40 Mg Tablet PO 40 mg QPM JUANCARLOS Administration Enoxaparin Sodium 60 mg 01/23/25 22:00 01/24/25 09:22 Enoxaparin 60 Mg/0.6 Ml Syringe SUB-Q 60 mg Q12H JUANCARLOS Administration Levetiracetam 500 mg 01/24/25 09:00 01/24/25 09:21 Levetiracetam 500 Mg Tablet PO 500 mg Q12HR JUANCARLOS Administration Metoprolol Succinate 50 mg 01/24/25 09:00 01/24/25 09:21 Metoprolol Succinate Ext Rel 50 Mg Tabcr PO 50 mg DAILY JUANCARLOS Administration Olanzapine 5 mg 01/23/25 21:00 01/23/25 21:14 Olanzapine 2.5 Mg Tablet PO 5 mg HS JUANCARLOS Administration Tolnaftate 1 applic 01/23/25 12:38 Tolnaftate 1% Powder 45 Gm Btl TOPICAL Q12HR PRN FUNGAL Trazodone HCl 50 mg 01/23/25 21:00 01/23/25 21:14 Trazodone Hcl 50 Mg Tablet PO 50 mg HS JUANCARLOS Administration Venlafaxine HCl 75 mg 01/24/25 09:00 01/24/25 09:21 Venlafaxine Hcl Xr 75 Mg Cap.Er.24h PO 75 mg QAM JUANCARLOS Administration Vitamin D 25 mcg 01/24/25 09:00 01/24/25 09:21 Cholecalciferol (Vitamin D3) 25 Mcg (1,000 Units) Tablet PO 25 mcg DAILY JUANCARLOS Administration Radiology Results: ITS Impressions Chest X-Ray 01/23/25 08:43 IMPRESSION: 1. No definite acute cardiopulmonary findings given portable technique. Chest CTA 01/23/25 09:53 IMPRESSION: 1. Scattered PE left lung. Small clot volume. 2. No evidence of right heart failure. 3. Lungs clear. Labs Labs: Laboratory Results - last 24 hr 01/24/25 05:29 WBC 10.7 RBC 3.39 L Hgb 10.3 L Hct 32.8 L MCV 96.8 MCH 30.4 MCHC 31.4 L RDW 12.6 Plt Count 422 H MPV 10.0 Immature Gran % (Auto) 0.7 H Neut % (Auto) 87.2 H Lymph % (Auto) 6.4 L [place] % (Auto) 5.4 Eos % (Auto) 0.1 L Baso % (Auto) 0.2 Lymph # (Auto) 0.69 L [place] # (Auto) 0.58 Eos # (Auto) 0.01 L Baso # (Auto) 0.02 Abs Immat Gran (auto) 0.08 H Absolute Neuts (auto) 9.34 H Absolute Nucleated RBC 0.00 Nucleated RBC % 0.0 Sodium 141 Potassium 4.5 Chloride 106 Carbon Dioxide 26 Anion Gap 9 BUN 14 Creatinine 0.87 Estim Creat Clear Calc 42 Estimated GFR > 60 Glucose 120 H Calculated Osmolality 293 Calcium 9.6 Total Bilirubin 0.4 AST 24 ALT 11 Alkaline Phosphatase 64 Total Protein 7.2 Albumin 3.8 Quality VTE Prophylaxis VTE prophylaxis: pharmacologic ordered
[2025-01-24] MEDS: ATORVASTATIN 40 MG TABLET PO (17:03)
[2025-01-25 04:00] VITALS: PULSE 90
[2025-01-25] MEDS: ACETAMINOPHEN 325 MG TABLET 650 MG PO (04:35)
[2025-01-25 08:00] VITALS: BP 109/88; PULSE 90; RESP 18; TEMP 36.9; O2SAT 95
[2025-01-25] MEDS: APIXABAN 2.5 MG TABLET 10 MG PO (09:12)
[2025-01-25] MEDS: METOPROLOL SUCCINATE EXT REL 50 MG TABCR PO (09:12)
[2025-01-25] MEDS: CHOLECALCIFEROL (VITAMIN D3) 25 MCG (1,000 UNITS) TABLET PO (09:12)
[2025-01-25] MEDS: AMIODARONE HCL 200 MG TABLET PO (09:13)
[2025-01-25] MEDS: VENLAFAXINE HCL XR 75 MG CAP.ER.24H PO (09:14)
--- OUTSIDE RECORDS SUMMARY | 2025-01-25 09:27 | XMS_ITS | Clinical Summary ---
Author Organization [facility] [address] Address [address] [place] [address] Care Team Providers Care Counseling Director Name Role Phone Jose Martinez MD, Reji Hunt Unavailable Nohelia Ovalles NP Unavailable Hoang Mcdonald MD Unavailable [phone] Nohelia Mayen MD Primary Care Provider [phone] Mabel Cunningham MD Unavailable Brandin Joseph MD Unavailable [phone] Allergies Active Allergy Reactions Criticality Noted [...] assistance with ADLs, needs wheelchair when outside. 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 Interrogation normal. No episodes of VFib/Vtach. Patient [...] comoribidities - Follows with Dr. Bales - [facility] On amiodarone therapy 05/21/20182020 Goals of care, counseling/discussion 07/29/2017 10/19/2023 Postprocedural state 02/22/2015 019 Overview (07/27/2016): S/P ablation of atrial fibrillation Atrial flutter 05/08/2013 08/19/2023 Overview (07/27/2016): ATRIAL FLUTTER Assessment & Plan (08/19/2023 11:41 PM CDT): - Cont metoprolol Encounters Date Type Department Care Team Description 12/14/2024 Documentation [facility] Palliative Care [address] [place] [id number] Ellen Kirk RN from Last 3 Months [...] CPAP Cardiac arrest with ventricu lar fibrillation ([facility]) 04/06/2023 OOH, at [facility] Acute right MCA stroke ([facility]) 03/27/2023 Car dioembolic source Colon cancer ([facility]) 04/16/2023 Stage II Ileostomy in place ([facility]) 04/20/2023 NSTEMI (non-ST elevated myoc ardial infarction) ([facility]) 04/06/2023 LAD stenosis, cause of SCA CAD (coronary artery disease) EtOH dependence ([facility]) Quit 04/10 23 Aspiration pneumonia ([facility]) 04/06/2023 Dysphagia 04/02/2023 S/p CVA. PEG hattie uha Nicotine dependence in remission Quit 1981, 3 [...] drink = 0.6 oz pur e alcohol) [facility] Utilities Answer Date Recorded In the past 12 months has e [employer], gas, oil, or water [employer] threatened to shut off services in your [...] often do you attend chur ch or religion services? Patient unable to answer 10/21/2023 Do you belong to any clubs o r organizations such as islam groups, unions, fraternal or athletic groups, or [...] place to sleep or slept in a penitentiary (including now)? Patient unable to answer 08/22/2023 [...] were you homeless or living in a penitentiary (including now)? 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 Not on file [...] 165.1 cm (5' 5) 05/08/2024 9:56 AM LOCOMOTIVE ENGINEER ELECTRIC Body Mass Index 23 05/08/2024 9:56 AM LOCOMOTIVE ENGINEER ELECTRIC Plan of Treatment Health Maintenance Due Date [...] Screening Discontinued Medical Devices Implanted Type Area Mat Linker Device Identifier Shelf Expiration Date Model / Serial / Lot Terum[employer] Esperanza Angio-Seal Vip 6fr Closere Device [id number] - [id number] - [id number] Implanted:Qty: 1 on 05/03/2023 by Shmuel Thorne MD PhD at [facility] Collagen Right: Femoral [employer] Esperanza 10/01/2023 [id number] / [id number] / [id number] [employer] Stent Coronary De Rx Cocr Ors Msn 2.5x40mm [id number] - [id number] - [id number] Implanted:Qty: 1 on 05/03/2023 by Shmuel Thorne MD PhD at [facility] Stent [employer] 12/15/2024 [id number] / [id number] / [id number] Pacemaker Left: Chest [employer] Trufill Glue 1gm Nbca [id number] - [id number] Implanted:Qty: 1 on 06/25/2023 at [facility] [employer] 04/21/2025 [id number] / / [id number] Procedures Procedure Name Priority Date/Time Associated Diagnosis Comments COLONOSCOPY 04/16/2023 9:23 AM LOCOMOTIVE ENGINEER ELECTRIC from Last 3 Months or Most Recently Relevant to Health Maintenance Results * COLONOSCOPY (04/16/2023 9:23 AM LOCOMOTIVE ENGINEER ELECTRIC) Anatomical Region Laterality Modality Other Narrative Procedure Note Froilan Vilchis MD - 04/16/2023 9:23 AM [facility] Patient Name: Sheyla Guthrie Procedure Date: 04/16/2023 9:23 AM Date of : 1945 Admit Type: Inpatient Age: 77 Gender: Female Attending MD: Froilna Vilchis M.D. Room: [facility] ENDOSCOPY Note Status: Finalized Procedure: Colonoscopy [...] The scope was passed under direct vision.The [id number] endoscope was introduced through the anus [...] On: 04/16/2023 9:23 AM Recognized by the [employer] [employer] for promoting quality in endoscopy Froilan Vilchis MD ENDOSCOPY PROCED URES Final Result from Last 3 Months or Most Recently Relevant to Health Maintenance Insurance MEDICARE [facility] MEDICARE BLUE [employer]OSS MEDICARE SUPPLEMENT MEDICARE [facility] MEDICARE SUPPLEMENT Advance Directives For more information, please contact: [phone] Documents on File Type Date Recorded Patient Water Pipe Installer Expl anation Power of Silverware Washer 10/19/2023 7:03 PM Medic alHILDA. 2.pdf ADVANCE DIRECTIVE 05/16/2023 5:48 PM POWER OF CUT OUT STITCHER-MEDICAL ADVANCE DIRECTIVE 05/02/2023 12:31 PM SHMUEL R OF CUT OUT STITCHER-MEDICAL * Full Code (Latest Code Status [...] Guthrie Daughter Health Care Agent Care Teams Counseling Director Relationship Specialty Start Date End Date Nohelia Mayen MD [address] [place] [address] PCP - General Geriatric Medicine 03/04/24 Reji Garcia Jr., MD [address] [facility] [phone] [place] [address] Consulting Physician Colon and Rectal Surgery 06/02/23 Nohelia Ovalles NP [address] [place] [address] [address] [place] [address] Nurse Practitioner Hospice and Palliative Medicine 12/27/23 Hoang Mcdonald MD [address] [place] [address] Medical Oncology 03/04/24 Mabel Cunningham MD [address] [facility] NEUROLOGY STROKE, [facility] [address] [place] [address] Consulting Physician Neurology 05/11/24 Brandin Joseph MD [address] [facility] [address] [place] [address] Consulting Physician Cardiology 06/29/24
--- OUTSIDE RECORDS SUMMARY | 2025-01-25 09:27 | XMS_ITS ---
Author Organization [facility] [address] Address [address] [place] [address] Care Team Providers Care Parking Lot Chauffeur Name Role Phone Jose Martinez MD, Reji Hunt Unavailable Nohelia Ovalles NP Unavailable Hoang Mcdonald MD Unavailable [phone] Nohelia Mayen MD Primary Care Provider [phone] Mabel Cunningham MD Unavailable Brandin Joseph MD Unavailable [phone] Active Problems Problem Noted Date Diagnosed Date Delirium 10/19/2023 Assessment & Plan (10/28/2023 7:28 PM CDT): Per daughter, at baseline pt has left sided weakness, arm weaker than leg. More lucid in morning but usually doesn't know date or place, forgetful, talks about people who're , sundowns daily. At baseline is 1 assist, needs assistance with ADLs, needs wheelchair when outside. 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 Interrogation normal. No episodes of VFib/Vtach. Patient [...]
--- OUTSIDE RECORDS SUMMARY | 2025-01-25 09:27 | XMS_ITS ---
Author Organization [facility] Address [address] [place] [address] Care Team Providers Care Health Technician Hearing Name Role Phone Lorna Marie APRN-MONONITROTOLUENE OPERATOR Primary Care Provider Active Problems * This [...]
--- OUTSIDE RECORDS SUMMARY | 2025-01-25 09:27 | XMS_ITS | Clinical Summary ---
Author Organization [facility] Address [address] [place] [address] Care Team Providers Care Information Clerk Brokerage Name Role Phone Jorge A Noel MD Primary Care Provider [phone] Allergies No known active allergies Medications dilTIAZem [...] Comments Blood Pressure 125/68 06/18/2022 8:02 AM PRINTER OPERATOR Pulse 72 06/18/2022 8:02 AM PRINTER OPERATOR Temperature 36.2 C (97.2 F) 06/18/2022 6:49 AM PRINTER OPERATOR Respiratory Rate 20 06/18/2022 6:49 AM PRINTER OPERATOR Oxygen Saturation 98% 06/18/2022 8:02 AM PRINTER OPERATOR Inhaled Oxygen Concentration - - Weight 74.8 kg (165 lb) 06/18/2022 6:49 AM PRINTER OPERATOR Height 165.1 cm (5' 5) 06/18/2022 6:49 AM PRINTER OPERATOR Body Mass Index 27.46 06/18/2022 6:49 AM PRINTER OPERATOR Plan of Treatment Health Maintenance Due Date Last Done Comments Hepatitis C 1963 Annual Medicare Wellness Visit 06/27/2011 Dexa Scan (General) 06/27/2011 RSV Immunization or 60+ Years (1 - 1-dose 75+ series) 2021 COVID-19 Vaccine ( - season) 2024 01/21/2022, 03/03/2021, 07/14/2020, Additional history exists Influenza Adult (#1) 2025 01/21/2020, 02/13/2019, 02/12/2018, Additional history exists DTaP, [...] this topic Medical Devices Implanted Type Area Tactical Air Control Party Device Identifier Shelf Expiration Date Model / Serial / Lot Tecnis 1 Piece Iol Simplicity Implanted:Qty: 1 on 05/14/2022 by Kit Daniel MD at [facility] [id number] 02/17/2025 / [id number] / Tecnis Iol Implanted:Qty: 1 on 06/18/2022 by Kit Daniel MD at [facility] Right: Eye 11/10/2024 / [id number] / Insurance MEDICARE [facility] Care Teams Information Clerk Brokerage Relationship Specialty Start Date End Date Jorge A Noel MD [address] [place] [id number] PCP - General INTERNAL MEDICINE 05/14/22
--- OUTSIDE RECORDS SUMMARY | 2025-01-25 09:27 | XMS_ITS | Encounter Summary ---
Author Organization [facility] Address [address] [place] [address] Care Team Providers Care Mud Grinder Name Role Phone No, Physician Primary Care Provider Jorge A Noel MD Primary Care Provider [phone] Jose Martinez MD, Reji Hunt Unavailable Esther Nolasco MD Unavailable Nohelia Ovalles NP Unavailable [phone] Hoang Mcdonald MD Unavailable Nohelia Mayen MD Primary Care Provider [phone] Mabel Cunningham MD Unavailable Brandin Joseph MD Unavailable [phone] Encounter Details Date Type Department Care Team (Late st Contact Info) Description 05/28/2017 Orders Only [facility] Health Information Management [address] [place] [address] Scanning, Provider Social History Tobacco Use Types Packs/Day Years Used Date Smoking Tobacco: Some Days Alcohol Use Standard Drinks/Week Comments Yes 0 (1 standard drink = 0.6 oz pur e alcohol) Comments Unknown Sex and Gender Information Value Date Recorded Sex Assigned at Not on file Legal Sex Female 11:28 AM RODBUSTER Gender Identity Not on file Sexual Orientation [...] COVID: Suspected 04/06/2023 04/06/2023 04/06/2023 12:54 PM RODBUSTER COVID: Suspected 08/19/2023 08/19/2023 08/20/2023 1:01 AM CDT COVID: Suspected 10/19/2023 10/19/2023 10/19/2023 6:41 PM CDT documented as of this encounter Care Teams Mud Grinder Relationship Specialty Start Date End Date No, Physician PCP - General 05/02/17 07/28/17 Jorge A Noel MD PCP - General Internal Medicine 07/29/17 03/03/24 Nohelia Mayen MD [address] [address] PCP - General Geriatric Medicine 03/04/24 Reji Garcia Jr., MD [address] [facility] [phone] [place] [address] Consulting Physician Colon and Rectal Surgery 06/02/23 Esther Nolasco MD [address] [facility] [phone] [place] [address] Medical Oncologist/Personnel Coordinator Medical Oncology 06/02/23 03/03/24 Nohelia Ovalles NP 1 [facility] [address] [place] [address] Nurse Practitioner Hospice and Palliative Medicine 12/27/23 Hoang Mcdonald MD [address] [place], [place] [id number] Medical Oncology 03/04/24 Mabel Cunningham MD [address] [facility] NEUROLOGY [facility], [address] [address] Consulting Physician Neurology 05/11/24 Brandin Joseph MD [address] [facility] [address] [place], [place] [id number] Consulting Physician Cardiology 06/29/24 documented as of this encounter
--- OUTSIDE RECORDS SUMMARY | 2025-01-25 09:27 | XMS_ITS | Encounter Summary ---
Author Organization [facility] Address [address] [place] [address] Care Team Providers Care Traffic Signal Repairer Name Role Phone No, Physician Primary Care Provider Jorge A Noel MD Primary Care Provider [phone] Jose Martinez MD, Reji Hunt Unavailable Esther Nolasco MD Unavailable [phone] Nohelia Ovalles NP Unavailable [phone] Hoang Mcdonald MD Unavailable Nohelia Mayen MD Primary Care Provider [phone] Mabel Cunningham MD Unavailable [phone] Brandin Joseph MD Unavailable [phone] Encounter Details Date Type Department Care Team (Late st Contact Info) Description 07/05/2017 Orders Only [facility] Health Information Management [address] [place] [address] Scanning, Provider Social History Tobacco Use Types Packs/Day Years Used Date Smoking Tobacco: Some Days Alcohol Use Standard Drinks/Week Comments Yes 0 (1 standard drink = 0.6 oz pur e alcohol) Comments Unknown Sex and Gender Information Value Date Recorded Sex Assigned at Not on file Legal Sex Female 11:28 AM ENGINE MONITOR Gender Identity Not on file Sexual Orientation [...] COVID: Suspected 04/06/2023 04/06/2023 04/06/2023 12:54 PM ENGINE MONITOR COVID: Suspected 08/19/2023 08/19/2023 08/20/2023 1:01 AM CDT COVID: Suspected 10/19/2023 10/19/2023 10/19/2023 6:41 PM CDT documented as of this encounter Care Teams Traffic Signal Repairer Relationship Specialty Start Date End Date No, Physician PCP - General 05/02/17 07/28/17 Jorge A Noel MD PCP - General Internal Medicine 07/29/17 03/03/24 Nohelia Mayen MD [address] [place] [address] PCP - General Geriatric Medicine 03/04/24 Reji Garcia Jr., MD [address] [facility] [phone] [place] [address] Consulting Physician Colon and Rectal Surgery 06/02/23 Esther Nolasco MD [address] [facility] [phone] [place] [address] Medical Oncologist/Wireless Development Manager Medical Oncology 06/02/23 03/03/24 Nohelia Ovalles NP 1 [facility] [address] [place] [address] Nurse Practitioner Hospice and Palliative Medicine 12/27/23 Hoang Mcdonald MD [address] [place] [address] Medical Oncology 03/04/24 Mabel Cunningham MD [address] [facility] NEUROLOGY [address] [address] Consulting Physician Neurology 05/11/24 Brandin Joseph MD [facility] [address] [place] [address] Consulting Physician Cardiology 06/29/24 documented as of this encounter
--- OUTSIDE RECORDS SUMMARY | 2025-01-25 09:27 | XMS_ITS | Clinical Summary ---
Author Organization [facility] Address [address] [place] [address] Care Team Providers Care Drilling Plant Operator Name Role Phone Frank, Lorna Vela APRN-PROSTHETIC ASSISTANT Primary Care Provider Source Comments [facility],non-owned Affiliates and Associated Physician Practices is amultiple site organization consisting of ambulatory clinics and hospital sitesin [place], [place], [place] and [place]. This disclosure is being madepursuant to the Care Everywhere program and may not contain all information available regarding this patient. Last updated 18.[facility] Allergies Active Allergy Reactions Criticality Noted Date [...] tablet 4 12/17/19 24 Active nystatin (Mycostatin) 167991 UNIT/GM powder Apply to affected area 2 [...] Orders Only [facility] [place] [phone] Lorna Marie APRN-ALEXANDER Psychosis, unspecified psychosis type (HCC) 11/11/2024 Orders Only [facility] [address] [place] [phone] Lorna Marie APRN-ALEXANDER Dementia with behavioral disturbance (HCC) 11/10/2024 Telephone [facility] [address] [place] [phone] Yazmin Lazar, RN Med Question 10/30/2024 11:00 AM CDT Office Visit [facility] [address] [place] [phone] Lorna Marie APRN-ALEXANDER Vascular dementia, unspecified dementia severity, unspecified whether behavioral, psychotic, or mood disturbance or anxiety (HCC) (Primary Dx); Paranoia (HCC); Hypotension, unspecified hypotension type 10/30/2024 Travel from Last 3 Months Immunizations Immunization Administration Dates Next Due COVINNJOY Travel BIVALENT 12Y+ 30mcg/0.3ML 2 Covid Pfizer primary [...] st Contact Info) Description 03/05/2025 11:00 AM COAT BASTER Office Visit [facility] [address] [facility] [address] [facility] [facility] [place] [phone] Lorna Marie, DIESEL POWERPLANT MECHANIC HELPER-PROSTHETIC ASSISTANT [address] [phone] Health Maintenance Due Date Last Done Comments [...] 6:24 PM 09/20/2017 4:15 PM Care Teams Drilling Plant Operator Relationship Specialty Start Date End Date Lorna Marie, DIESEL POWERPLANT MECHANIC HELPER-PROSTHETIC ASSISTANT [address] [phone] PCP - General Nurse Practitioner 01/13/24
--- NOTE | 2025-01-25 11:08 | P.DS_ITS ---
DS: Admitting Diagnosis Discharge Date 01/25/2025 Admitting Diagnosis pulmonary embolus DS: Discharge Diagnosis Discharge Diagnosis (1) Pulmonary emboli: Code(s): I26.99 - Other pulmonary embolism without acute cor pulmonale Status: Acute Assessment and Plan: patient presented with an acute onset of dyspnea d-dimer was elevated at 2.01 Chest CTA showed scattered PE in left lung patient is on room air, no tachycardia s/p full dose Lovenox, switch to PO Eliquis prior to discharge cafeteria monitor respiratory status closely monitor for signs of bleeding (2) Seizure: Code(s): R56.9 - Unspecified convulsions Status: Acute Assessment and Plan: patient has a history of seizures shortly after arrival to the nursing floor patient experienced a tonic clonic seizure that lasted approximately 3-4 minutes, patient had missed her AM dose of Keppra due to being in the ER continue home Keppra seizure precautions monitor closely (3) Hemiplegia following cerebrovascular accident (CVA): Code(s): I69.359 - Hemiplegia and hemiparesis following cerebral infarction affecting unspecified side Status: Acute Assessment and Plan: continue home atorvastatin PT/OT eval and treat (4) Atrial fib/flutter, transient: Code(s): I48.91 - Unspecified atrial fibrillation; I48.92 - Unspecified atrial flutter Status: Acute Assessment and Plan: appears rate controlled patient was not on anticoagulation prior to admission continue home amiodarone continue home metoprolol telemetry HR remained stable (5) HTN (hypertension): Code(s): I10 - Essential (primary) hypertension Status: Acute Assessment and Plan: BP appears stable continue home metoprolol monitor BP and adjust as indicated (6) Hyperlipidemia: Code(s): E78.5 - Hyperlipidemia, unspecified Status: Acute Assessment and Plan: continue home atorvastatin (7) MDD (major depressive disorder), recurrent episode, moderate: Code(s): F33.1 - Major depressive disorder, recurrent, moderate Status: Acute Assessment and Plan: continue home venlafaxine continue home trazodone continue home olanzapine patient sees psychiatry as an outpatient mood has been stable this far, patient has caregivers present at all times DS: Summary Hospital Course Reason for hospitalization: pulmonary embolus Hospital Course: Patient is a 80 year old female with PMH of dementia, colon cancer in remission, history of CVA with residual left hemiplegia, history of small SDH, a- fib/flutter, HTN, seizures and depression. Patient was admitted to [facility] due to shortness of breath. Patient was found to have an elevated d-dimer of 2.01 and BNP of 1120. CTA of the chest showed scattered PE of the left lung, small clot volume. Patient recently was inpatient at [facility] and had a laparoscopic hernia repair done by general surgery. Patient's history clarified with her daughter who is her healthcare POA. The patient suffered an ischemic stroke and also a subdural hematoma from falling. Patient has never had a subarachnoid hemorrhage or aneurysm. Patient was treated at [facility] for this, we will request records. Patient had a Head CT on 07/03/2023 here which showed a complex extra-axial soft tissue with lentiform shape involving the left parietal location, likely chronic subdural hematoma and a large chronic right MCA distribution infarction with encephalomalacia. This correlates with what the daughter reports the patient was diagnosed with. Patient was started on full dose Lovenox for anticoagulation. Patient was started on full dose lovenox for anticoagulation. Patient had venous dopplers completed which were negative for DVT's. Patient was transitioned to Eliquis. Patients daughter requested no PT/OT evaluation as patient will not participate and patient has 24 hour caregivers at home. Patient remained on room air during her stay and HR was stable. Patient was discharged home on Eliquis and will follow up with her PCP for refills to complete the initial 3 months of treatment. Patient's PCP will determine if patient will need anticoagulation beyond this timeframe. Time Spent with Patient Time attestation: Total time spent providing and/or coordinating discharge services: 35 minutes Exam Const: General: comfortable and no acute distress HENMT: Face/Nose/Sinus: Normal nares present Mouth: Yes moist mucous membranes Eyes: General: appearance normal, both eyes and all related structures Sclera: sclerae normal Neck: Neck: supple Resp: Effort & Inspection: normal respiratory effort Auscultation: clear to auscultation bilaterally Cardio: Rate: regular rate Rhythm: regular rhythm GI: Auscultation: normal bowel sounds Other: ileostomy bag Skin: General skin exam: normal color and no rashes or lesions noted Neuro: Speech: normal speech Sensory Exam: normal sensation Extrem: General: normal to inspection Psych: Affect: normal affect Discharge Plan Discharge Attending physician on discharge: Stuart Ewing Consulting providers: Federica Jennings; Christopher Jasso; Jey Deleon; Paul Martinez V. Discharging Clinician: Federica Jennings Patient Disposition: Home Activity: as tolerated Diet: as tolerated Discharge Instructions: Please call your provider or return to the ER if you experience chest pain, difficulty breathing, fever (100.4 or greater), nausea/vomiting Please ask your PCP for refills on the Eliquis, the medication to treat the blood clots) to complete 3 months of treatment. Discuss with your PCP if you will need to continue blood thinners after the initial treatment period or not. Patient Instructions: Apixaban (By mouth), Pulmonary Embolism (DC), Fall Prevention for Older Adults (DC) Patient Language: New Zealander Stand Alone Forms: General Discharge Information Follow-up/Referrals: Frank,Lorna [Other] Referral Note: call for an appointment to be seen within 1-2 weeks of discharge. Please ask your PCP for refills on the Eliquis, the medication to treat the blood clots) to complete 3 months of treatment. Discuss with your PCP if you will need to continue blood thinners after the initial treatment period or not. Discharge Medications: New Eliquis DVT-PE Treat 30D Start 5 mg (74 tabs) tablets,dose pack See Rx Instructions .ROUTE .COMPLEX Qty: 74 0RF Rx Instructions: orally per package directions Continued trazodone 50 mg tablet 50 mg PO HS levetiracetam 500 mg tablet 500 mg PO Q12H cholecalciferol (vitamin D3) 25 mcg (1,000 unit) capsule 25 mcg PO DAILY olanzapine 5 mg tablet 5 mg PO HS nystatin [Nystop] 100,000 unit/gram powder 1 applic topical BID PRN (Reason: fungal) atorvastatin 20 mg tablet 40 mg PO QPM metoprolol succinate 50 mg tablet extended release 24 hr 50 mg PO DAILY amiodarone 200 mg tablet 200 mg PO Q24H venlafaxine 75 mg capsule,extended release 24hr 75 mg PO QAM Date of admission: 01/23/25 12:01 Primary Care Provider: AudreyLorna Admitting Provider: Stuart Ewing Attending physician on admission: Stuart Ewing Condition: Stable Quality VTE Prophylaxis VTE prophylaxis: pharmacologic ordered
[2025-01-25 12:00] VITALS: PULSE 90
--- NOTE | 2025-01-25 13:46 | PC.NURSE ---
1330 DC to home via car and care of paid caregiver. instructions went over, v/u.
--- NOTE | 2025-01-26 10:17 | PC.NURSE ---
Spoke with Federica Jennings, EDI ANALYST & Clarified pt's Eliquis starter pack order submitted to [facility] and resubmitted with clarification. Call to [facility] pharmacy in [place] to notify of changes, pharmacist stated that she will get it filled and call the patient to let her know that is resolved & educate on correct directions.
--- NOTE | 2025-02-01 10:09 | PC.NURSE ---
Attempt to contact pt for f/u phone call, no answer.
== END 2025-01-25 13:30 | disposition home or self-care (01) | DRG 176 ==
LOC: CHSED 11:34 → CHS2ND 11:50
PROVIDERS: Nurse Practitioner Adult Health; Admitting Provider Internal Medicine; Emergency Provider Emergency Medicine; Visit Provider Internal Medicine
DX: I26.99 Other pulmonary embolism without acute cor pulmonale (principal); E78.5 Hyperlipidemia, unspecified; I25.10 Atherosclerotic heart disease of native coronary artery without angina pectoris; I48.91 Unspecified atrial fibrillation; I69.354 Hemiplegia and hemiparesis following cerebral infarction affecting left non-dominant side; I10 Essential (primary) hypertension; Z66 Do not resuscitate; Z95.0 Presence of cardiac pacemaker; Z93.3 Colostomy status; Z95.5 Presence of coronary angioplasty implant and graft; Z90.49 Acquired absence of other specified parts of digestive tract; Z86.74 Personal history of sudden cardiac arrest; Z85.038 Personal history of other malignant neoplasm of large intestine; Z20.822 Contact with and (suspected) exposure to COVID-19; Z79.01 Long term (current) use of anticoagulants; R06.02 Shortness of breath; J45.909 Unspecified asthma, uncomplicated; Z87.891 Personal history of nicotine dependence; I48.92 Unspecified atrial flutter; F03.90 Unspecified dementia, unspecified severity, without behavioral disturbance, psychotic disturbance, mood disturbance, and anxiety; F32.A Depression, unspecified; R56.9 Unspecified convulsions
CPT/HCPCS: 36415; 36600; 71045; 71275; 80053; 82805; 83880; 84484; 85025; 85055; 85380; 85610; 85730; 87637; 93005; 93970; 96372; 96374; 97161; 97530; 99285; A9270; J1650; J2919; J3360; Q9967